=== PATIENT | male | born 1955 | race Caucasian/White ===

== ENCOUNTER 2016-11-19 13:22 | Emergency (ER) | payer BC ==
--- NOTE | 2016-11-19 13:53 | ER Document Report ---
ED Medical Screen (RME) - General Stated Complaint: KNEE PAIN Time seen by provider: 13:49 Mode of Arrival: Wheelchair Information source: Patient Notes: 61-year-old male complaining of bilateral knee pain and right ankle pain for a week or 2. He saw his PCP Dr. King on who if him a Toradol shot, pain medicine and put him out to work until today. He is complaining of right foot swelling. No redness in the joints. He has had bilateral knee arthroscopic surgery years ago for arthritis. He thinks his knees are "wore out ". TRAVEL OUTSIDE OF THE [place] IN LAST 30 DAYS: No - Related Data Allergies/Adverse Reactions: meperidine HCl [From Demerol] Allergy (Verified 12/26/13 13:48) Past Medical History - Past Medical History Cardiac Medical History: Reports: Hx Hypertension Musculoskeltal Medical History: Reports Hx Arthritis Psychiatric Medical History: Denies: Hx Depression Past Surgical History: Reports: Hx Orthopedic Surgery - bilat knee, Hx Vascular Surgery - L inguinal hernia - Immunizations Hx Diphtheria, Pertussis, Tetanus Vaccination: No Physical Exam - Vital signs Vitals: Temp Pulse Resp BP Pulse Ox 97.9 F 86 20 124/57 L 96 11/19/16 13:37 11/19/16 13:37 11/19/16 13:37 11/19/16 13:37 11/19/16 13:37 Course - Vital Signs Vital signs: Temp Pulse Resp BP Pulse Ox 97.9 F 86 20 124/57 L 96 11/19/16 13:37 11/19/16 13:37 11/19/16 13:37 11/19/16 13:37 11/19/16 13:37
--- NOTE | 2016-11-19 14:52 | ER Document Report ---
ED Extremity Problem, Lower - General Mode of Arrival: Wheelchair Information source: Patient TRAVEL OUTSIDE OF THE [place] IN LAST 30 DAYS: No - HPI Patient complains to provider of: Pain, Swelling Location: Ankle - right, Foot - right, Knee - bilateral Occurred: Other - past few weeks Associated symptoms: Other - see above <JENNI FRY - Last Filed: 11/19/16 15:36> <JUDE BOYD - Last Filed: 11/19/16 16:58> - General Chief Complaint: Knee Pain Stated Complaint: KNEE PAIN Notes: 61 year old male with history of chronic bilateral arthritic knee pain presents to the ED complaining of bilateral knee pain, right ankle pain, and right foot/ ankle swelling that has been present for the past few weeks. Patient states that his left foot is usually swollen, and this is the first time his right foot is swollen. Patient denies injuring himself. Patient saw Dr. Duke, his primary care provider, 2 days ago and was given Percocet and a shot of Toradol. Patient's explains that Dr. Duke had referred the patient to an ortho group in [facility] and was given a brace for his knees. On 06/12/2014 patient was in the ED for cellulitis to the left foot, but the patient denies his current symptoms being similar to when he had that cellulitis. Patient is additionally complaining of right calf pain for the past few weeks. Patient states that he has been taking Percocet for the past few months secondary to the pain. Patient is also on Lasix, Lisinopril, and Naproxen. (JENNI FRY) - Related Data Allergies/Adverse Reactions: meperidine HCl [From Demerol] Allergy (Verified 12/26/13 13:48) Past Medical History - General Information source: Patient - Social History Smoking Status: Former Smoker Family History: Reviewed & Not Pertinent - Past Medical History Cardiac Medical History: Reports: Hx Hypertension Renal/ Medical History: Denies: Hx Peritoneal Dialysis Musculoskeltal Medical History: Reports Hx Arthritis Past Surgical History: Reports: Hx Vascular Surgery - L inguinal hernia - Immunizations Hx Diphtheria, Pertussis, Tetanus Vaccination: No <JENNI FRY - Last Filed: 11/19/16 15:36> Review of Systems - Review of Systems Constitutional: No symptoms reported EENT: No symptoms reported Cardiovascular: No symptoms reported Respiratory: No symptoms reported Gastrointestinal: No symptoms reported Genitourinary: No symptoms reported Male Genitourinary: No symptoms reported Musculoskeletal: See HPI, Joint pain - bilateral knees and right ankle, Ankle swelling, Other - right foot swelling and right calf pain Skin: No symptoms reported Hematologic/Lymphatic: No symptoms reported Neurological/Psychological: No symptoms reported -: Yes All other systems reviewed and negative <JENNI FRY - Last Filed: 11/19/16 15:36> Physical Exam - General General appearance: Alert In distress: None - HEENT Head: Normocephalic, Atraumatic Eyes: Normal Extraocular movements intact: Yes Pupils: PERRL - Respiratory Respiratory status: No respiratory distress Breath sounds: Normal - Cardiovascular Rhythm: Regular Heart sounds: Normal auscultation - Abdominal Inspection: Morbidly Obese. No: Normal Distension: No distension Bowel sounds: Normal Tenderness: Nontender - Back Back: Normal - Extremities General upper extremity: Normal inspection, Normal ROM General lower extremity: Edema - right lower extremity pitting edema, tense, indurated, and erythematous, Other - Area from right calf to right foot is warm to touch.. No: Normal inspection - see ankle, calf, and foot exam below Knee: Normal, Nontender. No: Joint effusion Calf: Other - Right calf firm and tender to palpate. No: Normal Ankle: Edema - right ankle is eryhthematous, swollen, and tender to palpate.. No: Normal Foot: Edema - right foot is eryhthematous, swollen, and tender to palpate.. No : Normal - Neurological Neuro grossly intact: Yes - Psychological Associated symptoms: Normal affect, Normal mood - Skin Skin Temperature: Warm Skin Moisture: Dry Skin Color: Normal <JENNI FRY - Last Filed: 11/19/16 15:36> <JUDE BOYD - Last Filed: 11/19/16 16:58> - Vital signs Vitals: Temp Pulse Resp BP Pulse Ox 97.9 F 86 20 124/57 L 96 11/19/16 13:37 11/19/16 13:37 11/19/16 13:37 11/19/16 13:37 11/19/16 13:37 (JENNI FRY) (JUDE BOYD) Course - Laboratory Result Diagrams: 11/19/16 15:22 11/19/16 15:22 <JENNI FRY - Last Filed: 11/19/16 15:36> - Laboratory Result Diagrams: 11/19/16 15:22 11/19/16 15:22 - Diagnostic Test Radiology reviewed: Image reviewed, Reports reviewed - Bilateral knee x-rays show osteoarthritic changes and nothing acute. The right ankle x-ray shows soft tissue swelling with some degenerative changes. <JUDE BOYD - Last Filed: 11/19/16 16:58> - Re-evaluation Re-evalutation: 11/19/16 16:12 The patient's uric acid is 10.3, it is never been checked here before an unknown if it is ever been checked. His BUN is 38, creatinine 1.48, and potassium is 6.0 His last lab work here was during an admission in 2013 when he had renal insufficiency diagnoses acute injury and elevated potassium but not quite this high. At that time his lisinopril was stopped when he was discharged. He is currently taking lisinopril 20 mg twice a day and Naprosyn twice a day along with Lasix. The venous Doppler did not show DVT. On further questioning the patient reports that he eats bananas one to 2 times per week and eats oranges because he has leg cramps. (JUDE BOYD) - Vital Signs Vital signs: Temp Pulse Resp BP Pulse Ox 97.9 F 86 20 124/57 L 96 11/19/16 13:43 11/19/16 13:43 11/19/16 13:43 11/19/16 13:43 11/19/16 13:43 (JENNI FRY) (JUDE BOYD) - Laboratory Laboratory results interpreted by mo: 11/19/16 11/19/16 15:22 15:22 RBC 4.19 L Hgb 12.0 L Hct 36.9 L RDW 15.1 H Band Neutrophils % 1 L Potassium 6.0 H* BUN 38 H Creatinine 1.48 H Est GFR ( Amer) 58 L Est GFR (Non-Af Amer) 48 L Uric Acid 10.3 H Calcium 8.3 L Albumin 3.1 L (JUDE BOYD) Discharge <JENNI FRY - Last Filed: 11/19/16 15:36> <JUDE BOYD - Last Filed: 11/19/16 16:58> - Discharge Clinical Impression: Chronic renal insufficiency, stage III (moderate) Gout Qualifiers: Gout site: ankle Gout etiology: unspecified cause Laterality: right Chronicity : acute Qualified Code(s): M10.9 - Gout, unspecified Condition: Stable Disposition: HOME, SELF-CARE Additional Instructions: Gout: You have been diagnosed as having gout. Gout is a problem caused by an excess of uric acid, a natural chemical found in the body. The cause of this disease is unknown. Gout arthritis occurs when crystals of uric acid form in the joints. The big toe is the most common joint involved, but any joint can become affected. Persons with gout may also form uric acid kidney stones, resulting in flank pain and blood in the urine. Nodules of uric acid may form under the skin. The first step of treatment is to decrease the inflammation in the joint with antiinflammatory medication. Medication to lower the uric acid level in the blood may then be prescribed. This medication should be taken regularly, as any sudden change in dosage may provoke an attack of gout. Some foods, such as red meat, can provoke an attack in some gout sufferers. Call the doctor if new symptoms arise, or if you do not improve. Hyperkalemia: Your potassium level was quite high at 6.0 You were given medication to help reduce the potassium in your blood stream. You should stop eating bananas, oranges, and any other fruits, foods, and liquids that are high in potassium. Dehydration: You have become somewhat dehydrated, probably due to the Lasix you're taking. This has made your kidney function worse and caused her potassium to go quite high. In addition to eliminating potassium in your diet, you should drink plenty of water today. Trying to limit your sodium intake, as that will also lead to swelling of your legs. Peripheral edema: Elevate your feet all the time for the next few days to help reduce the swelling. TAKE THE PREDNISONE PRESCRIBED. START TOMORROW MORNING(Monday). ELEVATE YOUR FEET ALL THE TIME. STOP TAKING NAPROSYN. STOP TAKING LISINOPRIL UNTIL YOU TALK WITH YOUR DOCTOR MONDAY. AVOID POTASSIUM IN YOUR DIET. DRINK PLENTY OF WATER TODAY. FOLLOW UP WITH DR. DUKE ON MONDAY TO REVIEW YOUR LAB WORK AND MEDICATIONS. RETURN TO THE EMERGENCY ROOM IF ANY NEW OR WORSENING SYMPTOMS. Prescriptions: Prednisone [Deltasone 10 mg Tablet] 10 mg PO ASDIR PRN #21 tablet PRN Reason: Forms: Return to Work Referrals: ALFREDITO DUKE MD [Primary Care Provider] - 11/21/16 Scribe Attestation: 11/19/16 16:58 I personally performed the services described in the documentation, reviewed and edited the documentation which was dictated to the scribe in my presence, and it accurately records my words and actions. (JUDE BOYD) Scribe Documentation - Scribe Written by Scribe:: Pawan Valdez, 11/19/2016 1524 acting as scribe for :: Cindy <JENNI FRY - Last Filed: 11/19/16 15:36>
[2016-11-19 15:33] LABS: HEMATOCRIT 36.9 % (37.9-51.0); HGB HCT DIFFERENCE -0.9; MEAN CORPUSCULAR HEMOGLOBIN 28.6 pg (27.0-33.4); MEAN CORPUSCULAR HGB CONC 32.5 g/dL (32.0-36.0); MEAN CORPUSCULAR VOLUME 88 fl (80-97); RED BLOOD COUNT 4.19 10^6/uL (4.35-5.55); RED CELL DISTRIBUTION WIDTH 15.1 % (11.5-14.0); WHITE BLOOD COUNT 6.5 10^3/uL (4.0-10.5)
[2016-11-19 15:49] LABS: BAND NEUTROPHILS % (MANUAL) 1 % (3-5); BASOPHILS % (MANUAL) 0 % (0-2); EOSINOPHILS % (MANUAL) 3 % (0-6); LYMPHOCYTES % (MANUAL) 15 % (13-45); TOTAL CELLS COUNTED 100
[2016-11-19 15:51] LABS: PLATELET CLUMPS PRESENT; RBC MORPHOLOGY COMMENT NORMO-CYTIC/CHROMIC
[2016-11-19 15:53] LABS: ALANINE AMINOTRANSFERASE 25 U/L (21-72); ALBUMIN 3.1 g/dL (3.5-5.0); ALKALINE PHOSPHATASE 65 U/L (38-126); ANION GAP 12 (5-19); ASPARTATE AMINO TRANSFERASE 25 U/L (17-59); BILIRUBIN,TOTAL 0.4 mg/dL (0.2-1.3); BLOOD UREA NITROGEN 38 mg/dL (7-20); CALCIUM 8.3 mg/dL (8.4-10.2); CARBON DIOXIDE 25 mmol/L (22-30); CHLORIDE 107 mmol/L (98-107); CREATININE RESULT 1.48 mg/dL (0.52-1.25); GLUCOSE 93 mg/dL (75-110); SODIUM 144.2 mmol/L (137-145); TOTAL PROTEIN 6.4 g/dL (6.3-8.2); URIC ACID 10.3 mg/dL (3.5-8.5)
[2016-11-19] MEDS ORDERED: PREDNISONE 20 MG TABLET PO ONE (16:24)
[2016-11-19] MEDS ORDERED: SODIUM POLYSTYRENE SULFONATE 15 GM/60 ML PO ONE (16:27)
[2016-11-19 17:19] VITALS: BP 146/71
== END 2016-11-19 17:19 | disposition home or self-care (01) ==
LOC: ER 13:22
DX: N18.3 Chronic kidney disease, stage 3 (moderate) (principal); M10.9 Gout, unspecified; M25.561 Pain in right knee; M25.562 Pain in left knee; M25.571 Pain in right ankle and joints of right foot; M79.89 Other specified soft tissue disorders; Z79.899 Other long term (current) drug therapy; Z87.891 Personal history of nicotine dependence
CPT/HCPCS: 99284; 36415; 84550; 85025; 80053; 93971; 73610; 73560; J7512

== ENCOUNTER 2016-11-26 18:53 | Emergency (ER) | payer BC ==
--- NOTE | 2016-11-26 19:02 | ER Document Report ---
ED Medical Screen (RME) - General Stated Complaint: RIGHT LEG PAIN Mode of Arrival: Wheelchair Information source: Patient Notes: Patient complains of gout flareup affecting his right knee and ankle. Patient reports symptoms for the past 2 weeks. No improvement with allopurinol or oxycodone. No fever. Patient states he was emergency room last week for this complaint. Hx: Hypertension, gout I have greeted and performed a rapid initial assessment of this patient. A comprehensive ED assessment and evaluation of the patient, analysis of test results and completion of the medical decision making process will be conducted by additional ED providers. TRAVEL OUTSIDE OF THE [place] IN LAST 30 DAYS: No - Related Data Allergies/Adverse Reactions: meperidine HCl [From Demerol] Allergy (Verified 12/26/13 13:48) Past Medical History - Past Medical History Cardiac Medical History: Reports: Hx Hypertension Renal/ Medical History: Denies: Hx Peritoneal Dialysis Musculoskeltal Medical History: Reports Hx Arthritis Psychiatric Medical History: Denies: Hx Depression Past Surgical History: Reports: Hx Orthopedic Surgery - bilat knee, Hx Vascular Surgery - L inguinal hernia - Immunizations Hx Diphtheria, Pertussis, Tetanus Vaccination: No Physical Exam - Extremities General lower extremity: Tender - Right knee
[2016-11-26] MEDS ORDERED: PREDNISONE 20 MG TABLET PO ONE (21:20)
[2016-11-26] MEDS ORDERED: OXYCODONE-ACETAMINOPHEN 5-325 MG TABLET PO ONE (21:20)
--- NOTE | 2016-11-26 21:44 | ER Document Report ---
ED General - General Chief Complaint: Leg Pain Stated Complaint: RIGHT LEG PAIN Mode of Arrival: Wheelchair Notes: Patient is a 61-year-old male who presents with ongoing right ankle and knee pain for which he was seen 7 days ago. Patient states that the pain was improved when he was on prednisone but returned after the prednisone wore off. Describes the pain as being primarily located in the right ankle as a severe, constant, dull throbbing pain. It is worsened by walking on it. He has taken Percocet with moderate improvement of the pain. No history of similar symptoms in the past. He has not seen his primary care physician regarding today's concerns. Denies any injury to the area. TRAVEL OUTSIDE OF THE [place] IN LAST 30 DAYS: No - Related Data Allergies/Adverse Reactions: meperidine HCl [From Demerol] Allergy (Verified 11/26/16 19:00) triazolam [From Halcion] Allergy (Verified 11/26/16 19:00) Past Medical History - General Information source: Patient - Social History Smoking Status: Never Smoker Chew tobacco use (# tins/day): No Frequency of alcohol use: None Drug Abuse: None Lives with: Spouse/Significant other Family History: Reviewed & Not Pertinent Patient has suicidal ideation: No Patient has homicidal ideation: No - Past Medical History Cardiac Medical History: Reports: Hx Hypertension Renal/ Medical History: Denies: Hx Peritoneal Dialysis Musculoskeltal Medical History: Reports Hx Arthritis Psychiatric Medical History: Denies: Hx Depression Past Surgical History: Reports: Hx Orthopedic Surgery - bilat knee, Hx Vascular Surgery - L inguinal hernia - Immunizations Hx Diphtheria, Pertussis, Tetanus Vaccination: No Review of Systems - Review of Systems Notes: Constitutional: Negative for fever. HENT: Negative for sore throat. Eyes: Negative for visual changes. Cardiovascular: Negative for chest pain. Respiratory: Negative for shortness of breath. Gastrointestinal: Negative for abdominal pain, vomiting or diarrhea. Genitourinary: Negative for dysuria. Musculoskeletal: Negative for back pain. Positive for right ankle and knee pain Skin: Negative for rash. Neurological: Negative for headaches, weakness or numbness. 10 point ROS negative except as marked above and in HPI. Physical Exam - Vital signs Vitals: Temp Pulse Resp BP Pulse Ox 97.8 F 82 19 139/60 H 97 11/26/16 19:01 11/26/16 19:01 11/26/16 19:01 11/26/16 19:01 11/26/16 19:01 Interpretation: Normal Notes: PHYSICAL EXAMINATION: GENERAL: Well-appearing, well-nourished and in no acute distress. HEAD: Atraumatic, normocephalic. EYES: Pupils equal round and reactive to light, extraocular movements intact, sclera anicteric, conjunctiva are normal. ENT: nares patent, oropharynx clear without exudates. Moist mucous membranes. NECK: Normal range of motion, supple without lymphadenopathy LUNGS: Breath sounds clear to auscultation bilaterally and equal. No wheezes rales or rhonchi. HEART: Regular rate and rhythm without murmurs ABDOMEN: Soft, nontender, normoactive bowel sounds. No guarding, no rebound. No masses appreciated. EXTREMITIES: Mild swelling to the right ankle without deformity. Minimal overlying erythema. Pain on palpation of the ankle joint space NEUROLOGICAL: No focal neurological deficits. Moves all extremities spontaneously and on command. PSYCH: Normal mood, normal affect. SKIN: Warm, Dry, normal turgor, no rashes or lesions noted. Course - Re-evaluation Re-evalutation: 11/27/16 02:53 Presentation is most consistent with an ongoing acute gout flare of the right ankle. Patient had a venous Doppler study performed on this prior presentation which was normal without evidence of DVT or superficial thrombosis. Physical history is not consistent with an acute septic joint as patient has not had any constitutional symptoms has no leukocytosis on laboratories, and states that the symptoms were resolved as long as he was taking steroids. I suspect that his symptoms are primarily due to his chronic kidney disease as a source of his gout flare. I will restart him on steroids at this time and I recommended close outpatient follow-up.At this time will discharge with return precautions and follow-up recommendations. Verbal discharge instructions given a the bedside and opportunity for questions given. Medication warnings reviewed. Patient is in agreement with this plan and has verbalized understanding of return precautions and the need for primary care follow-up in the next 24-72 hours. - Vital Signs Vital signs: Temp Pulse Resp BP Pulse Ox 98.7 F 72 18 147/51 H 97 11/26/16 21:44 11/26/16 21:44 11/26/16 21:44 11/26/16 21:44 11/26/16 21:44 Discharge - Discharge Clinical Impression: Gout of right ankle Qualifiers: Gout etiology: due to renal impairment Chronicity: acute Qualified Code(s): M10.371 - Gout due to renal impairment, right ankle and foot Condition: Good Disposition: HOME, SELF-CARE Additional Instructions: Your symptoms are due to gout. These can take several weeks to resolve. Take the steroids as prescribed and continue to take the pain medication prescribed by your primary care doctor (Percocet) every 4 hours as needed for severe pain. Return for worsening pain, fever, vomiting, body aches, or any other symptoms that are worrisome to you. Prescriptions: Prednisone [Deltasone 20 mg Tablet] 3 tab PO DAILY 5 Days Forms: Return to Work Referrals: ALFREDITO DUKE MD [Primary Care Provider] - Follow up as needed
[2016-11-26 21:45] VITALS: BP 147/51
== END 2016-11-26 22:10 | disposition home or self-care (01) ==
LOC: ER 18:53
DX: M10.371 Gout due to renal impairment, right ankle and foot (principal); M79.604 Pain in right leg; I10 Essential (primary) hypertension
CPT/HCPCS: 99283; J7512

== ENCOUNTER → 2017-02-10 | Outpatient (CLI) | payer BC ==
[2017-02-10 12:44] LABS: HEMATOCRIT 36.9 % (37.9-51.0); HEMOGLOBIN 11.6 g/dL (13.5-17.0); HGB HCT DIFFERENCE -2.1; MEAN CORPUSCULAR HEMOGLOBIN 27.7 pg (27.0-33.4); MEAN CORPUSCULAR HGB CONC 31.4 g/dL (32.0-36.0); MEAN CORPUSCULAR VOLUME 88 fl (80-97); RED BLOOD COUNT 4.19 10^6/uL (4.35-5.55); RED CELL DISTRIBUTION WIDTH 16.8 % (11.5-14.0); WHITE BLOOD COUNT 6.3 10^3/uL (4.0-10.5)
[2017-02-10 13:06] LABS: ALANINE AMINOTRANSFERASE 26 U/L (21-72); ALBUMIN 3.3 g/dL (3.5-5.0); ALKALINE PHOSPHATASE 72 U/L (38-126); ANION GAP 8 (5-19); ASPARTATE AMINO TRANSFERASE 15 U/L (17-59); BLOOD UREA NITROGEN 45 mg/dL (7-20); C-REACTIVE PROTEIN 42.2 mg/L (<10.0); CALCIUM 9.1 mg/dL (8.4-10.2); CARBON DIOXIDE 34 mmol/L (22-30); CHLORIDE 104 mmol/L (98-107); CREATININE RESULT 1.82 mg/dL (0.52-1.25); GLUCOSE 96 mg/dL (75-110); POTASSIUM 5.5 mmol/L (3.6-5.0); SODIUM 145.8 mmol/L (137-145); TOTAL PROTEIN 6.2 g/dL (6.3-8.2)
[2017-02-10 13:17] LABS: BILIRUBIN,TOTAL 0.5 mg/dL (0.2-1.3)
[2017-02-10 13:40] LABS: ERYTHROCYTE SEDIMENTATION RATE 48 mm/hr (0-20)
== END ==
LOC: OD 11:44
PROVIDERS: ATTEND Surgery
DX: L97.212 Non-pressure chronic ulcer of right calf with fat layer exposed (principal)
CPT/HCPCS: 36415; 80053; 83036; 85027; 85652; 86140

== ENCOUNTER → 2017-02-28 | Outpatient (CLI) | payer BC ==
--- NOTE | 2017-03-02 11:09 | XCELERA REPORT ---
[address] [address] Lower Extremity Arterial Evaluation Name: ZEINA KRUGER Age: 61 yrs Gender: Male : 1955 Patient Status: Outpatient Patient Location: Study Date: 02/28/2017 08:02 AM Procedure: A color flow and duplex scan of the lower extremity arteries was performed bilaterally with velocity and waveform anaylsis. Ankle brachial indicies performed. Reason For Study: L97.212/222 Ordering Physician: EVERT KAHN Performed By: Leonardo Sellers Measurements and Calculations Right Left ENVIRONMENTAL INSPECTOR PSV 178.4 188.6 cm/sec Prox SFA PSV 162.4 151.6 cm/sec Dist SFA PSV -191.5 -198.4 cm/sec Dist Pop A PSV 136.2 60.3 cm/sec Dist VIDAL PSV 142.2 148.5 cm/sec Dist SANDING MACHINE OPERATOR PSV 105.9 -117.5 cm/sec Edgar Pedis PSV -107.0 174.6 cm/sec Right Side Arterial Evaluation Normal velocity and triphasic waveforms noted from the Common Femoral artery to the infrageniculate vessels. 0 % stenosis noted. Ankle Brachial index is 1.14. Left Side Arterial Evaluation Normal velocity and triphasic waveforms noted in the Common Femoral artery, then biphasic with little broadening, well preserved velocity to the infrageniculate vessels. 0-19 % stenosis noted. At the Femoral artery. Ankle Brachial index is 1.14. Interpretation Summary No hemodynamically significant lesions in the right lower extremity only, on duplex imaging, at rest. Mild hemodynamically significant lesions in the left lower extremity only, on duplex imaging, at rest. : EVERT KAHN > Evert Kahn
--- NOTE | 2017-03-02 12:09 | XCELERA REPORT ---
[address] [address] Lower Extremity Venous Evaluation Name: ZEINA KRUGER Age: 61 yrs Gender: Male : 1955 Patient Status: Outpatient Patient Location: Study Date: 02/28/2017 08:27 AM Procedure: A bilateral duplex scan of the lower extremity veins was performed. The evaluation included responses to compression and other maneuvers with patient in the supine and standing positions to assess venous insufficiency. Reason For Study: L97.212/222 Ordering Physician: PUJA KAHN Performed By: Leonardo Sellers Right Sided Venous Evaluation Deep venous system evaluatiion shows patent veins with no obstruction or significant reflux identified. Sapheno Femoral junction: no reflux. Femoral vein reflux: no reflux. Greater Saphenous vein, Proximal thigh: reflux: no reflux. Greater Saphenous vein, Distal thigh: reflux: no reflux. Greater Saphenous vein, Proximal below knee: reflux: no reflux. No significant Perforators identified. Left Sided Venous Evaluation Deep venous system evaluatiion shows patent veins with no obstruction or significant reflux identified. Sapheno Femoral junction: no reflux. Femoral vein reflux: no reflux. Greater Saphenous vein, Proximal thigh: reflux: no reflux. Greater Saphenous vein, Distal thigh: reflux: no reflux. Greater Saphenous vein, Proximal below knee: reflux: no reflux. No significant Perforators identified. Interpretation Summary No duplex evidence of DVT or obstruction in the bilateral lower extremities. No significant reflux identified. : PUJA KAHN > Puja Kahn
== END ==
LOC: SP 07:27
PROVIDERS: ATTEND Surgery
DX: L97.212 Non-pressure chronic ulcer of right calf with fat layer exposed (principal); L97.222 Non-pressure chronic ulcer of left calf with fat layer exposed
CPT/HCPCS: 93925; 93970

== ENCOUNTER 2017-03-12 23:08 | Emergency (ER) | payer BC ==
[2017-03-12] MEDS ORDERED: MIDAZOLAM 2 MG/2 ML INJ ONE ×3 (23:36→23:43)
--- NOTE | 2017-03-12 23:37 | ER Document Report ---
ED Respiratory Problem - General Mode of Arrival: Medic Information source: Emergency Med Personnel TRAVEL OUTSIDE OF THE [place] IN LAST 30 DAYS: No - HPI Patient complains to provider of: Other - Respiratory distress Associated symptoms: Other - See above <JOSE R POTTS - Last Filed: 03/13/17 04:10> <TORRIE REDDY - Last Filed: 03/13/17 06:42> - General Chief Complaint: Respiratory Distress Stated Complaint: Respiratory distress Time Seen by Provider: 03/12/17 23:10 Notes: Patient is a 61 year old male, with a past medical history including stage III kidney disease, who presents to the emergency department via EMS for respiratory distress. Per EMS, patient called for dizziness initially and when they arrived he reported that he could only breath if he was sitting forward. EMS recorded patient's O2 saturation at 42% on room air when they arrived. Patient was able to get on the stretcher by himself and was alert at first, en route patient became altered and arrived to facility unconscious. Family report that patient has had cellulitis for the past 2 months and just finished a course of antibiotics. Per family, patient has been less active recently but still works 5 day a week at [employer] Family deny patient mentioning chest pain and fever. Patient is taking Percocet for his cellulitis. PCP: Dr. King Mix Crusher Operator: Dr. Britton (JOSE R POTTS) - Related Data Allergies/Adverse Reactions: meperidine HCl [From Demerol] Allergy (Verified 11/26/16 19:00) triazolam [From Halcion] Allergy (Verified 11/26/16 19:00) Past Medical History - General Information source: Emergency Med Personnel - Social History Smoking Status: Former Smoker - 10 years Chew tobacco use (# tins/day): No Frequency of alcohol use: Occasional Drug Abuse: None Family History: Reviewed & Not Pertinent, DM, Other - Heart attack - Past Medical History Cardiac Medical History: Reports: Hx Hypertension Renal/ Medical History: Reports: Other - Kidney disease Musculoskeltal Medical History: Reports Hx Arthritis Skin Medical History: Reports Hx Cellulitis Past Surgical History: Reports: Hx Orthopedic Surgery - bilat knee, Hx Vascular Surgery - L inguinal hernia - Immunizations Hx Diphtheria, Pertussis, Tetanus Vaccination: No <JOSE R POTTS - Last Filed: 03/13/17 04:10> Review of Systems - Review of Systems -: Yes ROS unobtainable due to patient's medical condition - unconscious <JOSE R POTTS - Last Filed: 03/13/17 04:10> Physical Exam <JOSE R POTTS - Last Filed: 03/13/17 04:10> <TORRIE REDDY - Last Filed: 03/13/17 06:42> - Vital signs Vitals: Resp Pulse Ox 20 100 03/12/17 23:10 03/12/17 23:10 - Notes Notes: GENERAL: Respiratory distress. Morbidly obese. HEAD: Normocephalic, atraumatic. ENT: Oral mucosa moist, tongue midline. NECK: Full range of motion. Supple. Trachea midline. LUNGS: Breath sounds diminished, no wheezes, rales, or rhonchi heard. HEART: Regular rate and rhythm. No murmurs, gallops, or rubs. ABDOMEN: Soft, non-tender. Bowel sounds present in all 4 quadrants. GENITOURINARY: Scrotum and penis grossly edematous, no erythema. EXTREMITIES: Lower extremities with weeping cellulitis and 4+ pitting edema to level of groin bilaterally. Toenails hypertrophic. Radial and dorsalis pedis pulses 2/4 bilaterally. NEUROLOGICAL: Unable to answer questions, responds to painful stimuli. (JOSE R POTTS) Course - Laboratory Result Diagrams: 03/13/17 00:20 03/13/17 02:22 - Consults Dr. Bland Time consulted: 02:50 [place] Time consulted: 03:06 <JOSE R POTTS - Last Filed: 03/13/17 04:10> - Laboratory Result Diagrams: 03/13/17 00:20 03/13/17 02:22 <TORRIE REDDY - Last Filed: 03/13/17 06:42> - Re-evaluation Re-evalutation: 03/13/17 06:38 Patient arrived unresponsive and in severe respiratory distress unable to protect his airway and becoming progressively more hypoxic at high risk for aspiration. Patient was intubated sitting upright after being preoxygenated using high flow oxygen via nasal cannula using initially an attempt with a 4 MAC and then using the glide scope, 8 oh ET tube was passed without difficulty chest x-ray confirmed good position, NG tube was shown to be around the GE junction so was then advanced further. Patient was placed on a Versed drip. And a bolus of etomidate until the Versed kicked in. CBC shows minimal anemia with a hemoglobin 12.0 but no leukocytosis, platelets normal, CMP shows hyperkalemia at 6.9, this was treated with calcium, bicarb, insulin and glucose. It was repeated to confirm that this is not simply hemolysis but the potassium was 6.7 on the repeat so this appears to be true hyperkalemia despite no changes on the EKG. Chemistries also show acute on chronic renal failure with a BUN of 58 and creatinine of 2.66, lactic acid is normal at 1.4, cardiac enzymes initially negative, proBNP elevated at 1800 despite no history of congestive heart failure, Lasix was given to help with both the potassium and the congestive heart failure. Arterial blood gas shows respiratory acidosis with a CO2 of 88.5 and a pH of 7.17. I did discuss this patient with the hospitalist Dr. Bland who refused to accept the admission until I had discussed the patient with nephrology from [facility] to make sure they agreed that he did not need dialysis. After discussing the patient with Dr. Romeo she was at [facility] the construction and maintenance inspector projection engineer she advised that we give [address]. Bland then called and informed me that he no longer had any ICU beds left available at our hospital so the patient would have to be transferred after all. I then called [facility] once again and the patient was accepted by the MICU attending Dr. Conti. No further interventions were requested. We did have difficulty getting a Montoya catheter placed in this patient, nursing was unable to place a Montoya catheter so I did eventually place a 14 Zimbabwean coud catheter and we obtained clear yellow urine. The degree of edema that he had around his penis and scrotum may be contributing to the acute renal failure by causing urinary retention. This has been relieved by the coud catheter. Patient continues to be intubated, oxygenating well as long as he is in the upright position, stable for transport at this time. (TORRIE REDDY) - Vital Signs Vital signs: Temp Pulse Resp BP Pulse Ox 97.8 F 20 130/74 H 99 03/13/17 06:19 03/13/17 03:26 03/13/17 03:26 03/13/17 04:07 - Laboratory Laboratory results interpreted by me: 03/13/17 03/13/17 03/13/17 00:20 00:20 00:20 Hgb 12.1 L MCHC 30.1 L RDW 17.2 H Seg Neutrophils % 83.9 H Lymphocytes % 7.8 L Carbonic Acid ABG pH ABG pCO2 ABG HCO3 ABG Total CO2 ABG O2 Saturation Sodium 146.9 H Potassium 6.9 H* Chloride BUN 58 H Creatinine 2.66 H Est GFR ( Amer) 30 L Est GFR (Non-Af Amer) 25 L Glucose 131 H Direct Bilirubin 0.6 H Creatine Kinase 52 L NT-Pro-B Natriuret Pep 1800 H 03/13/17 03/13/17 01:16 02:22 Hgb MCHC RDW Seg Neutrophils % Lymphocytes % Carbonic Acid 2.66 H ABG pH 7.17 L* ABG pCO2 88.5 H* ABG HCO3 31.6 H ABG Total CO2 34.3 H ABG O2 Saturation 92.6 L Sodium 145.1 H Potassium 6.7 H* Chloride 108 H BUN 61 H Creatinine 2.34 H Est GFR ( Amer) 34 L Est GFR (Non-Af Amer) 28 L Glucose 228 H Direct Bilirubin Creatine Kinase NT-Pro-B Natriuret Pep - EKG Interpretation by Me Additional EKG results interpreted by me: 03/13/17 06:42 EKG shows sinus rhythm at a rate of 68, normal axis, normal intervals, no ST segment elevations or depressions, nonspecific T-wave inversions isolated to lead III per my interpretation. (TORRIE REDDY) - Consults Dr. Bland Reason for consultation: 03/13/[address] Bland requests I call [facility] regarding patient's hyperkalemia before discussing admission of patient. (JOSE R POTTS) [facility] Reason for consultation: 03/13/17 03:06 Discussed patient with [facility] who states they will page the construction and maintenance inspector 03/13/17 03:36 Discussed patient's condition with nephrology, Dr. Agueda Lopez, at [facility] who believe it is appropriate to medically manage patient's hyperkalemia 03/13/17 04:10 Dr. Conti will accept patient transfer to MICU. (JOSE R POTTS) Procedures - Intubation Orotracheal Airway evaluation: Large tongue, Obese Mallampati Classification: Class 3 Medications: Ketamine Intubation method: Orotracheal Blade type: Greg Blade size: 4 Equipment used: Glidescope ETT size: 8.0 ETT secured at: Teeth ETT secured at (cm): 22 Breath Sounds after Intubation: Equal End tidal CO2 confirmed: Yes Ventilator settings: SIMV Tidal volume: 450 FiO2: 30 Respirations: 16 Pressure support: 10 PEEP: 5 Post Intubation Xray: Yes Intubation Complications: No complications - Additional Procedures montoya Catheter Additional Procedures: Other - Montoya catheter <TORRIE REDDY - Last Filed: 03/13/17 06:42> - Additional Procedures montoya Catheter Notes: 03/13/17 06:40 Coud catheter placement by myself, 14 Zimbabwean. There is difficulty in placing a regular catheter due to the degree of edema of the patient's penis and scrotum. Coud was passed without complication and clear yellow urine was obtained. (TORRIE REDDY) Critical Care Note - Critical Care Note Total time excluding time spent on procedures (mins): 90 <TORRIE REDDY - Last Filed: 03/13/17 06:42> Discharge <JOSE R POTTS - Last Filed: 03/13/17 04:10> <TORRIE REDDY - Last Filed: 03/13/17 06:42> - Discharge Clinical Impression: Morbid obesity with BMI of 45.0-49.9, adult, Acute respiratory failure with hypoxia and hypercapnia, Acute kidney injury superimposed on chronic kidney disease, Hyperkalemia, Acute respiratory acidosis, Chronic cellulitis Congestive heart failure Qualifiers: Congestive heart failure type: unspecified congestive heart failure type Congestive heart failure chronicity: acute Qualified Code(s): I50.9 - Heart failure, unspecified Condition: Critical Disposition: [facility] Scribe Attestation: 03/13/17 06:42 I personally performed the services described in the documentation, reviewed and edited the documentation which was dictated to the scribe in my presence, and it accurately records my words and actions. (TORRIE REDDY) Scribe Documentation - Scribe Written by Elye:: houston Jack, 03/13/17, 0027 acting as scribe for :: Miller <JOSE R POTTS - Last Filed: 03/13/17 04:10>
[2017-03-12] MEDS ORDERED: MIDAZOLAM HCL 100 ML IV PRN (23:40)
[2017-03-12] MEDS ORDERED: ETOMIDATE INJ/PF 20 MG/10 ML SDV IV ONE (23:40)
[2017-03-12] MEDS ORDERED: KETAMINE HCL INJ 500 MG/10 ML VIAL IV ONE (23:40)
--- NOTE | 2017-03-12 23:51 | EKG REPORT ---
SEVERITY:- BORDERLINE ECG - SINUS RHYTHM BORDERLINE R WAVE PROGRESSION, ANTERIOR LEADS BORDERLINE T ABNORMALITIES, INFERIOR LEADS : Confirmed by: Rl Franklin 12-Mar-2017 23:51:08
--- NOTE | 2017-03-13 00:08 | RADIOLOGY REPORT (SQ) ---
EXAM DESCRIPTION: CHEST SINGLE VIEW COMPLETED DATE/TIME: 03/12/2017 11:51 pm REASON FOR STUDY: SOB, intubated COMPARISON: None. EXAM PARAMETERS: NUMBER OF VIEWS: One view. TECHNIQUE: Single frontal radiographic view of the chest acquired. RADIATION DOSE: NA LIMITATIONS: None. FINDINGS: LUNGS AND PLEURA: Bibasilar atelectasis-airspace disease -effusions. MEDIASTINUM AND HILAR STRUCTURES: Age-appropriate. HEART AND VASCULAR STRUCTURES: Normal size. BONES: No acute findings. HARDWARE: Endotracheal tube tip overlies the mid trachea approximately 5.5 cm above the level of the loretta. A nasogastric catheter is present with tip overlying the distal esophagus above the GE junct ion and could be advanced approximately 10 cm for more ideal placement. OTHER: No other significant finding. IMPRESSION: Bibasilar atelectasis-airspace disease -effusions. Endotracheal tube tip overlies the mi d trachea approximately 5.5 cm above the level of the loretta. A nasogastric catheter is present with tip overlying the distal esophagus above the GE junction and could be advanced approximately 10 cm f or more ideal placement. TECHNICAL DOCUMENTATION: JOB ID: [id number]
[2017-03-13 00:48] LABS: ABSOLUTE BASOPHILS # (AUTO) 0.1 10^3/uL (0.0-0.2); ABSOLUTE LYMPHOCYTES (AUTO) 0.6 10^3/uL (0.5-4.7); ABSOLUTE MONOCYTES (AUTO) 0.5 10^3/uL (0.1-1.4); ABSOLUTE NEUT (AUTO) 5.9 10^3/uL (1.7-8.2); BASOPHILS % (AUTO) 0.8 % (0-2); EOSINOPHILS % (AUTO) 0.1 % (0-6); HEMATOCRIT 40.2 % (37.9-51.0); HEMOGLOBIN 12.1 g/dL (13.5-17.0); HGB HCT DIFFERENCE -3.9; LYMPHOCYTES % (AUTO) 7.8 % (13-45); MEAN CORPUSCULAR HEMOGLOBIN 27.5 pg (27.0-33.4); MEAN CORPUSCULAR HGB CONC 30.1 g/dL (32.0-36.0); MEAN CORPUSCULAR VOLUME 91 fl (80-97); MONOCYTES % (AUTO) 7.4 % (3-13); RED BLOOD COUNT 4.41 10^6/uL (4.35-5.55); RED CELL DISTRIBUTION WIDTH 17.2 % (11.5-14.0); SEGMENTED NEUTROPHILS % (AUTO) 83.9 % (42-78)
[2017-03-13 00:49] LABS: ALANINE AMINOTRANSFERASE 44 U/L (21-72); ALKALINE PHOSPHATASE 70 U/L (38-126); ANION GAP 11 (5-19); ASPARTATE AMINO TRANSFERASE 27 U/L (17-59); BILIRUBIN,DIRECT 0.6 mg/dL (0.0-0.4); BILIRUBIN,TOTAL 0.6 mg/dL (0.2-1.3); BLOOD UREA NITROGEN 58 mg/dL (7-20); CALCIUM 9.2 mg/dL (8.4-10.2); CARBON DIOXIDE 29 mmol/L (22-30); CHLORIDE 107 mmol/L (98-107); CREATINE KINASE 52 U/L (55-170); CREATININE RESULT 2.66 mg/dL (0.52-1.25); GLUCOSE 131 mg/dL (75-110); SODIUM 146.9 mmol/L (137-145)
[2017-03-13 00:53] LABS: POTASSIUM 6.9 mmol/L (3.6-5.0)
[2017-03-13] MEDS ORDERED: CALCIUM GLUCONATE 1000 MG/10 ML INJ IV ONE (00:56)
[2017-03-13] MEDS ORDERED: SODIUM BICARBONATE 8.4% INJ 50 MEQ/50 ML DISP.SYRIN IV ONE (00:56)
[2017-03-13] MEDS ORDERED: NORMAL SALINE 1000 ML 1,000 ML IV ONE (00:56)
[2017-03-13 01:02] LABS: TROPONIN I 0.025 ng/mL
[2017-03-13 01:04] LABS: CREATINE KINASE MB < 0.22 ng/mL (<4.55)
[2017-03-13 01:30] LABS: ARTERIAL BLOOD BASE EXCESS 0.7 mmol/L; ARTERIAL BLOOD O2 SATURATION 92.6 % (94-98)
[2017-03-13] MEDS ORDERED: FUROSEMIDE INJ/PF 40 MG/4 ML SDV IV ONE (01:45)
[2017-03-13] MEDS ORDERED: INSULIN REG, HUMAN 100 UNIT/ML 3 ML VIAL (PYX) SUBCUT ONE (01:45)
[2017-03-13] MEDS ORDERED: DEXTROSE 50%-WATER 25 GM/50 ML DISP.SYRIN IV ONE (01:45)
[2017-03-13 02:44] LABS: ANION GAP 8 (5-19); BLOOD UREA NITROGEN 61 mg/dL (7-20); CALCIUM 8.5 mg/dL (8.4-10.2); CARBON DIOXIDE 29 mmol/L (22-30); CHLORIDE 108 mmol/L (98-107); CREATININE RESULT 2.34 mg/dL (0.52-1.25); GLUCOSE 228 mg/dL (75-110); SODIUM 145.1 mmol/L (137-145)
[2017-03-13 02:46] LABS: POTASSIUM 6.7 mmol/L (3.6-5.0)
[2017-03-13] MEDS ORDERED: SODIUM POLYSTYRENE SULFONATE 15 GM/60 ML PO ONE (03:39)
[2017-03-13 06:30] LABS: APPEARANCE,URINE CLEAR; BILIRUBIN,URINE NEGATIVE (NEGATIVE); GLUCOSE, URINE 50 mg/dL (NEGATIVE); KETONES,URINE NEGATIVE (NEGATIVE); LEUKOCYTE ESTERASE,URINE NEGATIVE (NEGATIVE); NITRITE,URINE NEGATIVE (NEGATIVE); PROTEIN,URINE 30 mg/dL (NEGATIVE); URINE SPECIFIC GRAVITY 1.021; UROBILINOGEN,URINE NEGATIVE mg/dL (<2.0)
[2017-03-13] MEDS ORDERED: SODIUM POLYSTYRENE SULFONATE 15 GM/60 ML ONE (06:58)
[2017-03-13 10:16] VITALS: BP 114/69
== END 2017-03-13 10:08 | disposition short-term general hospital (02) ==
LOC: ER 23:08
PROC: 0BH17EZ Insertion of Endotracheal Airway into Trachea, Via Natural or Artificial Opening (ICD-10-PCS; principal; 2017-03-12)
DX: J96.02 Acute respiratory failure with hypercapnia (principal); J96.01 Acute respiratory failure with hypoxia; N17.9 Acute kidney failure, unspecified; N18.3 Chronic kidney disease, stage 3 (moderate); E87.5 Hyperkalemia; E87.2 Acidosis; I12.9 Hypertensive chronic kidney disease with stage 1 through stage 4 chronic kidney disease, or unspecified chronic kidney disease; E66.01 Morbid (severe) obesity due to excess calories; Z68.42 Body mass index [BMI] 45.0-49.9, adult; I50.9 Heart failure, unspecified; L03.116 Cellulitis of left lower limb; L03.115 Cellulitis of right lower limb; N50.89 Other specified disorders of the male genital organs; R42 Dizziness and giddiness; Z87.891 Personal history of nicotine dependence
CPT/HCPCS: 31500; 93005; 99291; 99292; 51702; 96375; 96365; 36415; 87040; 87086; 82553; 82803; 82550; 85025; 80048; 80053; 81001; 84484; 83605; 83880; 71010; 93010; J0610; J3490 ×3; J1940; J1815; J2250

== ENCOUNTER 2017-08-08 07:33 | Inpatient (IN) | payer BC ==
[2017-08-08] MEDS ORDERED: ALBUTEROL SULFATE 0.083% NEB 2.5 MG/3 ML AMPUL NEB ONE ×2 (07:47→13:20)
[2017-08-08] MEDS ORDERED: ASPIRIN 81 MG TABLET, CHEWABLE PO ONE (07:47)
[2017-08-08] MEDS ORDERED: FUROSEMIDE INJ/PF 40 MG/4 ML SDV IV ONE (07:47)
[2017-08-08] MEDS ORDERED: METHYLPREDNISOLONE INJ 125 MG/2 ML SDV IV ONE (07:48)
--- NOTE | 2017-08-08 07:48 | ER Document Report ---
ED Respiratory Problem - General Mode of Arrival: Medic Information source: Relative TRAVEL OUTSIDE OF THE [place] IN LAST 30 DAYS: No - HPI Patient complains to provider of: CHF, COPD, Short of breath Onset: This morning Context: Hx CHF, Hx COPD Associated symptoms: Other - see notes above <JENNI FRY - Last Filed: 08/08/17 15:01> <TORRIE REDDY - Last Filed: 08/08/17 15:58> - General Chief Complaint: Shortness Of Breath Stated Complaint: SHORTNESS OF BREATH Time Seen by Provider: 08/08/17 07:33 Notes: 62 year old male with history of intubation secondary to respiratory failure ( March 2017) and a trach (placed April 2017) presents to the ED via EMS in respiratory distress. Patient's family state that the patient was short of breath, so they pulled the trach out as per Dr. Dumont, who placed the original trach. EMS reports that the patient was 54% on room air when they arrived. Patient has been short of breath the last few days and are concerned about fluid accumulation as they have noticed discharge from the trach. Patient was sent to [facility] after being intubated in March 2017. Patient was discharged to [place], [place] for rehabilitation, but the family states that the patient has not been keeping up with the exercises. PCP: Dr. King (JENNI FRY) - Related Data Allergies/Adverse Reactions: meperidine HCl [From Demerol] Allergy (Verified 08/08/17 08:05) triazolam [From Halcion] Allergy (Verified 08/08/17 08:05) Home Medications: Current Home Medications Budesonide [Pulmicort Neb 0.5 mg/2 ml Ampul] 0.5 mg NEB RTQ12 08/08/17 [History] Budesonide/Formoterol Fumarate [Symbicort Hfa 160-4.5 Mcg Inhaler 6 gm] 2 puff IH Q12 08/08/17 [History] Ergocalciferol (Vitamin D2) [Vitamin D2] 50,000 unit PO JOHN@1000 08/08/17 [ History] Furosemide [Lasix 40 mg Tablet] 40 mg PO DAILY 08/08/17 [History] Ipratropium/Albuterol Sulfate [Duoneb 3 ml Ampul] 3 ml NEB RTQ4HP PRN 08/08/17 [ History] Metoclopramide HCl [Reglan 10 mg Tablet] 10 mg PO Q12 08/08/17 [History] Metoprolol Succinate [Toprol Xl 25 mg Tab.sr] 25 mg PO DAILY 08/08/17 [History] Potassium Chloride [Klor-Con M20] 20 meq PO DAILY 08/08/17 [History] Tamsulosin HCl 0.4 mg PO DAILY 08/08/17 [History] Past Medical History - General Information source: Relative, Emergency Med Personnel - Social History Smoking Status: Former Smoker Chew tobacco use (# tins/day): No Frequency of alcohol use: None Drug Abuse: None Family History: Reviewed & Not Pertinent, DM, Other - Heart attack - Past Medical History Cardiac Medical History: Reports: Hx Congestive Heart Failure, Hx Hypertension Denies: Hx Heart Attack Pulmonary Medical History: Reports: Hx COPD, Hx Intubation - March 2017, Hx Respiratory Failure - March 2017 Renal/ Medical History: Denies: Hx Peritoneal Dialysis Musculoskeltal Medical History: Reports Hx Arthritis Skin Medical History: Reports Hx Cellulitis Psychiatric Medical History: Denies: Hx Depression Past Surgical History: Reports: Hx Orthopedic Surgery - bilat knee, Hx Vascular Surgery - L inguinal hernia - Immunizations Hx Diphtheria, Pertussis, Tetanus Vaccination: No <JENNI FRY - Last Filed: 08/08/17 15:01> Review of Systems - Review of Systems Constitutional: No symptoms reported EENT: No symptoms reported Cardiovascular: No symptoms reported Respiratory: See HPI, Short of breath, Other Gastrointestinal: No symptoms reported Genitourinary: No symptoms reported Male Genitourinary: No symptoms reported Musculoskeletal: No symptoms reported Skin: No symptoms reported Hematologic/Lymphatic: No symptoms reported Neurological/Psychological: No symptoms reported -: Yes All other systems reviewed and negative - Removal of trach <JENNI FRY - Last Filed: 08/08/17 15:01> Physical Exam <JENNI FRY - Last Filed: 08/08/17 15:01> <TORRIE REDDY - Last Filed: 08/08/17 15:58> - Vital signs Vitals: Resp BP Pulse Ox 23 H 118/67 89 L 08/08/17 07:43 08/08/17 07:43 08/08/17 07:43 - Notes Notes: GENERAL: Alert. HEAD: Normocephalic, atraumatic. EYES: Pupils equal, round, and reactive to light. Extraocular movements intact. ENT: Oral mucosa moist, tongue midline. NECK: Full range of motion. Supple. Trachea midline. Mucoid discharge from tracheostomy site, but it is patent. LUNGS: Inspiratory rhonchi with diffuse expiratory wheezing. Appears shortness of breath. Tachypnea. HEART: Regular rate and rhythm. No murmurs, gallops, or rubs. ABDOMEN: Soft, non-tender. Non-distended. Bowel sounds present in all 4 quadrants. Morbidly obese. EXTREMITIES: Moves all 4 extremities spontaneously. Radial and dorsalis pedis pulses 2/4 bilaterally. No cyanosis. 2+ pitting edema bilaterally with chronic woody edema. NEUROLOGICAL: Patient is alert, but is unable to answer questions. SKIN: Warm and dry. (JENNI FRY) Course - Laboratory Result Diagrams: 08/08/17 10:50 08/08/17 10:50 - Consults Dr. Weston Time consulted: 13:14 Dr. Massey Time consulted: 13:38 <JENNI FRY - Last Filed: 08/08/17 15:01> - Laboratory Result Diagrams: 08/08/17 10:50 08/08/17 10:50 <TORRIE REDDY - Last Filed: 08/08/17 15:58> - Re-evaluation Re-evalutation: 08/08/17 08:19 Inserted a 4O cuffed Shiley into the tracheostomy site. A small blood clot was obtained, but no further bleeding seen after the clot. (JENNI FRY) 08/08/17 15:56 CBC shows chronic anemia with hemoglobin 11.5, CMP shows acute renal failure with a BUN of 27 and creatinine 1.93, this is slightly improved compared to March , potassium elevated at 5.8 however there are no EKG changes, marked elevation in the AST and ALT but no evidence of obstructive process given the other laboratory studies. Troponin somewhat elevated at 0.21 however given no ischemic changes and no chest pain I suspect this is more related to his hypoxia. ProBNP markedly elevated at 6560 consistent with congestive heart failure, acetaminophen level was checked given the hepatitis and it was undetectable, patient denies using acetaminophen. Initial arterial blood gas showed acute respiratory acidosis with hypoxia, repeat ABG turned out to be venous actually and shows some improvement as the venous pH is 7.18 and the PCO2 is 94.2, this is hypoxic at 32.4 consistent with a venous sample. Chest x- ray shows vascular congestion and possible retrocardiac pneumonia, I doubt pneumonia as he has no fever and no leukocytosis. I did reinsert the patient's tracheostomy, I switched out the metal tracheostomy for a 4 oh cuffed Shiley, patient was then placed on the ventilator and BiPAP mode 12/5, his clinical condition improved, he was given sodium bicarb and calcium for the hyperkalemia, he was given Lasix for the congestive heart failure, breathing treatments and Solu-Medrol for the COPD exacerbation. Patient was discussed with the hospitalist who agreed to accept the patient to her service. (TORRIE REDDY) - Vital Signs Vital signs: Temp Pulse Resp BP Pulse Ox 98.1 F 18 144/81 H 95 08/08/17 11:21 08/08/17 14:21 08/08/17 14:21 08/08/17 14:42 - Laboratory Laboratory results interpreted by me: 08/08/17 08/08/17 08/08/17 07:50 10:50 10:50 RBC 3.91 L Hgb 11.5 L Hct 36.6 L MCHC 31.4 L RDW 16.2 H Seg Neuts % (Manual) 85 H Lymphocytes % (Manual) 3 L Metamyelocytes % 1 H Abs Neuts (Manual) 8.3 H Abs Lymphs (Manual) 0.3 L Carbonic Acid 2.96 H ABG pH 7.15 L* ABG pCO2 98.2 H* ABG pO2 77.3 L ABG HCO3 33.1 H ABG Total CO2 36.1 H ABG O2 Saturation 90.2 L Sodium 147.9 H Potassium 5.8 H Carbon Dioxide 36 H BUN 27 H Creatinine 1.93 H Est GFR ( Amer) 43 L Est GFR (Non-Af Amer) 35 L Glucose 132 H AST 1703 H ALT 1674 H Creatine Kinase 45 L NT-Pro-B Natriuret Pep Acetaminophen 08/08/17 08/08/17 08/08/17 10:50 10:50 13:09 RBC Hgb Hct MCHC RDW Seg Neuts % (Manual) Lymphocytes % (Manual) Metamyelocytes % Abs Neuts (Manual) Abs Lymphs (Manual) Carbonic Acid 2.84 H ABG pH 7.18 L* ABG pCO2 94.2 H* ABG pO2 32.4 L* ABG HCO3 34.1 H ABG Total CO2 36.9 H ABG O2 Saturation 45.4 L Sodium Potassium Carbon Dioxide BUN Creatinine Est GFR ( Amer) Est GFR (Non-Af Amer) Glucose AST ALT Creatine Kinase NT-Pro-B Natriuret Pep 6560 H Acetaminophen < 10 L - EKG Interpretation by Me Additional EKG results interpreted by me: 08/08/17 15:58 EKG shows sinus tachycardia at a rate of 106, normal axis, normal intervals, poor R-wave progression, no ST segment elevations or depressions, there is some nonspecific T-wave flattening per my interpretation. (TORRIE REDDY) - Consults Dr. Weston Reason for consultation: 08/08/17 13:14 Dr. Weston was paged. Received a message stating that the user declined the call. 08/08/17 13:17 Patient was discussed with Dr. Weston and states that Dr. Massey would be better suited to handle the patient. (JENNI FRY) Dr. Massey Reason for consultation: 08/08/17 13:38 Patient was discussed with Dr. Massey and agrees to admit the patient to ICU. (JENNI FRY) Procedures - Additional Procedures IV insertion Time performed: 10:40 Additional Procedures: IV insertion - 20 guage ultrasound guided IV to the left bicep <JENNI FRY - Last Filed: 08/08/17 15:01> Critical Care Note - Critical Care Note Total time excluding time spent on procedures (mins): 35 <TORRIE REDDY - Last Filed: 08/08/17 15:58> Discharge - Discharge Admitting Provider: Hospitalist - Dr. Massey Unit Admitted: ICU <JENNI FRY - Last Filed: 08/08/17 15:01> <TORRIE REDDY - Last Filed: 08/08/17 15:58> - Discharge Clinical Impression: Acute respiratory failure with hypoxia and hypercapnia, Hepatitis, Hyperkalemia , Morbid obesity Acute CHF Qualifiers: Congestive heart failure type: unspecified congestive heart failure type Qualified Code(s): I50.9 - Heart failure, unspecified Condition: Critical Disposition: ADMITTED INPATIENT Scribe Attestation: 08/08/17 15:58 I personally performed the services described in the documentation, reviewed and edited the documentation which was dictated to the scribe in my presence, and it accurately records my words and actions. (TORRIE REDDY) Scribe Documentation - Scribe Written by Scribe:: Pawan Valdez, 08/08/2017 0859 acting as scribe for :: Miller <JENNI FRY - Last Filed: 08/08/17 15:01>
[2017-08-08 08:00] LABS: ARTERIAL BLOOD BASE EXCESS 1.5 mmol/L; ARTERIAL BLOOD O2 SATURATION 90.2 % (94-98)
--- NOTE | 2017-08-08 09:04 | RADIOLOGY REPORT (SQ) ---
EXAM DESCRIPTION: CHEST SINGLE VIEW COMPLETED DATE/TIME: 08/08/2017 8:53 am REASON FOR STUDY: SOB, cough COMPARISON: 03/12/2017. NUMBER OF VIEWS: One view. TECHNIQUE: Single frontal radiographic view of the chest acquired. LIMITATIONS: None. FINDINGS: LUNGS AND PLEURA: Possible vague density in the retrocardiac left lung base, difficult to assess. No large pleural effusion. No pneumothorax. MEDIASTINUM AND HILAR STRUCTURES: No masses. Contour normal. HEART AND VASCULAR STRUCTURES: Heart enlarged without failure. Normal vasculature. BONES: No acute findings. HARDWARE: Tracheostomy tube. OTHER: No other significant finding. IMPRESSION: POSSIBLE ATELECTASIS OR EARLY INFILTRATE IN THE RETROCARDIAC LEFT LOWER LOBE. TECHNICAL DOCUMENTATION: JOB ID: [id number] [email or web address] All Rights Reserved
[2017-08-08 11:06] LABS: HEMATOCRIT 36.6 % (37.9-51.0); HEMOGLOBIN 11.5 g/dL (13.5-17.0); HGB HCT DIFFERENCE -2.1; MEAN CORPUSCULAR HEMOGLOBIN 29.3 pg (27.0-33.4); MEAN CORPUSCULAR HGB CONC 31.4 g/dL (32.0-36.0); MEAN CORPUSCULAR VOLUME 94 fl (80-97); RED BLOOD COUNT 3.91 10^6/uL (4.35-5.55); RED CELL DISTRIBUTION WIDTH 16.2 % (11.5-14.0); WHITE BLOOD COUNT 9.3 10^3/uL (4.0-10.5)
[2017-08-08 11:23] LABS: ALKALINE PHOSPHATASE 79 U/L (38-126); ANION GAP 9 (5-19); BILIRUBIN,DIRECT 0.4 mg/dL (0.0-0.4); BILIRUBIN,TOTAL 0.5 mg/dL (0.2-1.3); BLOOD UREA NITROGEN 27 mg/dL (7-20); CALCIUM 8.6 mg/dL (8.4-10.2); CARBON DIOXIDE 36 mmol/L (22-30); CHLORIDE 103 mmol/L (98-107); CREATINE KINASE 45 U/L (55-170); CREATININE RESULT 1.93 mg/dL (0.52-1.25); GLUCOSE 132 mg/dL (75-110); POTASSIUM 5.8 mmol/L (3.6-5.0); SODIUM 147.9 mmol/L (137-145); TOTAL PROTEIN 6.9 g/dL (6.3-8.2)
[2017-08-08 11:35] LABS: CREATINE KINASE MB 1.84 ng/mL (<4.55)
[2017-08-08 11:37] LABS: TROPONIN I 0.21 ng/mL
[2017-08-08 11:51] LABS: ALANINE AMINOTRANSFERASE 1674 U/L (21-72); ASPARTATE AMINO TRANSFERASE 1703 U/L (17-59)
[2017-08-08 12:01] LABS: BAND NEUTROPHILS % (MANUAL) 3 % (3-5); BASOPHILS % (MANUAL) 0 % (0-2); EOSINOPHILS % (MANUAL) 0 % (0-6); LYMPHOCYTES % (MANUAL) 3 % (13-45); TOTAL CELLS COUNTED 100
[2017-08-08 12:02] LABS: POLYCHROMASIA 2+; TOXIC GRANULATION 1+
[2017-08-08] MEDS ORDERED: CALCIUM GLUCONATE 1000 MG/10 ML INJ IV ONE (12:15)
[2017-08-08] MEDS ORDERED: SODIUM BICARBONATE 8.4% INJ 50 MEQ/50 ML DISP.SYRIN IV ONE (12:15)
[2017-08-08 13:23] LABS: ARTERIAL BLOOD BASE EXCESS 3.1 mmol/L; ARTERIAL BLOOD O2 SATURATION 45.4 % (94-98)
[2017-08-08] MEDS ORDERED: DEXTROSE 40% GEL 15 GM TUBE PO PRN ×4 (14:17→14:31)
[2017-08-08] MEDS ORDERED: DEXTROSE 50%-WATER 25 GM/50 ML DISP.SYRIN IV PRN ×4 (14:17→14:31)
[2017-08-08] MEDS ORDERED: GLUCAGON,HUMAN RECOMB 1 MG INJ SUBCUT PRN (14:17)
[2017-08-08] MEDS ORDERED: GLUCAGON,HUMAN RECOMB 1 MG INJ IM PRN (14:31)
--- NOTE | 2017-08-08 14:59 | PDOC H&P ---
History of Present Illness Admission Date/PCP: 08/08/17 13:58 DEJAH MENENDEZ NP Patient complains of: Brought in today for progressive shortness of breath. History of Present Illness: ZEINA SANTAMARIA is a 62 year old male who has acute on chronic respiratory failure status post tracheostomy. The history is obtained from the patient's . She states that over the last few days she has noted her to be slurring his words. Also, he has developed anasarca. She is also noticed a thick discharge around his tracheostomy tube. He is expectorating some yellow phlegm. The patient has a 4 oh Amol placed. Secondary to dyspnea at home this was removed. The patient came into the emergency department he was encephalopathic and becoming obtunded. His pH was 7.15 and his PCO2 is 98. Therefore, a #4 trach cuff was placed per the emergency department attending. Apparently, the states that the patient's recent history began in November when he developed gout. This then developed cellulitis and the patient had a lower extremity edema. In March the patient came here to this hospital because of "" fluid buildup. I cannot find any documentation that he was hospitalized in March of this year. His wood heel flap rubber is Dr. Olivera in [place]. Eventually, he went to [facility] and underwent tracheostomy placement meant for chronic respiratory failure. He then went to a detention facility and his tracheostomy was downsized substantially. Again, it was recently removed. The patient was actually supposed to have a sleep study to determine if it was safe to remove the tracheostomy in place the patient on CPAP. 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 He will not be keeping these appointments. According to the she feels that her may have been exposed to a viral infection. When the weather turned cold he started to have an increased cough. However, he has not had any recent fevers, chills or sweats. He does have chronic knee pain from degenerative disc disease. He has not had any changes in his medications since March 2017. As far as his knows he has not been exposed to any kind of ill contacts. Past Medical History Cardiac Medical History: Reports: Congestive Heart Failure, Hypertension Denies: Myocardial Infarction Pulmonary Medical History: Reports: Chronic Obstructive Pulmonary Disease (COPD) , Intubation - March 2017, Respiratory Failure - March 2017 Musculoskeltal Medical History: Reports: Arthritis Psychiatric Medical History: Denies: Depression Past Surgical History Past Surgical History: Reports: Herniorrhaphy, Orthopedic Surgery - bilat knee, Vascular Surgery - L inguinal hernia Social History Smoking Status: Former Smoker - The patient did smoke 3-4 packs per day for most of his adult life but quit 14 years ago. Frequency of Alcohol Use: None Hx Recreational Drug Use: No Drugs: None Hx Prescription Drug Abuse: No - Advance Directive Resuscitation Status: Full Code Surrogate healthcare decision maker:: The patient is a full code. His surrogate decision maker is Alka Santamaria, his . She can be reached at area code [phone]. Both the patient's and his daughter realize how gravely ill that he is. At one point the patient was a DNR but the patient recounted his DNR. Family History Family History: Reviewed & Not Pertinent, DM, Other - Heart attack Parental Family History Reviewed: Yes - Father has history of CHF and colon cancer Children Family History Reviewed: NA Sibling(s) Family History Reviewed.: Yes - Brother has a history of colon cancer in sister has a history of leukemia. Medication/Allergy Home Medications: Budesonide [Pulmicort Neb 0.5 mg/2 ml Ampul] 0.5 mg NEB RTQ12 08/08/17 Budesonide/Formoterol Fumarate [Symbicort Hfa 160-4.5 Mcg Inhaler 6 gm] 2 puff IH Q12 08/08/17 Ergocalciferol (Vitamin D2) [Vitamin D2] 50,000 unit PO JOHN@1000 08/08/17 Furosemide [Lasix 40 mg Tablet] 40 mg PO QAM 08/08/17 Ipratropium/Albuterol Sulfate [Duoneb 3 ml Ampul] 3 ml NEB RTQ12 08/08/17 Metoclopramide HCl [Reglan 10 mg Tablet] 10 mg PO Q12 08/08/17 Metoprolol Succinate [Toprol Xl 25 mg Tab.sr] 25 mg PO DAILY 08/08/17 Potassium Chloride [Klor-Con M20] 20 meq PO DAILY 08/08/17 Tamsulosin HCl 0.4 mg PO DAILY 08/08/17 Allergies/Adverse Reactions: meperidine HCl [From Demerol] Allergy (Verified 08/08/17 08:05) triazolam [From Halcion] Allergy (Verified 08/08/17 08:05) Review of Systems ROS unobtainable: Due to endotracheal tube Physical Exam Vital Signs: Temp Pulse Resp BP Pulse Ox 98.1 F 18 144/81 H 92 08/08/17 11:21 08/08/17 14:21 08/08/17 14:21 08/08/17 14:21 Additional comments: The patient is a disheveled piece white male. He appears much older than his stated age. He is awake. However, it is unclear if he has purposefully following commands at this time. He is moving all 4 extremities. He has an extremely obese neck. I have to move away the skin folds to evaluate the tracheostomy site. He has some erythema on the skin but does not have any purulent drainage or discharge. The patient's facial appearance is otherwise normal. Cranial nerves II through XII appear to be intact but again it is not clear if he is purposely following commands. He is noted to have some saliva draining from his mouth but this appears to be clear. His lungs are fairly diminished throughout but he does have end expiratory wheezing noted. Wheezing is most prominent in the anterior lung butt. The cardiac exam is distant but regular. Do not appreciate any murmurs, gallops or rubs. The abdomen is obese but soft. There is no guarding or rebound noted and there are no hernias or masses noted. The lower extremities demonstrate changes consistent with chronic venous stasis. 2+ edema is present. Generalized edema and anasarca is also present. The patient has multiple areas on his skin which appear to be consistent with old excoriations. He does not appear to have any acute skin lesions or rashes at this time. Results Impressions: Chest X-Ray 08/08/17 07:47 IMPRESSION: POSSIBLE ATELECTASIS OR EARLY INFILTRATE IN THE RETROCARDIAC LEFT LOWER LOBE. Assessment & Plan - Diagnosis (1) Acute respiratory failure with hypoxia and hypercapnia Is this a current diagnosis for this admission?: Yes Plan: The patient presents with acute on chronic respiratory failure with components of both hypoxia and hypercapnia. This appears to be secondary to the patient's underlying obesity and COPD. The patient does not appear to be able to sustain himself since his tracheostomy was decannulated. He now has a #[address] Tidal volumes are adequate. We will correct his hypercarbia with assist control ventilation with pressure support. Supplemental oxygen will be provided. The patient will also be started on IV steroids and antibiotics. Dr. Block has been consulted. (2) Acute on chronic renal failure Is this a current diagnosis for this admission?: Yes Plan: The patient has acute on chronic renal failure. In fact, his labs appear to be fairly stable including his potassium. Looking at his old labs again his potassium has chronically run in the fives. At this point in time I do not feel that we need nephrology services as an inpatient. I will give the patient a dose of Kayexalate. He will also get fluids overnight and I will hold his Lasix. (3) Hyperkalemia Is this a current diagnosis for this admission?: Yes (4) Hepatitis Is this a current diagnosis for this admission?: Yes Plan: The patient received calcium gluconate in the emergency department. His EKG does not demonstrate any worrisome findings. I will give the patient Kayexalate. (5) COPD (chronic obstructive pulmonary disease) with chronic bronchitis Is this a current diagnosis for this admission?: Yes Plan: Patient is on systemic corticosteroids. He is receiving bronchodilators. Will also be treated for acute bronchitis. A tracheal aspirate has been obtained. (6) Obstructive sleep apnea Is this a current diagnosis for this admission?: Yes Plan: Patient is trached right now. (7) Morbid obesity Is this a current diagnosis for this admission?: Yes Plan: This complicates his care. (8) Congestive heart failure (CHF) Plan: Do not find an old echocardiogram on this patient. We need to try to track down his old records. I will currently hold his Lasix secondary to his elevated sodium and elevated creatinine. He is going to get some fluids overnight. The anasarca is likely related to the respiratory failure with hypercarbia. (9) Urinary retention Is this a current diagnosis for this admission?: Yes Plan: Maintain Castro catheter. Urinalysis and cx pending. - Time Time Spent: Greater than 70 Minutes - Inpatient Certification Medical Necessity: Significant Comorbidiites Make Outpatient Treatment Too Risky , Need Close Monitoring Due to Risk of Patient Decompensation, Need For IV Fluids, Need For Continuous Telemetry Monitoring, Need for Neurological Checks, Need for IV Antibiotics, Risk of Complication if Not Cared For in Hospital, Risk of Diagnosis Which Will Require Inpatient Eval/Care/Monitoring
--- NOTE | 2017-08-08 15:19 | EKG REPORT ---
SEVERITY:- BORDERLINE ECG - SINUS TACHYCARDIA BORDERLINE R WAVE PROGRESSION, ANTERIOR LEADS BORDERLINE T ABNORMALITIES, DIFFUSE LEADS : Confirmed by: Rl Franklin 08-Aug-2017 15:19:16
[2017-08-08] MEDS ORDERED: SODIUM POLYSTYRENE SULFONATE 15 GM/60 ML PR ONE (16:00)
[2017-08-08] MEDS ORDERED: LEVOFLOXACIN 750 MG/D5W RTU 750 MG/150 ML RTUPB IV SCH (16:00)
[2017-08-08 16:13] LABS: ARTERIAL BLOOD BASE EXCESS 3.3 mmol/L; ARTERIAL BLOOD O2 SATURATION 91.3 % (94-98)
[2017-08-08] MEDS: IPRATROPIUM/ALBUTEROL 0.5-2.5 MG/3 ML AMPUL NEB SCH ×2 (16:39→20:54)
--- NOTE | 2017-08-08 16:55 | Progress Note ---
Provider Note Provider Note: Patient also has evidence of elevated LFTs. This seems to be secondary to ischemic hepatitis. This is suspicious for acute, severe hypoxia. We need to avoid all medications that are metabolized by the liver. LFTs will be followed in the morning.
[2017-08-08] MEDS: LORAZEPAM INJ 2 MG/1 ML VIAL IV PRN ×2 (17:24→21:16)
[2017-08-08] MEDS ORDERED: DOCUSATE SODIUM 100 MG CAPSULE PO SCH (18:00)
[2017-08-08 18:21] LABS: ARTERIAL BLOOD BASE EXCESS 4.4 mmol/L
--- NOTE | 2017-08-08 21:01 | RADIOLOGY REPORT (SQ) ---
EXAM DESCRIPTION: U/S ABDOMEN LIMITED W/O DOP COMPLETED DATE/TIME: 08/08/2017 8:27 pm REASON FOR STUDY: elevated LFTs, ?biliary obstruction COMPARISON: None. TECHNIQUE: Dynamic and static grayscale images acquired of the abdomen and recorded on PACS. Additio nal selected color Doppler and spectral images recorded. LIMITATIONS: Limited by patient body habitus and cooperation issues. FINDINGS: PANCREAS: Normal as assessed. Limited visualization. LIVER: Suboptimally penetrated. Diffuse echogenicity suggests fatty infiltration. LIVER VASCULATURE: Limited visualization. Grossly appropriate portal flow. GALLBLADDER: No stones. Normal wall thickness. No pericholecystic fluid. ULTRASOUND-DETECTED PEREZ'S SIGN: Negative. INTRAHEPATIC DUCTS AND COMMON DUCT: CBD and intrahepatic ducts normal caliber. No filling defects. INFERIOR VENA CAVA: Normal flow. AORTA: No aneurysm. RIGHT KIDNEY: Normal size. Normal echogenicity. No solid or suspicious masses. No hydronephrosis. No calcifications. PERITONEAL AND RIGHT PLEURAL SPACE: No ascites or effusions. OTHER: No other significant findings. IMPRESSION: 1. Limited study. 2. Fatty liver. 3. No overt gallbladder disease or dilated bile duct s suggested. TECHNICAL DOCUMENTATION: JOB ID: [id number] [employer]- All Rights Reserved
[2017-08-08] MEDS: METHYLPREDNISOLONE INJ 125 MG/2 ML SDV IV SCH (21:15)
[2017-08-08] MEDS: FAMOTIDINE INJ/PF 20 MG/2 ML SDV IV SCH (21:15)
[2017-08-08 22:24] LABS: CREATINE KINASE MB 2.09 ng/mL (<4.55); TROPONIN I 0.27 ng/mL
[2017-08-09] MEDS: IPRATROPIUM/ALBUTEROL 0.5-2.5 MG/3 ML AMPUL NEB SCH ×7 (00:25→23:58)
[2017-08-09 04:21] LABS: ABSOLUTE LYMPHOCYTES (AUTO) 0.4 10^3/uL (0.5-4.7); ABSOLUTE MONOCYTES (AUTO) 0.3 10^3/uL (0.1-1.4); ABSOLUTE NEUT (AUTO) 6.2 10^3/uL (1.7-8.2); BASOPHILS % (AUTO) 0.2 % (0-2); HEMATOCRIT 30.1 % (37.9-51.0); HEMOGLOBIN 9.8 g/dL (13.5-17.0); HGB HCT DIFFERENCE -0.7; LYMPHOCYTES % (AUTO) 6.1 % (13-45); MEAN CORPUSCULAR HEMOGLOBIN 30.2 pg (27.0-33.4); MEAN CORPUSCULAR HGB CONC 32.7 g/dL (32.0-36.0); MEAN CORPUSCULAR VOLUME 92 fl (80-97); MONOCYTES % (AUTO) 4.5 % (3-13); RED BLOOD COUNT 3.26 10^6/uL (4.35-5.55); RED CELL DISTRIBUTION WIDTH 16.1 % (11.5-14.0); SEGMENTED NEUTROPHILS % (AUTO) 89.2 % (42-78); WHITE BLOOD COUNT 6.9 10^3/uL (4.0-10.5)
[2017-08-09 04:32] LABS: PROTHROMBIN TIME 16.4 SEC (11.4-15.4)
[2017-08-09 04:33] LABS: PARTIAL THROMBOPLASTIN TIME 37.3 SEC (23.5-35.8)
[2017-08-09 04:36] LABS: ALBUMIN 3.3 g/dL (3.5-5.0); ALKALINE PHOSPHATASE 59 U/L (38-126); ANION GAP 7 (5-19); BILIRUBIN,DIRECT 0.3 mg/dL (0.0-0.4); BILIRUBIN,TOTAL 0.3 mg/dL (0.2-1.3); BLOOD UREA NITROGEN 32 mg/dL (7-20); CALCIUM 8.3 mg/dL (8.4-10.2); CARBON DIOXIDE 35 mmol/L (22-30); CHLORIDE 105 mmol/L (98-107); CREATINE KINASE 43 U/L (55-170); GLUCOSE 127 mg/dL (75-110); MAGNESIUM 2.2 mg/dL (1.6-2.3); POTASSIUM 5.1 mmol/L (3.6-5.0); SODIUM 147.4 mmol/L (137-145); TOTAL PROTEIN 5.7 g/dL (6.3-8.2)
[2017-08-09 04:45] LABS: CREATINE KINASE MB 1.76 ng/mL (<4.55); TROPONIN I 0.175 ng/mL
[2017-08-09 05:16] LABS: ALANINE AMINOTRANSFERASE 1964 U/L (21-72); ASPARTATE AMINO TRANSFERASE 2063 U/L (17-59)
[2017-08-09 05:52] LABS: ARTERIAL BLOOD BASE EXCESS 4.4 mmol/L; ARTERIAL BLOOD O2 SATURATION 93.9 % (94-98)
[2017-08-09] MEDS: METHYLPREDNISOLONE INJ 125 MG/2 ML SDV IV SCH ×3 (06:00→21:01)
--- NOTE | 2017-08-09 06:33 | RADIOLOGY REPORT (SQ) ---
EXAM DESCRIPTION: CHEST SINGLE VIEW COMPLETED DATE/TIME: 08/09/2017 6:19 am REASON FOR STUDY: ETT COMPARISON: 08/08/2017 EXAM PARAMETERS: NUMBER OF VIEWS: One view. TECHNIQUE: Single frontal radiographic view of the chest acquired. RADIATION DOSE: NA LIMITATIONS: None FINDINGS: LUNGS AND PLEURA: There is increased density in the left lung base with loss of definition of the left hemidiaphragm. The appearance would suggest a small left pleural effusion with some ass ociated atelectasis or infiltrate in the left lung base. Remaining lung butt are clear. MEDIASTINUM AND HILAR STRUCTURES: No masses. Contour normal. HEART AND VASCULAR STRUCTURES: The configuration of the heart and mediastinal structures is unchanged . BONES: No acute findings. HARDWARE: Tracheostomy tube is unchanged in position OTHER: No other significant finding. IMPRESSION: Left basilar density as noted above TECHNICAL DOCUMENTATION: JOB ID: [id number]
[2017-08-09] MEDS ORDERED: BISACODYL 5 MG TABEC PO ONE (08:51)
[2017-08-09] MEDS ORDERED: SORBITOL 70% SOLUTION 30 ML UDC PO ONE (09:30)
[2017-08-09] MEDS: LEVOFLOXACIN 750 MG/D5W RTU 750 MG/150 ML RTUPB IV SCH (09:49)
[2017-08-09] MEDS: FAMOTIDINE INJ/PF 20 MG/2 ML SDV IV SCH ×2 (09:51→21:01)
[2017-08-09] MEDS: ENOXAPARIN SODIUM INJ 40 MG/0.4 ML DISP.SYRIN SUBCUT SCH (09:52)
[2017-08-09] MEDS ORDERED: TAMSULOSIN HCL 0.4 MG CAP.SR.24H PO SCH (10:00)
[2017-08-09] MEDS ORDERED: FUROSEMIDE INJ/PF 40 MG/4 ML SDV IV SCH ×2 (10:00)
[2017-08-09] MEDS ORDERED: BISACODYL 10 MG SUPP.RECT PR ONE (10:00)
[2017-08-09] MEDS: DEXTROSE 5%-1/2 NORMAL SALINE 1,000 ML IV PRN (10:11)
--- NOTE | 2017-08-09 10:51 | EKG REPORT ---
SEVERITY:- BORDERLINE ECG - SINUS RHYTHM LOW VOLTAGE IN FRONTAL LEADS BORDERLINE R WAVE PROGRESSION, ANTERIOR LEADS BORDERLINE T ABNORMALITIES, DIFFUSE LEADS : Confirmed by: Rl Franklin 09-Aug-2017 10:51:01
[2017-08-09 10:55] LABS: CREATINE KINASE MB 1.31 ng/mL (<4.55); TROPONIN I 0.117 ng/mL
--- NOTE | 2017-08-09 13:52 | PDOC CONSULTATION ---
Consultation Consult Date: 08/08/17 Attending physician:: MEL DEL ROSARIO Consult reason:: Acute on chronic respiratory failure History of Present Illness Admission Date/PCP: 08/08/17 13:58 DEJAH MENENDEZ NP History of Present Illness: ZEINA KRUGER is a 62 year old male who has acute on chronic respiratory failure status post tracheostomy. Spouse reports increasing purulent sputum over the last several days she states that as he had increasing difficulty breathing she suctioned out of strength and this did not improve his breathing so as per her instructions from the her primary physician she removed the tract and subsequently brought the patient to the emergency room. At the time he presented to emergency room at a [facility] 7.15 and a PCO2 of 98 at this time is #4 trach without a cough was substituted for #4 trach with a cuff and positive pressure ventilation was initiated he had a hip extensive history of respiratory failure as well as cellulitis and is followed by pulmonary Dr. Olivera in Home patient was scheduled for sleep study but has not yet undergone his nocturnal polysomnogram Past Medical History Cardiac Medical History: Reports: Congestive Heart Failure, Hypertension Denies: Myocardial Infarction Pulmonary Medical History: Reports: Chronic Obstructive Pulmonary Disease (COPD) , Intubation - March 2017, Respiratory Failure - March 2017 Musculoskeltal Medical History: Reports: Arthritis Psychiatric Medical History: Denies: Depression Past Surgical History Past Surgical History: Reports: Herniorrhaphy, Orthopedic Surgery - bilat knee, Vascular Surgery - L inguinal hernia Social History Information Source: Relative Lives with: Family Smoking Status: Former Smoker Cigarettes Packs Per Day: 1 Number of Years Smokin Passive smoke exposure as: Both Frequency of Alcohol Use: None Hx Recreational Drug Use: No Drugs: None Hx Prescription Drug Abuse: No Do you have pets?: No Have you had any respiratory illnesses as a child?: No Have you been exposed to any sick contacts recently?: No Have you had any recent respiratory illnesses?: No Have you travelled outside of [place] in the past 12 months?: No - Advance Directive Resuscitation Status: Full Code Family History Family History: CAD, DM, Hypertension, Other - Heart attack Parental Family History Reviewed: Yes Children Family History Reviewed: Yes Sibling(s) Family History Reviewed.: Yes Medication/Allergy Home Medications: Budesonide [Pulmicort Neb 0.5 mg/2 ml Ampul] 0.5 mg NEB RTQ12 08/08/17 Budesonide/Formoterol Fumarate [Symbicort Hfa 160-4.5 Mcg Inhaler 6 gm] 2 puff IH Q12 08/08/17 Ergocalciferol (Vitamin D2) [Vitamin D2] 50,000 unit PO JOHN@1000 08/08/17 Furosemide [Lasix 40 mg Tablet] 40 mg PO DAILY 08/08/17 Ipratropium/Albuterol Sulfate [Duoneb 3 ml Ampul] 3 ml NEB RTQ4HP PRN 08/08/17 Metoclopramide HCl [Reglan 10 mg Tablet] 10 mg PO Q12 08/08/17 Metoprolol Succinate [Toprol Xl 25 mg Tab.sr] 25 mg PO DAILY 08/08/17 Potassium Chloride [Klor-Con M20] 20 meq PO DAILY 08/08/17 Tamsulosin HCl 0.4 mg PO DAILY 08/08/17 Allergies/Adverse Reactions: meperidine HCl [From Demerol] Allergy (Verified 08/08/17 08:05) triazolam [From Halcion] Allergy (Verified 08/08/17 08:05) Review of Systems ROS unobtainable: Due to endotracheal tube Physical Exam Vital Signs: Temp Pulse Resp BP Pulse Ox 98.1 F 18 144/81 H 95 08/08/17 11:21 08/08/17 14:21 08/08/17 14:21 08/08/17 14:42 Intake & Output 08/07/17 08/08/17 08/09/17 06:59 06:59 06:59 Output Total 650 Balance -650 General appearance: PRESENT: disheveled, mild distress, morbidly obese, well- developed Head exam: PRESENT: atraumatic, normocephalic Eye exam: PRESENT: conjunctiva pale, EOMI Mouth exam: PRESENT: dry mucosa, neck supple, tongue midline Neck exam: PRESENT: tracheostomy Respiratory exam: PRESENT: decreased breath sounds, prolonged expiratory phas, rales, rhonchi, symmetrical, unlabored, wheezes. ABSENT: accessory muscle use, chest wall tenderness, clear to auscultation karyna, crackles, retraction, stridor , tachypnea Cardiovascular exam: PRESENT: RRR, +S1, +S2 Pulses: PRESENT: normal radial pulses GI/Abdominal exam: PRESENT: normal bowel sounds, soft. ABSENT: distended, guarding, mass, organolmegaly, rebound, tenderness Rectal exam: PRESENT: deferred Gentrourinary exam: PRESENT: indwelling catheter Extremities exam: PRESENT: +2 edema. ABSENT: calf tenderness, clubbing, joint swelling, pedal edema, tenderness Musculoskeletal exam: ABSENT: deformity, dislocation, tenderness Neurological exam: PRESENT: awake Skin exam: PRESENT: dry, warm Results Laboratory Results: 08/08/17 16:04 Carbonic Acid 2.08 H HCO3/H2CO3 Ratio 15:1 ABG pH 7.28 L ABG pCO2 69.2 H* ABG pO2 70.0 L ABG HCO3 31.6 H ABG O2 Saturation 91.3 L ABG Base Excess 3.3 FiO2 40% 08/08/17 15:56 Troponin I 0.269 Impressions: Chest X-Ray 08/08/17 07:47 IMPRESSION: POSSIBLE ATELECTASIS OR EARLY INFILTRATE IN THE RETROCARDIAC LEFT LOWER LOBE. Assessment & Plan - Diagnosis (1) Acute respiratory failure with hypoxia and hypercapnia Is this a current diagnosis for this admission?: Yes Plan: Patient currently wearing trach demonstrating hypoxemia hypercapnia to mechanical ventilation copious amounts of secretion will cover with empiric antibiotic therapy until specific organism can be identified (2) COPD (chronic obstructive pulmonary disease) with chronic bronchitis Is this a current diagnosis for this admission?: Yes Plan: Generic Name Dose Route Start Last Admin Trade Name Freq PRN Reason Stop Dose Admin Methylprednisolone Sodium Succinate 60 mg 08/08/17 22:00 08/09/17 06:00 Solu-Medrol Inj/Pf 125 Mg/2 Ml Sdv IV 09/07/17 21:59 60 mg Q8 REJI Albuterol/Ipratropium 3 ml 08/08/17 16:00 08/09/17 12:24 Duo-neb 3 Ml Ampul NEB 09/07/17 15:59 3 ml RTQ4 REJI Continue current medical therapy considering the addition of Daliresp if there is no improvement (3) Congestive heart failure (CHF) Qualifiers: Congestive heart failure type: unspecified congestive heart failure type Congestive heart failure chronicity: unspecified congestive heart failure chronicity Qualified Code(s): I50.9 - Heart failure, unspecified Is this a current diagnosis for this admission?: Yes Plan: Gentle diuresis (4) Morbid obesity Is this a current diagnosis for this admission?: Yes Plan: Physical therapy engaged in structured program for weight loss (5) Obstructive sleep apnea Is this a current diagnosis for this admission?: Yes Plan: The above patient has failed BiPAP. This patient would benefit from noninvasive mechanical ventilation via the trilogy AVAPS/AE and faster responding AVAPS rates. The trilogy is able to provide a target tidal volume and also adjusting the EPAP pressures to maintain a patent airway as well as an oral backup rate this machine will help improve PaCO2 levels. The severity of the patient's condition will lead to future hospitalizations and readmissions as well as life-threatening situations without the use of this device trilogy home vent needed for hypercapnic respiratory failure. Family medical or [facility] [place] to follow for trilogy set up. - Time Time Spent with patient: :Critical care time total time 50 min,)
[2017-08-09] MEDS ORDERED: OXYCODONE-ACETAMINOPHEN 5-325 MG TABLET PO PRN (18:27)
[2017-08-09] MEDS: MORPHINE SULFATE 10 MG/ML INJ IV PRN (19:50)
[2017-08-09] MEDS: LORAZEPAM INJ 2 MG/1 ML VIAL IV PRN (20:57)
[2017-08-10 00:16] LABS: AMORPHOUS SEDIMENT,URINE TRACE /HPF; APPEARANCE,URINE CLOUDY; BILIRUBIN,URINE NEGATIVE (NEGATIVE); GLUCOSE, URINE NEGATIVE (NEGATIVE); KETONES,URINE NEGATIVE (NEGATIVE); LEUKOCYTE ESTERASE,URINE MODERATE (NEGATIVE); NITRITE,URINE POSITIVE (NEGATIVE); PROTEIN,URINE NEGATIVE (NEGATIVE); URINE SPECIFIC GRAVITY 1.018; UROBILINOGEN,URINE NEGATIVE mg/dL (<2.0)
[2017-08-10] MEDS: MORPHINE SULFATE 10 MG/ML INJ IV PRN ×4 (02:57→18:08)
[2017-08-10] MEDS: IPRATROPIUM/ALBUTEROL 0.5-2.5 MG/3 ML AMPUL NEB SCH ×5 (03:19→20:47)
[2017-08-10 04:16] LABS: ABSOLUTE LYMPHOCYTES (AUTO) 0.4 10^3/uL (0.5-4.7); ABSOLUTE MONOCYTES (AUTO) 0.3 10^3/uL (0.1-1.4); ABSOLUTE NEUT (AUTO) 5.7 10^3/uL (1.7-8.2); BASOPHILS % (AUTO) 0.1 % (0-2); HEMATOCRIT 32.1 % (37.9-51.0); HEMOGLOBIN 10.6 g/dL (13.5-17.0); HGB HCT DIFFERENCE -0.3; LYMPHOCYTES % (AUTO) 6.7 % (13-45); MEAN CORPUSCULAR HEMOGLOBIN 30.2 pg (27.0-33.4); MEAN CORPUSCULAR HGB CONC 33.1 g/dL (32.0-36.0); MEAN CORPUSCULAR VOLUME 91 fl (80-97); MONOCYTES % (AUTO) 5.1 % (3-13); RED BLOOD COUNT 3.52 10^6/uL (4.35-5.55); RED CELL DISTRIBUTION WIDTH 16.2 % (11.5-14.0); SEGMENTED NEUTROPHILS % (AUTO) 88.1 % (42-78); WHITE BLOOD COUNT 6.5 10^3/uL (4.0-10.5)
[2017-08-10 04:18] LABS: PROTHROMBIN TIME 15.6 SEC (11.4-15.4)
[2017-08-10 04:32] LABS: ALBUMIN 3.4 g/dL (3.5-5.0); ALKALINE PHOSPHATASE 56 U/L (38-126); ANION GAP 9 (5-19); BILIRUBIN,DIRECT 0.5 mg/dL (0.0-0.4); BILIRUBIN,TOTAL 0.5 mg/dL (0.2-1.3); BLOOD UREA NITROGEN 37 mg/dL (7-20); CALCIUM 8.3 mg/dL (8.4-10.2); CARBON DIOXIDE 35 mmol/L (22-30); CHLORIDE 104 mmol/L (98-107); CREATININE RESULT 1.28 mg/dL (0.52-1.25); GLUCOSE 131 mg/dL (75-110); POTASSIUM 5.3 mmol/L (3.6-5.0); SODIUM 148.1 mmol/L (137-145)
[2017-08-10 04:50] LABS: ALANINE AMINOTRANSFERASE 1674 U/L (21-72); ASPARTATE AMINO TRANSFERASE 1064 U/L (17-59)
[2017-08-10] MEDS: METHYLPREDNISOLONE INJ 125 MG/2 ML SDV IV SCH ×3 (05:43→21:02)
[2017-08-10] MEDS: DEXTROSE 5%-1/2 NORMAL SALINE 1,000 ML IV PRN ×2 (05:56→20:58)
[2017-08-10 06:14] LABS: ARTERIAL BLOOD BASE EXCESS 8.1 mmol/L; ARTERIAL BLOOD O2 SATURATION 95.2 % (94-98)
--- NOTE | 2017-08-10 09:01 | PDOC PROGRESS REPORT ---
Subjective Progress Note for:: 08/09/17 Subjective:: Patient is a 62-year-old male with history of respiratory failure status post trach over the last 4 months brought in by his after his trach was removed in acute respiratory failure with hypoxemia and hypercapnia. Patient trach back in place. Patient awake alert interactive. Patient does not appear to be in respiratory distress. Patient complaining of having back and knee pain. Patient is wanting to eat but patient still with trach in place that cannot be capped. Pulmonology is following closely. Physical Exam Vital Signs: Temp Pulse Resp BP Pulse Ox 98.7 F 91 18 127/73 H 95 08/09/17 16:00 08/09/17 12:27 08/09/17 18:00 08/09/17 17:58 08/09/17 18:00 Intake & Output 08/08/17 08/09/17 08/10/17 06:59 06:59 06:59 Intake Total 808 720 Output Total 1430 1575 Balance -622 -855 Weight 175.6 kg General appearance: PRESENT: no acute distress, morbidly obese Head exam: PRESENT: atraumatic, normocephalic Eye exam: PRESENT: EOMI Mouth exam: PRESENT: other - Trach in place. Erythema around the trach site and neck especially on the left side. Neck exam: PRESENT: full ROM Respiratory exam: PRESENT: unlabored, other - Upper airway secretions. ABSENT: wheezes Cardiovascular exam: PRESENT: RRR, +S1, +S2 GI/Abdominal exam: PRESENT: normal bowel sounds, soft Rectal exam: PRESENT: deferred Extremities exam: PRESENT: pedal edema, other - edema of the arm (pitting) Musculoskeletal exam: PRESENT: full ROM Neurological exam: PRESENT: alert, awake, oriented to person, oriented to place , oriented to time, oriented to situation, CN II-XII grossly intact Psychiatric exam: PRESENT: normal mood Skin exam: PRESENT: intact - ecchymosis on the hands and harms, warm Results Laboratory Results: 08/09/17 04:06 08/09/17 04:06 08/09/17 08/09/17 08/09/17 04:06 04:06 05:20 WBC 6.9 RBC 3.26 L Hgb 9.8 L Hct 30.1 L MCV 92 MCH 30.2 MCHC 32.7 RDW 16.1 H Plt Count 202 Seg Neutrophils % 89.2 H Lymphocytes % 6.1 L Monocytes % 4.5 Eosinophils % 0.0 Basophils % 0.2 Absolute Neutrophils 6.2 Absolute Lymphocytes 0.4 L Absolute Monocytes 0.3 Absolute Eosinophils 0.0 Absolute Basophils 0.0 Carbonic Acid 1.78 H HCO3/H2CO3 Ratio 17:1 ABG pH 7.34 L ABG pCO2 59.3 H ABG pO2 74.7 L ABG HCO3 31.3 H ABG O2 Saturation 93.9 L ABG Base Excess 4.4 FiO2 40% Sodium 147.4 H Potassium 5.1 H Chloride 105 Carbon Dioxide 35 H Anion Gap 7 BUN 32 H Creatinine 1.50 H Est GFR ( Amer) 57 L Est GFR (Non-Af Amer) 47 L Glucose 127 H Calcium 8.3 L Magnesium 2.2 Total Bilirubin 0.3 AST 2063 H ALT 1964 H Alkaline Phosphatase 59 Total Protein 5.7 L Albumin 3.3 L 08/08/17 08/08/17 08/08/17 15:56 21:55 21:55 Creatine Kinase 46 L CK-MB (CK-2) 2.09 Troponin I 0.269 0.270 NT-Pro-B Natriuret Pep 08/09/17 08/09/17 08/09/17 04:06 04:06 10:18 Creatine Kinase 43 L CK-MB (CK-2) 1.76 1.31 Troponin I 0.175 0.117 NT-Pro-B Natriuret Pep 2960 H Impressions: Abdomen Ultrasound 08/08/17 12:14 IMPRESSION: 1. Limited study. 2. Fatty liver. 3. No overt gallbladder disease or dilated bile ducts suggested. Chest X-Ray 08/09/17 06:00 IMPRESSION: Left basilar density as noted above Assessment & Plan - Diagnosis (1) Acute respiratory failure with hypoxia and hypercapnia Is this a current diagnosis for this admission?: Yes Plan: Patient presents with acute on chronic respiratory failure with both hypoxemia and hypercapnia. This might be due to obesity hypoventilation syndrome and COPD. As a result patient was trached. At home he was decannulated. He does have a [address] Patient appears to be doing well at this time. Patient is being evaluated by Dr. Block who has adjusted his settings on his BiPAP. Furthermore patient warehouse attendant will be contacted to discuss patient's case. Patient ABG shows improvement in his oxygenation and his CO2 which is now in the 50s versus the 90s. Note patient was not on a vent or on BiPAP or CPAP at home. Patient was not on supplemental oxygen. Patient was supposed to undergo a sleep study to determine if he could be on CPAP at home. (2) Acute on chronic renal failure Is this a current diagnosis for this admission?: Yes Plan: Appears to have a CKD stage III with acute component. Patient renal function appears to be improving with IV hydration. (3) COPD (chronic obstructive pulmonary disease) with chronic bronchitis Is this a current diagnosis for this admission?: Yes Plan: Patient is currently on nebulizers Levaquin and IV steroids. We will continue this treatment currently. Furthermore pulmonology is following. (4) Congestive heart failure (CHF) Qualifiers: Congestive heart failure type: unspecified congestive heart failure type Congestive heart failure chronicity: unspecified congestive heart failure chronicity Qualified Code(s): I50.9 - Heart failure, unspecified Is this a current diagnosis for this admission?: Yes Plan: She may have a history of congestive heart failure based on his medication profile. Patient does not give a history of CHF. Patient does not have a recent cardiac echo on file. Patient heart function may need to be evaluated as he has bilateral pitting edema and edema of his upper extremities or anasarca. This could be a result of his cardiac respiratory status. Although he has acute on chronic renal failure patient renal function is not declined enough to cause this amount of swelling. She on scheduled doses of the legs Lasix. Will decrease patient IV fluids. Monitor patient ins and outs. (5) Hepatitis Is this a current diagnosis for this admission?: Yes Plan: Could be due to congestion, hypotension. Patient LFTs are currently trending down. Will avoid any hepatotoxins. (6) Hyperkalemia Is this a current diagnosis for this admission?: Yes (7) Morbid obesity Is this a current diagnosis for this admission?: Yes Plan: Patient counseled on the necessity of weight loss as this is contributing to his hypoxic hypercapnic respiratory failure. (8) Obstructive sleep apnea Is this a current diagnosis for this admission?: Yes Plan: Patient is currently trached. (9) Urinary retention Is this a current diagnosis for this admission?: Yes Plan: Has a Castro catheter in place will monitor I's and O's. (10) Cellulitis of neck Is this a current diagnosis for this admission?: Yes Plan: He has cellulitis around the trach site. Advised to use half vinegar and half water to apply around the site. - Time Time Spent with patient: 15-24 minutes Anticipated discharge: Home with Homehealth Within: Other - Inpatient Certification Medical Necessity: Significant Comorbidiites Make Outpatient Treatment Too Risky , Need Close Monitoring Due to Risk of Patient Decompensation
[2017-08-10] MEDS: ENOXAPARIN SODIUM INJ 40 MG/0.4 ML DISP.SYRIN SUBCUT SCH (09:49)
[2017-08-10] MEDS: FAMOTIDINE INJ/PF 20 MG/2 ML SDV IV SCH ×2 (09:50→21:02)
[2017-08-10] MEDS: LEVOFLOXACIN 750 MG/D5W RTU 750 MG/150 ML RTUPB IV SCH (09:52)
[2017-08-10] MEDS: FUROSEMIDE INJ/PF 40 MG/4 ML SDV IV SCH ×2 (10:51→21:01)
[2017-08-10 11:40] LABS: COTININE URINE Negative ng/mL (Cutoff=300)
--- NOTE | 2017-08-10 11:44 | Physician Advisory Note ---
Physician Advisor ProgressNote .: Pursuant to the plan for Carmen Torres, I have reviewed the medical record for this patient. Physician Advisor Statement: Nice documentation of ARF/SHAWNA, Ac on chr Resp Failure. Please consider documenting, if you agree: 1. Reason for abx - "possible acute bronchitis"? (since COPD exac.s & chronic bronchitis don't necessarily require abx) 2. Is there an "acute exacerbation of COPD" present? 3. "possible chronic CHF, suspect ___ type" (systolic? diastolic? systolic & diastolic?) - & if ruled out/in 4. r.e. "hepatitis" - please state whether this is acute or chronic, and type ( viral - A/B/C ...? alcoholic? ...) Thanks for your help with optimizing documentation specificity! CKent
[2017-08-11] MEDS: IPRATROPIUM/ALBUTEROL 0.5-2.5 MG/3 ML AMPUL NEB SCH ×6 (00:20→20:00)
[2017-08-11] MEDS: MORPHINE SULFATE 10 MG/ML INJ IV PRN ×3 (01:45→19:32)
[2017-08-11 04:27] LABS: ABSOLUTE LYMPHOCYTES (AUTO) 0.4 10^3/uL (0.5-4.7); ABSOLUTE MONOCYTES (AUTO) 0.3 10^3/uL (0.1-1.4); ABSOLUTE NEUT (AUTO) 5.7 10^3/uL (1.7-8.2); BASOPHILS % (AUTO) 0.3 % (0-2); HEMATOCRIT 33.5 % (37.9-51.0); HGB HCT DIFFERENCE -0.5; LYMPHOCYTES % (AUTO) 6.6 % (13-45); MEAN CORPUSCULAR HEMOGLOBIN 29.7 pg (27.0-33.4); MEAN CORPUSCULAR HGB CONC 32.7 g/dL (32.0-36.0); MEAN CORPUSCULAR VOLUME 91 fl (80-97); MONOCYTES % (AUTO) 5.1 % (3-13); RED BLOOD COUNT 3.69 10^6/uL (4.35-5.55); RED CELL DISTRIBUTION WIDTH 15.8 % (11.5-14.0); WHITE BLOOD COUNT 6.5 10^3/uL (4.0-10.5)
[2017-08-11 04:53] LABS: ANION GAP 7 (5-19); BLOOD UREA NITROGEN 42 mg/dL (7-20); CALCIUM 8.2 mg/dL (8.4-10.2); CARBON DIOXIDE 37 mmol/L (22-30); CHLORIDE 103 mmol/L (98-107); CREATININE RESULT 1.21 mg/dL (0.52-1.25); GLUCOSE 148 mg/dL (75-110); MAGNESIUM 2.4 mg/dL (1.6-2.3); POTASSIUM 4.9 mmol/L (3.6-5.0)
[2017-08-11 05:46] LABS: ARTERIAL BLOOD BASE EXCESS 7.9 mmol/L; ARTERIAL BLOOD O2 SATURATION 94.3 % (94-98)
[2017-08-11] MEDS: METHYLPREDNISOLONE INJ 125 MG/2 ML SDV IV SCH ×3 (06:15→21:45)
--- NOTE | 2017-08-11 06:52 | RADIOLOGY REPORT (SQ) ---
EXAM DESCRIPTION: CHEST SINGLE VIEW COMPLETED DATE/TIME: 08/11/2017 6:36 am REASON FOR STUDY: resp fail COMPARISON: None. EXAM PARAMETERS: NUMBER OF VIEWS: One view. TECHNIQUE: Single frontal radiographic view of the chest acquired. RADIATION DOSE: NA LIMITATIONS: Patient has made a shallow inspiration. FINDINGS: LUNGS AND PLEURA: The previously described left basilar density appears improved. Remaini ng lung butt are clear. MEDIASTINUM AND HILAR STRUCTURES: No masses. Contour normal. HEART AND VASCULAR STRUCTURES: Heart normal in size. Normal vasculature. BONES: No acute findings. HARDWARE: Tracheostomy tube is unchanged in position. OTHER: No other significant finding. IMPRESSION: Minimal interval improvement in the left basilar density. Other findings as noted above . TECHNICAL DOCUMENTATION: JOB ID: [id number] [employer]- All Rights Reserved
[2017-08-11] MEDS: FAMOTIDINE INJ/PF 20 MG/2 ML SDV IV SCH ×2 (09:29→21:45)
[2017-08-11] MEDS: LEVOFLOXACIN 750 MG/D5W RTU 750 MG/150 ML RTUPB IV SCH (09:29)
[2017-08-11] MEDS: FUROSEMIDE INJ/PF 40 MG/4 ML SDV IV SCH ×2 (09:29→21:46)
[2017-08-11] MEDS: ENOXAPARIN SODIUM INJ 40 MG/0.4 ML DISP.SYRIN SUBCUT SCH (09:29)
[2017-08-11 10:19] LABS: ABSOLUTE LYMPHOCYTES (AUTO) 0.4 10^3/uL (0.5-4.7); ABSOLUTE MONOCYTES (AUTO) 0.4 10^3/uL (0.1-1.4); ABSOLUTE NEUT (AUTO) 5.5 10^3/uL (1.7-8.2); BASOPHILS % (AUTO) 0.3 % (0-2); EOSINOPHILS % (AUTO) 0.4 % (0-6); HEMATOCRIT 34.9 % (37.9-51.0); HEMOGLOBIN 11.5 g/dL (13.5-17.0); HGB HCT DIFFERENCE -0.4; LYMPHOCYTES % (AUTO) 5.7 % (13-45); MEAN CORPUSCULAR HEMOGLOBIN 29.7 pg (27.0-33.4); MEAN CORPUSCULAR VOLUME 90 fl (80-97); MONOCYTES % (AUTO) 5.7 % (3-13); RED BLOOD COUNT 3.89 10^6/uL (4.35-5.55); RED CELL DISTRIBUTION WIDTH 15.7 % (11.5-14.0); SEGMENTED NEUTROPHILS % (AUTO) 87.9 % (42-78); WHITE BLOOD COUNT 6.2 10^3/uL (4.0-10.5)
--- NOTE | 2017-08-11 10:53 | PDOC PROGRESS REPORT ---
Subjective Progress Note for:: 08/10/17 - acute/chronic resp failure Subjective:: awake responsive Significantly improved Physical Exam Vital Signs: Temp Pulse Resp BP Pulse Ox 98.4 F 70 18 134/73 H 96 08/10/17 04:00 08/10/17 08:00 08/10/17 06:28 08/10/17 06:28 08/10/17 06:28 Intake & Output 08/09/17 08/10/17 08/11/17 06:59 06:59 06:59 Intake Total 808 1481 Output Total 1430 9405 Balance -622 -854 Weight 175.6 kg 172.4 kg General appearance: PRESENT: cooperative, disheveled, morbidly obese, well- developed Head exam: PRESENT: atraumatic, normocephalic Eye exam: PRESENT: conjunctiva pale, EOMI Mouth exam: PRESENT: dry mucosa, tongue midline Neck exam: PRESENT: tracheostomy, other - erythema aroud trach Respiratory exam: PRESENT: decreased breath sounds, prolonged expiratory phas, rhonchi, symmetrical, unlabored, wheezes. ABSENT: accessory muscle use, chest wall tenderness, crackles, rales, retraction, stridor, tachypnea Cardiovascular exam: PRESENT: RRR, +S1, +S2 Pulses: PRESENT: normal radial pulses GI/Abdominal exam: PRESENT: normal bowel sounds, soft. ABSENT: distended, guarding, mass, organolmegaly, rebound, tenderness Gentrourinary exam: PRESENT: indwelling catheter Extremities exam: PRESENT: +2 edema Neurological exam: PRESENT: alert, awake Psychiatric exam: PRESENT: flat affect Skin exam: PRESENT: dry, warm - \ Results Laboratory Results: 08/10/17 03:55 08/10/17 03:55 08/09/17 08/10/17 08/10/17 23:45 03:55 03:55 WBC 6.5 RBC 3.52 L Hgb 10.6 L Hct 32.1 L MCV 91 MCH 30.2 MCHC 33.1 RDW 16.2 H Plt Count 202 Seg Neutrophils % 88.1 H Lymphocytes % 6.7 L Monocytes % 5.1 Eosinophils % 0.0 Basophils % 0.1 Absolute Neutrophils 5.7 Absolute Lymphocytes 0.4 L Absolute Monocytes 0.3 Absolute Eosinophils 0.0 Absolute Basophils 0.0 Carbonic Acid HCO3/H2CO3 Ratio ABG pH ABG pCO2 ABG pO2 ABG HCO3 ABG O2 Saturation ABG Base Excess FiO2 Sodium Potassium Chloride Carbon Dioxide Anion Gap BUN Creatinine Est GFR ( Amer) Est GFR (Non-Af Amer) Glucose Calcium Magnesium 2.3 Total Bilirubin AST ALT Alkaline Phosphatase Total Protein Albumin Urine Color YELLOW Urine Appearance CLOUDY Urine pH 5.0 Ur Specific [place] 1.018 Urine Protein NEGATIVE Urine Glucose (UA) NEGATIVE Urine Ketones NEGATIVE Urine Blood NEGATIVE Urine Nitrite POSITIVE H Ur Leukocyte Esterase MODERATE H Urine WBC (Auto) 35 Urine RBC (Auto) 2 08/10/17 08/10/17 03:55 05:40 WBC RBC Hgb Hct MCV MCH MCHC RDW Plt Count Seg Neutrophils % Lymphocytes % Monocytes % Eosinophils % Basophils % Absolute Neutrophils Absolute Lymphocytes Absolute Monocytes Absolute Eosinophils Absolute Basophils Carbonic Acid 1.84 H HCO3/H2CO3 Ratio 19:1 ABG pH 7.38 ABG pCO2 61.0 H ABG pO2 79.4 L ABG HCO3 35.0 H ABG O2 Saturation 95.2 ABG Base Excess 8.1 FiO2 40% Sodium 148.1 H Potassium 5.3 H Chloride 104 Carbon Dioxide 35 H Anion Gap 9 BUN 37 H Creatinine 1.28 H Est GFR ( Amer) > 60 Est GFR (Non-Af Amer) 57 L Glucose 131 H Calcium 8.3 L Magnesium Total Bilirubin 0.5 AST 1064 H ALT 1674 H Alkaline Phosphatase 56 Total Protein 6.0 L Albumin 3.4 L Urine Color Urine Appearance Urine pH Ur Specific [place] Urine Protein Urine Glucose (UA) Urine Ketones Urine Blood Urine Nitrite Ur Leukocyte Esterase Urine WBC (Auto) Urine RBC (Auto) 08/08/17 08/08/17 08/08/17 15:56 21:55 21:55 Creatine Kinase 46 L CK-MB (CK-2) 2.09 Troponin I 0.269 0.270 NT-Pro-B Natriuret Pep 08/09/17 08/09/17 08/09/17 04:06 04:06 10:18 Creatine Kinase 43 L CK-MB (CK-2) 1.76 1.31 Troponin I 0.175 0.117 NT-Pro-B Natriuret Pep 2960 H 08/10/17 03:55 Creatine Kinase CK-MB (CK-2) Troponin I NT-Pro-B Natriuret Pep 1100 H Impressions: Abdomen Ultrasound 08/08/17 12:14 IMPRESSION: 1. Limited study. 2. Fatty liver. 3. No overt gallbladder disease or dilated bile ducts suggested. Chest X-Ray 08/09/17 06:00 IMPRESSION: Left basilar density as noted above Assessment & Plan - Diagnosis (1) Acute respiratory failure with hypoxia and hypercapnia Is this a current diagnosis for this admission?: Yes Plan: Arterial blood gases have improved keep on pressure support and CPAP as long as tolerated if tolerated for substantial amount of time will switch over to trach collar (2) COPD (chronic obstructive pulmonary disease) with chronic bronchitis Is this a current diagnosis for this admission?: Yes Plan: Breath sounds improved continue current antibiotic and bronchodilator therapy (3) Congestive heart failure (CHF) Qualifiers: Congestive heart failure type: unspecified congestive heart failure type Congestive heart failure chronicity: unspecified congestive heart failure chronicity Qualified Code(s): I50.9 - Heart failure, unspecified Is this a current diagnosis for this admission?: Yes Plan: Gentle diuresis (4) Morbid obesity Is this a current diagnosis for this admission?: Yes Plan: Physical therapy engaged in structured program for weight loss (5) Obstructive sleep apnea Is this a current diagnosis for this admission?: Yes Plan: The above patient has failed BiPAP. This patient would benefit from noninvasive mechanical ventilation via the trilogy AVAPS/AE and faster responding AVAPS rates. The trilogy is able to provide a target tidal volume and also adjusting the EPAP pressures to maintain a patent airway as well as an oral backup rate this machine will help improve PaCO2 levels. The severity of the patient's condition will lead to future hospitalizations and readmissions as well as life-threatening situations without the use of this device trilogy home vent needed for hypercapnic respiratory failure. Family medical or Med- [place] to follow for trilogy set up. - Time Time Spent with patient: 40 minutes critical care time spent with patient
--- NOTE | 2017-08-11 11:03 | PDOC PROGRESS REPORT ---
Subjective Progress Note for:: 08/11/17 - Acute/chronic respiratory failure Subjective:: Significantly improved Sitting in chair talking to spouse Physical Exam Vital Signs: Temp Pulse Resp BP Pulse Ox 98.4 F 75 18 134/73 H 98 08/10/17 04:00 08/11/17 08:38 08/11/17 08:38 08/11/17 05:30 08/11/17 08:38 Intake & Output 08/10/17 08/11/17 08/12/17 06:59 06:59 06:59 Intake Total 1481 1481 Output Total 2335 4010 100 Balance -854 -2529 -100 Weight 172.4 kg 172.6 kg General appearance: PRESENT: no acute distress, cooperative, disheveled, well- developed Head exam: PRESENT: atraumatic, normocephalic Eye exam: PRESENT: conjunctiva pale, EOMI Mouth exam: PRESENT: dry mucosa, neck supple, tongue midline Neck exam: ABSENT: carotid bruit, JVD, lymphadenopathy, thyromegaly Respiratory exam: PRESENT: decreased breath sounds, prolonged expiratory phas, rhonchi, symmetrical, unlabored, wheezes. ABSENT: accessory muscle use, chest wall tenderness, crackles, rales, retraction, stridor, tachypnea Cardiovascular exam: PRESENT: RRR, +S1, +S2 Pulses: PRESENT: normal radial pulses GI/Abdominal exam: PRESENT: normal bowel sounds, soft. ABSENT: distended, guarding, mass, organolmegaly, rebound, tenderness Gentrourinary exam: PRESENT: indwelling catheter Extremities exam: ABSENT: calf tenderness, clubbing, joint swelling Musculoskeletal exam: ABSENT: ambulatory, deformity, dislocation Neurological exam: PRESENT: awake Psychiatric exam: PRESENT: flat affect Skin exam: PRESENT: dry, jaundice, warm. ABSENT: petechiae, vesicles Results Laboratory Results: 08/11/17 04:04 08/11/17 04:04 08/11/17 08/11/17 08/11/17 04:04 04:04 05:35 WBC 6.5 RBC 3.69 L Hgb 11.0 L Hct 33.5 L MCV 91 MCH 29.7 MCHC 32.7 RDW 15.8 H Plt Count 215 Seg Neutrophils % 88.0 H Lymphocytes % 6.6 L Monocytes % 5.1 Eosinophils % 0.0 Basophils % 0.3 Absolute Neutrophils 5.7 Absolute Lymphocytes 0.4 L Absolute Monocytes 0.3 Absolute Eosinophils 0.0 Absolute Basophils 0.0 Carbonic Acid 1.69 H HCO3/H2CO3 Ratio 20:1 ABG pH 7.40 ABG pCO2 56.2 H ABG pO2 72.5 L ABG HCO3 34.3 H ABG O2 Saturation 94.3 ABG Base Excess 7.9 FiO2 40% Sodium 147.0 H Potassium 4.9 Chloride 103 Carbon Dioxide 37 H Anion Gap 7 BUN 42 H Creatinine 1.21 Est GFR ( Amer) > 60 Est GFR (Non-Af Amer) > 60 Glucose 148 H Calcium 8.2 L Magnesium 2.4 H 08/08/17 08/08/17 08/08/17 15:56 21:55 21:55 Creatine Kinase 46 L CK-MB (CK-2) 2.09 Troponin I 0.269 0.270 NT-Pro-B Natriuret Pep 08/09/17 08/09/17 08/09/17 04:06 04:06 10:18 Creatine Kinase 43 L CK-MB (CK-2) 1.76 1.31 Troponin I 0.175 0.117 NT-Pro-B Natriuret Pep 2960 H 08/10/17 08/11/17 03:55 04:04 Creatine Kinase CK-MB (CK-2) Troponin I NT-Pro-B Natriuret Pep 1100 H 781 Impressions: Abdomen Ultrasound 08/08/17 12:14 IMPRESSION: 1. Limited study. 2. Fatty liver. 3. No overt gallbladder disease or dilated bile ducts suggested. Chest X-Ray 08/11/17 06:00 IMPRESSION: Minimal interval improvement in the left basilar density. Other findings as noted above. Assessment & Plan - Diagnosis (1) Acute respiratory failure with hypoxia and hypercapnia Is this a current diagnosis for this admission?: Yes Plan: Arterial blood gases have improved keep on pressure support and CPAP as long as tolerated if tolerated for substantial amount of time will switch over to trach collar (2) COPD (chronic obstructive pulmonary disease) with chronic bronchitis Is this a current diagnosis for this admission?: Yes Plan: Breath sounds improved continue current antibiotic and bronchodilator therapy (3) Congestive heart failure (CHF) Qualifiers: Congestive heart failure type: unspecified congestive heart failure type Congestive heart failure chronicity: unspecified congestive heart failure chronicity Qualified Code(s): I50.9 - Heart failure, unspecified Is this a current diagnosis for this admission?: Yes Plan: Gentle diuresis (4) Morbid obesity Is this a current diagnosis for this admission?: Yes Plan: Physical therapy engaged in structured program for weight loss (5) Obstructive sleep apnea Is this a current diagnosis for this admission?: Yes Plan: The above patient has failed BiPAP. This patient would benefit from noninvasive mechanical ventilation via the trilogy AVAPS/AE and faster responding AVAPS rates. The trilogy is able to provide a target tidal volume and also adjusting the EPAP pressures to maintain a patent airway as well as an oral backup rate this machine will help improve PaCO2 levels. The severity of the patient's condition will lead to future hospitalizations and readmissions as well as life-threatening situations without the use of this device trilogy home vent needed for hypercapnic respiratory failure. Family medical or Med- [place] to follow for trilogy set up. - Time Time Spent with patient: Critical care time 45 minutes
[2017-08-11 12:42] LABS: ARTERIAL BLOOD BASE EXCESS 8.8 mmol/L; ARTERIAL BLOOD O2 SATURATION 98.4 % (94-98)
[2017-08-11] MEDS: DEXTROSE 5%-1/2 NORMAL SALINE 1,000 ML IV PRN (17:20)
[2017-08-12] MEDS: IPRATROPIUM/ALBUTEROL 0.5-2.5 MG/3 ML AMPUL NEB SCH ×7 (00:18→23:38)
[2017-08-12] MEDS: METHYLPREDNISOLONE INJ 125 MG/2 ML SDV IV SCH ×3 (06:25→21:44)
[2017-08-12 07:18] LABS: ALANINE AMINOTRANSFERASE 859 U/L (21-72); ALBUMIN 3.3 g/dL (3.5-5.0); ALKALINE PHOSPHATASE 46 U/L (38-126); ANION GAP 9 (5-19); ASPARTATE AMINO TRANSFERASE 174 U/L (17-59); BILIRUBIN,DIRECT 0.5 mg/dL (0.0-0.4); BILIRUBIN,TOTAL 0.6 mg/dL (0.2-1.3); BLOOD UREA NITROGEN 48 mg/dL (7-20); CALCIUM 8.1 mg/dL (8.4-10.2); CARBON DIOXIDE 37 mmol/L (22-30); CHLORIDE 101 mmol/L (98-107); CREATININE RESULT 1.09 mg/dL (0.52-1.25); GLUCOSE 117 mg/dL (75-110); POTASSIUM 5.2 mmol/L (3.6-5.0); SODIUM 146.6 mmol/L (137-145); TOTAL PROTEIN 5.8 g/dL (6.3-8.2)
[2017-08-12 07:53] LABS: ARTERIAL BLOOD BASE EXCESS 11.5 mmol/L; ARTERIAL BLOOD O2 SATURATION 94.9 % (94-98)
[2017-08-12] MEDS: LEVOFLOXACIN 750 MG/D5W RTU 750 MG/150 ML RTUPB IV SCH (09:19)
[2017-08-12] MEDS: FUROSEMIDE INJ/PF 40 MG/4 ML SDV IV SCH (09:20)
[2017-08-12] MEDS: ENOXAPARIN SODIUM INJ 40 MG/0.4 ML DISP.SYRIN SUBCUT SCH (09:20)
[2017-08-12] MEDS: FAMOTIDINE INJ/PF 20 MG/2 ML SDV IV SCH ×2 (09:20→21:44)
--- NOTE | 2017-08-12 09:47 | PDOC PROGRESS REPORT ---
Subjective Progress Note for:: 08/12/17 - acute/chronic resp failure Subjective:: i feel better Physical Exam Vital Signs: Temp Pulse Resp BP Pulse Ox 98.4 F 71 20 137/67 H 97 08/10/17 04:00 08/12/17 08:10 08/12/17 08:10 08/12/17 06:41 08/12/17 08:10 Intake & Output 08/11/17 08/12/17 08/13/17 06:59 06:59 05:59 Intake Total 1481 700 Output Total 4010 4250 Balance -2529 -3550 Weight 172.6 kg General appearance: PRESENT: no acute distress, cooperative, disheveled, morbidly obese, well-developed Head exam: PRESENT: atraumatic, normocephalic Eye exam: PRESENT: conjunctiva pale, EOMI Mouth exam: PRESENT: dry mucosa, neck supple, tongue midline Neck exam: PRESENT: tracheostomy - #4 shiley cuffed Respiratory exam: PRESENT: decreased breath sounds, prolonged expiratory phas. ABSENT: accessory muscle use, chest wall tenderness, clear to auscultation karyna, crackles Cardiovascular exam: PRESENT: RRR, +S1, +S2. ABSENT: bradycardia, tachycardia Pulses: PRESENT: normal radial pulses GI/Abdominal exam: PRESENT: diminished bowel sounds, soft Gentrourinary exam: PRESENT: indwelling catheter Extremities exam: ABSENT: calf tenderness, clubbing, joint swelling, tenderness Musculoskeletal exam: ABSENT: deformity, dislocation, tenderness Neurological exam: PRESENT: alert, awake Psychiatric exam: PRESENT: normal mood Skin exam: PRESENT: dry, warm Results Laboratory Results: 08/11/17 10:07 08/12/17 06:37 08/11/17 08/11/17 08/12/17 10:07 12:30 06:37 WBC 6.2 RBC 3.89 L Hgb 11.5 L Hct 34.9 L MCV 90 MCH 29.7 MCHC 33.0 RDW 15.7 H Plt Count 216 Seg Neutrophils % 87.9 H Lymphocytes % 5.7 L Monocytes % 5.7 Eosinophils % 0.4 Basophils % 0.3 Absolute Neutrophils 5.5 Absolute Lymphocytes 0.4 L Absolute Monocytes 0.4 Absolute Eosinophils 0.0 Absolute Basophils 0.0 Carbonic Acid 1.91 H HCO3/H2CO3 Ratio 18:1 ABG pH 7.37 ABG pCO2 63.5 H ABG pO2 127.4 H ABG HCO3 36.1 H ABG O2 Saturation 98.4 H ABG Base Excess 8.8 FiO2 40% Sodium 146.6 H Potassium 5.2 H Chloride 101 Carbon Dioxide 37 H Anion Gap 9 BUN 48 H Creatinine 1.09 Est GFR ( Amer) > 60 Est GFR (Non-Af Amer) > 60 Glucose 117 H Calcium 8.1 L Total Bilirubin 0.6 AST 174 H ALT 859 H Alkaline Phosphatase 46 Total Protein 5.8 L Albumin 3.3 L 08/12/17 07:14 WBC RBC Hgb Hct MCV MCH MCHC RDW Plt Count Seg Neutrophils % Lymphocytes % Monocytes % Eosinophils % Basophils % Absolute Neutrophils Absolute Lymphocytes Absolute Monocytes Absolute Eosinophils Absolute Basophils Carbonic Acid 2.05 H HCO3/H2CO3 Ratio 19:1 ABG pH 7.38 ABG pCO2 68.2 H ABG pO2 78.5 L ABG HCO3 39.2 H ABG O2 Saturation 94.9 ABG Base Excess 11.5 FiO2 35% Sodium Potassium Chloride Carbon Dioxide Anion Gap BUN Creatinine Est GFR ( Amer) Est GFR (Non-Af Amer) Glucose Calcium Total Bilirubin AST ALT Alkaline Phosphatase Total Protein Albumin 08/08/17 08/08/17 08/08/17 15:56 21:55 21:55 Creatine Kinase 46 L CK-MB (CK-2) 2.09 Troponin I 0.269 0.270 NT-Pro-B Natriuret Pep 08/09/17 08/09/17 08/09/17 04:06 04:06 10:18 Creatine Kinase 43 L CK-MB (CK-2) 1.76 1.31 Troponin I 0.175 0.117 NT-Pro-B Natriuret Pep 2960 H 08/10/17 08/11/17 03:55 04:04 Creatine Kinase CK-MB (CK-2) Troponin I NT-Pro-B Natriuret Pep 1100 H 781 Impressions: Abdomen Ultrasound 08/08/17 12:14 IMPRESSION: 1. Limited study. 2. Fatty liver. 3. No overt gallbladder disease or dilated bile ducts suggested. Chest X-Ray 08/11/17 06:00 IMPRESSION: Minimal interval improvement in the left basilar density. Other findings as noted above. Assessment & Plan - Diagnosis (1) Acute respiratory failure with hypoxia and hypercapnia Is this a current diagnosis for this admission?: Yes Plan: change #4 cuffed trach to #6 fenestrated trach (2) COPD (chronic obstructive pulmonary disease) with chronic bronchitis Is this a current diagnosis for this admission?: Yes Plan: Breath sounds improved continue current antibiotic and bronchodilator therapy (3) Congestive heart failure (CHF) Qualifiers: Congestive heart failure type: unspecified congestive heart failure type Congestive heart failure chronicity: unspecified congestive heart failure chronicity Qualified Code(s): I50.9 - Heart failure, unspecified Is this a current diagnosis for this admission?: Yes Plan: Gentle diuresis (4) Morbid obesity Is this a current diagnosis for this admission?: Yes Plan: Physical therapy engaged in structured program for weight loss (5) Obstructive sleep apnea Is this a current diagnosis for this admission?: Yes Plan: The above patient has failed BiPAP. This patient would benefit from noninvasive mechanical ventilation via the trilogy AVAPS/AE and faster responding AVAPS rates. The trilogy is able to provide a target tidal volume and also adjusting the EPAP pressures to maintain a patent airway as well as an oral backup rate this machine will help improve PaCO2 levels. The severity of the patient's condition will lead to future hospitalizations and readmissions as well as life-threatening situations without the use of this device trilogy home vent needed for hypercapnic respiratory failure. Family medical or Med- [place] to follow for trilogy set up. - Time Time Spent with patient: 35 min critical care time
[2017-08-12] MEDS ORDERED: LIDOCAINE 2% JELLY 30 ML TUBE TOP ONE (10:30)
[2017-08-12] MEDS: MORPHINE SULFATE 10 MG/ML INJ IV PRN ×3 (12:05→22:52)
[2017-08-12] MEDS: METOCLOPRAMIDE HCL 10 MG TABLET PO SCH (21:44)
[2017-08-13] MEDS: DEXTROSE 5%-1/2 NORMAL SALINE 1,000 ML IV PRN (01:52)
[2017-08-13] MEDS: MORPHINE SULFATE 10 MG/ML INJ IV PRN (04:06)
[2017-08-13] MEDS: IPRATROPIUM/ALBUTEROL 0.5-2.5 MG/3 ML AMPUL NEB SCH ×5 (04:21→19:33)
[2017-08-13 04:42] LABS: ABSOLUTE LYMPHOCYTES (AUTO) 0.3 10^3/uL (0.5-4.7); ABSOLUTE MONOCYTES (AUTO) 0.2 10^3/uL (0.1-1.4); BASOPHILS % (AUTO) 0.2 % (0-2); EOSINOPHILS % (AUTO) 0.1 % (0-6); HEMATOCRIT 35.2 % (37.9-51.0); HEMOGLOBIN 11.6 g/dL (13.5-17.0); HGB HCT DIFFERENCE -0.4; LYMPHOCYTES % (AUTO) 5.7 % (13-45); MEAN CORPUSCULAR HEMOGLOBIN 29.5 pg (27.0-33.4); MEAN CORPUSCULAR HGB CONC 32.9 g/dL (32.0-36.0); MEAN CORPUSCULAR VOLUME 90 fl (80-97); MONOCYTES % (AUTO) 5.5 % (3-13); RED BLOOD COUNT 3.93 10^6/uL (4.35-5.55); RED CELL DISTRIBUTION WIDTH 15.8 % (11.5-14.0); SEGMENTED NEUTROPHILS % (AUTO) 88.5 % (42-78); WHITE BLOOD COUNT 4.5 10^3/uL (4.0-10.5)
[2017-08-13 05:19] LABS: ARTERIAL BLOOD BASE EXCESS 10.7 mmol/L; ARTERIAL BLOOD O2 SATURATION 96.9 % (94-98)
[2017-08-13 05:34] LABS: ANION GAP 7 (5-19); BLOOD UREA NITROGEN 49 mg/dL (7-20); CALCIUM 7.8 mg/dL (8.4-10.2); CARBON DIOXIDE 37 mmol/L (22-30); CHLORIDE 100 mmol/L (98-107); CREATININE RESULT 1.17 mg/dL (0.52-1.25); GLUCOSE 177 mg/dL (75-110); POTASSIUM 5.1 mmol/L (3.6-5.0); SODIUM 144.1 mmol/L (137-145)
[2017-08-13] MEDS: METHYLPREDNISOLONE INJ 125 MG/2 ML SDV IV SCH (06:09)
--- NOTE | 2017-08-13 06:37 | RADIOLOGY REPORT (SQ) ---
EXAM DESCRIPTION: CHEST SINGLE VIEW COMPLETED DATE/TIME: 08/13/2017 6:27 am REASON FOR STUDY: resp failure COMPARISON: 08/11/2017 EXAM PARAMETERS: NUMBER OF VIEWS: One view. TECHNIQUE: Single frontal radiographic view of the chest acquired. RADIATION DOSE: NA LIMITATIONS: None. FINDINGS: LUNGS AND PLEURA: Stable left lower lobe airspace disease with pleural effusion. Lungs o therwise clear. MEDIASTINUM AND HILAR STRUCTURES: No masses. Contour normal. HEART AND VASCULAR STRUCTURES: Heart stable in size. Normal vasculature. BONES: No acute findings. HARDWARE: Stable position tracheostomy. OTHER: No other significant finding. IMPRESSION: STABLE LEFT LOWER LOBE AIRSPACE DISEASE WITH PLEURAL EFFUSION. TECHNICAL DOCUMENTATION: JOB ID: [id number] [employer]- All Rights Reserved
[2017-08-13] MEDS: METOCLOPRAMIDE HCL 10 MG TABLET PO SCH ×2 (09:36→21:23)
[2017-08-13] MEDS: LEVOFLOXACIN 750 MG/D5W RTU 750 MG/150 ML RTUPB IV SCH (09:36)
[2017-08-13] MEDS: PREDNISONE 20 MG TABLET PO SCH (09:36)
[2017-08-13] MEDS: METOPROLOL SUCCINATE 25 MG TAB.SR.24H PO SCH (09:37)
[2017-08-13] MEDS: FUROSEMIDE 40 MG TABLET PO SCH (09:37)
[2017-08-13] MEDS: FAMOTIDINE INJ/PF 20 MG/2 ML SDV IV SCH ×2 (09:38→21:23)
[2017-08-13] MEDS: ENOXAPARIN SODIUM INJ 40 MG/0.4 ML DISP.SYRIN SUBCUT SCH (09:38)
[2017-08-13] MEDS: TRAMADOL HCL 50 MG TABLET PO PRN ×2 (11:02→20:02)
[2017-08-13] MEDS: INSULIN REG, HUMAN 100 UNIT/ML 3 ML VIAL (PYX) SUBCUT PRN ×2 (12:30→17:48)
[2017-08-13 15:25] LABS: ARTERIAL BLOOD BASE EXCESS 10.4 mmol/L
--- NOTE | 2017-08-13 16:36 | PDOC PROGRESS REPORT ---
Subjective Progress Note for:: 08/13/17 - Acute hypercapnic hypoxic respiratory failure Subjective:: awake,alert Physical Exam Vital Signs: Temp Pulse Resp BP Pulse Ox 98.2 F 71 17 148/80 H 99 08/12/17 16:29 08/13/17 08:24 08/13/17 10:00 08/13/17 07:13 08/13/17 10:00 Intake & Output 08/12/17 08/13/17 08/14/17 07:59 06:59 06:59 Intake Total Output Total Balance Weight General appearance: PRESENT: no acute distress, cooperative, disheveled, morbidly obese Head exam: PRESENT: atraumatic, normocephalic Eye exam: PRESENT: conjunctiva pale, EOMI Mouth exam: PRESENT: dry mucosa, neck supple, tongue midline Neck exam: PRESENT: tracheostomy. ABSENT: carotid bruit, lymphadenopathy, meningismus, tenderness, thyromegaly, tracheal deviation Respiratory exam: PRESENT: decreased breath sounds, prolonged expiratory phas, rhonchi, symmetrical, unlabored. ABSENT: accessory muscle use, chest wall tenderness, clear to auscultation karyna, crackles, rales, retraction, stridor, tachypnea Cardiovascular exam: PRESENT: RRR, +S1, +S2 Pulses: PRESENT: normal radial pulses GI/Abdominal exam: PRESENT: diminished bowel sounds, soft. ABSENT: guarding, tenderness Gentrourinary exam: PRESENT: indwelling catheter Extremities exam: PRESENT: calf tenderness, pedal edema, +1 edema. ABSENT: clubbing, full ROM, joint swelling Musculoskeletal exam: ABSENT: deformity, dislocation, tenderness Neurological exam: PRESENT: alert, awake Psychiatric exam: PRESENT: normal mood Skin exam: PRESENT: dry, warm Results Laboratory Results: 08/13/17 04:14 08/13/17 04:14 08/13/17 08/13/17 08/13/17 04:14 04:14 04:38 WBC 4.5 RBC 3.93 L Hgb 11.6 L Hct 35.2 L MCV 90 MCH 29.5 MCHC 32.9 RDW 15.8 H Plt Count 193 Seg Neutrophils % 88.5 H Lymphocytes % 5.7 L Monocytes % 5.5 Eosinophils % 0.1 Basophils % 0.2 Absolute Neutrophils 4.0 Absolute Lymphocytes 0.3 L Absolute Monocytes 0.2 Absolute Eosinophils 0.0 Absolute Basophils 0.0 Carbonic Acid 2.16 H HCO3/H2CO3 Ratio 18:1 ABG pH 7.35 ABG pCO2 71.9 H* ABG pO2 98.1 ABG HCO3 38.9 H ABG O2 Saturation 96.9 ABG Base Excess 10.7 FiO2 FLOW RATE 2 Sodium 144.1 Potassium 5.1 H Chloride 100 Carbon Dioxide 37 H Anion Gap 7 BUN 49 H Creatinine 1.17 Est GFR ( Amer) > 60 Est GFR (Non-Af Amer) > 60 Glucose 177 H Calcium 7.8 L 08/09/17 23:45 Castro Catheter Urine Culture - Final Escherichia Coli Esbl Enterococcus Faecalis(Group D) 08/09/17 10:10 Trach Site Gram Stain - Final 08/08/17 08/08/17 08/08/17 15:56 21:55 21:55 Creatine Kinase 46 L CK-MB (CK-2) 2.09 Troponin I 0.269 0.270 NT-Pro-B Natriuret Pep 08/09/17 08/09/17 08/09/17 04:06 04:06 10:18 Creatine Kinase 43 L CK-MB (CK-2) 1.76 1.31 Troponin I 0.175 0.117 NT-Pro-B Natriuret Pep 2960 H 08/10/17 08/11/17 03:55 04:04 Creatine Kinase CK-MB (CK-2) Troponin I NT-Pro-B Natriuret Pep 1100 H 781 Impressions: Abdomen Ultrasound 08/08/17 12:14 IMPRESSION: 1. Limited study. 2. Fatty liver. 3. No overt gallbladder disease or dilated bile ducts suggested. Chest X-Ray 08/13/17 06:00 IMPRESSION: STABLE LEFT LOWER LOBE AIRSPACE DISEASE WITH PLEURAL EFFUSION. Assessment & Plan - Diagnosis (1) Acute respiratory failure with hypoxia and hypercapnia Is this a current diagnosis for this admission?: Yes Plan: hypoxia persist stable hypercapnia start AVAPS (2) COPD (chronic obstructive pulmonary disease) with chronic bronchitis Is this a current diagnosis for this admission?: Yes Plan: continue current antibiotic and bronchodilator therapy Generic Name Dose Route Start Last Admin Trade Name Freq PRN Reason Stop Dose Admin Prednisone 40 mg 08/13/17 10:00 08/13/17 09:36 Deltasone 20 Mg Tablet PO 09/12/17 09:59 40 mg DAILY REJI Albuterol/Ipratropium 3 ml 08/08/17 16:00 08/13/17 15:58 Duoneb 3 Ml Ampul NEB 09/07/17 15:59 3 ml RTQ4 REJI (3) Congestive heart failure (CHF) Qualifiers: Congestive heart failure type: unspecified congestive heart failure type Congestive heart failure chronicity: unspecified congestive heart failure chronicity Qualified Code(s): I50.9 - Heart failure, unspecified Is this a current diagnosis for this admission?: Yes Plan: Gentle diuresis (4) Morbid obesity Is this a current diagnosis for this admission?: Yes (5) Obstructive sleep apnea Is this a current diagnosis for this admission?: Yes Plan: avaps - Time Time Spent with patient: 40 min cr care
[2017-08-13] MEDS: TAMSULOSIN HCL 0.4 MG CAP.SR.24H PO SCH (17:09)
--- NOTE | 2017-08-13 18:16 | RADIOLOGY REPORT (SQ) ---
EXAM DESCRIPTION: CTA CHEST COMPLETED DATE/TIME: 08/13/2017 4:45 pm REASON FOR STUDY: R/O PE COMPARISON: None. TECHNIQUE: CT scan of the chest performed using helical scanning technique with dynamic intravenous contrast injection. Images reviewed with lung, soft tissue and bone windows. Reconstructed coronal and sagittal MPR images reviewed. Additional 3 dimensional post-processing performed to develop Maximal Intensity Projection images (MD P). All images stored on PACS. All CT scanners at this facility use dose modulation, iterative reconstruction, and/or weight based d osing when appropriate to reduce radiation dose to as low as reasonably achievable (ALARA). [facility]: Dose Right [facility]: CareDose [facility]: Dose Right [facility]: Teradose 4D [facility]: [place] CONTRAST TYPE AND DOSE: contrast/concentration: Isovue 370.00 mg/ml; Total Contrast Delivered: 86.0 ml; Total Saline Delivered: 110.0 ml Contrast bolus optimized for the pulmonary arteries. Not diagnostic for the aorta. RENAL FUNCTION: BUN 49 creatinine 1.2 RADIATION DOSE: Up-to-date CT equipment and radiation dose reduction techniques were employed. CTDIv ol: 32.8 - 55.0 mGy. DLP: 2039 mGy-cm. . LIMITATIONS: Patient motion in the scanner. FINDINGS: LUNGS AND PLEURA: Bilateral pleural effusions contact fragment height. Volume left estima piter 750 cc. There is segmental collapse of the left lower lobe. Subsegmental airspace disease right lower lobe. AORTA AND GREAT VESSELS: No aneurysm. Contrast bolus not optimized for the aorta. HEART: Cardiomegaly. No pericardial effusion. No significant coronary artery calcifications. PULMONARY ARTERIES: No emboli visualized in the main pulmonary arteries or the segmental branches. HILAR AND MEDIASTINAL STRUCTURES: No identified masses or abnormal nodes. HARDWARE: None in the chest. UPPER ABDOMEN: No significant findings. Limited exam. THYROID AND OTHER SOFT TISSUES: No masses. No adenopathy. BONES: No acute or significant finding. 3D MIPS: Confirm above findings. OTHER: No other significant finding. IMPRESSION: 1. No PE. 2. Cardiomegaly. Pleural effusions. Left lower lobe collapse. COMMENT: Quality ID # [id number]: Final reports with documentation of one or more dose reduction techniques (e.g., Automated exposure control, adjustment of the mA and/or kV according to patient size, use of iterative reconstruction technique) TECHNICAL DOCUMENTATION: JOB ID: [id number] [facility], [place] [facility]- All Rights Reserved
[2017-08-14] MEDS: IPRATROPIUM/ALBUTEROL 0.5-2.5 MG/3 ML AMPUL NEB SCH ×6 (00:04→20:40)
[2017-08-14 04:10] LABS: ABSOLUTE LYMPHOCYTES (AUTO) 0.7 10^3/uL (0.5-4.7); ABSOLUTE MONOCYTES (AUTO) 0.6 10^3/uL (0.1-1.4); BASOPHILS % (AUTO) 0.3 % (0-2); HEMATOCRIT 36.3 % (37.9-51.0); HEMOGLOBIN 11.9 g/dL (13.5-17.0); HGB HCT DIFFERENCE -0.6; LYMPHOCYTES % (AUTO) 12.8 % (13-45); MEAN CORPUSCULAR HEMOGLOBIN 29.1 pg (27.0-33.4); MEAN CORPUSCULAR HGB CONC 32.6 g/dL (32.0-36.0); MEAN CORPUSCULAR VOLUME 89 fl (80-97); MONOCYTES % (AUTO) 11.8 % (3-13); RED BLOOD COUNT 4.08 10^6/uL (4.35-5.55); RED CELL DISTRIBUTION WIDTH 15.6 % (11.5-14.0); SEGMENTED NEUTROPHILS % (AUTO) 75.1 % (42-78); WHITE BLOOD COUNT 5.3 10^3/uL (4.0-10.5)
[2017-08-14 04:18] LABS: ANION GAP 5 (5-19); BLOOD UREA NITROGEN 45 mg/dL (7-20); CALCIUM 7.9 mg/dL (8.4-10.2); CARBON DIOXIDE 39 mmol/L (22-30); CHLORIDE 100 mmol/L (98-107); CREATININE RESULT 1.05 mg/dL (0.52-1.25); GLUCOSE 96 mg/dL (75-110); MAGNESIUM 2.5 mg/dL (1.6-2.3); POTASSIUM 4.4 mmol/L (3.6-5.0); SODIUM 144.3 mmol/L (137-145)
--- NOTE | 2017-08-14 07:30 | RADIOLOGY REPORT (SQ) ---
EXAM DESCRIPTION: CHEST SINGLE VIEW COMPLETED DATE/TIME: 08/14/2017 7:20 am REASON FOR STUDY: resp failure COMPARISON: 08/13/2017 EXAM PARAMETERS: NUMBER OF VIEWS: One view. TECHNIQUE: Single frontal radiographic view of the chest acquired. RADIATION DOSE: NA LIMITATIONS: None. FINDINGS: LUNGS AND PLEURA: Stable small bilateral pleural effusions with associated compressive ate lectasis. MEDIASTINUM AND HILAR STRUCTURES: No masses. Contour normal. HEART AND VASCULAR STRUCTURES: Heart stable in size. Normal vasculature. BONES: No acute findings. HARDWARE: Stable appearance tracheostomy tube. OTHER: No other significant finding. IMPRESSION: STABLE APPEARANCE OF THE CHEST WITH BILATERAL PLEURAL EFFUSIONS AND ASSOCIATED COMPRESSI VE ATELECTASIS. TECHNICAL DOCUMENTATION: JOB ID: [id number] [place]- All Rights Reserved
[2017-08-14 08:49] LABS: ARTERIAL BLOOD BASE EXCESS 10.7 mmol/L; ARTERIAL BLOOD O2 SATURATION 95.2 % (94-98)
--- NOTE | 2017-08-14 09:11 | PDOC PROGRESS REPORT ---
Subjective Progress Note for:: 08/14/17 - Acute respiratory failure with hypercapnia and hypoxia Subjective:: Awake alert responsive Physical Exam Vital Signs: Temp Pulse Resp BP Pulse Ox 96.8 F L 80 14 148/67 H 100 08/14/17 02:00 08/14/17 03:50 08/14/17 03:50 08/14/17 04:02 08/14/17 04:02 Intake & Output 08/13/17 08/14/17 08/15/17 06:59 06:59 06:59 Intake Total 1744 Output Total 2975 Balance -1231 Weight 167.9 kg General appearance: PRESENT: no acute distress, cooperative, disheveled, morbidly obese Head exam: PRESENT: atraumatic, normocephalic Eye exam: PRESENT: conjunctiva pale, EOMI Mouth exam: PRESENT: dry mucosa, neck supple, tongue midline Neck exam: PRESENT: tracheostomy. ABSENT: carotid bruit, JVD, lymphadenopathy, tenderness, thyromegaly, tracheal deviation Respiratory exam: PRESENT: rhonchi, symmetrical, unlabored. ABSENT: accessory muscle use, chest wall tenderness, crackles, decreased breath sounds, prolonged expiratory phas, retraction, stridor, tachypnea, wheezes Cardiovascular exam: PRESENT: RRR, +S1, +S2. ABSENT: bradycardia, tachycardia Pulses: PRESENT: normal radial pulses GI/Abdominal exam: PRESENT: ascites Gentrourinary exam: PRESENT: indwelling catheter Extremities exam: ABSENT: calf tenderness, clubbing, joint swelling, pedal edema , tenderness Musculoskeletal exam: ABSENT: deformity, dislocation, tenderness Neurological exam: PRESENT: alert, awake Psychiatric exam: PRESENT: flat affect Skin exam: PRESENT: dry, warm Results Laboratory Results: 08/14/17 03:54 08/14/17 03:54 08/13/17 08/14/17 08/14/17 15:06 03:54 03:54 WBC 5.3 RBC 4.08 L Hgb 11.9 L Hct 36.3 L MCV 89 MCH 29.1 MCHC 32.6 RDW 15.6 H Plt Count 175 Seg Neutrophils % 75.1 Lymphocytes % 12.8 L Monocytes % 11.8 Eosinophils % 0.0 Basophils % 0.3 Absolute Neutrophils 4.0 Absolute Lymphocytes 0.7 Absolute Monocytes 0.6 Absolute Eosinophils 0.0 Absolute Basophils 0.0 Carbonic Acid 1.95 H HCO3/H2CO3 Ratio 19:1 ABG pH 7.39 ABG pCO2 64.7 H ABG pO2 77.9 L ABG HCO3 37.8 H ABG O2 Saturation 95.0 ABG Base Excess 10.4 FiO2 30% Sodium 144.3 Potassium 4.4 Chloride 100 Carbon Dioxide 39 H Anion Gap 5 BUN 45 H Creatinine 1.05 Est GFR ( Amer) > 60 Est GFR (Non-Af Amer) > 60 Glucose 96 Calcium 7.9 L Magnesium 2.5 H 08/09/17 10:10 Trach Site Gram Stain - Final 08/09/17 23:45 Castro Catheter Urine Culture - Final Escherichia Coli Esbl Enterococcus Faecalis(Group D) 08/08/17 08/08/17 08/08/17 15:56 21:55 21:55 Creatine Kinase 46 L CK-MB (CK-2) 2.09 Troponin I 0.269 0.270 NT-Pro-B Natriuret Pep 08/09/17 08/09/17 08/09/17 04:06 04:06 10:18 Creatine Kinase 43 L CK-MB (CK-2) 1.76 1.31 Troponin I 0.175 0.117 NT-Pro-B Natriuret Pep 2960 H 08/10/17 08/11/17 03:55 04:04 Creatine Kinase CK-MB (CK-2) Troponin I NT-Pro-B Natriuret Pep 1100 H 781 Impressions: Abdomen Ultrasound 08/08/17 12:14 IMPRESSION: 1. Limited study. 2. Fatty liver. 3. No overt gallbladder disease or dilated bile ducts suggested. Chest/Abdomen CTA 08/13/17 00:00 IMPRESSION: 1. No PE. 2. Cardiomegaly. Pleural effusions. Left lower lobe collapse. Chest X-Ray 08/14/17 06:00 IMPRESSION: STABLE APPEARANCE OF THE CHEST WITH BILATERAL PLEURAL EFFUSIONS AND ASSOCIATED COMPRESSIVE ATELECTASIS. Assessment & Plan - Diagnosis (1) Acute respiratory failure with hypoxia and hypercapnia Is this a current diagnosis for this admission?: Yes Plan: Remains hypercapnic and hypoxic suspect he is at or near his baseline Labs- All tests 24 hr 08/13/17 08/14/17 15:06 08:40 ABG pH 7.39 7.36 ABG pCO2 64.7 H 71.6 H* ABG pO2 82.1 ABG O2 Saturation 95.0 95.2 FiO2 30% 1L (2) COPD (chronic obstructive pulmonary disease) with chronic bronchitis Is this a current diagnosis for this admission?: Yes Plan: continue current antibiotic and bronchodilator therapy Generic Name Dose Route Start Last Admin Trade Name Freq PRN Reason Stop Dose Admin Prednisone 40 mg 08/13/17 10:00 08/13/17 09:36 Deltasone 20 Mg Tablet PO 09/12/17 09:59 40 mg DAILY REJI Albuterol/Ipratropium 3 ml 08/08/17 16:00 08/13/17 15:58 Duoneb 3 Ml Ampul NEB 09/07/17 15:59 3 ml RTQ4 REJI (3) Congestive heart failure (CHF) Qualifiers: Congestive heart failure type: unspecified congestive heart failure type Congestive heart failure chronicity: unspecified congestive heart failure chronicity Qualified Code(s): I50.9 - Heart failure, unspecified Is this a current diagnosis for this admission?: Yes (4) Morbid obesity Is this a current diagnosis for this admission?: Yes (5) Obstructive sleep apnea Is this a current diagnosis for this admission?: Yes - Time Time Spent with patient: 40 min cr care time
[2017-08-14] MEDS: FAMOTIDINE INJ/PF 20 MG/2 ML SDV IV SCH ×2 (10:06→21:24)
[2017-08-14] MEDS: METOPROLOL SUCCINATE 25 MG TAB.SR.24H PO SCH (10:06)
[2017-08-14] MEDS: PREDNISONE 20 MG TABLET PO SCH (10:07)
[2017-08-14] MEDS: TRAMADOL HCL 50 MG TABLET PO PRN ×2 (10:07→21:25)
[2017-08-14] MEDS: METOCLOPRAMIDE HCL 10 MG TABLET PO SCH ×2 (10:07→21:25)
[2017-08-14] MEDS: FUROSEMIDE 40 MG TABLET PO SCH (10:08)
[2017-08-14] MEDS: ENOXAPARIN SODIUM INJ 40 MG/0.4 ML DISP.SYRIN SUBCUT SCH (10:08)
[2017-08-14] MEDS: LEVOFLOXACIN 750 MG/D5W RTU 750 MG/150 ML RTUPB IV SCH (10:08)
[2017-08-14] MEDS: TAMSULOSIN HCL 0.4 MG CAP.SR.24H PO SCH (18:07)
--- NOTE | 2017-08-14 18:19 | XCELERA REPORT ---
[address] [address] Transthoracic Echocardiogram Report Name: ZEINA KRUGER Age: 62 yrs Gender: Male : 1955 Patient Status: Inpatient Patient Location: ICU^[id number] Study Date: 08/11/2017 08:16 AM Height: 72 in Weight: 380 lb BSA: 2.8 m2 Procedure: A two-dimensional transthoracic echocardiogram with color flow and Doppler was performed. Study Quality: Technically suboptimal. Poor endo cardial defenition and poor doppler interogation. Reason For Study: CHF History: CHF. Ordering Physician: ELIZABETH CHOUDHURY Performed By: Carolann Linn Interpretation Summary Poor endo cardial defenition and poor doppler interogation. Only interpretable vie is the parasternal long axis.The posterior and anteroseptal bowden contract normally.In this only view there is no LVH , and LVEF is 69%.No other comments can be made. MMode/2D Measurements & Calculations RVDd: 3.0 cm LVIDd: 5.1 cm FS: 38.8 % Ao root diam: 2.5 cm IVSd: 1.1 cm LVIDs: 3.1 cm EDV(Teich): 122.1 ml LVPWd: 1.2 cm ESV(Teich): 38.1 ml Ao root area: 4.8 cm2 EF(Teich): 68.8 % LA dimension: 3.3 cm Doppler Measurements & Calculations MV E max mary: MV P1/2t max mary: Ao V2 max: LV V1 max P.5 cm/sec 118.0 cm/sec 122.6 cm/sec 2.8 mmHg MV A max mary: MV P1/2t: 71.8 msec Ao max PG: LV V1 max: 118.5 cm/sec 6.0 mmHg 83.4 cm/sec MV E/A: 1.0 MVA(P1/2t): 3.1 cm2 MV dec slope: 481.5 cm/sec2 PA V2 max: 86.9 cm/sec PA max P.0 mmHg Left Ventricle Only interpretable vie is the parasternal long axis.The posterior and anteroseptal bowden contract normally.In this only view there is no LVH , and LVEF is 69%.No other comments can be made. : ELIZABETH CHOUDHURY > Noa Moreno
[2017-08-15] MEDS: IPRATROPIUM/ALBUTEROL 0.5-2.5 MG/3 ML AMPUL NEB SCH ×6 (00:06→20:05)
[2017-08-15 04:18] LABS: ABSOLUTE LYMPHOCYTES (AUTO) 0.9 10^3/uL (0.5-4.7); ABSOLUTE MONOCYTES (AUTO) 0.6 10^3/uL (0.1-1.4); ABSOLUTE NEUT (AUTO) 4.1 10^3/uL (1.7-8.2); BASOPHILS % (AUTO) 0.3 % (0-2); EOSINOPHILS % (AUTO) 0.3 % (0-6); HEMATOCRIT 37.7 % (37.9-51.0); HEMOGLOBIN 12.3 g/dL (13.5-17.0); HGB HCT DIFFERENCE -0.8; LYMPHOCYTES % (AUTO) 16.4 % (13-45); MEAN CORPUSCULAR HGB CONC 32.6 g/dL (32.0-36.0); MEAN CORPUSCULAR VOLUME 89 fl (80-97); RED BLOOD COUNT 4.23 10^6/uL (4.35-5.55); RED CELL DISTRIBUTION WIDTH 15.4 % (11.5-14.0); WHITE BLOOD COUNT 5.6 10^3/uL (4.0-10.5)
[2017-08-15 04:33] LABS: BLOOD UREA NITROGEN 41 mg/dL (7-20); CHLORIDE 97 mmol/L (98-107); CREATININE RESULT 1.13 mg/dL (0.52-1.25); GLUCOSE 92 mg/dL (75-110); MAGNESIUM 2.4 mg/dL (1.6-2.3); SODIUM 144.3 mmol/L (137-145)
[2017-08-15 04:44] LABS: ANION GAP 6 (5-19)
[2017-08-15 04:45] LABS: CARBON DIOXIDE 41 mmol/L (22-30)
[2017-08-15 06:10] LABS: ARTERIAL BLOOD BASE EXCESS 12.6 mmol/L; ARTERIAL BLOOD O2 SATURATION 93.8 % (94-98)
--- NOTE | 2017-08-15 07:51 | RADIOLOGY REPORT (SQ) ---
EXAM DESCRIPTION: CHEST SINGLE VIEW COMPLETED DATE/TIME: 08/15/2017 6:04 am REASON FOR STUDY: acute/chronic resp failure COMPARISON: 08/14/2017. EXAM PARAMETERS: NUMBER OF VIEWS: One view. TECHNIQUE: Single frontal radiographic view of the chest acquired. RADIATION DOSE: NA LIMITATIONS: None. FINDINGS: LUNGS AND PLEURA: Moderate left lower lobar opacity -effusion, small-moderate lung volume, mild interstitial markings. MEDIASTINUM AND HILAR STRUCTURES: No masses. Contour normal. HEART AND VASCULAR STRUCTURES: Borderline cardiac silhouette size. BONES: No acute findings. HARDWARE: Tracheostomy. OTHER: No other significant finding. IMPRESSION: No significant interval change. TECHNICAL DOCUMENTATION: JOB ID: [id number] [employer]- All Rights Reserved
[2017-08-15] MEDS: ENOXAPARIN SODIUM INJ 40 MG/0.4 ML DISP.SYRIN SUBCUT SCH (09:02)
[2017-08-15] MEDS: PREDNISONE 20 MG TABLET PO SCH (09:03)
[2017-08-15] MEDS: METOPROLOL SUCCINATE 25 MG TAB.SR.24H PO SCH (09:04)
[2017-08-15] MEDS: METOCLOPRAMIDE HCL 10 MG TABLET PO SCH ×2 (09:04→21:41)
[2017-08-15] MEDS: FUROSEMIDE 40 MG TABLET PO SCH (09:04)
[2017-08-15] MEDS: FAMOTIDINE INJ/PF 20 MG/2 ML SDV IV SCH (09:05)
[2017-08-15] MEDS: LEVOFLOXACIN 750 MG/D5W RTU 750 MG/150 ML RTUPB IV SCH (09:05)
[2017-08-15] MEDS: TRAMADOL HCL 50 MG TABLET PO PRN ×2 (09:22→19:01)
--- NOTE | 2017-08-15 10:07 | PDOC PROGRESS REPORT ---
Subjective Progress Note for:: 08/15/17 Subjective:: Out of bed in chair doing well Physical Exam Vital Signs: Temp Pulse Resp BP Pulse Ox 97.8 F 71 18 128/61 H 99 08/15/17 08:00 08/15/17 08:00 08/15/17 08:00 08/15/17 08:00 08/15/17 08:00 Intake & Output 08/14/17 08/15/17 08/16/17 06:59 06:59 06:59 Intake Total 1744 1005 Output Total 2975 4050 375 Balance -1231 -3045 -375 Weight 167.9 kg 170.4 kg General appearance: PRESENT: no acute distress, cooperative, disheveled, morbidly obese Head exam: PRESENT: atraumatic, normocephalic Eye exam: PRESENT: conjunctiva pale, EOMI Mouth exam: PRESENT: dry mucosa, neck supple, tongue midline Neck exam: PRESENT: tracheostomy Respiratory exam: PRESENT: decreased breath sounds, prolonged expiratory phas, rhonchi, symmetrical, unlabored. ABSENT: accessory muscle use, chest wall tenderness, clear to auscultation karyna, crackles, rales, retraction, stridor, tachypnea Cardiovascular exam: PRESENT: RRR, +S1, +S2. ABSENT: bradycardia, tachycardia Pulses: PRESENT: normal radial pulses GI/Abdominal exam: PRESENT: normal bowel sounds, soft. ABSENT: distended, guarding, mass, organolmegaly, rebound, tenderness Gentrourinary exam: PRESENT: indwelling catheter Extremities exam: PRESENT: +1 edema. ABSENT: calf tenderness, clubbing, joint swelling Musculoskeletal exam: ABSENT: deformity, dislocation, tenderness Neurological exam: PRESENT: alert, awake Psychiatric exam: PRESENT: normal mood Skin exam: PRESENT: dry, warm Results Laboratory Results: 08/15/17 04:03 08/15/17 04:03 08/14/17 08/15/17 08/15/17 08:40 04:03 04:03 WBC 5.6 RBC 4.23 L Hgb 12.3 L Hct 37.7 L MCV 89 MCH 29.0 MCHC 32.6 RDW 15.4 H Plt Count 182 Seg Neutrophils % 73.0 Lymphocytes % 16.4 Monocytes % 10.0 Eosinophils % 0.3 Basophils % 0.3 Absolute Neutrophils 4.1 Absolute Lymphocytes 0.9 Absolute Monocytes 0.6 Absolute Eosinophils 0.0 Absolute Basophils 0.0 Carbonic Acid 2.16 H HCO3/H2CO3 Ratio 18:1 ABG pH 7.36 ABG pCO2 71.6 H* ABG pO2 82.1 ABG HCO3 39.1 H ABG O2 Saturation 95.2 ABG Base Excess 10.7 FiO2 1L Sodium 144.3 Potassium 5.0 Chloride 97 L Carbon Dioxide 41 H* Anion Gap 6 BUN 41 H Creatinine 1.13 Est GFR ( Amer) > 60 Est GFR (Non-Af Amer) > 60 Glucose 92 Calcium 8.0 L Phosphorus 4.0 Magnesium 2.4 H 08/15/17 05:45 WBC RBC Hgb Hct MCV MCH MCHC RDW Plt Count Seg Neutrophils % Lymphocytes % Monocytes % Eosinophils % Basophils % Absolute Neutrophils Absolute Lymphocytes Absolute Monocytes Absolute Eosinophils Absolute Basophils Carbonic Acid 2.09 H HCO3/H2CO3 Ratio 19:1 ABG pH 7.39 ABG pCO2 69.5 H* ABG pO2 72.7 L ABG HCO3 40.7 H ABG O2 Saturation 93.8 L ABG Base Excess 12.6 FiO2 3L Sodium Potassium Chloride Carbon Dioxide Anion Gap BUN Creatinine Est GFR ( Amer) Est GFR (Non-Af Amer) Glucose Calcium Phosphorus Magnesium 08/09/17 10:10 Trach Site Gram Stain - Final 08/08/17 08/08/17 08/08/17 15:56 21:55 21:55 Creatine Kinase 46 L CK-MB (CK-2) 2.09 Troponin I 0.269 0.270 NT-Pro-B Natriuret Pep 08/09/17 08/09/17 08/09/17 04:06 04:06 10:18 Creatine Kinase 43 L CK-MB (CK-2) 1.76 1.31 Troponin I 0.175 0.117 NT-Pro-B Natriuret Pep 2960 H 08/10/17 08/11/17 03:55 04:04 Creatine Kinase CK-MB (CK-2) Troponin I NT-Pro-B Natriuret Pep 1100 H 781 Impressions: Abdomen Ultrasound 08/08/17 12:14 IMPRESSION: 1. Limited study. 2. Fatty liver. 3. No overt gallbladder disease or dilated bile ducts suggested. Chest/Abdomen CTA 08/13/17 00:00 IMPRESSION: 1. No PE. 2. Cardiomegaly. Pleural effusions. Left lower lobe collapse. Chest X-Ray 08/15/17 06:00 IMPRESSION: No significant interval change. Assessment & Plan - Diagnosis (1) Acute respiratory failure with hypoxia and hypercapnia Is this a current diagnosis for this admission?: Yes Plan: Doing quite well on trach collar continue current interventions (2) COPD (chronic obstructive pulmonary disease) with chronic bronchitis Is this a current diagnosis for this admission?: Yes Plan: Breath sounds improved continue current antibiotic and bronchodilator therapy (3) Congestive heart failure (CHF) Qualifiers: Congestive heart failure type: unspecified congestive heart failure type Congestive heart failure chronicity: unspecified congestive heart failure chronicity Qualified Code(s): I50.9 - Heart failure, unspecified Is this a current diagnosis for this admission?: Yes (4) Morbid obesity Is this a current diagnosis for this admission?: Yes (5) Obstructive sleep apnea Is this a current diagnosis for this admission?: Yes - Time Time Spent with patient: 45 minutes ICU time
[2017-08-15] MEDS: TAMSULOSIN HCL 0.4 MG CAP.SR.24H PO SCH (19:00)
[2017-08-15] MEDS ORDERED: SENNOSIDES/DOCUSATE 8.6-50 MG 1 EACH TABLET PO ONE (20:30)
[2017-08-15] MEDS ORDERED: LEVOFLOXACIN 750 MG TABLET PO ONE (21:00)
[2017-08-15] MEDS: FAMOTIDINE 20 MG TABLET PO SCH (21:41)
[2017-08-16] MEDS: IPRATROPIUM/ALBUTEROL 0.5-2.5 MG/3 ML AMPUL NEB SCH ×6 (00:18→20:14)
--- NOTE | 2017-08-16 03:33 | PDOC PROGRESS REPORT ---
Subjective Progress Note for:: 08/10/17 Subjective:: Follow up for patient with chronic respiratory failure now trach dependent. Patient is currently doing well. Patient has no complaints. He is retaining CO2 and vent settings are being adjusted. Physical Exam Vital Signs: Temp Pulse Resp BP Pulse Ox 98.4 F 66 8 L 137/64 H 98 08/10/17 04:00 08/10/17 16:05 08/10/17 18:29 08/10/17 18:29 08/10/17 18:29 Intake & Output 08/09/17 08/10/17 08/11/17 06:59 06:59 06:59 Intake Total 808 1481 756 Output Total 1430 8885 2060 Balance -331 -051 -1301 Weight 175.6 kg 172.4 kg 172.4 kg General appearance: PRESENT: no acute distress, morbidly obese Head exam: PRESENT: normocephalic Eye exam: PRESENT: EOMI. ABSENT: scleral icterus Mouth exam: PRESENT: moist Teeth exam: PRESENT: edentulous Neck exam: PRESENT: tracheostomy. ABSENT: carotid bruit, JVD, lymphadenopathy, thyromegaly Respiratory exam: PRESENT: clear to auscultation karyna. ABSENT: rales, rhonchi, wheezes Cardiovascular exam: PRESENT: RRR. ABSENT: diastolic murmur, rubs, systolic murmur GI/Abdominal exam: PRESENT: normal bowel sounds, soft. ABSENT: distended, guarding, mass, organolmegaly, rebound, tenderness Rectal exam: PRESENT: deferred Extremities exam: PRESENT: full ROM. ABSENT: calf tenderness, clubbing, pedal edema Neurological exam: PRESENT: alert, awake, oriented to person, oriented to place , oriented to time, oriented to situation, CN II-XII grossly intact. ABSENT: motor sensory deficit Psychiatric exam: PRESENT: appropriate affect, normal mood. ABSENT: homicidal ideation, suicidal ideation Skin exam: PRESENT: dry, intact, warm, other - erythema around trach site improving.. ABSENT: cyanosis, rash Results Laboratory Results: 08/10/17 03:55 08/10/17 03:55 08/09/17 08/10/17 08/10/17 23:45 03:55 03:55 WBC 6.5 RBC 3.52 L Hgb 10.6 L Hct 32.1 L MCV 91 MCH 30.2 MCHC 33.1 RDW 16.2 H Plt Count 202 Seg Neutrophils % 88.1 H Lymphocytes % 6.7 L Monocytes % 5.1 Eosinophils % 0.0 Basophils % 0.1 Absolute Neutrophils 5.7 Absolute Lymphocytes 0.4 L Absolute Monocytes 0.3 Absolute Eosinophils 0.0 Absolute Basophils 0.0 Carbonic Acid HCO3/H2CO3 Ratio ABG pH ABG pCO2 ABG pO2 ABG HCO3 ABG O2 Saturation ABG Base Excess FiO2 Sodium Potassium Chloride Carbon Dioxide Anion Gap BUN Creatinine Est GFR ( Amer) Est GFR (Non-Af Amer) Glucose Calcium Magnesium 2.3 Total Bilirubin AST ALT Alkaline Phosphatase Total Protein Albumin Urine Color YELLOW Urine Appearance CLOUDY Urine pH 5.0 Ur Specific [place] 1.018 Urine Protein NEGATIVE Urine Glucose (UA) NEGATIVE Urine Ketones NEGATIVE Urine Blood NEGATIVE Urine Nitrite POSITIVE H Ur Leukocyte Esterase MODERATE H Urine WBC (Auto) 35 Urine RBC (Auto) 2 08/10/17 08/10/17 03:55 05:40 WBC RBC Hgb Hct MCV MCH MCHC RDW Plt Count Seg Neutrophils % Lymphocytes % Monocytes % Eosinophils % Basophils % Absolute Neutrophils Absolute Lymphocytes Absolute Monocytes Absolute Eosinophils Absolute Basophils Carbonic Acid 1.84 H HCO3/H2CO3 Ratio 19:1 ABG pH 7.38 ABG pCO2 61.0 H ABG pO2 79.4 L ABG HCO3 35.0 H ABG O2 Saturation 95.2 ABG Base Excess 8.1 FiO2 40% Sodium 148.1 H Potassium 5.3 H Chloride 104 Carbon Dioxide 35 H Anion Gap 9 BUN 37 H Creatinine 1.28 H Est GFR ( Amer) > 60 Est GFR (Non-Af Amer) 57 L Glucose 131 H Calcium 8.3 L Magnesium Total Bilirubin 0.5 AST 1064 H ALT 1674 H Alkaline Phosphatase 56 Total Protein 6.0 L Albumin 3.4 L Urine Color Urine Appearance Urine pH Ur Specific [place] Urine Protein Urine Glucose (UA) Urine Ketones Urine Blood Urine Nitrite Ur Leukocyte Esterase Urine WBC (Auto) Urine RBC (Auto) Impressions: Abdomen Ultrasound 08/08/17 12:14 IMPRESSION: 1. Limited study. 2. Fatty liver. 3. No overt gallbladder disease or dilated bile ducts suggested. Chest X-Ray 08/09/17 06:00 IMPRESSION: Left basilar density as noted above Assessment & Plan - Diagnosis (1) Acute respiratory failure with hypoxia and hypercapnia Is this a current diagnosis for this admission?: Yes Plan: Patient presents with chronic respiratory failure with both hypoxemia and hypercapnia. This might be due to obesity hypoventilation syndrome and COPD. As a result patient was trached. At home he was decannulated. He does have a [address] Patients vent settings are gradually being adjusted with the hopes of leaving if off of the machine on trach collar to see have the patient does. Patient CO2 has improved. (2) Acute on chronic renal failure Qualifiers: Chronic kidney disease stage: stage 3 (moderate) Is this a current diagnosis for this admission?: Yes Plan: Appears to have a CKD stage III with acute component. Resolving. (3) COPD (chronic obstructive pulmonary disease) with chronic bronchitis Is this a current diagnosis for this admission?: Yes Plan: Patient is currently on nebulizers Levaquin and IV steroids. Continue current management. Patient is gradually improving. (4) Congestive heart failure (CHF) Qualifiers: Congestive heart failure type: diastolic Congestive heart failure chronicity: unspecified congestive heart failure chronicity Qualified Code(s) : I50.30 - Unspecified diastolic (congestive) heart failure Is this a current diagnosis for this admission?: Yes Plan: Cardiac echo ordered. Patient may have both systolic and diastolic heart failure. Will start patient on lasix now that patient's renal function has improved. (5) Hepatitis Is this a current diagnosis for this admission?: Yes Plan: Could be due to congestion, hypotension. Patient LFTs are currently trending down. Will avoid any hepatotoxins. Continue to monitor. (6) Hyperkalemia Is this a current diagnosis for this admission?: Yes (7) Morbid obesity Is this a current diagnosis for this admission?: Yes Plan: Patient counseled on the necessity of weight loss as this is contributing to his hypoxic hypercapnic respiratory failure. (8) Obstructive sleep apnea Is this a current diagnosis for this admission?: Yes Plan: Patient is currently trached. Patient will evently switched to trach collar. Blood gases will be monitored. Adjustment to the machine will be made. Patient did not have CPAP at home nor oxygen. (9) Urinary retention Is this a current diagnosis for this admission?: Yes Plan: Castro is to remain in place. Patient should have follow up with urology on discharge. (10) Cellulitis of neck Is this a current diagnosis for this admission?: Yes Plan: He has cellulitis around the trach site. Advised to use half vinegar and half water to apply around the site. The area seems to be improving. - Time Time Spent with patient: Less than 15 minutes Anticipated discharge: Home with Homehealth - Patient still require further evaluation of his breathing before discharge. Furthermore, patient will need equiptment including cpap/bipap on discharge. Time is need for all these things to be arrange. Attempts are being made to contact patient inspector mechanical.
--- NOTE | 2017-08-16 03:55 | PDOC PROGRESS REPORT ---
Subjective Progress Note for:: 08/11/17 Subjective:: Follow up for patient with chronic respiratory failure now trach dependent. Patient has no complaints. Patient did well with trach collar overnight however he is retaining CO2. Physical Exam Vital Signs: Vitals 97.7 HR 65 BP 140/70 RR13 95% saturation on 40% Fio2 General appearance: PRESENT: no acute distress, morbidly obese Head exam: PRESENT: normocephalic Eye exam: PRESENT: EOMI. ABSENT: scleral icterus Ear exam: PRESENT: normal external ear exam Mouth exam: PRESENT: moist Neck exam: PRESENT: tracheostomy. ABSENT: carotid bruit, JVD, lymphadenopathy, thyromegaly Respiratory exam: PRESENT: clear to auscultation karyna, decreased breath sounds. ABSENT: rales, rhonchi, unlabored, wheezes Cardiovascular exam: PRESENT: RRR. ABSENT: diastolic murmur, rubs, systolic murmur GI/Abdominal exam: PRESENT: diminished bowel sounds, soft. ABSENT: distended, guarding, mass, organolmegaly, rebound, tenderness Rectal exam: PRESENT: deferred Gentrourinary exam: PRESENT: indwelling catheter Extremities exam: PRESENT: full ROM, pedal edema, other - edema of the arms. ABSENT: calf tenderness, clubbing Neurological exam: PRESENT: alert, awake, oriented to person, oriented to place , oriented to time, oriented to situation, CN II-XII grossly intact. ABSENT: motor sensory deficit Psychiatric exam: PRESENT: appropriate affect, normal mood. ABSENT: homicidal ideation, suicidal ideation Skin exam: PRESENT: dry, intact, warm, other - rash around trach site improving.. ABSENT: cyanosis, rash Results Laboratory Results: 08/15/17 04:03 08/15/17 04:03 08/15/17 08/15/17 08/15/17 04:03 04:03 05:45 WBC 5.6 RBC 4.23 L Hgb 12.3 L Hct 37.7 L MCV 89 MCH 29.0 MCHC 32.6 RDW 15.4 H Plt Count 182 Seg Neutrophils % 73.0 Lymphocytes % 16.4 Monocytes % 10.0 Eosinophils % 0.3 Basophils % 0.3 Absolute Neutrophils 4.1 Absolute Lymphocytes 0.9 Absolute Monocytes 0.6 Absolute Eosinophils 0.0 Absolute Basophils 0.0 Carbonic Acid 2.09 H HCO3/H2CO3 Ratio 19:1 ABG pH 7.39 ABG pCO2 69.5 H* ABG pO2 72.7 L ABG HCO3 40.7 H ABG O2 Saturation 93.8 L ABG Base Excess 12.6 FiO2 3L Sodium 144.3 Potassium 5.0 Chloride 97 L Carbon Dioxide 41 H* Anion Gap 6 BUN 41 H Creatinine 1.13 Est GFR ( Amer) > 60 Est GFR (Non-Af Amer) > 60 Glucose 92 Calcium 8.0 L Phosphorus 4.0 Magnesium 2.4 H 08/09/17 10:10 Trach Site Gram Stain - Final 08/09/17 10:10 Trach Site Wound Culture - Final Corynebacterium Striatum Proteus Mirabilis Group B Beta Streptococcus 08/08/17 08/08/17 08/08/17 15:56 21:55 21:55 Creatine Kinase 46 L CK-MB (CK-2) 2.09 Troponin I 0.269 0.270 NT-Pro-B Natriuret Pep 08/09/17 08/09/17 08/09/17 04:06 04:06 10:18 Creatine Kinase 43 L CK-MB (CK-2) 1.76 1.31 Troponin I 0.175 0.117 NT-Pro-B Natriuret Pep 2960 H 08/10/17 08/11/17 03:55 04:04 Creatine Kinase CK-MB (CK-2) Troponin I NT-Pro-B Natriuret Pep 1100 H 781 Impressions: Abdomen Ultrasound 08/08/17 12:14 IMPRESSION: 1. Limited study. 2. Fatty liver. 3. No overt gallbladder disease or dilated bile ducts suggested. Chest/Abdomen CTA 08/13/17 00:00 IMPRESSION: 1. No PE. 2. Cardiomegaly. Pleural effusions. Left lower lobe collapse. Chest X-Ray 08/15/17 06:00 IMPRESSION: No significant interval change. Assessment & Plan - Diagnosis (1) Acute respiratory failure with hypoxia and hypercapnia Is this a current diagnosis for this admission?: Yes Plan: Patient presents with chronic respiratory failure with both hypoxemia and hypercapnia. This might be due to obesity hypoventilation syndrome and COPD. As a result patient was trached. At home he was decannulated. He does have a [address] Patient to be placed on trach collar now and then blood gas repeated. Patient to then be left on trach collar over night with repeat gas in the am. (2) Acute on chronic renal failure Qualifiers: Chronic kidney disease stage: stage 3 (moderate) Is this a current diagnosis for this admission?: Yes Plan: Appears to have a CKD stage III with acute component. Stable. (3) COPD (chronic obstructive pulmonary disease) with chronic bronchitis Is this a current diagnosis for this admission?: Yes (4) Congestive heart failure (CHF) Qualifiers: Congestive heart failure type: diastolic Congestive heart failure chronicity: unspecified congestive heart failure chronicity Qualified Code(s) : I50.30 - Unspecified diastolic (congestive) heart failure Is this a current diagnosis for this admission?: Yes Plan: Cardiac echo shows preserved EF of 65% however not much else could be determined. Quality of test affected by patients size. Patient on beta block and diuretic. Patient not on ACEI due to acute renal failure and chronic hyperkalemia (5) Hepatitis Is this a current diagnosis for this admission?: Yes Plan: Could be due to congestion, hypotension. Patient LFTs are trending down nicely. (6) Hyperkalemia Is this a current diagnosis for this admission?: Yes Plan: Patient on lasix which will bring the potassium down. Attempted to give rectal kayexelate on admission. Patient can have oral kayexelate if still elevated and trach is cuffed. (7) Morbid obesity Is this a current diagnosis for this admission?: Yes Plan: Patient counseled on the necessity of weight loss as this is contributing to his hypoxic hypercapnic respiratory failure. The can also lead to heart failure , CAD, DM and hypertension. It is also contributing to his back pain. (8) Obstructive sleep apnea Is this a current diagnosis for this admission?: Yes Plan: Patient is currently trached. Patient being switched to trach collar. Will sleep on bipap overnight and check ABG in the am. (9) Urinary retention Is this a current diagnosis for this admission?: Yes Plan: Castro is to remain in place. Patient should have follow up with urology on discharge. (10) Cellulitis of neck Is this a current diagnosis for this admission?: Yes Plan: He has cellulitis around the trach site. Advised to use half vinegar and half water to apply around the site. Resolving. - Time Time Spent with patient: Less than 15 minutes Anticipated discharge: Home with Homehealth Within: Other - Patient still requires futher evaluation in regaurds to bipap setting etc. Patient cannot be released home without the appropriate supples.
--- NOTE | 2017-08-16 04:09 | PDOC PROGRESS REPORT ---
Subjective Progress Note for:: 08/12/17 Subjective:: Follow up for patient with chronic respiratory failure now trach dependent. Patient requiring some kind of support overnight as his is retaining CO2. Patient is doing well otherwise. Physical Exam Vital Signs: Temp 97.5 pulse 66 bp 152/77 RR 13 Sat 99 on 35% Fio2. General appearance: PRESENT: no acute distress, morbidly obese Head exam: PRESENT: atraumatic Eye exam: PRESENT: EOMI. ABSENT: scleral icterus Mouth exam: PRESENT: moist, neck supple Teeth exam: PRESENT: edentulous Neck exam: PRESENT: tracheostomy. ABSENT: carotid bruit, JVD, lymphadenopathy, thyromegaly Respiratory exam: PRESENT: clear to auscultation karyna. ABSENT: rales, rhonchi, wheezes Cardiovascular exam: PRESENT: RRR, +S1, +S2. ABSENT: diastolic murmur, rubs, systolic murmur GI/Abdominal exam: PRESENT: diminished bowel sounds, soft. ABSENT: distended, guarding, mass, organolmegaly, rebound, tenderness Rectal exam: PRESENT: deferred Gentrourinary exam: PRESENT: indwelling catheter Extremities exam: PRESENT: other - edema of hands and legs improved.. ABSENT: calf tenderness, clubbing Neurological exam: PRESENT: alert, awake, oriented to person, oriented to place , oriented to time, oriented to situation, CN II-XII grossly intact. ABSENT: motor sensory deficit Psychiatric exam: PRESENT: appropriate affect, normal mood. ABSENT: homicidal ideation, suicidal ideation Skin exam: PRESENT: dry, intact, warm, other - rash around neck essentially gone.. ABSENT: cyanosis, rash Results Laboratory Results: 08/15/17 04:03 08/15/17 04:03 08/15/17 08/15/17 08/15/17 04:03 04:03 05:45 WBC 5.6 RBC 4.23 L Hgb 12.3 L Hct 37.7 L MCV 89 MCH 29.0 MCHC 32.6 RDW 15.4 H Plt Count 182 Seg Neutrophils % 73.0 Lymphocytes % 16.4 Monocytes % 10.0 Eosinophils % 0.3 Basophils % 0.3 Absolute Neutrophils 4.1 Absolute Lymphocytes 0.9 Absolute Monocytes 0.6 Absolute Eosinophils 0.0 Absolute Basophils 0.0 Carbonic Acid 2.09 H HCO3/H2CO3 Ratio 19:1 ABG pH 7.39 ABG pCO2 69.5 H* ABG pO2 72.7 L ABG HCO3 40.7 H ABG O2 Saturation 93.8 L ABG Base Excess 12.6 FiO2 3L Sodium 144.3 Potassium 5.0 Chloride 97 L Carbon Dioxide 41 H* Anion Gap 6 BUN 41 H Creatinine 1.13 Est GFR ( Amer) > 60 Est GFR (Non-Af Amer) > 60 Glucose 92 Calcium 8.0 L Phosphorus 4.0 Magnesium 2.4 H 08/09/17 10:10 Trach Site Gram Stain - Final 08/09/17 10:10 Trach Site Wound Culture - Final Corynebacterium Striatum Proteus Mirabilis Group B Beta Streptococcus 08/08/17 08/08/17 08/08/17 15:56 21:55 21:55 Creatine Kinase 46 L CK-MB (CK-2) 2.09 Troponin I 0.269 0.270 NT-Pro-B Natriuret Pep 08/09/17 08/09/17 08/09/17 04:06 04:06 10:18 Creatine Kinase 43 L CK-MB (CK-2) 1.76 1.31 Troponin I 0.175 0.117 NT-Pro-B Natriuret Pep 2960 H 08/10/17 08/11/17 03:55 04:04 Creatine Kinase CK-MB (CK-2) Troponin I NT-Pro-B Natriuret Pep 1100 H 781 Impressions: Abdomen Ultrasound 08/08/17 12:14 IMPRESSION: 1. Limited study. 2. Fatty liver. 3. No overt gallbladder disease or dilated bile ducts suggested. Chest/Abdomen CTA 08/13/17 00:00 IMPRESSION: 1. No PE. 2. Cardiomegaly. Pleural effusions. Left lower lobe collapse. Chest X-Ray 08/15/17 06:00 IMPRESSION: No significant interval change. Assessment & Plan - Diagnosis (1) Acute respiratory failure with hypoxia and hypercapnia Is this a current diagnosis for this admission?: Yes Plan: Patient presents with chronic respiratory failure with both hypoxemia and hypercapnia. This might be due to obesity hypoventilation syndrome and COPD. As a result patient was trached. At home he was decannulated. He does have a [address] but there are no caps for this. Dr. Block has decided to change the trach to a 6 and cap it so that patient can eat. This will be done today at the beside. Case management will be consulted for trach supplies and any other additional needs. (2) Acute on chronic renal failure Qualifiers: Chronic kidney disease stage: stage 3 (moderate) Is this a current diagnosis for this admission?: Yes Plan: Appears to have a CKD stage III with acute component. Stable. (3) COPD (chronic obstructive pulmonary disease) with chronic bronchitis Is this a current diagnosis for this admission?: Yes (4) Congestive heart failure (CHF) Qualifiers: Congestive heart failure type: diastolic Congestive heart failure chronicity: unspecified congestive heart failure chronicity Qualified Code(s) : I50.30 - Unspecified diastolic (congestive) heart failure Is this a current diagnosis for this admission?: Yes Plan: Cardiac echo shows preserved EF of 65% however not much else could be determined. Quality of test affected by patients size. Patient on beta block and diuretic. Patient not on ACEI due to acute renal failure and chronic hyperkalemia (5) Hepatitis Is this a current diagnosis for this admission?: Yes Plan: Could be due to congestion, hypotension. Resolving. (6) Hyperkalemia Is this a current diagnosis for this admission?: Yes Plan: Stable. (7) Morbid obesity Is this a current diagnosis for this admission?: Yes Plan: Patient counseled on the necessity of weight loss as this is contributing to his hypoxic hypercapnic respiratory failure. The can also lead to heart failure , CAD, DM and hypertension. It is also contributing to his back pain. (8) Obstructive sleep apnea Is this a current diagnosis for this admission?: Yes Plan: Patient will need support at night as he is retaining CO2. Dr. Block has been assisting with this. Recommendations and assistance greatly appreciated. (9) Urinary retention Is this a current diagnosis for this admission?: Yes Plan: Montoya is to remain in place. Patient should have follow up with urology on discharge. Urine culture pending. Patient may be colonized as he has chronic indwelling montoya. (10) Cellulitis of neck Is this a current diagnosis for this admission?: Yes Plan: He has cellulitis around the trach site. Advised to use half vinegar and half water to apply around the site. Resolving. - Time Time Spent with patient: Less than 15 minutes Anticipated discharge: Home with Homehealth - Patient can be transferred to [facility]. Patient still requires monitoring and supplies prior to discharge home.
--- NOTE | 2017-08-16 04:22 | PDOC PROGRESS REPORT ---
Subjective Progress Note for:: 08/13/17 Subjective:: Follow up for patient with chronic respiratory failure now trach dependent. Patient is eating well. Patient sitting up at the side of the bed. Patient has no complaints. Physical Exam Vital Signs: Temp Pulse Resp BP Pulse Ox 98.2 F 68 12 123/64 99 08/12/17 16:29 08/13/17 04:20 08/13/17 06:00 08/13/17 04:39 08/13/17 06:00 Intake & Output 08/12/17 08/13/17 08/14/17 07:59 06:59 06:59 Intake Total Output Total Balance Weight General appearance: PRESENT: no acute distress, morbidly obese Head exam: PRESENT: normocephalic Eye exam: ABSENT: scleral icterus Mouth exam: PRESENT: moist Neck exam: PRESENT: tracheostomy. ABSENT: carotid bruit, JVD, lymphadenopathy, thyromegaly Respiratory exam: PRESENT: clear to auscultation karyna, decreased breath sounds. ABSENT: rales, rhonchi, unlabored, wheezes Cardiovascular exam: PRESENT: RRR. ABSENT: diastolic murmur, rubs, systolic murmur GI/Abdominal exam: PRESENT: diminished bowel sounds, normal bowel sounds, soft. ABSENT: distended, guarding, mass, organolmegaly, rebound, tenderness Rectal exam: PRESENT: deferred Extremities exam: PRESENT: full ROM, other - edema improved. Left arm still swollen but improving.. ABSENT: calf tenderness, clubbing Neurological exam: PRESENT: alert, awake, oriented to person, oriented to place , oriented to time, oriented to situation, CN II-XII grossly intact. ABSENT: motor sensory deficit Psychiatric exam: PRESENT: appropriate affect, normal mood. ABSENT: homicidal ideation, suicidal ideation Skin exam: PRESENT: dry, intact, warm, other - ecchymosis of the arms.. ABSENT : cyanosis, rash Results Laboratory Results: 08/13/17 04:14 08/13/17 04:14 08/13/17 08/13/17 08/13/17 04:14 04:14 04:38 WBC 4.5 RBC 3.93 L Hgb 11.6 L Hct 35.2 L MCV 90 MCH 29.5 MCHC 32.9 RDW 15.8 H Plt Count 193 Seg Neutrophils % 88.5 H Lymphocytes % 5.7 L Monocytes % 5.5 Eosinophils % 0.1 Basophils % 0.2 Absolute Neutrophils 4.0 Absolute Lymphocytes 0.3 L Absolute Monocytes 0.2 Absolute Eosinophils 0.0 Absolute Basophils 0.0 Carbonic Acid 2.16 H HCO3/H2CO3 Ratio 18:1 ABG pH 7.35 ABG pCO2 71.9 H* ABG pO2 98.1 ABG HCO3 38.9 H ABG O2 Saturation 96.9 ABG Base Excess 10.7 FiO2 FLOW RATE 2 Sodium 144.1 Potassium 5.1 H Chloride 100 Carbon Dioxide 37 H Anion Gap 7 BUN 49 H Creatinine 1.17 Est GFR ( Amer) > 60 Est GFR (Non-Af Amer) > 60 Glucose 177 H Calcium 7.8 L 08/09/17 10:10 Trach Site Gram Stain - Final 08/08/17 08/08/17 08/08/17 15:56 21:55 21:55 Creatine Kinase 46 L CK-MB (CK-2) 2.09 Troponin I 0.269 0.270 NT-Pro-B Natriuret Pep 08/09/17 08/09/17 08/09/17 04:06 04:06 10:18 Creatine Kinase 43 L CK-MB (CK-2) 1.76 1.31 Troponin I 0.175 0.117 NT-Pro-B Natriuret Pep 2960 H 08/10/17 08/11/17 03:55 04:04 Creatine Kinase CK-MB (CK-2) Troponin I NT-Pro-B Natriuret Pep 1100 H 781 Impressions: Abdomen Ultrasound 08/08/17 12:14 IMPRESSION: 1. Limited study. 2. Fatty liver. 3. No overt gallbladder disease or dilated bile ducts suggested. Chest X-Ray 08/13/17 06:00 IMPRESSION: STABLE LEFT LOWER LOBE AIRSPACE DISEASE WITH PLEURAL EFFUSION. Assessment & Plan - Diagnosis (1) Acute respiratory failure with hypoxia and hypercapnia Is this a current diagnosis for this admission?: Yes Plan: Patient presents with chronic respiratory failure with both hypoxemia and hypercapnia. This might be due to obesity hypoventilation syndrome and COPD. As a result patient was trached. At home he was decannulated. He does have a [address] but there are no caps for this. Trach changed on 08/12 to 6 and capped. Patient on bipap at night. Curseen following and recommendations appreciated. (2) Acute on chronic renal failure Qualifiers: Chronic kidney disease stage: stage 3 (moderate) Is this a current diagnosis for this admission?: Yes Plan: Appears to have a CKD stage III with acute component. Stable. (3) COPD (chronic obstructive pulmonary disease) with chronic bronchitis Is this a current diagnosis for this admission?: Yes Plan: Patient is currently on nebulizers Levaquin and po steroids. Continue current management. Patient is gradually improving. (4) Congestive heart failure (CHF) Qualifiers: Congestive heart failure type: diastolic Congestive heart failure chronicity: unspecified congestive heart failure chronicity Qualified Code(s) : I50.30 - Unspecified diastolic (congestive) heart failure Is this a current diagnosis for this admission?: Yes Plan: Cardiac echo shows preserved EF of 65% . Quality of test affected by patients size. Patient on beta block and diuretic. Patient not on ACEI due to acute renal failure and chronic hyperkalemia. Patient with negative fluid balance and appears more euvolemic. Will switch to po lasix. (5) Hepatitis Is this a current diagnosis for this admission?: Yes Plan: Could be due to congestion, hypotension. Resolving. (6) Hyperkalemia Is this a current diagnosis for this admission?: Yes Plan: Stable. (7) Morbid obesity Is this a current diagnosis for this admission?: Yes Plan: Patient counseled on the necessity of weight loss as this is contributing to his hypoxic hypercapnic respiratory failure. The can also lead to heart failure , CAD, DM and hypertension. It is also contributing to his back pain. (8) Obstructive sleep apnea Is this a current diagnosis for this admission?: Yes Plan: Patient will need support at night as he is retaining CO2. Dr. Block has been assisting with this. Recommendations and assistance greatly appreciated. (9) Urinary retention Is this a current diagnosis for this admission?: Yes Plan: Montoya is to remain in place. Patient should have follow up with urology on discharge. Urine culture pending. Patient may be colonized as he has chronic indwelling montoya. ESBL growing on culture. Patient is asymptomatic therefore will not treat. He is most likely colonized. (10) Cellulitis of neck Is this a current diagnosis for this admission?: Yes Plan: He has cellulitis around the trach site from moisture. Advised to use half vinegar and half water to apply around the site. Resolved. - Time Time Spent with patient: Less than 15 minutes Anticipated discharge: Home with Homehealth - Patient will require Bipap on discharge. Pulmonary assisting with this. Discharge planning will assist with supplies and other needed supplies.
--- NOTE | 2017-08-16 04:37 | PDOC PROGRESS REPORT ---
Subjective Progress Note for:: 08/14/17 Subjective:: Follow up for patient with chronic respiratory failure now trach dependent. Patient has no complaints at this time. Physical Exam Vital Signs: Temp 97.7 HR 76 BP 139/65 HR 89 RR18 97% General appearance: PRESENT: no acute distress, morbidly obese Head exam: PRESENT: normocephalic Eye exam: ABSENT: scleral icterus Mouth exam: PRESENT: moist Teeth exam: PRESENT: edentulous Neck exam: PRESENT: tracheostomy. ABSENT: carotid bruit, JVD, lymphadenopathy, thyromegaly Respiratory exam: PRESENT: clear to auscultation karyna. ABSENT: rales, rhonchi, unlabored, wheezes Cardiovascular exam: PRESENT: RRR. ABSENT: diastolic murmur, rubs, systolic murmur GI/Abdominal exam: PRESENT: diminished bowel sounds, normal bowel sounds, soft. ABSENT: distended, guarding, mass, organolmegaly, rebound, tenderness Rectal exam: PRESENT: deferred Extremities exam: PRESENT: full ROM. ABSENT: calf tenderness, clubbing, pedal edema Neurological exam: PRESENT: alert, awake, oriented to person, oriented to place , oriented to time, oriented to situation, CN II-XII grossly intact. ABSENT: motor sensory deficit Psychiatric exam: PRESENT: appropriate affect, normal mood. ABSENT: homicidal ideation, suicidal ideation Skin exam: PRESENT: dry, intact, warm, other - ecchymosis on the arms.. ABSENT : cyanosis, rash Results Laboratory Results: 08/15/17 04:03 08/15/17 04:03 08/15/17 08/15/17 04:03 05:45 Carbonic Acid 2.09 H HCO3/H2CO3 Ratio 19:1 ABG pH 7.39 ABG pCO2 69.5 H* ABG pO2 72.7 L ABG HCO3 40.7 H ABG O2 Saturation 93.8 L ABG Base Excess 12.6 FiO2 3L Sodium 144.3 Potassium 5.0 Chloride 97 L Carbon Dioxide 41 H* Anion Gap 6 BUN 41 H Creatinine 1.13 Est GFR ( Amer) > 60 Est GFR (Non-Af Amer) > 60 Glucose 92 Calcium 8.0 L Phosphorus 4.0 Magnesium 2.4 H 08/09/17 10:10 Trach Site Gram Stain - Final 08/09/17 10:10 Trach Site Wound Culture - Final Corynebacterium Striatum Proteus Mirabilis Group B Beta Streptococcus 08/08/17 08/08/17 08/08/17 15:56 21:55 21:55 Creatine Kinase 46 L CK-MB (CK-2) 2.09 Troponin I 0.269 0.270 NT-Pro-B Natriuret Pep 08/09/17 08/09/17 08/09/17 04:06 04:06 10:18 Creatine Kinase 43 L CK-MB (CK-2) 1.76 1.31 Troponin I 0.175 0.117 NT-Pro-B Natriuret Pep 2960 H 08/10/17 08/11/17 03:55 04:04 Creatine Kinase CK-MB (CK-2) Troponin I NT-Pro-B Natriuret Pep 1100 H 781 Impressions: Abdomen Ultrasound 08/08/17 12:14 IMPRESSION: 1. Limited study. 2. Fatty liver. 3. No overt gallbladder disease or dilated bile ducts suggested. Chest/Abdomen CTA 08/13/17 00:00 IMPRESSION: 1. No PE. 2. Cardiomegaly. Pleural effusions. Left lower lobe collapse. Chest X-Ray 08/15/17 06:00 IMPRESSION: No significant interval change. Assessment & Plan - Diagnosis (1) Acute respiratory failure with hypoxia and hypercapnia Is this a current diagnosis for this admission?: Yes Plan: Patient presents with chronic respiratory failure with both hypoxemia and hypercapnia. This might be due to obesity hypoventilation syndrome, LITO and COPD. As a result patient was trached. At home he was decannulated. He does have a [address] but there are no caps for this. Trach changed on 08/12 to 6 and capped. O2 sats are fine however CO2 elevated with metabolic alkalosis. Patient on bipap at night. Curseen following and recommendations appreciated. (2) Acute on chronic renal failure Qualifiers: Chronic kidney disease stage: stage 3 (moderate) Is this a current diagnosis for this admission?: Yes Plan: Appears to have a CKD stage III with acute component. Stable. (3) COPD (chronic obstructive pulmonary disease) with chronic bronchitis Is this a current diagnosis for this admission?: Yes Plan: Patient is currently on nebulizers Levaquin and po steroids. Continue current management. Patient is gradually improving. (4) Congestive heart failure (CHF) Qualifiers: Congestive heart failure type: diastolic Congestive heart failure chronicity: unspecified congestive heart failure chronicity Qualified Code(s) : I50.30 - Unspecified diastolic (congestive) heart failure Is this a current diagnosis for this admission?: Yes Plan: Cardiac echo shows preserved EF of 65% . Quality of test affected by patients size. Patient on beta block and diuretic. Patient not on ACEI due to acute renal failure and chronic hyperkalemia. Patient euvolemic. Continue oral lasix. (5) Hepatitis Is this a current diagnosis for this admission?: Yes Plan: Could be due to congestion, hypotension. Resoled. (6) Hyperkalemia Is this a current diagnosis for this admission?: Yes Plan: Stable. (7) Morbid obesity Is this a current diagnosis for this admission?: Yes Plan: Patient counseled on the necessity of weight loss as this is contributing to his hypoxic hypercapnic respiratory failure. The can also lead to heart failure , CAD, DM and hypertension. It is also contributing to his back pain. (8) Obstructive sleep apnea Is this a current diagnosis for this admission?: Yes Plan: Patient will need support at night as he is retaining CO2. Dr. Block has been assisting with this. Recommendations and assistance greatly appreciated. (9) Urinary retention Is this a current diagnosis for this admission?: Yes Plan: Montoya is to remain in place. Patient should have follow up with urology on discharge. Urine culture pending. Patient may be colonized as he has chronic indwelling montoya. ESBL growing on culture. Patient is asymptomatic therefore will not treat. He is most likely colonized. (10) Cellulitis of neck Is this a current diagnosis for this admission?: Yes Plan: He has cellulitis around the trach site from moisture. Advised to use half vinegar and half water to apply around the site. Resolved. - Time Time Spent with patient: Less than 15 minutes Anticipated discharge: Home with Homehealth Within: Other - Working diligently on discharge. Patient requires centain supplies including bipap or trilogy before discharge home. Patient has demonstrated CO2 retention overnight.
--- NOTE | 2017-08-16 04:46 | PDOC PROGRESS REPORT ---
Subjective Progress Note for:: 08/15/17 Subjective:: Follow up for patient with chronic respiratory failure now trach dependent. Patent wanting something to moves his bowels. Physical Exam Vital Signs: Temp 97.8 RR 18 HR 91 BP 136/74 Sat 93 3L General appearance: PRESENT: no acute distress, morbidly obese Eye exam: PRESENT: EOMI. ABSENT: scleral icterus Mouth exam: PRESENT: moist Teeth exam: PRESENT: edentulous Neck exam: PRESENT: tracheostomy. ABSENT: carotid bruit, JVD, lymphadenopathy, thyromegaly Respiratory exam: PRESENT: clear to auscultation karyna, decreased breath sounds. ABSENT: rales, rhonchi, wheezes Cardiovascular exam: PRESENT: RRR, +S1, +S2. ABSENT: diastolic murmur, rubs, systolic murmur Pulses: PRESENT: normal dorsalis pedis pul Vascular exam: PRESENT: normal capillary refill GI/Abdominal exam: PRESENT: normal bowel sounds, soft. ABSENT: distended, guarding, mass, organolmegaly, rebound, tenderness Rectal exam: PRESENT: deferred Extremities exam: PRESENT: full ROM. ABSENT: calf tenderness, clubbing, pedal edema Neurological exam: PRESENT: alert, awake, oriented to person, oriented to place , oriented to time, oriented to situation, CN II-XII grossly intact. ABSENT: motor sensory deficit Psychiatric exam: PRESENT: appropriate affect, normal mood. ABSENT: homicidal ideation, suicidal ideation Skin exam: PRESENT: dry, intact, warm. ABSENT: cyanosis, rash Results Laboratory Results: 08/15/17 04:03 08/15/17 04:03 08/15/17 08/15/17 04:03 05:45 Carbonic Acid 2.09 H HCO3/H2CO3 Ratio 19:1 ABG pH 7.39 ABG pCO2 69.5 H* ABG pO2 72.7 L ABG HCO3 40.7 H ABG O2 Saturation 93.8 L ABG Base Excess 12.6 FiO2 3L Sodium 144.3 Potassium 5.0 Chloride 97 L Carbon Dioxide 41 H* Anion Gap 6 BUN 41 H Creatinine 1.13 Est GFR ( Amer) > 60 Est GFR (Non-Af Amer) > 60 Glucose 92 Calcium 8.0 L Phosphorus 4.0 Magnesium 2.4 H 08/09/17 10:10 Trach Site Gram Stain - Final 08/09/17 10:10 Trach Site Wound Culture - Final Corynebacterium Striatum Proteus Mirabilis Group B Beta Streptococcus 08/08/17 08/08/17 08/08/17 15:56 21:55 21:55 Creatine Kinase 46 L CK-MB (CK-2) 2.09 Troponin I 0.269 0.270 NT-Pro-B Natriuret Pep 08/09/17 08/09/17 08/09/17 04:06 04:06 10:18 Creatine Kinase 43 L CK-MB (CK-2) 1.76 1.31 Troponin I 0.175 0.117 NT-Pro-B Natriuret Pep 2960 H 08/10/17 08/11/17 03:55 04:04 Creatine Kinase CK-MB (CK-2) Troponin I NT-Pro-B Natriuret Pep 1100 H 781 Impressions: Abdomen Ultrasound 08/08/17 12:14 IMPRESSION: 1. Limited study. 2. Fatty liver. 3. No overt gallbladder disease or dilated bile ducts suggested. Chest/Abdomen CTA 08/13/17 00:00 IMPRESSION: 1. No PE. 2. Cardiomegaly. Pleural effusions. Left lower lobe collapse. Chest X-Ray 08/15/17 06:00 IMPRESSION: No significant interval change. Assessment & Plan - Diagnosis (1) Acute respiratory failure with hypoxia and hypercapnia Is this a current diagnosis for this admission?: Yes Plan: Patient presents with chronic respiratory failure with both hypoxemia and hypercapnia. This might be due to obesity hypoventilation syndrome, LITO and COPD. As a result patient was trached. At home he was decannulated. He does have a [address] but there are no caps for this. Trach changed on 08/12 to 6 and capped. O2 sats are fine however CO2 elevated with metabolic alkalosis. Discussed with Dr. Block who will arrange for trilogy. (2) Acute on chronic renal failure Qualifiers: Chronic kidney disease stage: stage 2 (mild) Is this a current diagnosis for this admission?: Yes Plan: Appears to have a CKD stage II-III with acute component. Stable. (3) COPD (chronic obstructive pulmonary disease) with chronic bronchitis Is this a current diagnosis for this admission?: Yes Plan: Patient is currently on nebulizers Levaquin and po steroids. Today will be last day of antibiotics and steroids. Can continue nebs. (4) Congestive heart failure (CHF) Qualifiers: Congestive heart failure type: diastolic Congestive heart failure chronicity: unspecified congestive heart failure chronicity Qualified Code(s) : I50.30 - Unspecified diastolic (congestive) heart failure Is this a current diagnosis for this admission?: Yes Plan: Cardiac echo shows preserved EF of 65% . Quality of test affected by patients size. Patient on beta block and diuretic. Patient not on ACEI due to acute renal failure and chronic hyperkalemia. Patient euvolemic. Continue oral lasix. (5) Hepatitis Is this a current diagnosis for this admission?: Yes Plan: Could be due to congestion, hypotension. Resolved. (6) Hyperkalemia Is this a current diagnosis for this admission?: Yes Plan: Stable. (7) Morbid obesity Is this a current diagnosis for this admission?: Yes Plan: Patient counseled on the necessity of weight loss as this is contributing to his hypoxic hypercapnic respiratory failure. The can also lead to heart failure , CAD, DM and hypertension. It is also contributing to his back pain. (8) Obstructive sleep apnea Is this a current diagnosis for this admission?: Yes Plan: Patient will need support at night as he is retaining CO2. Dr. Block has been assisting with this. Dr. Block plans of setting patient up with triology. (9) Urinary retention Is this a current diagnosis for this admission?: Yes Plan: Castro is to remain in place as this is a chronic problem. Patient should have follow up with urology on discharge. Patient restarted on flomax ESBL growing on culture. Patient is asymptomatic therefore will not treat. He is most likely colonized. (10) Cellulitis of neck Is this a current diagnosis for this admission?: Yes Plan: He has cellulitis around the trach site from moisture. Advised to use half vinegar and half water to apply around the site. Resolved. - Time Time Spent with patient: Less than 15 minutes Anticipated discharge: Home with Homehealth Within: Other - Once triology and other supplies are obtained.
[2017-08-16] MEDS: ENOXAPARIN SODIUM INJ 40 MG/0.4 ML DISP.SYRIN SUBCUT SCH (09:31)
[2017-08-16] MEDS: TRAMADOL HCL 50 MG TABLET PO PRN ×2 (09:32→17:59)
[2017-08-16] MEDS: FUROSEMIDE 40 MG TABLET PO SCH (09:33)
[2017-08-16] MEDS: METOCLOPRAMIDE HCL 10 MG TABLET PO SCH ×2 (09:33→21:32)
[2017-08-16] MEDS: METOPROLOL SUCCINATE 25 MG TAB.SR.24H PO SCH (09:33)
[2017-08-16] MEDS: FAMOTIDINE 20 MG TABLET PO SCH ×2 (09:33→21:32)
[2017-08-16] MEDS: POLYETHYLENE GLYCOL 3350 POWDER 17 GM/1 PACKET PO SCH (09:34)
--- NOTE | 2017-08-16 10:10 | PDOC PROGRESS REPORT ---
Subjective Progress Note for:: 08/16/17 - acute/chronic resp failure Subjective:: flat affect w/o complaints Physical Exam Vital Signs: Temp Pulse Resp BP Pulse Ox 98.4 F 87 16 132/70 H 96 08/16/17 03:32 08/16/17 08:28 08/16/17 08:28 08/16/17 03:32 08/16/17 08:28 Intake & Output 08/15/17 08/16/17 08/17/17 06:59 06:59 06:59 Intake Total 1005 1080 Output Total 4050 0775 Balance -3045 -209 Weight 170.4 kg 153.6 kg General appearance: PRESENT: no acute distress, cooperative, disheveled, morbidly obese Head exam: PRESENT: atraumatic, normocephalic Eye exam: PRESENT: conjunctiva pale, EOMI Mouth exam: PRESENT: dry mucosa, neck supple, tongue midline Neck exam: PRESENT: tracheostomy. ABSENT: carotid bruit, full ROM Respiratory exam: PRESENT: decreased breath sounds, prolonged expiratory phas, rhonchi, symmetrical, unlabored, wheezes. ABSENT: accessory muscle use, chest wall tenderness, clear to auscultation karyna, crackles, retraction, stridor, tachypnea Cardiovascular exam: PRESENT: RRR, +S1, +S2 Pulses: PRESENT: normal radial pulses GI/Abdominal exam: PRESENT: normal bowel sounds, soft. ABSENT: distended, guarding, mass, organolmegaly, rebound, tenderness Extremities exam: ABSENT: calf tenderness, clubbing, joint swelling, pedal edema Musculoskeletal exam: ABSENT: deformity, dislocation, tenderness Neurological exam: PRESENT: alert, awake Psychiatric exam: PRESENT: flat affect Skin exam: PRESENT: dry, warm Results Laboratory Results: 08/15/17 04:03 08/15/17 04:03 08/09/17 10:10 Trach Site Gram Stain - Final 08/09/17 10:10 Trach Site Wound Culture - Final Corynebacterium Striatum Proteus Mirabilis Group B Beta Streptococcus 08/08/17 08/08/17 08/08/17 15:56 21:55 21:55 Creatine Kinase 46 L CK-MB (CK-2) 2.09 Troponin I 0.269 0.270 NT-Pro-B Natriuret Pep 08/09/17 08/09/17 08/09/17 04:06 04:06 10:18 Creatine Kinase 43 L CK-MB (CK-2) 1.76 1.31 Troponin I 0.175 0.117 NT-Pro-B Natriuret Pep 2960 H 08/10/17 08/11/17 03:55 04:04 Creatine Kinase CK-MB (CK-2) Troponin I NT-Pro-B Natriuret Pep 1100 H 781 Impressions: Abdomen Ultrasound 08/08/17 12:14 IMPRESSION: 1. Limited study. 2. Fatty liver. 3. No overt gallbladder disease or dilated bile ducts suggested. Chest/Abdomen CTA 08/13/17 00:00 IMPRESSION: 1. No PE. 2. Cardiomegaly. Pleural effusions. Left lower lobe collapse. Chest X-Ray 08/15/17 06:00 IMPRESSION: No significant interval change. Assessment & Plan - Diagnosis (1) Acute respiratory failure with hypoxia and hypercapnia Is this a current diagnosis for this admission?: Yes Plan: improved (2) COPD (chronic obstructive pulmonary disease) with chronic bronchitis Is this a current diagnosis for this admission?: Yes Plan: Generic Name Dose Route Start Last Admin Trade Name Freq PRN Reason Stop Dose Admin Methylprednisolone Sodium Succinate 60 mg 08/08/17 22:00 08/09/17 06:00 Solu-Medrol Inj/Pf 125 Mg/2 Ml Sdv IV 09/07/17 21:59 60 mg Q8 REJI Albuterol/Ipratropium 3 ml 08/08/17 16:00 08/09/17 12:24 Duo-neb 3 Ml Ampul NEB 09/07/17 15:59 3 ml RTQ4 REJI Continue current medical therapy considering the addition of Daliresp if there is no improvement (3) Congestive heart failure (CHF) Qualifiers: Congestive heart failure type: diastolic Congestive heart failure chronicity: unspecified congestive heart failure chronicity Qualified Code(s) : I50.30 - Unspecified diastolic (congestive) heart failure Is this a current diagnosis for this admission?: Yes Plan: Gentle diuresis (4) Morbid obesity Is this a current diagnosis for this admission?: Yes Plan: Physical therapy engaged in structured program for weight loss (5) Obstructive sleep apnea Is this a current diagnosis for this admission?: Yes Plan: The above patient has failed BiPAP. This patient would benefit from noninvasive mechanical ventilation via the trilogy AVAPS/AE and faster responding AVAPS rates. The trilogy is able to provide a target tidal volume and also adjusting the EPAP pressures to maintain a patent airway as well as an oral backup rate this machine will help improve PaCO2 levels. The severity of the patient's condition will lead to future hospitalizations and readmissions as well as life-threatening situations without the use of this device trilogy home vent needed for hypercapnic respiratory failure. Family medical or [facility] to follow for trilogy set up.
--- NOTE | 2017-08-16 13:30 | PDOC PROGRESS REPORT ---
Subjective Progress Note for:: 08/16/17 Subjective:: Patient is a 62-year-old man with history of chronic respiratory failure status post tracheostomy presented to the hospital on August 07, 2017 with complaint of worsening shortness of breath and encephalopathy. History given by . He was obtunded on on presentation and ABG with ph 7.15 and PCO2 98. He had evidence of anasarca. Secondary to dyspnea at this home he was decannulated. He was initially admitted to ICU started on IV steroid and antibiotics he was seen by pulmonary. Trach was substituted for #4 trach with a cuff and and positive pressure ventilation was initiated. And examined this morning he was sitting eating breakfast and had no new complaints. Besides chronic knee pain due to DJD. Physical Exam Vital Signs: Temp Pulse Resp BP Pulse Ox 98.2 F 91 18 115/45 L 96 08/16/17 12:21 08/16/17 12:21 08/16/17 12:21 08/16/17 12:21 08/16/17 12:21 Intake & Output 08/15/17 08/16/17 08/17/17 06:59 06:59 06:59 Intake Total 1005 1080 Output Total 4050 3175 Balance -3045 -2095 Weight 170.4 kg 153.6 kg General appearance: PRESENT: no acute distress, morbidly obese, well-developed, well-nourished Head exam: PRESENT: atraumatic, normocephalic Eye exam: PRESENT: conjunctiva pink, EOMI. ABSENT: scleral icterus Mouth exam: PRESENT: moist, tongue midline Throat exam: PRESENT: other - Trach in place and dressing intact Neck exam: ABSENT: carotid bruit, JVD, lymphadenopathy, thyromegaly Respiratory exam: PRESENT: decreased breath sounds, unlabored. ABSENT: rales, rhonchi, wheezes Cardiovascular exam: PRESENT: RRR. ABSENT: diastolic murmur, rubs, systolic murmur Vascular exam: PRESENT: normal capillary refill GI/Abdominal exam: PRESENT: normal bowel sounds, soft. ABSENT: distended, guarding, mass, organolmegaly, rebound, tenderness Rectal exam: PRESENT: deferred Extremities exam: PRESENT: full ROM. ABSENT: calf tenderness, clubbing, pedal edema Neurological exam: PRESENT: alert, awake, oriented to person, oriented to place , oriented to time, oriented to situation. ABSENT: motor sensory deficit Psychiatric exam: PRESENT: appropriate affect, normal mood. ABSENT: homicidal ideation, suicidal ideation Skin exam: PRESENT: dry, intact, warm. ABSENT: cyanosis, rash Results Laboratory Results: 08/15/17 04:03 08/15/17 04:03 08/09/17 10:10 Trach Site Gram Stain - Final 08/09/17 10:10 Trach Site Wound Culture - Final Corynebacterium Striatum Proteus Mirabilis Group B Beta Streptococcus 08/08/17 08/08/17 08/08/17 15:56 21:55 21:55 Creatine Kinase 46 L CK-MB (CK-2) 2.09 Troponin I 0.269 0.270 NT-Pro-B Natriuret Pep 08/09/17 08/09/17 08/09/17 04:06 04:06 10:18 Creatine Kinase 43 L CK-MB (CK-2) 1.76 1.31 Troponin I 0.175 0.117 NT-Pro-B Natriuret Pep 2960 H 08/10/17 08/11/17 03:55 04:04 Creatine Kinase CK-MB (CK-2) Troponin I NT-Pro-B Natriuret Pep 1100 H 781 Impressions: Abdomen Ultrasound 08/08/17 12:14 IMPRESSION: 1. Limited study. 2. Fatty liver. 3. No overt gallbladder disease or dilated bile ducts suggested. Chest/Abdomen CTA 08/13/17 00:00 IMPRESSION: 1. No PE. 2. Cardiomegaly. Pleural effusions. Left lower lobe collapse. Chest X-Ray 08/15/17 06:00 IMPRESSION: No significant interval change. Assessment & Plan - Diagnosis (1) Acute respiratory failure with hypoxia and hypercapnia Is this a current diagnosis for this admission?: Yes Plan: Much improved Uterine chronic and likely in part due to obesity hypoventilation syndrome Has been seen and evaluated by pulmonary Pulmonary he will benefit from noninvasive mechanical ventilation via trilogy (2) COPD (chronic obstructive pulmonary disease) with chronic bronchitis Is this a current diagnosis for this admission?: Yes Plan: Supplemental oxygen and bronchodilator therapy as needed (3) Acute on chronic renal failure Qualifiers: Chronic kidney disease stage: stage 2 (mild) Is this a current diagnosis for this admission?: Yes Plan: Renal function has improved (4) Obstructive sleep apnea Is this a current diagnosis for this admission?: Yes Plan: He is currently trached and continue current therapy (5) Diastolic dysfunction with chronic heart failure Is this a current diagnosis for this admission?: Yes Plan: Continue p.o. Lasix (6) Chronic indwelling Castro catheter Is this a current diagnosis for this admission?: Yes Plan: Continue Castro care (7) Morbid obesity Is this a current diagnosis for this admission?: Yes Plan: Would benefit from weight loss Caloric controlled diet (8) DVT prophylaxis Is this a current diagnosis for this admission?: Yes Plan: On Lovenox
[2017-08-16] MEDS: TAMSULOSIN HCL 0.4 MG CAP.SR.24H PO SCH (17:59)
[2017-08-16] MEDS ORDERED: SENNOSIDES/DOCUSATE 8.6-50 MG 1 EACH TABLET PO SCH (22:00)
[2017-08-17] MEDS: IPRATROPIUM/ALBUTEROL 0.5-2.5 MG/3 ML AMPUL NEB SCH ×5 (00:03→16:13)
[2017-08-17] MEDS: TRAMADOL HCL 50 MG TABLET PO PRN (01:40)
[2017-08-17] MEDS ORDERED: OXYCODONE-ACETAMINOPHEN 5-325 MG TABLET PO ONE ×3 (09:45→17:00)
[2017-08-17] MEDS: FAMOTIDINE 20 MG TABLET PO SCH (10:28)
[2017-08-17] MEDS: METOCLOPRAMIDE HCL 10 MG TABLET PO SCH (10:28)
[2017-08-17] MEDS: METOPROLOL SUCCINATE 25 MG TAB.SR.24H PO SCH (10:29)
[2017-08-17] MEDS: POLYETHYLENE GLYCOL 3350 POWDER 17 GM/1 PACKET PO SCH (10:29)
[2017-08-17] MEDS: FUROSEMIDE 40 MG TABLET PO SCH (10:29)
[2017-08-17] MEDS: ENOXAPARIN SODIUM INJ 40 MG/0.4 ML DISP.SYRIN SUBCUT SCH (10:31)
--- NOTE | 2017-08-17 12:43 | PDOC PROGRESS REPORT ---
Subjective Progress Note for:: 08/17/17 - acute/chronic resp failure Subjective:: Hoping to go home soon Physical Exam Vital Signs: Temp Pulse Resp BP Pulse Ox 98.8 F 88 18 127/63 H 95 08/17/17 07:17 08/17/17 12:28 08/17/17 12:28 08/17/17 07:17 08/17/17 12:28 Intake & Output 08/16/17 08/17/17 08/18/17 06:59 06:59 06:59 Intake Total 1080 2700 Output Total 3175 4050 Balance -2095 -1350 Weight 153.6 kg 153.9 kg General appearance: PRESENT: cooperative, disheveled, morbidly obese, well- developed Head exam: PRESENT: atraumatic, normocephalic Eye exam: PRESENT: conjunctiva pale, EOMI Mouth exam: PRESENT: dry mucosa, neck supple, tongue midline Neck exam: PRESENT: tracheostomy. ABSENT: carotid bruit, full ROM, JVD, lymphadenopathy, meningismus, thyromegaly, tracheal deviation Respiratory exam: PRESENT: decreased breath sounds, prolonged expiratory phas, rhonchi, symmetrical, unlabored, wheezes. ABSENT: accessory muscle use, chest wall tenderness, clear to auscultation karyna, crackles, retraction, stridor, tachypnea Cardiovascular exam: PRESENT: RRR, +S1, +S2. ABSENT: irregular rhythm Pulses: PRESENT: normal radial pulses GI/Abdominal exam: PRESENT: normal bowel sounds, soft. ABSENT: distended, guarding, mass, organolmegaly, rebound, tenderness Extremities exam: PRESENT: pedal edema. ABSENT: calf tenderness, clubbing, joint swelling, tenderness Musculoskeletal exam: PRESENT: tenderness - Complains of pain and tenderness left wrist and hand PCP aware about prescribed pain therapy. ABSENT: deformity , dislocation Neurological exam: PRESENT: alert, awake Psychiatric exam: PRESENT: flat affect Skin exam: PRESENT: dry, warm Results Laboratory Results: 08/15/17 04:03 08/15/17 04:03 08/08/17 08/08/17 08/08/17 15:56 21:55 21:55 Creatine Kinase 46 L CK-MB (CK-2) 2.09 Troponin I 0.269 0.270 NT-Pro-B Natriuret Pep 08/09/17 08/09/17 08/09/17 04:06 04:06 10:18 Creatine Kinase 43 L CK-MB (CK-2) 1.76 1.31 Troponin I 0.175 0.117 NT-Pro-B Natriuret Pep 2960 H 08/10/17 08/11/17 03:55 04:04 Creatine Kinase CK-MB (CK-2) Troponin I NT-Pro-B Natriuret Pep 1100 H 781 Impressions: Abdomen Ultrasound 08/08/17 12:14 IMPRESSION: 1. Limited study. 2. Fatty liver. 3. No overt gallbladder disease or dilated bile ducts suggested. Chest/Abdomen CTA 08/13/17 00:00 IMPRESSION: 1. No PE. 2. Cardiomegaly. Pleural effusions. Left lower lobe collapse. Chest X-Ray 08/15/17 06:00 IMPRESSION: No significant interval change. Assessment & Plan - Diagnosis (1) Acute respiratory failure with hypoxia and hypercapnia Is this a current diagnosis for this admission?: No (2) COPD (chronic obstructive pulmonary disease) with chronic bronchitis Is this a current diagnosis for this admission?: Yes Plan: Patient excellent candidate for trilogy ventilator Labs- All tests 24 hr 08/08/17 08/08/17 08/08/17 07:50 16:04 18:00 ABG pCO2 98.2 H* 69.2 H* 77.0 H* 08/09/17 08/10/17 08/11/17 05:20 05:40 05:35 ABG pCO2 59.3 H 61.0 H 56.2 H 08/11/17 08/12/17 08/13/17 12:30 07:14 04:38 ABG pCO2 63.5 H 68.2 H 71.9 H* 08/13/17 08/14/17 08/15/17 15:06 08:40 05:45 ABG pCO2 64.7 H 71.6 H* 69.5 H* Generic Name Dose Route Start Last Admin Trade Name Freq PRN Reason Stop Dose Admin Methylprednisolone Sodium Succinate 60 mg 08/08/17 22:00 08/09/17 06:00 Solu-Medrol Inj/Pf 125 Mg/2 Ml Sdv IV 09/07/17 21:59 60 mg Q8 REJI Albuterol/Ipratropium 3 ml 08/08/17 16:00 08/09/17 12:24 Duo-neb 3 Ml Ampul NEB 09/07/17 15:59 3 ml RTQ4 REJI Continue current medical therapy considering the addition of Daliresp if there is no improvement (3) Congestive heart failure (CHF) Qualifiers: Congestive heart failure type: diastolic Congestive heart failure chronicity: unspecified congestive heart failure chronicity Qualified Code(s) : I50.30 - Unspecified diastolic (congestive) heart failure Is this a current diagnosis for this admission?: Yes (4) Morbid obesity Is this a current diagnosis for this admission?: Yes (5) Obstructive sleep apnea Is this a current diagnosis for this admission?: Yes Plan: Please schedule for nocturnal polysomnogram at the time of discharge
[2017-08-17 17:08] VITALS: BP 124/47
[2017-08-17] MEDS: TAMSULOSIN HCL 0.4 MG CAP.SR.24H PO SCH (17:26)
--- NOTE | 2017-08-17 17:58 | PDOC DISCHARGE SUMMARY ---
General - Admit/Disc Date/PCP Admission Date/Primary Care Provider: 08/08/17 14:17 DEJAH MENENDEZ NP Discharge Date: 08/17/17 - Discharge Diagnosis (1) Acute respiratory failure with hypoxia and hypercapnia Is this a current diagnosis for this admission?: No (2) COPD (chronic obstructive pulmonary disease) with chronic bronchitis Is this a current diagnosis for this admission?: Yes (3) Acute on chronic renal failure Is this a current diagnosis for this admission?: Yes (4) Obstructive sleep apnea Is this a current diagnosis for this admission?: Yes (5) Diastolic dysfunction with chronic heart failure Is this a current diagnosis for this admission?: Yes (6) Chronic indwelling Castro catheter Is this a current diagnosis for this admission?: Yes (7) Morbid obesity Is this a current diagnosis for this admission?: Yes (8) DVT prophylaxis Is this a current diagnosis for this admission?: Yes - Additional Information Resuscitation Status: Full Code Discharge Diet: Cardiac Discharge Activity: Activity As Tolerated Home Medications: Budesonide [Pulmicort Neb 0.5 mg/2 ml Ampul] 0.5 mg NEB RTQ12 08/08/17 Budesonide/Formoterol Fumarate [Symbicort HFA 160-4.5 mcg Inhaler 6 gm] 2 puff IH Q12 08/08/17 Ergocalciferol (Vitamin D2) [Vitamin D2] 50,000 unit PO JOHN@1000 08/08/17 Furosemide [Lasix 40 mg Tablet] 40 mg PO DAILY 08/08/17 Ipratropium/Albuterol Sulfate [Duoneb 3 ml Ampul] 3 ml NEB RTQ4HP PRN 08/08/17 Metoclopramide HCl [Reglan 10 mg Tablet] 10 mg PO Q12 08/08/17 Metoprolol Succinate [Toprol Xl 25 mg Tab.sr] 25 mg PO DAILY 08/08/17 Potassium Chloride [Klor-Con M20] 20 meq PO DAILY 08/08/17 Tamsulosin HCl 0.4 mg PO DAILY 08/08/17 Tramadol HCl [Ultram 50 mg Tablet] 50 mg PO Q8HP PRN #18 tablet 08/17/17 History of Present Illness History of Present Illness: ZEINA KRUGER is a 62 year old male Hospital Course Hospital Course: Patient is a 62-year-old man with history of chronic respiratory failure status post tracheostomy presented to the hospital on August 07, 2017 with complaint of worsening shortness of breath and thick discharge around the trach. The patient came into the emergency department and he was encephalopathic and becoming obtunded. His pH was 7.15 and his PCO2 is 98. The patient had a 4 Amol placed per report and records review. Secondary to dyspnea at home this was removed. Therefore, a #4 trach cuff was placed per the emergency department attending. His campground caretaker is Dr. Olivera in [place]. He underwent tracheostomy placement meant for chronic respiratory failure. He then went to a snf facility and his tracheostomy was downsized substantially. The patient was actually supposed to have a sleep study to determine if it was safe to remove the tracheostomy in place the patient on CPAP. Also, the patient has a chronic indwelling Castro catheter and follows with urologist. There was no reports of any recent fevers, chills or sweats. He does have chronic knee pain from degenerative disc disease. He has not had any changes in his medications since March 2017. He was initially admitted to ICU started on IV steroid and antibiotics he was seen by pulmonary. Trach was substituted for #4 trach with a cuff and and positive pressure ventilation was initiated. He has improved significantly and pulmonaary has arranged for him to have trilogy at home. Home care being arranged as well. I have spoken to his primary campground caretaker in [place]. Dr. Esquivel and a copy of the discharge summary to be sent to him. He is to follow up with PCP and pulmonology. Ultram Rx given on discharge. < 20 dispensed Physical Exam Vital Signs: Temp Pulse Resp BP Pulse Ox 98.8 F 88 18 127/63 H 95 08/17/17 07:17 08/17/17 12:28 08/17/17 12:28 08/17/17 07:17 08/17/17 12:28 Intake & Output 08/16/17 08/17/17 08/18/17 06:59 06:59 06:59 Intake Total 1080 2700 1200 Output Total 3175 4050 1500 Balance -7169 -0415 -904 Weight 153.6 kg 153.9 kg General appearance: PRESENT: no acute distress, morbidly obese, well-developed Head exam: PRESENT: atraumatic, normocephalic Eye exam: PRESENT: conjunctiva pink, EOMI. ABSENT: scleral icterus Ear exam: PRESENT: normal external ear exam Mouth exam: PRESENT: moist, tongue midline Neck exam: PRESENT: tracheostomy Respiratory exam: PRESENT: clear to auscultation karyna. ABSENT: rales, rhonchi, wheezes Cardiovascular exam: PRESENT: RRR. ABSENT: diastolic murmur, rubs, systolic murmur Vascular exam: PRESENT: normal capillary refill GI/Abdominal exam: PRESENT: normal bowel sounds, soft. ABSENT: distended, guarding, mass, organolmegaly, rebound, tenderness Rectal exam: PRESENT: deferred Extremities exam: PRESENT: full ROM. ABSENT: calf tenderness, clubbing, pedal edema Neurological exam: PRESENT: alert, awake, oriented to person, oriented to place , oriented to time, oriented to situation. ABSENT: motor sensory deficit Psychiatric exam: PRESENT: appropriate affect, normal mood. ABSENT: homicidal ideation, suicidal ideation Skin exam: PRESENT: dry, warm. ABSENT: cyanosis, rash Results Laboratory Results: 08/15/17 04:03 08/15/17 04:03 08/08/17 08/08/17 08/08/17 15:56 21:55 21:55 Creatine Kinase 46 L CK-MB (CK-2) 2.09 Troponin I 0.269 0.270 NT-Pro-B Natriuret Pep 08/09/17 08/09/17 08/09/17 04:06 04:06 10:18 Creatine Kinase 43 L CK-MB (CK-2) 1.76 1.31 Troponin I 0.175 0.117 NT-Pro-B Natriuret Pep 2960 H 08/10/17 08/11/17 03:55 04:04 Creatine Kinase CK-MB (CK-2) Troponin I NT-Pro-B Natriuret Pep 1100 H 781 Impressions: Abdomen Ultrasound 08/08/17 12:14 IMPRESSION: 1. Limited study. 2. Fatty liver. 3. No overt gallbladder disease or dilated bile ducts suggested. Chest/Abdomen CTA 08/13/17 00:00 IMPRESSION: 1. No PE. 2. Cardiomegaly. Pleural effusions. Left lower lobe collapse. Chest X-Ray 08/15/17 06:00 IMPRESSION: No significant interval change. Plan Time Spent: Greater than 30 Minutes
== END 2017-08-17 17:57 | disposition home health service (06) | DRG 208 ==
LOC: ER 07:33 → UNDOADMIN 13:58 → EH 13:58 → ICU 15:30 → 3S 08-15 16:36
PROVIDERS: ADMIT Family Medicine; ATTEND Family Medicine
PROC: 5A1945Z Respiratory Ventilation, 24-96 Consecutive Hours (ICD-10-PCS; principal; 2017-08-08)
PROC: 3E0F73Z Introduction of Anti-inflammatory into Respiratory Tract, Via Natural or Artificial Opening (ICD-10-PCS; 2017-08-08)
DX: J96.21 Acute and chronic respiratory failure with hypoxia (principal); N17.9 Acute kidney failure, unspecified; I50.32 Chronic diastolic (congestive) heart failure; Z68.42 Body mass index [BMI] 45.0-49.9, adult; I13.0 Hypertensive heart and chronic kidney disease with heart failure and stage 1 through stage 4 chronic kidney disease, or unspecified chronic kidney disease; L03.221 Cellulitis of neck; J96.22 Acute and chronic respiratory failure with hypercapnia; J44.9 Chronic obstructive pulmonary disease, unspecified; G47.33 Obstructive sleep apnea (adult) (pediatric); E66.01 Morbid (severe) obesity due to excess calories; M19.90 Unspecified osteoarthritis, unspecified site; R47.81 Slurred speech; M10.9 Gout, unspecified; N18.3 Chronic kidney disease, stage 3 (moderate); E87.5 Hyperkalemia; K75.9 Inflammatory liver disease, unspecified; B96.20 Unspecified Escherichia coli [E. coli] as the cause of diseases classified elsewhere; B95.2 Enterococcus as the cause of diseases classified elsewhere; R33.9 Retention of urine, unspecified; B95.1 Streptococcus, group B, as the cause of diseases classified elsewhere; B96.4 Proteus (mirabilis) (morganii) as the cause of diseases classified elsewhere; M17.10 Unilateral primary osteoarthritis, unspecified knee; Z87.891 Personal history of nicotine dependence; Z88.8 Allergy status to other drugs, medicaments and biological substances; Z88.6 Allergy status to analgesic agent; Z82.49 Family history of ischemic heart disease and other diseases of the circulatory system; Z83.3 Family history of diabetes mellitus; Z80.0 Family history of malignant neoplasm of digestive organs; Z80.6 Family history of leukemia
CPT/HCPCS: 36415; 36600; 71010; 71275; 76705; 80048; 80053; 80307; 81001; 82550; 82553; 82803; 82962; 83735; 83880; 84100; 84484; 85025; 85610; 85730; 87040; 87070; 87077; 87086; 87088; 87186; 87205; 93005; 93010; 93306; 94002; 94003; 94640; 94660; 94667; 94668; 99291; J0610; J1650; J1815; J1940; J1956; J2060; J2270; J2930; J3490; J7512; J7620; S0028

== ENCOUNTER 2017-12-09 16:07 | Emergency (ER) | payer BC ==
--- NOTE | 2017-12-09 16:43 | ER Document Report ---
ED Medical Screen (RME) - General Chief Complaint: Shortness Of Breath Stated Complaint: SHORTNESS OF BREATH Time Seen by Provider: 12/09/17 16:39 Notes: Patient here because he is short of breath for the past 5 or 6 days and went to a local urgent care where they checked his oxygen and said that it was 90% at rest and advised him to come here for evaluation and care. He has a history of COPD and wears a CPAP device and 3 L of oxygen at night while he is sleeping at night. Has not had much of a cough, just short of breath. He recently started doxazosin about 1 week ago, just prior to the patient starting to develop shortness of breath. Patient began having his breathing difficulties last summer. He is a former cigarette smoker, although he stopped about 15 years ago. TRAVEL OUTSIDE OF THE [place] IN LAST 30 DAYS: No - Related Data Allergies/Adverse Reactions: meperidine HCl [From Demerol] Allergy (Verified 08/08/17 08:05) triazolam [From Halcion] Allergy (Verified 08/08/17 08:05) Past Medical History - Past Medical History Cardiac Medical History: Reports: Hx Congestive Heart Failure, Hx Hypertension Denies: Hx Heart Attack Pulmonary Medical History: Reports: Hx COPD, Hx Intubation - March 2017, Hx Respiratory Failure - March 2017 Renal/ Medical History: Denies: Hx Peritoneal Dialysis Musculoskeltal Medical History: Reports Hx Arthritis Skin Medical History: Reports Hx Cellulitis Psychiatric Medical History: Denies: Hx Depression Past Surgical History: Reports: Hx Herniorrhaphy, Hx Orthopedic Surgery - bilat knee, Hx Vascular Surgery - L inguinal hernia - Immunizations Hx Diphtheria, Pertussis, Tetanus Vaccination: No History of Influenza Vaccine for 07/2017 - 12/2017 Season: Refused Physical Exam - Vital signs Vitals: Temp Pulse Resp BP Pulse Ox 98.8 F 86 20 171/49 H 97 12/09/17 16:19 12/09/17 16:19 12/09/17 16:19 12/09/17 16:19 12/09/17 16:19 Course - Vital Signs Vital signs: Temp Pulse Resp BP Pulse Ox 98.8 F 86 20 171/49 H 97 12/09/17 16:19 12/09/17 16:19 12/09/17 16:19 12/09/17 16:19 12/09/17 16:19
[2017-12-09 17:14] LABS: ABSOLUTE EOSINOPHILS # (AUTO) 0.5 10^3/uL (0.0-0.6); ABSOLUTE LYMPHOCYTES (AUTO) 0.9 10^3/uL (0.5-4.7); ABSOLUTE MONOCYTES (AUTO) 0.5 10^3/uL (0.1-1.4); ABSOLUTE NEUT (AUTO) 4.6 10^3/uL (1.7-8.2); BASOPHILS % (AUTO) 0.7 % (0-2); EOSINOPHILS % (AUTO) 7.2 % (0-6); HEMATOCRIT 33.5 % (37.9-51.0); HEMOGLOBIN 10.8 g/dL (13.5-17.0); LYMPHOCYTES % (AUTO) 14.3 % (13-45); MEAN CORPUSCULAR HGB CONC 32.1 g/dL (32.0-36.0); MEAN CORPUSCULAR VOLUME 84 fl (80-97); MONOCYTES % (AUTO) 7.3 % (3-13); PLATELET COUNT 220 10^3/uL (150-450); RED BLOOD COUNT 3.99 10^6/uL (4.35-5.55); RED CELL DISTRIBUTION WIDTH 17.6 % (11.5-14.0); SEGMENTED NEUTROPHILS % (AUTO) 70.5 % (42-78); TOTAL CELLS COUNTED % (AUTO) 100 %; WHITE BLOOD COUNT 6.5 10^3/uL (4.0-10.5)
[2017-12-09 17:20] LABS: VENOUS BLOOD BASE EXCESS 1.6 mmol/L; VENOUS BLOOD HCO3 29.3 mmol/L (20-32); VENOUS BLOOD PH 7.3 (7.30-7.42)
[2017-12-09 17:32] LABS: ALANINE AMINOTRANSFERASE 35 U/L (21-72); ALBUMIN 3.4 g/dL (3.5-5.0); ALKALINE PHOSPHATASE 58 U/L (38-126); ANION GAP 5 (5-19); ASPARTATE AMINO TRANSFERASE 19 U/L (17-59); BILIRUBIN,DIRECT 0.4 mg/dL (0.0-0.4); BILIRUBIN,TOTAL 0.4 mg/dL (0.2-1.3); BLOOD UREA NITROGEN 23 mg/dL (7-20); CALCIUM 9.3 mg/dL (8.4-10.2); CARBON DIOXIDE 29 mmol/L (22-30); CHLORIDE 109 mmol/L (98-107); GLUCOSE 83 mg/dL (75-110); POTASSIUM 4.9 mmol/L (3.6-5.0); SODIUM 143.1 mmol/L (137-145); TOTAL PROTEIN 6.3 g/dL (6.3-8.2)
--- NOTE | 2017-12-09 17:34 | ER Document Report ---
ED General - General Chief Complaint: Shortness Of Breath Stated Complaint: SHORTNESS OF BREATH Time Seen by Provider: 12/09/17 16:39 Mode of Arrival: Ambulatory Information source: Patient TRAVEL OUTSIDE OF THE [place] IN LAST 30 DAYS: No - HPI Patient complains to provider of: sob Onset: Last week Onset/Duration: Gradual Quality of pain: No pain Associated symptoms: None Exacerbated by: Movement Relieved by: Denies Similar symptoms previously: Yes Recently seen / treated by doctor: Yes - sent from - Related Data Allergies/Adverse Reactions: meperidine [From Demerol] Allergy (Verified 12/09/17 16:43) meperidine HCl [From Demerol] Allergy (Verified 08/08/17 08:05) triazolam [From Halcion] Allergy (Verified 08/08/17 08:05) Past Medical History - General Information source: Patient, Relative - Social History Smoking Status: Former Smoker Frequency of alcohol use: None Drug Abuse: None Lives with: Family Family History: CAD, DM, Hypertension, Other - Heart attack Patient has suicidal ideation: No Patient has homicidal ideation: No - Past Medical History Cardiac Medical History: Reports: Hx Congestive Heart Failure, Hx Hypertension Denies: Hx Heart Attack Pulmonary Medical History: Reports: Hx COPD, Hx Intubation - March 2017, Hx Respiratory Failure - March 2017 EENT Medical History: Reports: None Neurological Medical History: Reports: None Endocrine Medical History: Reports: None Renal/ Medical History: Denies: Hx Peritoneal Dialysis Malignancy Medical History: Reports None Musculoskeltal Medical History: Reports Hx Arthritis Skin Medical History: Reports Hx Cellulitis Psychiatric Medical History: Denies: Hx Depression Past Surgical History: Reports: Hx Herniorrhaphy, Hx Oral Surgery, Hx Orthopedic Surgery - bilat knee, Hx Vascular Surgery - L inguinal hernia - Immunizations Hx Diphtheria, Pertussis, Tetanus Vaccination: No Review of Systems - Review of Systems Constitutional: No symptoms reported EENT: No symptoms reported Cardiovascular: No symptoms reported Respiratory: See HPI. denies: Hurts to breathe Genitourinary: No symptoms reported Male Genitourinary: No symptoms reported Musculoskeletal: No symptoms reported Skin: No symptoms reported Hematologic/Lymphatic: No symptoms reported Neurological/Psychological: No symptoms reported Physical Exam - Vital signs Vitals: Temp Pulse Resp BP Pulse Ox 98.8 F 86 20 171/49 H 97 12/09/17 16:19 12/09/17 16:19 12/09/17 16:19 12/09/17 16:19 12/09/17 16:19 - Notes Notes: PHYSICAL EXAMINATION: GENERAL: Well-appearing, well-nourished and in no acute distress. Physical exam is markedly limited due to patient's body habitus. HEAD: Atraumatic, normocephalic. EYES: Pupils equal round and reactive to light, extraocular movements intact, sclera anicteric, conjunctiva are normal. ENT: Nares patent, oropharynx clear without exudates. Moist mucous membranes. NECK: Normal range of motion, supple without lymphadenopathy LUNGS: Breath sounds clear to auscultation bilaterally and equal. Mild wheezes. No rales or rhonchi. HEART: Regular rate and rhythm ABDOMEN: MOrbidly obese. Soft, nontender, nondistended abdomen. No guarding, no rebound. No masses appreciated. Musculoskeletal: Normal range of motion, +1 pitting edema b/l LE No cyanosis. NEUROLOGICAL: Cranial nerves grossly intact. Normal speech, normal gait. Normal sensory, motor exams PSYCH: Normal mood, normal affect. SKIN: Warm, Dry, normal turgor, no rashes or lesions noted. Course - Re-evaluation Re-evalutation: 12/09/17 19:20 I did go back in the room and spoke to the patient and his . I would all over all lab results as well as the chest x-ray and EKG findings. Patient was 100% on 2 L with no respiratory distress. He only wears oxygen at home with CPAP so I did remove the oxygen.Nurses informed that we are repeating the troponin. Family is also informed and agreeable to the plan as well as the patient. The did ask me to do a blood gas on the patient to check his [id number] she thinks it may be "creeping up". Patient has an appointment December 13 to have an echo done. 12/09/17 21:22 Labs- All tests 24 hr 12/09/17 12/09/17 12/09/17 17:00 17:00 17:00 WBC 6.5 RBC 3.99 L Hgb 10.8 L Hct 33.5 L MCV 84 MCH 27.0 MCHC 32.1 RDW 17.6 H Plt Count 220 Seg Neutrophils % 70.5 Lymphocytes % 14.3 Monocytes % 7.3 Eosinophils % 7.2 H Basophils % 0.7 Absolute Neutrophils 4.6 Absolute Lymphocytes 0.9 Absolute Monocytes 0.5 Absolute Eosinophils 0.5 Absolute Basophils 0.0 Carbonic Acid HCO3/H2CO3 Ratio ABG pH ABG pCO2 ABG pO2 ABG HCO3 ABG Total CO2 ABG O2 Saturation ABG Base Excess VBG pH VBG pCO2 VBG HCO3 VBG Base Excess FiO2 Sodium 143.1 Potassium 4.9 Chloride 109 H Carbon Dioxide 29 Anion Gap 5 BUN 23 H Creatinine 1.20 Est GFR ( Amer) > 60 Est GFR (Non-Af Amer) > 60 Glucose 83 Calcium 9.3 Total Bilirubin 0.4 Direct Bilirubin 0.4 Neonat Total Bilirubin Not Reportable Neonat Direct Bilirubin Not Reportable Neonat Indirect Bili Not Reportable AST 19 ALT 35 Alkaline Phosphatase 58 CK-MB (CK-2) 1.33 Troponin I < 0.012 NT-Pro-B Natriuret Pep Total Protein 6.3 Albumin 3.4 L 12/09/17 12/09/17 12/09/17 17:00 17:00 19:35 WBC RBC Hgb Hct MCV MCH MCHC RDW Plt Count Seg Neutrophils % Lymphocytes % Monocytes % Eosinophils % Basophils % Absolute Neutrophils Absolute Lymphocytes Absolute Monocytes Absolute Eosinophils Absolute Basophils Carbonic Acid HCO3/H2CO3 Ratio ABG pH ABG pCO2 ABG pO2 ABG HCO3 ABG Total CO2 ABG O2 Saturation ABG Base Excess VBG pH 7.30 VBG pCO2 61.0 VBG HCO3 29.3 VBG Base Excess 1.6 FiO2 Sodium Potassium Chloride Carbon Dioxide Anion Gap BUN Creatinine Est GFR ( Amer) Est GFR (Non-Af Amer) Glucose Calcium Total Bilirubin Direct Bilirubin Neonat Total Bilirubin Neonat Direct Bilirubin Neonat Indirect Bili AST ALT Alkaline Phosphatase CK-MB (CK-2) Troponin I < 0.012 NT-Pro-B Natriuret Pep 176 Total Protein Albumin 12/09/17 19:46 WBC RBC Hgb Hct MCV MCH MCHC RDW Plt Count Seg Neutrophils % Lymphocytes % Monocytes % Eosinophils % Basophils % Absolute Neutrophils Absolute Lymphocytes Absolute Monocytes Absolute Eosinophils Absolute Basophils Carbonic Acid 1.41 H HCO3/H2CO3 Ratio 19:1 ABG pH 7.38 ABG pCO2 46.8 H ABG pO2 60.3 L ABG HCO3 27.0 H ABG Total CO2 28.4 H ABG O2 Saturation 90.5 L ABG Base Excess 1.4 VBG pH VBG pCO2 VBG HCO3 VBG Base Excess FiO2 ROOM AIR Sodium Potassium Chloride Carbon Dioxide Anion Gap BUN Creatinine Est GFR ( Amer) Est GFR (Non-Af Amer) Glucose Calcium Total Bilirubin Direct Bilirubin Neonat Total Bilirubin Neonat Direct Bilirubin Neonat Indirect Bili AST ALT Alkaline Phosphatase CK-MB (CK-2) Troponin I NT-Pro-B Natriuret Pep Total Protein Albumin Chest X-Ray 12/09/17 16:39 IMPRESSION: Stable cardiomegaly. No evidence of an acute cardiopulmonary process 12/09/17 21:24 Patient is sitting up on the side of the bed his pulse ox is 95%. He states he feels fine and is ready to go home. - Vital Signs Vital signs: Temp Pulse Resp BP Pulse Ox 98.8 F 86 18 130/63 H 94 12/09/17 16:19 12/09/17 16:19 12/09/17 21:01 12/09/17 21:01 12/09/17 21:01 - Laboratory Result Diagrams: 12/09/17 17:00 12/09/17 17:00 Laboratory results interpreted by me: 12/09/17 12/09/17 12/09/17 17:00 17:00 19:46 RBC 3.99 L Hgb 10.8 L Hct 33.5 L RDW 17.6 H Eosinophils % 7.2 H Carbonic Acid 1.41 H ABG pCO2 46.8 H ABG pO2 60.3 L ABG HCO3 27.0 H ABG Total CO2 28.4 H ABG O2 Saturation 90.5 L Chloride 109 H BUN 23 H Albumin 3.4 L - Diagnostic Test Radiology reviewed: Image reviewed, Reports reviewed - EKG Interpretation by Me EKG shows normal: Sinus rhythm - 88 bpm When compared to previous EKG there are: No significant change Discharge - Discharge Clinical Impression: Morbid obesity, Obstructive sleep apnea, Anemia, COPD (chronic obstructive pulmonary disease) Condition: Stable Disposition: HOME, SELF-CARE Instructions: Chronic Obstructive Lung Disease ([facility]) Additional Instructions: Follow up with your physician tomorrow for further care or return to the ED IMMEDIATELY if symptoms worsen or new concerns occur. If you cannot afford to follow up with your primary care physician a list of low cost clinics have been provided at the end of your discharge papers as well. Referrals: YAMILEX MERINO MD [Primary Care Provider] - Follow up tomorrow (Call office Monday am for follow up)
--- NOTE | 2017-12-09 17:37 | RADIOLOGY REPORT (SQ) ---
EXAM DESCRIPTION: CHEST PA/LAT COMPLETED DATE/TIME: 12/09/2017 5:24 pm REASON FOR STUDY: Shortness of breath COMPARISON: 08/15/2017 EXAM PARAMETERS: NUMBER OF VIEWS: two views TECHNIQUE: Digital Frontal and Lateral radiographic views of the chest acquired. RADIATION DOSE: NA LIMITATIONS: none FINDINGS: LUNGS AND PLEURA: No opacities, masses or pneumothorax. No pleural effusion. MEDIASTINUM AND HILAR STRUCTURES: No masses or contour abnormalities. HEART AND VASCULAR STRUCTURES: Stable cardiomegaly. No evidence of failure BONES: No acute findings. HARDWARE: None in the chest. OTHER: No other significant finding. IMPRESSION: Stable cardiomegaly. No evidence of an acute cardiopulmonary process TECHNICAL DOCUMENTATION: JOB ID: [id number] [employer]- All Rights Reserved Reading location - IP/workstation name: [email or web address]
[2017-12-09 17:48] LABS: CREATINE KINASE MB 1.33 ng/mL (<4.55)
[2017-12-09 17:50] LABS: TROPONIN I < 0.012 ng/mL
--- NOTE | 2017-12-09 17:59 | EKG REPORT ---
SEVERITY:- BORDERLINE ECG - SINUS RHYTHM BORDERLINE R WAVE PROGRESSION, ANTERIOR LEADS : Confirmed by: Clint Ramirez MD 09-Dec-2017 17:58:51
[2017-12-09] MEDS ORDERED: IPRATROPIUM/ALBUTEROL 0.5-2.5 MG/3 ML AMPUL NEB ONE (18:48)
[2017-12-09] MEDS ORDERED: METHYLPREDNISOLONE INJ 125 MG/2 ML SDV IV ONE (18:48)
[2017-12-09 19:59] LABS: ARTERIAL BLOOD BASE EXCESS 1.4 mmol/L; ARTERIAL BLOOD H2CO3 1.41 mmol/L (1.05-1.35); ARTERIAL BLOOD O2 SATURATION 90.5 % (94-98); ARTERIAL BLOOD PCO2 46.8 mmHg (35-45); ARTERIAL BLOOD PH 7.38 (7.35-7.45); ARTERIAL BLOOD PO2 60.3 mmHg (80-100); ARTERIAL BLOOD TOTAL CO2 28.4 mmol/L (23-27)
[2017-12-09 20:01] LABS: ARTERIAL BLOOD FIO2 ROOM AIR
[2017-12-09 21:29] VITALS: BP 130/63
== END 2017-12-09 21:45 | disposition home or self-care (01) ==
LOC: ER 16:07
DX: J44.9 Chronic obstructive pulmonary disease, unspecified (principal); G47.33 Obstructive sleep apnea (adult) (pediatric); I10 Essential (primary) hypertension; D64.9 Anemia, unspecified; I51.7 Cardiomegaly; E66.01 Morbid (severe) obesity due to excess calories; Z68.43 Body mass index [BMI] 50.0-59.9, adult; Z88.5 Allergy status to narcotic agent; Z88.8 Allergy status to other drugs, medicaments and biological substances; Z87.891 Personal history of nicotine dependence
CPT/HCPCS: 93005; 94640; 99285; 96374; 36415; 82553; 82803 ×2; 85025; 80053; 84484; 83880; 71046; 93010; J2930; J7620

== ENCOUNTER 2018-04-19 17:05 | Emergency (ER) | payer BC, MEDICAID ==
--- NOTE | 2018-04-19 18:15 | ER Document Report ---
ED Medical Screen (RME) - General Chief Complaint: Fall Stated Complaint: RIGHT SIDE PAIN Time Seen by Provider: 04/19/18 18:07 Mode of Arrival: Wheelchair Information source: Patient Notes: Patient presents complaining of a fall this afternoon whenever his knee gave out due to severe arthritis. Patient complains of right hip and knee pain. Patient incidentally has a red area to the medial aspect of his left thigh. Patient does report a history of cellulitis in the past. Patient denies any recent bed rest immobilization of clots in the legs. hx: COPD, CKD, hepatitis, CHF I have greeted and performed a rapid initial assessment of this patient. A comprehensive ED assessment and evaluation of the patient, analysis of test results and completion of the medical decision making process will be conducted by additional ED providers. TRAVEL OUTSIDE OF THE [place] IN LAST 30 DAYS: No - Related Data Allergies/Adverse Reactions: meperidine [From Demerol] Allergy (Verified 04/19/18 17:07) meperidine HCl [From Demerol] Allergy (Verified 04/19/18 17:07) triazolam [From Halcion] Allergy (Verified 04/19/18 17:07) Past Medical History - Past Medical History Cardiac Medical History: Reports: Hx Congestive Heart Failure, Hx Hypertension Denies: Hx Heart Attack Pulmonary Medical History: Reports: Hx COPD, Hx Intubation - March 2017, Hx Respiratory Failure - March 2017 Renal/ Medical History: Denies: Hx Peritoneal Dialysis Musculoskeltal Medical History: Reports Hx Arthritis Skin Medical History: Reports Hx Cellulitis Psychiatric Medical History: Denies: Hx Depression Past Surgical History: Reports: Hx Herniorrhaphy, Hx Oral Surgery, Hx Orthopedic Surgery - bilat knee, Hx Vascular Surgery - L inguinal hernia - Immunizations Hx Diphtheria, Pertussis, Tetanus Vaccination: No History of Influenza Vaccine for 07/2017 - 12/2017 Season: Refused Physical Exam - Vital signs Vitals: Temp Pulse Resp BP Pulse Ox 98.1 F 91 20 124/53 L 95 04/19/18 17:12 04/19/18 17:12 04/19/18 17:12 04/19/18 17:12 04/19/18 17:12 - Extremities General lower extremity: Tender - Right knee, right hip, Other - Erythema and thickened skin to medial aspect of left thigh worrisome for cellulitis Course - Vital Signs Vital signs: Temp Pulse Resp BP Pulse Ox 98.1 F 91 20 124/53 L 95 04/19/18 17:12 04/19/18 17:12 04/19/18 17:12 04/19/18 17:12 04/19/18 17:12 Doctor's Discharge - Discharge Referrals: YAMILEX MERINO MD [Primary Care Provider] - Follow up as needed
--- NOTE | 2018-04-19 18:38 | ER Document Report ---
ED Fall - General Chief Complaint: Fall Stated Complaint: RIGHT SIDE PAIN Time Seen by Provider: 04/19/18 18:07 Mode of Arrival: Wheelchair Information source: Patient Notes: 63-year-old male presents to ED for complaint of falling this afternoon when his leg gave out on him due to his arthritis. He states that he has pain in his right knee and hip. He also has a red area to the medial aspect of his right thigh. He does not know the cause of this red area. He states he has not been immobile he is does walk around. He does have a history of COPD chronic kidney disease hepatitis and CHF TRAVEL OUTSIDE OF THE [place] IN LAST 30 DAYS: No - HPI Occurred: This afternoon Where: Home, Indoors Context: Tripped - When his knee gave out Associated symptoms: None Location of injury/pain: Hip, Knee Quality of pain: Sharp, Throbbing, Other - There are some scabbed areas to the lower left leg and red inflammation and cellulitis to the left thigh. Patient states this is been there multiple times in the past and has always received antibiotics and it is cleared up. Severity: Moderate Pain Level: 4 - Related data Allergies/Adverse Reactions: meperidine [From Demerol] Allergy (Verified 04/19/18 17:07) meperidine HCl [From Demerol] Allergy (Verified 04/19/18 17:07) triazolam [From Halcion] Allergy (Verified 04/19/18 17:07) Past Medical History - General Information source: Patient - Social History Smoking Status: Never Smoker Cigarette use (# per day): No Chew tobacco use (# tins/day): No Smoking Education Provided: No Frequency of alcohol use: None Drug Abuse: None Lives with: Family Family History: CAD, DM, Hypertension, Other - Heart attack Patient has suicidal ideation: No Patient has homicidal ideation: No - Past Medical History Cardiac Medical History: Reports: Hx Congestive Heart Failure, Hx Hypertension Denies: Hx Heart Attack Pulmonary Medical History: Reports: Hx COPD, Hx Intubation - March 2017, Hx Respiratory Failure - March 2017 EENT Medical History: Reports: None Neurological Medical History: Reports: None Endocrine Medical History: Reports: None Renal/ Medical History: Reports: None Malignancy Medical History: Reports None GI Medical History: Reports: None Musculoskeletal Medical History: Reports Hx Arthritis Skin Medical History: Reports Hx Cellulitis Psychiatric Medical History: Reports: None Traumatic Medical History: Reports: None Infectious Medical History: Reports: None Past Surgical History: Reports: Hx Herniorrhaphy, Hx Oral Surgery, Hx Orthopedic Surgery - bilat knee, Hx Vascular Surgery - L inguinal hernia - Immunizations Hx Diphtheria, Pertussis, Tetanus Vaccination: No Review of Systems - Review of Systems Constitutional: No symptoms reported EENT: No symptoms reported Cardiovascular: No symptoms reported Respiratory: No symptoms reported Gastrointestinal: No symptoms reported Genitourinary: No symptoms reported Male Genitourinary: No symptoms reported Musculoskeletal: No symptoms reported Skin: No symptoms reported Hematologic/Lymphatic: No symptoms reported Neurological/Psychological: No symptoms reported -: Yes All other systems reviewed and negative Physical Exam - Vital signs Vitals: Temp Pulse Resp BP Pulse Ox 98.1 F 91 20 124/53 L 95 04/19/18 17:12 04/19/18 17:12 04/19/18 17:12 04/19/18 17:12 04/19/18 17:12 Interpretation: Normal - General General appearance: Appears well, Alert - HEENT Head: Normocephalic, Atraumatic Eyes: Normal Pupils: PERRL - Respiratory Respiratory status: No respiratory distress Chest status: Nontender Breath sounds: Normal Chest palpation: Normal - Cardiovascular Rhythm: Regular Heart sounds: Normal auscultation Murmur: No - Abdominal Inspection: Normal Distension: No distension Bowel sounds: Normal Tenderness: Nontender Organomegaly: No organomegaly - Back Back: Normal, Nontender - Extremities General upper extremity: Normal inspection, Nontender, Normal color, Normal ROM , Normal temperature General lower extremity: No: Mechelle's sign Thigh: Tender - Red and inflamed Knee: Tender, Pain with ROM, Patellar tendon intact, Tender joint line. No: Abrasion, Deformity, Dislocation, Drawer's test instability, Instability, Joint effusion, Laceration, Laxity with valgus stress, Laxity with varus stress, Popliteal fossa tender, Unable to bear weight Calf: Tender, Other - Multiple small scabbed sores to the left calf. No: Abrasion, Deformity, Ecchymosis, Instability, Laceration, Unable to bear weight Ankle: Normal, Nontender - Neurological Neuro grossly intact: Yes Cognition: Normal Orientation: AAOx4 [place] Coma Scale Eye Opening: Spontaneous Wes Coma Scale Verbal: Oriented Wes Coma Scale Motor: Obeys Commands Wes Coma Scale Total: 15 Speech: Normal Motor strength normal: LUE, RUE, LLE, RLE Sensory: Normal - Psychological Associated symptoms: Normal affect, Normal mood - Skin Skin Temperature: Warm Skin Moisture: Dry Skin Color: Normal Course - Re-evaluation Re-evalutation: 04/19/18 19:41 Patient treated with clindamycin in the emergency room as well as Bactroban and discharged home with prescription for clindamycin and instructions to follow-up with his primary doctor tomorrow to schedule a follow-up appointment. - Vital Signs Vital signs: Temp Pulse Resp BP Pulse Ox 98.2 F 89 18 128/54 H 95 04/19/18 20:58 04/19/18 20:58 04/19/18 20:58 04/19/18 20:58 04/19/18 20:58 - Laboratory Result Diagrams: 04/19/18 19:20 04/19/18 19:20 Laboratory results interpreted by me: 04/19/18 04/19/18 19:20 19:20 Hgb 12.5 L Hct 37.5 L RDW 16.5 H Lymphocytes % 11.5 L Eosinophils % 7.3 H Absolute Eosinophils 0.7 H Potassium 5.1 H Carbon Dioxide 33 H BUN 33 H Creatinine 1.80 H Est GFR ( Amer) 46 L Est GFR (Non-Af Amer) 38 L Discharge - Discharge Clinical Impression: Right hip pain Fall Qualifiers: Encounter type: initial encounter Qualified Code(s): W19.XXXA - Unspecified fall, initial encounter Right knee pain Qualifiers: Chronicity: acute Qualified Code(s): M25.561 - Pain in right knee Condition: Stable Disposition: HOME, SELF-CARE Additional Instructions: CONTUSION: Your injury has resulted in a contusion -- a crushing of the deep tissues. No injury to important structures was detected during the physician's exam. Contusions vary in the amount of pain they cause, and in the length of time required for healing. Typically, the area will become bruised, and will remain painful to touch for two or three weeks. However, most patients are back to working and playing within a few days. After the initial period of rest and cold-packs, your symptoms (together with the doctor's recommendations) will determine how rapidly you can get back to full activity. Usually this means "do what feels okay, but don't do things that hurt." If re-examination was recommended, it's important to follow up as instructed. Call the doctor or return any time if pain increases, if swelling becomes severe, if you develop numbness or weakness in an injured extremity, or if any other alarming symptoms occur. CELLULITIS: You have an infection of your skin and underlying soft tissues called cellulitis. This is due to bacteria, which can enter through any break in the skin, or even through an irritated hair follicle. Untreated, cellulitis will usually worsen. Antibiotics are required. Usually, warm packs or warm soaks, and elevation of the infected area are recommended. You should start getting better within 24 to 36 hours. Most infections respond quickly to the right medication. Follow-up care is important, however, to check for abscess (boil) formation, unsuspected foreign body, or resistant infection. If you develop fever, chills, or if the area of infection is becoming rapidly more swollen or painful, call the doctor at once. CLINDAMYCIN: You have been given a prescription for the antibiotic clindamycin. It is often prescribed for infections in the mouth, such as dental infections or abscesses, and for skin infections due to MRSA. It's important that you take all the medication, unless instructed otherwise by your physician. Failure to complete the entire course can result in relapse of your condition. Common side effects of antibiotics include nausea, intestinal cramping, or diarrhea. Women may develop vaginal yeast infections, and babies can get yeast (thrush) in the mouth following the use of antibiotics. Contact your physician if you develop significant side effects from this medication. Allergy to this antibiotic can result in hives, wheezing, faintness, or itching. If symptoms of allergy occur, stop the medication and call the doctor. Bactroban Ointment Bactroban is very effective against the germs that cause infection within the skin. It's useful for impetigo and other superficial infections. Deeper infections require antibiotics by mouth or by shot. Apply the medicine three times a day for one week, or longer if your doctor has advised it. Stop the medicine and call your doctor if you develop large blisters, severe itching, increasing pain, swelling, fever, or spreading redness. USE OF TYLENOL (ACETAMINOPHEN): Acetaminophen may be taken for pain relief or fever control. It's much safer than aspirin, offering a wider range of "safe" dosages. It is safe during . Some brand names are Tylenol, Panadol, Datril, Anacin 3, Tempra, and Liquiprin. Acetaminophen can be repeated every four hours. The following are maximum recommended dosages: WEIGHT Dose Drops Elixir Chewable( 80mg) (LBS.) drprs=droppers tsp=teaspoon 6 40 mg 0.4 ml (1/2) 6-11 80 mg 0.8 ml (full) tsp 1 tab 12-16 120 mg 1 1/2 drprs 3/4 tsp 1 1/2 tabs 17-23 160 mg 2 drprs 1 tsp 2 tabs 24-30 240 mg 3 drprs 1 1/2 tsp 3 tabs 30-35 320 mg 2 tsp 4 tabs 36-41 360 mg 2 1/4 tsp 4 1/2 tabs 42-47 400 mg 2 1/2 tsp 5 tabs 48-53 480 mg 3 tsp 6 tabs 54-59 520 mg 3 1/4 tsp 6 1/2 tabs 60-64 560 mg 3 1/2 tsp 7 tabs 65-70 600 mg 3 3/4 tsp 7 1/2 tabs 71-76 640 mg 4 tsp 8 tabs 77-82 720 mg 4 1/2 tsp 9 tabs 83-88 800 mg 5 tsp 10 tabs >89 pounds or adults 650 mg to 900 mg Acetaminophen can be repeated every four hours. Maximum dose not to exceed 4000 mg a day. These maximum recommended dosages are slightly higher than the dosages written on the product container, but these dosages are very safe and below the toxic dosage for acetaminophen. ICE PACKS: Apply ice packs frequently against the painful area. Many different schedules are recommended, such as "20 minutes on, 20 minutes off" or "one hour ice, two hours rest." If you need to work, you may need to go longer between ice treatments. You should plan to have the area ice packed AT LEAST one fourth of the time. The ice should be applied over the wrap, tape, or splint, or over a layer of cloth -- not directly against the skin. Some ice bags have a built-in cloth and can be put directly on the skin. WARM PACKS: After approximately two days, apply gentle heat (such as a heating pad or hot water bottle) for about 20 to 30 minutes about every two hours -- at least four times daily. Warmth and elevation will help you make a more rapid recovery , and will ease the pain considerably. Do not use HOT heat, and never apply heat for longer than 30 minutes. The continuous heat can invisibly damage skin and muscles -- even when no burn is seen on the surface. Damaged muscles can make you MORE sore. Oral Narcotic Medication You have been given a [employer] dispense pack for pain control. This medication is a narcotic. It's best taken with food, as nausea can result if taken on an empty stomach. Don't operate machinery or drive within six hours of taking this medication. Do not combine this medicine with alcohol, or with any medication which can cause sedation (such as cold tablets or sleeping pills) unless you get permission from the physician. Narcotics tend to cause constipation. If possible, drink plenty of fluids and eat a diet high in fiber and fruits. FOLLOW-UP CARE: If you have been referred to a physician for follow-up care, call the physician s office for an appointment as you were instructed or within the next two days. If you experience worsening or a significant change in your symptoms, notify the physician immediately or return to the Emergency Department at any time for re-evaluation. Prescriptions: Clindamycin HCl 300 mg PO Q6HP PRN #28 capsule PRN Reason: Referrals: YAMILEX MERINO MD [Primary Care Provider] - Follow up as needed BETH WALTERS PA-C [COMMUNITY BASED STAFF] - Follow up tomorrow
--- NOTE | 2018-04-19 18:55 | RADIOLOGY REPORT (SQ) ---
EXAM DESCRIPTION: HIP RIGHT AP/LATERAL COMPLETED DATE/TIME: 04/19/2018 6:46 pm REASON FOR STUDY: fall COMPARISON: None. NUMBER OF VIEWS: Two views. TECHNIQUE: AP pelvis and additional frog-leg view of the right hip. LIMITATIONS: None. FINDINGS: MINERALIZATION: Normal. RIGHT HIP: No fracture or dislocation. No worrisome bone lesions. LEFT HIP: No fracture or dislocation. No worrisome bone lesions. PUBIS AND ISCHIUM: No fracture. PELVIS: No fracture. SACRUM: No fracture or dislocation. No worrisome bone lesions. LOWER LUMBAR SPINE: Lower lumbar degenerative disc disease. SOFT TISSUES: No findings. OTHER: No other significant finding. IMPRESSION: Normal right hip. Lumbar degenerative disc disease. TECHNICAL DOCUMENTATION: JOB ID: [id number] [employer]- All Rights Reserved Reading location - IP/workstation name: [email or web address]
--- NOTE | 2018-04-19 18:56 | RADIOLOGY REPORT (SQ) ---
EXAM DESCRIPTION: KNEE RIGHT 4 VIEWS COMPLETED DATE/TIME: 04/19/2018 6:46 pm REASON FOR STUDY: fall COMPARISON: None. NUMBER OF VIEWS: Four views. TECHNIQUE: AP, lateral, and both oblique radiographic images acquired of the right knee. LIMITATIONS: None. FINDINGS: MINERALIZATION: Normal. BONES: No acute fracture or dislocation. No worrisome bone lesions. JOINT: Mild medial joint space narrowing. Small posterior patellar spurs. No significant joint effu anderson. SOFT TISSUES: No soft tissue swelling. No radio-opaque foreign body. OTHER: No other significant finding. IMPRESSION: Mild degenerative joint changes. No acute abnormality. TECHNICAL DOCUMENTATION: JOB ID: [id number] [employer]- All Rights Reserved Reading location - IP/workstation name: [email or web address]
[2018-04-19] MEDS ORDERED: MUPIROCIN 2% OINTMENT 22 GM TP ONE (19:36)
[2018-04-19] MEDS ORDERED: CLINDAMYCIN HCL 150 MG CAPSULE PO ONE (19:36)
[2018-04-19 19:44] LABS: ABSOLUTE EOSINOPHILS # (AUTO) 0.7 10^3/uL (0.0-0.6); ABSOLUTE MONOCYTES (AUTO) 0.7 10^3/uL (0.1-1.4); ABSOLUTE NEUT (AUTO) 6.6 10^3/uL (1.7-8.2); BASOPHILS % (AUTO) 0.4 % (0-2); EOSINOPHILS % (AUTO) 7.3 % (0-6); HEMATOCRIT 37.5 % (37.9-51.0); HEMOGLOBIN 12.5 g/dL (13.5-17.0); LYMPHOCYTES % (AUTO) 11.5 % (13-45); MEAN CORPUSCULAR HEMOGLOBIN 28.2 pg (27.0-33.4); MEAN CORPUSCULAR HGB CONC 33.2 g/dL (32.0-36.0); MEAN CORPUSCULAR VOLUME 85 fl (80-97); PLATELET COUNT 214 10^3/uL (150-450); RED BLOOD COUNT 4.42 10^6/uL (4.35-5.55); RED CELL DISTRIBUTION WIDTH 16.5 % (11.5-14.0); SEGMENTED NEUTROPHILS % (AUTO) 72.8 % (42-78); TOTAL CELLS COUNTED % (AUTO) 100 %; WHITE BLOOD COUNT 9.1 10^3/uL (4.0-10.5)
[2018-04-19 20:04] LABS: ALANINE AMINOTRANSFERASE 22 U/L (21-72); ALBUMIN 3.7 g/dL (3.5-5.0); ALKALINE PHOSPHATASE 66 U/L (38-126); ANION GAP 10 (5-19); ASPARTATE AMINO TRANSFERASE 19 U/L (17-59); BILIRUBIN,DIRECT 0.4 mg/dL (0.0-0.4); BILIRUBIN,TOTAL 0.6 mg/dL (0.2-1.3); BLOOD UREA NITROGEN 33 mg/dL (7-20); CARBON DIOXIDE 33 mmol/L (22-30); CHLORIDE 101 mmol/L (98-107); GLUCOSE 92 mg/dL (75-110); POTASSIUM 5.1 mmol/L (3.6-5.0); SODIUM 144.3 mmol/L (137-145); TOTAL PROTEIN 6.8 g/dL (6.3-8.2)
[2018-04-19] MEDS ORDERED: HYDROCODONE/ACETAMINOPHEN 5-325 MG (6 TAB/ER DISP) PO PRN (20:27)
[2018-04-19 20:59] VITALS: BP 128/54
== END 2018-04-19 20:57 | disposition home or self-care (01) ==
LOC: ER 17:05
DX: M25.551 Pain in right hip (principal); L03.116 Cellulitis of left lower limb; M19.90 Unspecified osteoarthritis, unspecified site; N18.9 Chronic kidney disease, unspecified; I11.0 Hypertensive heart disease with heart failure; I50.9 Heart failure, unspecified; J44.9 Chronic obstructive pulmonary disease, unspecified; M25.561 Pain in right knee; W19.XXXA Unspecified fall, initial encounter; Z82.49 Family history of ischemic heart disease and other diseases of the circulatory system; Z88.8 Allergy status to other drugs, medicaments and biological substances
CPT/HCPCS: 99284; 36415; 85025; 80053; 73502; 73564; J3490 ×2

== ENCOUNTER 2019-09-12 17:22 | Inpatient (IN) | payer MEDICARE, MEDICAID ==
[2019-09-12] MEDS ORDERED: IPRATROPIUM/ALBUTEROL 0.5-2.5 MG/3 ML AMPUL NEB ONE (18:39)
--- NOTE | 2019-09-12 18:39 | ER Document Report ---
ED Medical Screen (RME) - General Chief Complaint: Foot Pain Stated Complaint: LEFT FOOT PAIN, LEFT WRIST PAIN Time Seen by Provider: 09/12/19 18:28 Primary Care Provider: YAMILEX MERINO MD [Primary Care Provider] - Follow up as needed Notes: Patient is a 64-year-old male who presents to the emergency department with a chief complaint of shortness of breath and left leg pain that started 4 days ago. Patient ended up falling that day and was seen by EMS, but did not come in into the emergency department. Patient has a history of CHF, COPD, cardiac arrest, and multiple other medical problems. Exam: 4+ pitting edema noted to left lower extremity and left upper extremity. I have greeted and performed a rapid initial assessment of this patient. A comprehensive ED assessment and evaluation of the patient, analysis of test results and completion of medical decision making process will be conducted by an additional ED providers. TRAVEL OUTSIDE OF THE [place] IN LAST 30 DAYS: No - Related Data Allergies/Adverse Reactions: meperidine [From Demerol] Allergy (Verified 09/12/19 18:24) meperidine HCl [From Demerol] Allergy (Verified 09/12/19 18:24) triazolam [From Halcion] Allergy (Verified 09/12/19 18:24) Past Medical History - Social History Chew tobacco use (# tins/day): No Frequency of alcohol use: None Drug Abuse: None - Past Medical History Cardiac Medical History: Reports: Hx Congestive Heart Failure, Hx Hypertension Denies: Hx Heart Attack Pulmonary Medical History: Reports: Hx COPD, Hx Intubation - March 2017, Hx Respiratory Failure - March 2017 Renal/ Medical History: Denies: Hx Peritoneal Dialysis Musculoskeltal Medical History: Reports Hx Arthritis Skin Medical History: Reports Hx Cellulitis Psychiatric Medical History: Denies: Hx Depression Past Surgical History: Reports: Hx Herniorrhaphy, Hx Oral Surgery, Hx Orthopedic Surgery - bilat knee, Hx Vascular Surgery - L inguinal hernia - Immunizations Hx Diphtheria, Pertussis, Tetanus Vaccination: No Physical Exam - Vital signs Vitals: Temp Pulse Resp BP Pulse Ox 99.7 F 115 H 28 H 154/71 H 96 09/12/19 17:30 09/12/19 17:30 09/12/19 17:30 09/12/19 17:30 09/12/19 17:30 Course - Vital Signs Vital signs: Temp Pulse Resp BP Pulse Ox 99.7 F 115 H 28 H 154/71 H 96 09/12/19 18:24 09/12/19 18:24 09/12/19 18:24 09/12/19 18:24 09/12/19 18:24 Doctor's Discharge - Discharge Referrals: YAMILEX MERINO MD [Primary Care Provider] - Follow up as needed
--- NOTE | 2019-09-12 19:40 | RADIOLOGY REPORT (SQ) ---
EXAM DESCRIPTION: FOOT LEFT COMPLETE COMPLETED DATE/TIME: 09/12/2019 7:23 pm REASON FOR STUDY: left leg pain COMPARISON: None. NUMBER OF VIEWS: Three views. TECHNIQUE: AP, lateral and oblique radiographic images acquired of the left foot. LIMITATIONS: None. FINDINGS: MINERALIZATION: Normal. BONES: No acute fracture dislocation. Has there been prior amputation of the distal phalanx of the 2 nd digit? If not lytic changes are present this could represent osteomyelitis. JOINTS: No effusions. SOFT TISSUES: Diffuse soft tissue swelling. OTHER: Calcaneal spurs IMPRESSION: Soft tissue swelling. Questionable lytic changes involving the distal phalanx of the 2n d digit. This could be related to prior surgery. Clinical correlation is needed. TECHNICAL DOCUMENTATION: JOB ID: [id number] [employer]- All Rights Reserved Reading location - IP/workstation name: [email or web address]
--- NOTE | 2019-09-12 19:40 | RADIOLOGY REPORT (SQ) ---
EXAM DESCRIPTION: CHEST SINGLE VIEW COMPLETED DATE/TIME: 09/12/2019 7:23 pm REASON FOR STUDY: shortness of breath COMPARISON: 12/09/2017 EXAM PARAMETERS: NUMBER OF VIEWS: One view. TECHNIQUE: Single frontal radiographic view of the chest acquired. RADIATION DOSE: NA LIMITATIONS: None. FINDINGS: LUNGS AND PLEURA: No opacities, masses or pneumothorax. No pleural effusion. MEDIASTINUM AND HILAR STRUCTURES: No masses. Contour normal. HEART AND VASCULAR STRUCTURES: Heart normal in size. Normal vasculature. BONES: No acute findings. HARDWARE: None in the chest. OTHER: No other significant finding. IMPRESSION: NO ACUTE RADIOGRAPHIC FINDING IN THE CHEST. TECHNICAL DOCUMENTATION: JOB ID: [id number] [employer]- All Rights Reserved Reading location - IP/workstation name: [email or web address]
--- NOTE | 2019-09-12 19:40 | RADIOLOGY REPORT (SQ) ---
EXAM DESCRIPTION: FEMUR LEFT COMPLETED DATE/TIME: 09/12/2019 7:23 pm REASON FOR STUDY: left leg pain; fall COMPARISON: None. NUMBER OF VIEWS: Two views. TECHNIQUE: Two radiographic images acquired of the left femur to include hip and knee in at least on e projection. LIMITATIONS: None. FINDINGS: MINERALIZATION: Normal. BONES: No acute fracture. No worrisome bone lesions. SOFT TISSUES: Diffuse soft tissue edema. OTHER: No other significant finding. IMPRESSION: Soft tissue edema. No underlying fracture or foreign body. TECHNICAL DOCUMENTATION: JOB ID: [id number] [employer]- All Rights Reserved Reading location - IP/workstation name: [email or web address]
--- NOTE | 2019-09-12 19:41 | RADIOLOGY REPORT (SQ) ---
EXAM DESCRIPTION: TIBIA FIBULA LEFT COMPLETED DATE/TIME: 09/12/2019 7:23 pm REASON FOR STUDY: left leg pain COMPARISON: None. NUMBER OF VIEWS: Two views. TECHNIQUE: Two radiographic images acquired of the left tibia and fibula to include the knee and ank le in at least one projection. LIMITATIONS: None. FINDINGS: MINERALIZATION: Normal. BONES: No acute fracture or dislocation. No worrisome bone lesions. SOFT TISSUES: Diffuse soft tissue edema. OTHER: No other significant finding. IMPRESSION: Soft tissue edema. No underlying fracture. No foreign body. TECHNICAL DOCUMENTATION: JOB ID: [id number] [employer]- All Rights Reserved Reading location - IP/workstation name: [email or web address]
--- NOTE | 2019-09-12 19:41 | RADIOLOGY REPORT (SQ) ---
EXAM DESCRIPTION: HIP LEFT AP/LATERAL COMPLETED DATE/TIME: 09/12/2019 7:23 pm REASON FOR STUDY: left leg pain COMPARISON: None. NUMBER OF VIEWS: Two views. TECHNIQUE: AP pelvis and additional frog-leg view of the left hip. LIMITATIONS: None. FINDINGS: MINERALIZATION: Normal. LEFT HIP: No fracture or dislocation. No worrisome bone lesions. RIGHT HIP: No fracture or dislocation. No worrisome bone lesions. PUBIS AND ISCHIUM: No fracture. PELVIS: No fracture. SACRUM: No fracture or dislocation. No worrisome bone lesions. LOWER LUMBAR SPINE: Lower lumbar degenerative disc disease and spondylosis. SOFT TISSUES: No findings. OTHER: No other significant finding. IMPRESSION: Lower lumbar degenerative changes. Normal left hip. TECHNICAL DOCUMENTATION: JOB ID: [id number]- All Rights Reserved Reading location - IP/workstation name: [email or web address]
[2019-09-12] MEDS ORDERED: FUROSEMIDE INJ/PF 20 MG/2 ML SDV IV ONE (19:56)
[2019-09-12] MEDS ORDERED: CEFTRIAXONE 1 GM/D5W RTU 1 GM/50 ML RTUPB IV ONE (19:56)
--- NOTE | 2019-09-12 20:08 | ER Document Report ---
ED Respiratory Problem - General Chief Complaint: Breathing Difficulty Stated Complaint: LEFT FOOT PAIN, LEFT WRIST PAIN Time Seen by Provider: 09/12/19 18:28 Information source: Patient, Relative Notes: Mr. Santamaria is a 64 yo m w/ PMH OPD, CHF on nocturnal BiPAP, chronic bilateral lower extremity edema, hypertension, diabetes, CAD, BPH sending to the ED for shortness of breath. states that the patient has known CHF and is on 640 mg once daily. His legs intermittently will swell but usually it is bilateral a nd symmetric. Over the past 3 to 5 days, his left lower extremity has become increasingly more swollen causing him to have difficulty ambulating. They are unsure when the erythema/warmth began. Today they noted that there was some leakage of clear fluid from the left lower extremity. The also noted that the left arm was more swollen. This is atypical for his arm to be involved. She states that he is compliant with his nocturnal BiPAP however he does seem to fall asleep frequently throughout the day and is usually forgetful in terms of applying the BiPAP in the daytime. He denies any fevers or chills, chest pain, abdominal pain, vomiting or diarrhea. However he does endorse significant shortness of breath with tachypnea. Significant dyspnea with minimal exertion. Patient endorses worsening shortness of breath when lying flat. When they were attempting to get out of the car, the patient fell backward and struck his left posterior arm on part of the car sustaining a small wound. Patient also suffers from chronic yeast infection in the groin region and applies nystatin powder with some to minimal relief. TRAVEL OUTSIDE OF THE [place] IN LAST 30 DAYS: No - Related Data Allergies/Adverse Reactions: meperidine [From Demerol] Allergy (Verified 09/12/19 18:24) meperidine HCl [From Demerol] Allergy (Verified 09/12/19 18:24) triazolam [From Halcion] Allergy (Verified 09/12/19 18:24) Past Medical History - General Information source: Patient, Relative - Social History Smoking Status: Former Smoker Chew tobacco use (# tins/day): No Frequency of alcohol use: None Drug Abuse: None Family History: CAD, COPD, DM, Hypertension, Other - Heart attack Patient has suicidal ideation: No Patient has homicidal ideation: No - Past Medical History Cardiac Medical History: Reports: Hx Congestive Heart Failure, Hx Hypertension Denies: Hx Heart Attack Pulmonary Medical History: Reports: Hx COPD, Hx Intubation - March 2017, Hx Respiratory Failure - March 2017 Renal/ Medical History: Denies: Hx Peritoneal Dialysis Musculoskeletal Medical History: Reports Hx Arthritis Skin Medical History: Reports Hx Cellulitis Psychiatric Medical History: Denies: Hx Depression Past Surgical History: Reports: Hx Herniorrhaphy, Hx Oral Surgery, Hx Orthopedic Surgery - bilat knee, Hx Vascular Surgery - L inguinal hernia - Immunizations Hx Diphtheria, Pertussis, Tetanus Vaccination: No Review of Systems - Review of Systems Constitutional: See HPI EENT: No symptoms reported Cardiovascular: See HPI Respiratory: See HPI Gastrointestinal: No symptoms reported Genitourinary: No symptoms reported Male Genitourinary: No symptoms reported Musculoskeletal: No symptoms reported Skin: See HPI Hematologic/Lymphatic: No symptoms reported Neurological/Psychological: No symptoms reported Physical Exam - Vital signs Vitals: Temp Pulse Resp BP Pulse Ox 99.7 F 115 H 28 H 154/71 H 96 09/12/19 17:30 09/12/19 17:30 09/12/19 17:30 09/12/19 17:30 09/12/19 17:30 Interpretation: Hypertensive, Tachycardic, Tachypneic - General General appearance: Alert, Other - Chronically ill. Morbidly obese. In distress: Moderate - HEENT Head: Normocephalic, Atraumatic Eyes: Normal Pupils: PERRL - Respiratory Respiratory status: Respiratory distress - Moderate respiratory distress., Labored, Tachypnea Chest status: Nontender Breath sounds: Decreased air movement, Rales - Bibasilar Rales worse on the left. Expiratory wheeze. Chest palpation: Normal - Cardiovascular Rhythm: Tachycardia Heart sounds: Normal auscultation Murmur: No - Abdominal Inspection: Normal Distension: No distension Bowel sounds: Normal Tenderness: Nontender Organomegaly: No organomegaly - Back Back: Normal, Nontender - Extremities General upper extremity: Normal inspection, Nontender, Normal color, Normal ROM, Normal temperature General lower extremity: Normal inspection, Nontender, Normal color, Normal ROM, Normal temperature, Normal weight bearing. No: Mechelle's sign - Neurological Neuro grossly intact: Yes Cognition: Normal Orientation: AAOx4 [place] Coma Scale Eye Opening: Spontaneous [place] Coma Scale Verbal: Oriented [place] Coma Scale Motor: Obeys Commands [place] Coma Scale Total: 15 Speech: Normal Motor strength normal: LUE, RUE, LLE, RLE Sensory: Normal - Psychological Associated symptoms: Normal affect, Normal mood - Skin Skin Temperature: Hot Skin Moisture: Dry Skin Color: Erythema, Other - Significant erythema and excoriation to pannus and pelvis. Location of irregularity: Other - Superficial skin tear to left posterior arm Irregularity with: Swelling - Left lower extremity is significantly swelling with 3+ pitting edema all the way up to the thigh. The left lower portion of the leg is erythematous with a 3 to 4 cm medial ankle bolus with clear drainage. Course - Re-evaluation Re-evalutation: Patient is ill-appearing but nontoxic. Initial vitals notable for tachypnea, tachycardia and elevated blood pressure. Patient has significantly swollen left lower extremity as well as left upper extremity. Differential diagnoses include CHF exacerbation, DVT, electrolyte abnormality, dehydration, COPD exacerbation, cellulitis Upon my evaluation, the patient was noted to be quite tachypneic and actively u ndergoing Doppler ultrasounds of lower extremities. Informal read by submarine cable equipment technician is that the ultrasound is negative for DVT however given extensive amount of swelling in the left lower extremity, imaging of the vasculature was limited. Patient also has lower extremity erythema and warmth which he is unclear how long it has been ongoing for. 2 sets of blood cultures were obtained. No significant lactic acidosis however the patient does have a significant leukocytosis with a left shift as well as elevation in the absolute neutrophil count. Multiple electrolyte abnormalities including worsening creatinine today of 2. Possible cardiorenal syndrome. Left upper extremity is negative for DVT. An echo was also ordered. Patient is likely third spacing and therefore hypoperfusing his kidneys. Patient ordered for ceftriaxone for cellulitis coverage of the left lower extremity. Patient was also ordered for Lasix 40 mg IV push for volume overload. Patient placed on BiPAP as he does suffer from CHF at baseline and does use nocturnal BiPAP. Given his increased work of breathing and tachypnea, will likely improve. No obvious signs of wheezing appreciated on clinical examination however the patient was ordered for DuoNeb by nursing staff which she was administered prior to administration of BiPAP. - Vital Signs Vital signs: Temp Pulse Resp BP Pulse Ox 98.4 F 115 H 20 132/63 H 97 09/13/19 00:26 09/12/19 18:24 09/13/19 00:43 09/12/19 23:01 09/13/19 00:54 - Laboratory Result Diagrams: 09/12/19 20:02 09/12/19 20:02 Laboratory results interpreted by me: 09/12/19 09/12/19 09/12/19 20:02 20:02 20:02 WBC 19.5 H RBC 3.99 L Hgb 10.9 L Hct 34.2 L MCHC 31.7 L RDW 16.8 H Seg Neuts % (Manual) 92 H Lymphocytes % (Manual) 1 L Abs Neuts (Manual) 18.5 H Abs Lymphs (Manual) 0.2 L PT 15.8 H ABG pO2 ABG HCO3 ABG Total CO2 ABG O2 Saturation BUN 37 H Creatinine 2.00 H Est GFR ( Amer) 41 L Est GFR (MDRD) Non-Af 34 L Hemoglobin A1c % NT-Pro-B Natriuret Pep Albumin 3.2 L Prealbumin 09/12/19 09/12/19 09/12/19 20:02 20:02 20:02 WBC RBC Hgb Hct MCHC RDW Seg Neuts % (Manual) Lymphocytes % (Manual) Abs Neuts (Manual) Abs Lymphs (Manual) PT ABG pO2 ABG HCO3 ABG Total CO2 ABG O2 Saturation BUN Creatinine Est GFR ( Amer) Est GFR (MDRD) Non-Af Hemoglobin A1c % 6.2 H NT-Pro-B Natriuret Pep 269 H Albumin Prealbumin 6.4 L 09/12/19 21:52 WBC RBC Hgb Hct MCHC RDW Seg Neuts % (Manual) Lymphocytes % (Manual) Abs Neuts (Manual) Abs Lymphs (Manual) PT ABG pO2 136.6 H ABG HCO3 26.1 H ABG Total CO2 27.4 H ABG O2 Saturation 98.7 H BUN Creatinine Est GFR ( Amer) Est GFR (MDRD) Non-Af Hemoglobin A1c % NT-Pro-B Natriuret Pep Albumin Prealbumin - EKG Interpretation by Me EKG shows normal: Sinus rhythm, [place], Intervals, QRS Complexes, ST-T Waves Rate: Tachycardia Rhythm: NSR Critical Care Note - Critical Care Note Total time excluding time spent on procedures (mins): 35 - Multiple reevaluation, need for BiPAP, concern for infectious process, Cardiologic origin , volume overload, possible DVT Discharge - Discharge Clinical Impression: Respiratory distress, Skin tear, Morbid obesity, Yeast dermatitis Cellulitis Qualifiers: Site of cellulitis: extremity Site of cellulitis of extremity: lower extremity Laterality: left Qualified Code(s): L03.116 - Cellulitis of left lower limb Leukocytosis Qualifiers: Leukocytosis type: unspecified Qualified Code(s): D72.829 - Elevated white blood cell count, unspecified Fall Qualifiers: Encounter type: initial encounter Qualified Code(s): W19.XXXA - Unspecified fall, initial encounter Condition: Fair Disposition: ADMITTED INPATIENT Admitting Provider: Tobi (Hospitalist) Unit Admitted: Telemetry
[2019-09-12 20:31] LABS: HEMATOCRIT 34.2 % (37.9-51.0); HEMOGLOBIN 10.9 g/dL (13.5-17.0); MEAN CORPUSCULAR HEMOGLOBIN 27.2 pg (27.0-33.4); MEAN CORPUSCULAR HGB CONC 31.7 g/dL (32.0-36.0); MEAN CORPUSCULAR VOLUME 86 fl (80-97); PLATELET COUNT 355 10^3/uL (150-450); RED BLOOD COUNT 3.99 10^6/uL (4.35-5.55); RED CELL DISTRIBUTION WIDTH 16.8 % (11.5-14.0); WHITE BLOOD COUNT 19.5 10^3/uL (4.0-10.5)
[2019-09-12 20:35] LABS: INTERNATIONAL RATION (INR) 1.26; PROTHROMBIN TIME 15.8 SEC (11.4-15.4)
[2019-09-12 20:48] LABS: ALBUMIN 3.2 g/dL (3.5-5.0); ALKALINE PHOSPHATASE 115 U/L (38-126); ANION GAP 11 (5-19); ASPARTATE AMINO TRANSFERASE 50 U/L (17-59); BILIRUBIN,DIRECT 0.3 mg/dL (0.0-0.4); BILIRUBIN,TOTAL 0.6 mg/dL (0.2-1.3); BLOOD UREA NITROGEN 37 mg/dL (7-20); CALCIUM 8.8 mg/dL (8.4-10.2); CARBON DIOXIDE 27 mmol/L (22-30); CHLORIDE 102 mmol/L (98-107); CREATINE KINASE 114 U/L (55-170); GLUCOSE 84 mg/dL (75-110); POTASSIUM 4.9 mmol/L (3.6-5.0); TOTAL PROTEIN 6.6 g/dL (6.3-8.2)
[2019-09-12 20:51] LABS: ABSOLUTE LYMPHOCYTES# (MANUAL) 0.2 10^3/uL (0.5-4.7); ABSOLUTE MONOCYTES # (MANUAL) 0.8 10^3/uL (0.1-1.4); ANISOCYTOSIS 1+; BAND NEUTROPHILS % (MANUAL) 3 % (3-5); BASOPHILS % (MANUAL) 0 % (0-2); EOSINOPHILS % (MANUAL) 0 % (0-6); LYMPHOCYTES % (MANUAL) 1 % (13-45); MONOCYTES % (MANUAL) 4 % (3-13); PLATELET COMMENT ADEQUATE; SEGMENTED NEUTROPHILS % (MAN) 92 % (42-78); TOTAL CELLS COUNTED 100
[2019-09-12 20:59] LABS: CREATINE KINASE MB 1.44 ng/mL (<4.55); TROPONIN I 0.022 ng/mL
[2019-09-12] MEDS: NYSTATIN TOPICAL POWDER 15 GM TP SCH (21:12)
[2019-09-12] MEDS ORDERED: IPRATROPIUM/ALBUTEROL 0.5-2.5 MG/3 ML AMPUL NEB PRN (22:08)
[2019-09-12] MEDS ORDERED: GLUCAGON,HUMAN RECOMB 1 MG INJ IM PRN (22:08)
[2019-09-12] MEDS ORDERED: DEXTROSE 50%-WATER 25 GM/50 ML DISP.SYRIN IV PRN ×2 (22:08)
[2019-09-12] MEDS ORDERED: MAGNESIUM HYDROXIDE SUSP 30 ML UDCUP PO PRN (22:08)
[2019-09-12] MEDS ORDERED: DEXTROSE 40% GEL 15 GM TUBE PO PRN ×2 (22:08)
[2019-09-12] MEDS ORDERED: MAG HYDROX/AL HYDROX/SIMETH SUSP 30 ML UDCUP PO PRN (22:08)
--- NOTE | 2019-09-12 22:15 | RADIOLOGY REPORT (SQ) ---
EXAM DESCRIPTION: US EXTREMITY VEINS UNILATERAL COMPLETED DATE/TME: 09/12/2019 18:36 CLINICAL HISTORY: 64 years, Male, LLE swelling COMPARISON: Left upper extremity duplex venous ultrasonography HISTORY: Left arm swelling, rule out DVT. Technique: Duplex venous ultrasonography including color and spectral flow Doppler imaging was performed in left upper extremity, focusing on the deep venous system. FINDINGS: There is no evidence of thrombosis in the left subclavian, axillary, brachial, radial, ulnar, cephalic and basilic veins. The veins are compressible and demonstrate normal response to augmentation. IMPRESSION: No evidence of DVT in left upper extremity.
[2019-09-12] MEDS ORDERED: FLUCONAZOLE 100 MG TABLET PO ONE (22:30)
[2019-09-12 23:01] LABS: ARTERIAL BLOOD FIO2 ROOM AIR; ARTERIAL BLOOD H2CO3 1.32 mmol/L (1.05-1.35); ARTERIAL BLOOD HCO3 26.1 mmol/L (20-24); ARTERIAL BLOOD O2 SATURATION 98.7 % (94-98); ARTERIAL BLOOD PCO2 43.7 mmHg (35-45); ARTERIAL BLOOD PH 7.39 (7.35-7.45); ARTERIAL BLOOD PO2 136.6 mmHg (80-100); ARTERIAL BLOOD TOTAL CO2 27.4 mmol/L (23-27)
[2019-09-12 23:19] LABS: URINE AMPHETAMINES SCREEN NEGATIVE; URINE BARBITURATES SCREEN NEGATIVE; URINE BENZODIAZEPINES SCREEN NEGATIVE; URINE COCAINE SCREEN NEGATIVE; URINE MARIJUANA (THC) SCREEN NEGATIVE; URINE METHADONE SCREEN NEGATIVE; URINE PHENCYCLIDINE SCREEN NEGATIVE
[2019-09-13] MEDS: IPRATROPIUM/ALBUTEROL 0.5-2.5 MG/3 ML AMPUL NEB SCH ×3 (00:30→15:57)
[2019-09-13] MEDS: ACETAMINOPHEN 325 MG TABLET PO PRN ×4 (02:10→23:40)
[2019-09-13] MEDS: HEPARIN SOD (PORCINE) 5,000 UNIT/ML 1 ML VIAL SUBCUT SCH ×3 (05:17→21:19)
[2019-09-13 05:39] LABS: HEMATOCRIT 31.2 % (37.9-51.0); HEMOGLOBIN 10.1 g/dL (13.5-17.0); MEAN CORPUSCULAR HEMOGLOBIN 27.4 pg (27.0-33.4); MEAN CORPUSCULAR HGB CONC 32.4 g/dL (32.0-36.0); MEAN CORPUSCULAR VOLUME 85 fl (80-97); PLATELET COUNT 301 10^3/uL (150-450); RED BLOOD COUNT 3.69 10^6/uL (4.35-5.55); WHITE BLOOD COUNT 15.8 10^3/uL (4.0-10.5)
[2019-09-13 05:55] LABS: ANION GAP 9 (5-19); BLOOD UREA NITROGEN 42 mg/dL (7-20); CALCIUM 8.3 mg/dL (8.4-10.2); CARBON DIOXIDE 28 mmol/L (22-30); CHLORIDE 104 mmol/L (98-107); GLUCOSE 107 mg/dL (75-110); POTASSIUM 4.5 mmol/L (3.6-5.0)
--- NOTE | 2019-09-13 06:02 | PDOC H&P ---
History of Present Illness Admission Date/PCP: 09/12/19 22:18 YAMILEX MERINO MD Patient complains of: Left-sided swelling History of Present Illness: ZEINA KRUGER is a 64 year old male with a past medical history of morbid obesity, COPD, obstructive sleep apnea, diabetes and chronic kidney disease. He presents with 1 week of exceptional swelling to the left side, erythema and pain to his left leg and increased shortness of breath from baseline. In the emergency room he is found to have leukocytosis, acute on chronic renal failure, anasarca and left leg venous stasis with cellulitis. He denies trauma, chest pain, cough, nausea or vomiting. He denies recent change in medication regiment. He admits to sleeping with his left side dependent and noncompliance with BiPAP. He is unaware of a history of diabetes. Past Medical History Cardiac Medical History: Reports: Congestive Heart Failure, Hypertension Denies: Myocardial Infarction Pulmonary Medical History: Reports: Chronic Obstructive Pulmonary Disease (COPD), Intubation - March 2017, Respiratory Failure - March 2017 Musculoskeltal Medical History: Reports: Arthritis Psychiatric Medical History: Denies: Depression Past Surgical History Past Surgical History: Reports: Herniorrhaphy, Orthopedic Surgery - bilat knee, Vascular Surgery - L inguinal hernia Social History Information Source: Patient, [facility] Records Lives with: Spouse/Significant other Smoking Status: Former Smoker Electronic Cigarette use?: No Last Time Smoked: 30 years ago Frequency of Alcohol Use: None Hx Recreational Drug Use: No Drugs: None Hx Prescription Drug Abuse: No - Advance Directive Resuscitation Status: Full Code Family History Family History: CAD, COPD, DM, Hypertension, Other - Heart attack Parental Family History Reviewed: Yes Children Family History Reviewed: Yes Sibling(s) Family History Reviewed.: Yes Medication/Allergy Home Medications: Budesonide [Pulmicort Neb 0.5 mg/2 ml Ampul] 0.5 mg NEB RTQ12 08/08/17 Budesonide/Formoterol Fumarate [Symbicort HFA 160-4.5 mcg Inhaler 6 gm] 2 puff IH Q12 08/08/17 Ergocalciferol (Vitamin D2) [Vitamin D2] 50,000 unit PO JOHN@1000 08/08/17 Furosemide [Lasix 40 mg Tablet] 40 mg PO DAILY 08/08/17 Ipratropium/Albuterol Sulfate [Duoneb 3 ml Ampul] 3 ml NEB RTQ4HP PRN 08/08/17 Metoclopramide HCl [Reglan 10 mg Tablet] 10 mg PO Q12 08/08/17 Metoprolol Succinate [Toprol Xl 25 mg Tab.sr] 25 mg PO DAILY 08/08/17 Potassium Chloride [Klor-Con M20] 20 meq PO DAILY 08/08/17 Tamsulosin HCl 0.4 mg PO DAILY 08/08/17 Tramadol HCl [Ultram 50 mg Tablet] 50 mg PO Q8HP PRN #18 tablet 08/17/17 Clindamycin HCl 300 mg PO Q6HP PRN #28 capsule 04/19/18 Allergies/Adverse Reactions: meperidine [From Demerol] Allergy (Verified 09/12/19 18:24) meperidine HCl [From Demerol] Allergy (Verified 09/12/19 18:24) triazolam [From Halcion] Allergy (Verified 09/12/19 18:24) Review of Systems Constitutional: PRESENT: as per HPI, fatigue, weakness, weight gain. ABSENT: chills, fever(s), headache(s), weight loss Eyes: ABSENT: visual disturbances Ears: ABSENT: hearing changes Cardiovascular: ABSENT: chest pain, dyspnea on exertion, edema, orthropnea, palpitations Respiratory: PRESENT: as per HPI, dyspnea. ABSENT: cough, hemoptysis, sputum Gastrointestinal: ABSENT: abdominal pain, constipation, diarrhea, hematemesis, hematochezia, nausea, vomiting Genitourinary: ABSENT: dysuria, hematuria Musculoskeletal: PRESENT: muscle weakness. ABSENT: joint swelling Integumentary: ABSENT: rash, wounds Neurological: ABSENT: abnormal gait, abnormal speech, confusion, dizziness, foc al weakness, syncope Psychiatric: ABSENT: anxiety, depression, homidical ideation, suicidal ideation Endocrine: ABSENT: cold intolerance, heat intolerance, polydipsia, polyuria Hematologic/Lymphatic: ABSENT: easy bleeding, easy bruising Physical Exam Vital Signs: Temp Pulse Resp BP Pulse Ox 98.6 F 112 H 21 H 125/48 L 92 09/13/19 01:35 09/13/19 01:35 09/13/19 04:22 09/13/19 01:35 09/13/19 01:35 Intake & Output 12/04/19 12/05/19 12/06/19 11:59 11:59 11:59 Intake Total 795 Output Total 855 Balance -60 Weight 166.8 kg General appearance: PRESENT: cooperative, disheveled, morbidly obese, severe distress, well-developed, well-nourished Head exam: PRESENT: atraumatic, normocephalic Eye exam: PRESENT: conjunctiva pink, EOMI, PERRLA. ABSENT: scleral icterus Ear exam: PRESENT: normal external ear exam Mouth exam: PRESENT: dry mucosa, tongue midline Neck exam: ABSENT: carotid bruit, JVD, lymphadenopathy, thyromegaly Respiratory exam: PRESENT: clear to auscultation karyna, crackles, prolonged expiratory phas, tachypnea. ABSENT: rales, rhonchi, wheezes Cardiovascular exam: PRESENT: RRR. ABSENT: diastolic murmur, rubs, systolic murmur Pulses: PRESENT: normal dorsalis pedis pul Vascular exam: PRESENT: normal capillary refill, other - Peripheral vascular disease with severe chronic changes of venous stasis GI/Abdominal exam: PRESENT: normal bowel sounds, soft. ABSENT: distended, guarding, mass, organolmegaly, rebound, tenderness Rectal exam: PRESENT: deferred Extremities exam: PRESENT: full ROM, joint swelling, pedal edema, tenderness, +2 edema Musculoskeletal exam: PRESENT: full ROM, tenderness Neurological exam: PRESENT: alert, awake, oriented to person, oriented to place, oriented to time, oriented to situation, CN II-XII grossly intact. ABSENT: motor sensory deficit Psychiatric exam: PRESENT: appropriate affect, normal mood. ABSENT: homicidal ideation, suicidal ideation Skin exam: PRESENT: abrasion, erythema, other - Widespread pannus erythema with caseous exudate. ABSENT: petechiae, urticaria, vesicles Results Laboratory Results: 09/12/19 09/12/19 09/12/19 20:02 20:02 20:02 WBC 19.5 H RBC 3.99 L Hgb 10.9 L Hct 34.2 L MCV 86 MCH 27.2 MCHC 31.7 L RDW 16.8 H Plt Count 355 Seg Neutrophils % Not Reportable Carbonic Acid HCO3/H2CO3 Ratio ABG pH ABG pCO2 ABG pO2 ABG HCO3 ABG O2 Saturation ABG Base Excess FiO2 Sodium 139.9 Potassium 4.9 Chloride 102 Carbon Dioxide 27 Anion Gap 11 BUN 37 H Creatinine 2.00 H Est GFR ( Amer) 41 L Glucose 84 Calcium 8.8 Total Bilirubin 0.6 AST 50 Alkaline Phosphatase 115 Total Protein 6.6 Albumin 3.2 L Prealbumin 6.4 L TSH 09/12/19 09/12/19 09/12/19 20:02 20:28 21:52 WBC RBC Hgb Hct MCV MCH MCHC RDW Plt Count Seg Neutrophils % Carbonic Acid Cancelled 1.32 HCO3/H2CO3 Ratio Cancelled 19:1 ABG pH Cancelled 7.39 ABG pCO2 Cancelled 43.7 ABG pO2 Cancelled 136.6 H ABG HCO3 Cancelled 26.1 H ABG O2 Saturation Cancelled 98.7 H ABG Base Excess Cancelled 1.0 FiO2 Cancelled ROOM AIR Sodium Potassium Chloride Carbon Dioxide Anion Gap BUN Creatinine Est GFR ( Amer) Glucose Calcium Total Bilirubin AST Alkaline Phosphatase Total Protein Albumin Prealbumin TSH 0.71 09/12/19 09/12/19 09/12/19 20:02 20:02 23:00 Creatine Kinase 114 CK-MB (CK-2) 1.44 Troponin I 0.022 0.016 NT-Pro-B Natriuret Pep 269 H Impressions: Chest X-Ray 09/12/19 18:35 IMPRESSION: NO ACUTE RADIOGRAPHIC FINDING IN THE CHEST. Venous Doppler Study 09/12/19 18:36 IMPRESSION: No evidence of DVT in left upper extremity. Femur X-Ray 09/12/19 18:37 IMPRESSION: Soft tissue edema. No underlying fracture or foreign body. Foot X-Ray 09/12/19 18:37 IMPRESSION: Soft tissue swelling. Questionable lytic changes involving the distal phalanx of the 2nd digit. This could be related to prior surgery. Clinical correlation is needed. Hip X-Ray 09/12/19 18:37 IMPRESSION: Lower lumbar degenerative changes. Normal left hip. Tibia/Fibula X-Ray 09/12/19 18:37 IMPRESSION: Soft tissue edema. No underlying fracture. No foreign body. Assessment and Plan - Diagnosis (1) Cellulitis Qualifiers: Site of cellulitis: extremity Site of cellulitis of extremity: lower extremity Laterality: left Qualified Code(s): L03.116 - Cellulitis of left lower limb Is this a current diagnosis for this admission?: Yes Plan: Left leg cellulitis complicated by severe venous stasis, Will obtain blood and wound culture repeat CBC, continue empiric antibiotic coverage for community- acquired MRSA with double coverage and symptomatic management. Consider surgical consultation if not significantly improved with follow-up evaluation. (2) Pulmonary hypertension Is this a current diagnosis for this admission?: Yes Plan: Suggested by rica, follow-up echo cardiogram. Optimize volume, continue BiPAP while asleep. (3) Anasarca Is this a current diagnosis for this admission?: Yes Plan: Multifactorial secondary to pulmonary hypertension and malnutrition. Follow-up 2D echo and prealbumin. (4) Malnutrition Is this a current diagnosis for this admission?: Yes Plan: Beneprotein with meals, consider dietitian consult (5) Renal failure Is this a current diagnosis for this admission?: Yes Plan: Secondary to anasarca, pulmonary hypertension and malnutrition with intravascular depletion. Avoid nephrotoxic meds and doses, continue BiPAP, follow-up chemistry. (6) Morbid obesity Is this a current diagnosis for this admission?: Yes Plan: Morbid obesity will evaluate for metabolic cause with evaluation of thyroid function and dietitian consultation (7) Yeast dermatitis Is this a current diagnosis for this admission?: Yes Plan: Diflucan ordered. - Time Time Spent with patient: 25-34 minutes - Inpatient Certification Medical Necessity: Need Close Monitoring Due to Risk of Patient Decompensation
[2019-09-13 06:12] LABS: ABSOLUTE LYMPHOCYTES# (MANUAL) 1.4 10^3/uL (0.5-4.7); ABSOLUTE MONOCYTES # (MANUAL) 0.3 10^3/uL (0.1-1.4); BAND NEUTROPHILS % (MANUAL) 1 % (3-5); BASOPHILS % (MANUAL) 0 % (0-2); EOSINOPHILS % (MANUAL) 0 % (0-6); LYMPHOCYTES % (MANUAL) 9 % (13-45); MONOCYTES % (MANUAL) 2 % (3-13); SEGMENTED NEUTROPHILS % (MAN) 88 % (42-78); TOTAL CELLS COUNTED 100
[2019-09-13 06:13] LABS: ANISOCYTOSIS 1+; PLATELET COMMENT ADEQUATE
[2019-09-13 06:15] LABS: TEAR DROP CELLS SLIGHT
[2019-09-13 06:52] LABS: APPEARANCE,URINE CLEAR; BILIRUBIN,URINE NEGATIVE (NEGATIVE); COLOR,URINE YELLOW; GLUCOSE, URINE NEGATIVE (NEGATIVE); KETONES,URINE NEGATIVE (NEGATIVE); LEUKOCYTE ESTERASE,URINE NEGATIVE (NEGATIVE); NITRITE,URINE NEGATIVE (NEGATIVE); PROTEIN,URINE 30 mg/dL (NEGATIVE); URINE SPECIFIC GRAVITY 1.015; UROBILINOGEN,URINE NEGATIVE mg/dL (<2.0)
[2019-09-13] MEDS: INSULIN LISPRO 100 UNIT/ML 3 ML VIAL SUBCUT SCH ×3 (07:41→16:43)
[2019-09-13] MEDS: NYSTATIN TOPICAL POWDER 15 GM TP SCH ×2 (10:07→17:05)
[2019-09-13] MEDS: DOCUSATE SODIUM 100 MG CAPSULE PO SCH ×2 (10:07→17:05)
--- NOTE | 2019-09-13 13:07 | EKG REPORT ---
SEVERITY:- BORDERLINE ECG - SINUS TACHYCARDIA BORDERLINE T WAVE ABNORMALITIES : Confirmed by: Noa Moreno MD 13-Sep-2019 13:06:56
[2019-09-13] MEDS: CEFTRIAXONE 1 GM/D5W RTU 1 GM/50 ML RTUPB IV SCH (17:04)
[2019-09-13] MEDS ORDERED: NORMAL SALINE 1000 ML 1,000 ML IV PRN (19:40)
--- NOTE | 2019-09-13 19:42 | PDOC PROGRESS REPORT ---
Subjective Progress Note for:: 09/13/19 Subjective:: ZEINA KRUGER is a 64 year old male with a past medical history of morbid obesity, COPD, obstructive sleep apnea, diabetes and chronic kidney disease who was admitted for left upper extremity and lower extremity cellulitis, peripheral vascular disease, and morbid obesity with anasarca and hypoalbuminemia. The patient was seen on morning rounds with his present. He was found resting in bed comfortably on supplemental oxygen via nasal cannula. He is not home O2 dependent. He does utilize BiPAP nightly. He is followed by bottle was[facility] at [facility]. He reports significant improvement in the erythema and edema to his left extremities. The patient primary concern today is his consistent carb diet. He denies fever, chills, chest pain, palpitations, dyspnea, cough, abdominal pain, nausea vomiting diarrhea. He does endorse orthopnea that is relieved by BiPAP use. He has no other questions or concerns at this time. No concerns per nursing. Reason For Visit: UTI ARF CELLULITIS, MORBID OBESITY LITO Physical Exam Vital Signs: Temp Pulse Resp BP Pulse Ox 99.1 F 97 20 100/76 100 09/13/19 16:09 09/13/19 16:09 09/13/19 16:09 09/13/19 16:09 09/13/19 16:09 Intake & Output 09/12/19 09/13/19 09/14/19 06:59 06:59 06:59 Intake Total 795 1226 Output Total 855 700 Balance -60 526 Weight 166.8 kg General appearance: PRESENT: no acute distress, cooperative, disheveled, mor bidly obese, well-developed Head exam: PRESENT: atraumatic, normocephalic Eye exam: PRESENT: conjunctiva pink, EOMI, PERRLA. ABSENT: scleral icterus Ear exam: PRESENT: normal external ear exam Mouth exam: PRESENT: moist, tongue midline Respiratory exam: PRESENT: clear to auscultation karyna, decreased breath sounds - Bibasilar, symmetrical, unlabored. ABSENT: rales, rhonchi, wheezes Cardiovascular exam: PRESENT: RRR, +S1, +S2. ABSENT: diastolic murmur, rubs, systolic murmur Vascular exam: PRESENT: normal capillary refill GI/Abdominal exam: PRESENT: normal bowel sounds, soft, other - Rotund; exam limited secondary to body habitus. ABSENT: distended, guarding, mass, organolmegaly, rebound, tenderness Rectal exam: PRESENT: deferred Extremities exam: PRESENT: full ROM, +2 edema - +2 Pitting edema to the left lower extremity, trace pitting edema to the RLE. ABSENT: calf tenderness, clubbing, pedal edema Musculoskeletal exam: PRESENT: ambulatory Neurological exam: PRESENT: alert, awake, oriented to person, oriented to place, oriented to time, oriented to situation, CN II-XII grossly intact. ABSENT: motor sensory deficit Psychiatric exam: PRESENT: appropriate affect, normal mood. ABSENT: homicidal ideation, suicidal ideation Skin exam: PRESENT: dry, erythema - Circumferential erythema to the left lower extremity from the knee extending distally. Erythema and edema to the left upper extremity has resolved., warm. ABSENT: cyanosis, rash Results Laboratory Results: 09/13/19 05:01 09/13/19 05:01 09/12/19 09/12/19 09/12/19 20:02 20:02 20:02 WBC 19.5 H RBC 3.99 L Hgb 10.9 L Hct 34.2 L MCV 86 MCH 27.2 MCHC 31.7 L RDW 16.8 H Plt Count 355 Seg Neutrophils % Not Reportable Carbonic Acid HCO3/H2CO3 Ratio ABG pH ABG pCO2 ABG pO2 ABG HCO3 ABG O2 Saturation ABG Base Excess FiO2 Sodium 139.9 Potassium 4.9 Chloride 102 Carbon Dioxide 27 Anion Gap 11 BUN 37 H Creatinine 2.00 H Est GFR ( Amer) 41 L Glucose 84 Calcium 8.8 Total Bilirubin 0.6 AST 50 Alkaline Phosphatase 115 Total Protein 6.6 Albumin 3.2 L Prealbumin 6.4 L Prostate Specific Ag TSH Urine Color Urine Appearance Urine pH Ur Specific [place] Urine Protein Urine Glucose (UA) Urine Ketones Urine Blood Urine Nitrite Ur Leukocyte Esterase Urine WBC (Auto) Urine RBC (Auto) 09/12/19 09/12/19 09/12/19 20:02 20:28 21:52 WBC RBC Hgb Hct MCV MCH MCHC RDW Plt Count Seg Neutrophils % Carbonic Acid Cancelled 1.32 HCO3/H2CO3 Ratio Cancelled 19:1 ABG pH Cancelled 7.39 ABG pCO2 Cancelled 43.7 ABG pO2 Cancelled 136.6 H ABG HCO3 Cancelled 26.1 H ABG O2 Saturation Cancelled 98.7 H ABG Base Excess Cancelled 1.0 FiO2 Cancelled ROOM AIR Sodium Potassium Chloride Carbon Dioxide Anion Gap BUN Creatinine Est GFR ( Amer) Glucose Calcium Total Bilirubin AST Alkaline Phosphatase Total Protein Albumin Prealbumin Prostate Specific Ag TSH 0.71 Urine Color Urine Appearance Urine pH Ur Specific [place] Urine Protein Urine Glucose (UA) Urine Ketones Urine Blood Urine Nitrite Ur Leukocyte Esterase Urine WBC (Auto) Urine RBC (Auto) 09/13/19 09/13/19 09/13/19 05:01 05:01 05:01 WBC 15.8 H RBC 3.69 L Hgb 10.1 L Hct 31.2 L MCV 85 MCH 27.4 MCHC 32.4 RDW 17.0 H Plt Count 301 Seg Neutrophils % Not Reportable Carbonic Acid HCO3/H2CO3 Ratio ABG pH ABG pCO2 ABG pO2 ABG HCO3 ABG O2 Saturation ABG Base Excess FiO2 Sodium 140.7 Potassium 4.5 Chloride 104 Carbon Dioxide 28 Anion Gap 9 BUN 42 H Creatinine 1.87 H Est GFR ( Amer) 44 L Glucose 107 Calcium 8.3 L Total Bilirubin AST Alkaline Phosphatase Total Protein Albumin Prealbumin Prostate Specific Ag 0.810 TSH Urine Color Urine Appearance Urine pH Ur Specific [place] Urine Protein Urine Glucose (UA) Urine Ketones Urine Blood Urine Nitrite Ur Leukocyte Esterase Urine WBC (Auto) Urine RBC (Auto) 09/13/19 06:35 WBC RBC Hgb Hct MCV MCH MCHC RDW Plt Count Seg Neutrophils % Carbonic Acid HCO3/H2CO3 Ratio ABG pH ABG pCO2 ABG pO2 ABG HCO3 ABG O2 Saturation ABG Base Excess FiO2 Sodium Potassium Chloride Carbon Dioxide Anion Gap BUN Creatinine Est GFR ( Amer) Glucose Calcium Total Bilirubin AST Alkaline Phosphatase Total Protein Albumin Prealbumin Prostate Specific Ag TSH Urine Color YELLOW Urine Appearance CLEAR Urine pH 5.0 Ur Specific [place] 1.015 Urine Protein 30 H Urine Glucose (UA) NEGATIVE Urine Ketones NEGATIVE Urine Blood MODERATE H Urine Nitrite NEGATIVE Ur Leukocyte Esterase NEGATIVE Urine WBC (Auto) 2 Urine RBC (Auto) 24 09/12/19 20:02 Blood Blood Culture (PCR) - Final Streptococcus Species 09/12/19 09/12/19 09/12/19 20:02 20:02 23:00 Creatine Kinase 114 CK-MB (CK-2) 1.44 Troponin I 0.022 0.016 NT-Pro-B Natriuret Pep 269 H 09/13/19 09/13/19 05:01 11:37 Creatine Kinase CK-MB (CK-2) Troponin I 0.017 < 0.012 NT-Pro-B Natriuret Pep Impressions: Chest X-Ray 09/12/19 18:35 IMPRESSION: NO ACUTE RADIOGRAPHIC FINDING IN THE CHEST. Venous Doppler Study 09/12/19 18:36 IMPRESSION: No evidence of DVT in left upper extremity. Femur X-Ray 09/12/19 18:37 IMPRESSION: Soft tissue edema. No underlying fracture or foreign body. Foot X-Ray 09/12/19 18:37 IMPRESSION: Soft tissue swelling. Questionable lytic changes involving the distal phalanx of the 2nd digit. This could be related to prior surgery. Cl inical correlation is needed. Hip X-Ray 09/12/19 18:37 IMPRESSION: Lower lumbar degenerative changes. Normal left hip. Tibia/Fibula X-Ray 09/12/19 18:37 IMPRESSION: Soft tissue edema. No underlying fracture. No foreign body. Assessment and Plan - Diagnosis (1) Cellulitis Qualifiers: Site of cellulitis: extremity Site of cellulitis of extremity: lower extremity Laterality: left Qualified Code(s): L03.116 - Cellulitis of left lower limb Is this a current diagnosis for this admission?: Yes Plan: Left leg cellulitis complicated by severe venous stasis Blood cultures growing Streptococcus species in 1 blood culture set. Continue IV ceftriaxone. Continue p.o. fluconazole. Keep extremity elevated. Consider surgical evaluation if does not improve secondary to open wound to the medial aspect of the foot. (2) Anasarca Is this a current diagnosis for this admission?: Yes Plan: Multifactorial secondary to pulmonary hypertension, CHF, and malnutrition. Prealbumin of 6.4. Echocardiogram pending. Registered dietitian consulted. (3) Morbid obesity Is this a current diagnosis for this admission?: Yes Plan: TSH is normal. A1c 6.2%. Dietary discretion and lifestyle modification are encouraged. Registered dietitian is consulted. (4) Renal failure Is this a current diagnosis for this admission?: Yes Plan: Secondary to anasarca, pulmonary hypertension and malnutrition with intravascular depletion. IV albumin today. Gentle IV fluids. Avoid nephrotoxic meds and doses continue BiPAP follow-up chemistry. (5) Yeast dermatitis Is this a current diagnosis for this admission?: Yes Plan: Diflucan nightly x 3 (6) COPD (chronic obstructive pulmonary disease) with chronic bronchitis Is this a current diagnosis for this admission?: Yes Plan: Supplemental oxygen and BiPAP as needed maintain saturations greater than 89%. Scheduled as needed nebulizer treatments. (7) Congestive heart failure (CHF) Qualifiers: Qualified Code(s): I50.30 - Unspecified diastolic (congestive) heart failure Is this a current diagnosis for this admission?: Yes Plan: I resumed the patient's home dose metoprolol. Cardiac diet. Daily weights. Currently on gentle IV fluids; monitor closely for fluid volume overload. Echocardiogram pending. - Time Time Spent with patient: 25-34 minutes Medications reviewed and adjusted accordingly: Yes Anticipated discharge: Home with Homehealth Within: within 72 hours
[2019-09-13] MEDS: ALBUMIN HUMAN 12.5 GM/50 ML RTUINJ IV SCH ×4 (20:39→23:48)
[2019-09-13] MEDS: FLUCONAZOLE 100 MG TABLET PO SCH (21:18)
[2019-09-13] MEDS: METOPROLOL TARTRATE 25 MG TABLET PO SCH (21:19)
[2019-09-14] MEDS: IPRATROPIUM/ALBUTEROL 0.5-2.5 MG/3 ML AMPUL NEB SCH ×4 (00:14→23:52)
[2019-09-14] MEDS: ALBUMIN HUMAN 12.5 GM/50 ML RTUINJ IV SCH (00:50)
[2019-09-14] MEDS ORDERED: ALBUMIN HUMAN 12.5 GM/50 ML RTUINJ IV ONE (00:55)
[2019-09-14] MEDS: HEPARIN SOD (PORCINE) 5,000 UNIT/ML 1 ML VIAL SUBCUT SCH ×3 (05:25→22:00)
[2019-09-14] MEDS: ACETAMINOPHEN 325 MG TABLET PO PRN ×3 (05:25→18:35)
[2019-09-14 06:33] LABS: HEMATOCRIT 31.6 % (37.9-51.0); HEMOGLOBIN 10.1 g/dL (13.5-17.0); MEAN CORPUSCULAR HEMOGLOBIN 27.1 pg (27.0-33.4); MEAN CORPUSCULAR HGB CONC 31.8 g/dL (32.0-36.0); MEAN CORPUSCULAR VOLUME 85 fl (80-97); PLATELET COUNT 352 10^3/uL (150-450); RED BLOOD COUNT 3.71 10^6/uL (4.35-5.55); RED CELL DISTRIBUTION WIDTH 16.9 % (11.5-14.0); WHITE BLOOD COUNT 13.4 10^3/uL (4.0-10.5)
[2019-09-14 06:55] LABS: ALBUMIN 3.4 g/dL (3.5-5.0); ALKALINE PHOSPHATASE 99 U/L (38-126); ANION GAP 10 (5-19); ASPARTATE AMINO TRANSFERASE 56 U/L (17-59); BILIRUBIN,DIRECT 0.3 mg/dL (0.0-0.4); BILIRUBIN,TOTAL 0.5 mg/dL (0.2-1.3); BLOOD UREA NITROGEN 43 mg/dL (7-20); CALCIUM 8.6 mg/dL (8.4-10.2); CARBON DIOXIDE 29 mmol/L (22-30); CHLORIDE 103 mmol/L (98-107); GLUCOSE 89 mg/dL (75-110); POTASSIUM 4.5 mmol/L (3.6-5.0)
[2019-09-14] MEDS: INSULIN LISPRO 100 UNIT/ML 3 ML VIAL SUBCUT SCH ×3 (07:28→18:23)
[2019-09-14] MEDS: METOPROLOL TARTRATE 25 MG TABLET PO SCH ×2 (10:52→22:00)
[2019-09-14] MEDS: FINASTERIDE 5 MG TABLET PO SCH (10:52)
[2019-09-14] MEDS: DOCUSATE SODIUM 100 MG CAPSULE PO SCH ×2 (10:54→18:32)
[2019-09-14] MEDS: TAMSULOSIN HCL 0.4 MG CAP.SR.24H PO SCH (10:54)
[2019-09-14] MEDS: NYSTATIN TOPICAL POWDER 15 GM TP SCH ×2 (10:55→18:33)
[2019-09-14] MEDS: HYDROXYCHLOROQUINE SULFATE 200 MG TABLET PO SCH ×2 (10:55→18:33)
[2019-09-14] MEDS: DULOXETINE HCL 20 MG CAPSULE.DR PO SCH (10:55)
[2019-09-14] MEDS ORDERED: BISACODYL 10 MG SUPP.RECT PR PRN (15:37)
[2019-09-14] MEDS ORDERED: MAGNESIUM HYDROXIDE SUSP 30 ML UDCUP PO PRN (15:39)
[2019-09-14] MEDS ORDERED: NORMAL SALINE 1000 ML 1,000 ML IV PRN (15:39)
--- NOTE | 2019-09-14 16:15 | PDOC PROGRESS REPORT ---
Subjective Progress Note for:: 09/14/19 Subjective:: ZEINA KRUGER is a 64 year old male with a past medical history of morbid obesity, COPD, obstructive sleep apnea, diabetes and chronic kidney disease who was admitted for left upper extremity and lower extremity cellulitis, peripheral vascular disease, and morbid obesity with anasarca and hypoalbuminemia. The patient was seen on afternoon rounds with his present. He was found resting in bed, comfortably lying supine, on supplemental oxygen via nasal derrick margret. He is not home O2 dependent. He does utilize BiPAP nightly. He reports significant improvement in the erythema and edema to his left upper extremity; nearly resolved. He reports improvement to his left lower extremity. He denies fever, chills, chest pain, palpitations, dyspnea, cough, abdominal pain, nausea vomiting diarrhea. He has no other questions or concerns at this time. No concerns per nursing. Reason For Visit: UTI ARF CELLULITIS, MORBID OBESITY LITO Physical Exam Vital Signs: Temp Pulse Resp BP Pulse Ox 97.4 F 87 16 121/47 L 98 09/14/19 12:00 09/14/19 14:00 09/14/19 12:00 09/14/19 12:00 09/14/19 12:00 Intake & Output 09/13/19 09/14/19 09/15/19 06:59 06:59 06:59 Intake Total 795 2186 476 Output Total 855 1300 225 Balance -60 886 251 Weight 166.8 kg 167.2 kg General appearance: PRESENT: no acute distress, disheveled, morbidly obese, well-developed, well-nourished Head exam: PRESENT: atraumatic, normocephalic Eye exam: PRESENT: conjunctiva pink, EOMI, PERRLA. ABSENT: scleral icterus Mouth exam: PRESENT: moist, tongue midline Teeth exam: PRESENT: poor dentation Respiratory exam: PRESENT: clear to auscultation karyna, decreased breath sounds - Throughout; secondary to body habitus, positioning, and poor inspiratory effort, symmetrical, unlabored, other - Supplemental oxygen by nasal cannula. ABSENT: rales, rhonchi, wheezes Cardiovascular exam: PRESENT: RRR, +S1, +S2. ABSENT: diastolic murmur, rubs, systolic murmur Vascular exam: PRESENT: normal capillary refill GI/Abdominal exam: PRESENT: normal bowel sounds, soft, other - Rotund. ABSENT: distended, guarding, mass, organolmegaly, rebound, tenderness Rectal exam: PRESENT: deferred Extremities exam: PRESENT: full ROM. ABSENT: calf tenderness, clubbing, pedal edema Neurological exam: PRESENT: alert, awake, oriented to person, oriented to place, oriented to time, oriented to situation, CN II-XII grossly intact. ABSENT: motor sensory deficit Psychiatric exam: PRESENT: appropriate affect, normal mood. ABSENT: homicidal ideation, suicidal ideation Skin exam: PRESENT: dry, warm, other - Erythema and warmth to the patient's posterior left upper extremity. Worsening cellulitis to the left lower extremity with increased circumferential erythema and edema from the knee distally. Large blister to the plantar aspect of the patient's foot. Serous weeping from posterior calf.. ABSENT: cyanosis, rash Results Laboratory Results: 09/14/19 05:41 09/14/19 05:41 09/14/19 09/14/19 05:41 05:41 WBC 13.4 H RBC 3.71 L Hgb 10.1 L Hct 31.6 L MCV 85 MCH 27.1 MCHC 31.8 L RDW 16.9 H Plt Count 352 Sodium 141.7 Potassium 4.5 Chloride 103 Carbon Dioxide 29 Anion Gap 10 BUN 43 H Creatinine 1.60 H Est GFR ( Amer) 53 L Glucose 89 Calcium 8.6 Total Bilirubin 0.5 AST 56 Alkaline Phosphatase 99 Total Protein 7.0 Albumin 3.4 L 09/12/19 20:02 Blood Blood Culture (PCR) - Final Streptococcus Species 09/12/19 09/12/19 09/12/19 20:02 20:02 23:00 Creatine Kinase 114 CK-MB (CK-2) 1.44 Troponin I 0.022 0.016 NT-Pro-B Natriuret Pep 269 H 09/13/19 09/13/19 05:01 11:37 Creatine Kinase CK-MB (CK-2) Troponin I 0.017 < 0.012 NT-Pro-B Natriuret Pep Impressions: Chest X-Ray 09/12/19 18:35 IMPRESSION: NO ACUTE RADIOGRAPHIC FINDING IN THE CHEST. Venous Doppler Study 09/12/19 18:36 IMPRESSION: No evidence of DVT in left upper extremity. Femur X-Ray 09/12/19 18:37 IMPRESSION: Soft tissue edema. No underlying fracture or foreign body. Foot X-Ray 09/12/19 18:37 IMPRESSION: Soft tissue swelling. Questionable lytic changes involving the distal phalanx of the 2nd digit. This could be related to prior surgery. Clinical correlation is needed. Hip X-Ray 09/12/19 18:37 IMPRESSION: Lower lumbar degenerative changes. Normal left hip. Tibia/Fibula X-Ray 09/12/19 18:37 IMPRESSION: Soft tissue edema. No underlying fracture. No foreign body. Assessment and Plan - Diagnosis (1) Cellulitis Qualifiers: Site of cellulitis: extremity Site of cellulitis of extremity: lower e xtremity Laterality: left Qualified Code(s): L03.116 - Cellulitis of left lower limb Is this a current diagnosis for this admission?: Yes Plan: Left leg cellulitis complicated by severe venous stasis Afebrile, leukocytosis is improved, however, has worsened clinical appearance today. Blood cultures growing group B strep and gram-negative rods in 1 culture set. Repeat blood cultures in a.m. Continue IV ceftriaxone. Continue p.o. fluconazole. Keep extremity elevated. Will and Armani wrap. Consider surgical evaluation if does not improve secondary to open wound to the medial aspect of the foot. (2) Anasarca Is this a current diagnosis for this admission?: Yes Plan: Multifactorial secondary to pulmonary hypertension, CHF, and malnutrition. Prealbumin of 6.4. Echocardiogram pending. Registered dietitian consulted. (3) Morbid obesity Is this a current diagnosis for this admission?: Yes Plan: TSH is normal. A1c 6.2%. Dietary discretion and lifestyle modification are encouraged. Registered dietitian is consulted. (4) Renal failure Is this a current diagnosis for this admission?: Yes Plan: Improved. Secondary to anasarca, pulmonary hypertension and malnutrition with intrav ascular depletion. IV albumin x4 yesterday. Gentle IV fluids. Avoid nephrotoxic meds and doses continue BiPAP follow-up chemistry. (5) Yeast dermatitis Is this a current diagnosis for this admission?: Yes Plan: Diflucan nightly x 3 (6) COPD (chronic obstructive pulmonary disease) with chronic bronchitis Is this a current diagnosis for this admission?: Yes Plan: Supplemental oxygen and BiPAP as needed maintain saturations greater than 89%. Scheduled as needed nebulizer treatments. (7) Congestive heart failure (CHF) Qualifiers: Qualified Code(s): I50.30 - Unspecified diastolic (congestive) heart failure Is this a current diagnosis for this admission?: Yes Plan: I resumed the patient's home dose metoprolol. Cardiac diet. Daily weights. Currently on gentle IV fluids; monitor closely for fluid volume overload. Echocardiogram pending. - Time Time Spent with patient: 25-34 minutes Medications reviewed and adjusted accordingly: Yes Anticipated discharge: Home with Homehealth
[2019-09-14] MEDS: MINERAL OIL/PETROLATUM,WHITE CREAM 114 GM TP SCH ×2 (18:32→22:00)
[2019-09-14] MEDS: CEFTRIAXONE 1 GM/D5W RTU 1 GM/50 ML RTUPB IV SCH (18:33)
[2019-09-14] MEDS: FLUCONAZOLE 100 MG TABLET PO SCH (22:00)
[2019-09-15] MEDS: ACETAMINOPHEN 325 MG TABLET PO PRN ×3 (04:10→21:05)
[2019-09-15 06:09] LABS: HEMATOCRIT 31.1 % (37.9-51.0); HEMOGLOBIN 10.1 g/dL (13.5-17.0); MEAN CORPUSCULAR HEMOGLOBIN 27.7 pg (27.0-33.4); MEAN CORPUSCULAR HGB CONC 32.4 g/dL (32.0-36.0); MEAN CORPUSCULAR VOLUME 86 fl (80-97); PLATELET COUNT 378 10^3/uL (150-450); RED BLOOD COUNT 3.64 10^6/uL (4.35-5.55); RED CELL DISTRIBUTION WIDTH 16.4 % (11.5-14.0); WHITE BLOOD COUNT 10.6 10^3/uL (4.0-10.5)
[2019-09-15 06:32] LABS: ANION GAP 7 (5-19); BLOOD UREA NITROGEN 32 mg/dL (7-20); CALCIUM 8.6 mg/dL (8.4-10.2); CARBON DIOXIDE 30 mmol/L (22-30); CHLORIDE 104 mmol/L (98-107); GLUCOSE 113 mg/dL (75-110); POTASSIUM 4.6 mmol/L (3.6-5.0)
[2019-09-15] MEDS: HEPARIN SOD (PORCINE) 5,000 UNIT/ML 1 ML VIAL SUBCUT SCH ×3 (07:00→21:05)
[2019-09-15] MEDS: INSULIN LISPRO 100 UNIT/ML 3 ML VIAL SUBCUT SCH ×3 (07:07→18:52)
[2019-09-15] MEDS: IPRATROPIUM/ALBUTEROL 0.5-2.5 MG/3 ML AMPUL NEB SCH ×3 (08:22→23:52)
[2019-09-15] MEDS: METOPROLOL TARTRATE 25 MG TABLET PO SCH ×2 (11:09→21:04)
[2019-09-15] MEDS: DOCUSATE SODIUM 100 MG CAPSULE PO SCH ×2 (11:12→18:51)
[2019-09-15] MEDS: TAMSULOSIN HCL 0.4 MG CAP.SR.24H PO SCH ×2 (11:12→18:53)
[2019-09-15] MEDS: DULOXETINE HCL 20 MG CAPSULE.DR PO SCH (11:15)
[2019-09-15] MEDS: HYDROXYCHLOROQUINE SULFATE 200 MG TABLET PO SCH ×2 (11:16→18:55)
[2019-09-15] MEDS: FINASTERIDE 5 MG TABLET PO SCH (11:17)
[2019-09-15] MEDS: MINERAL OIL/PETROLATUM,WHITE CREAM 114 GM TP SCH ×4 (11:18→21:05)
[2019-09-15] MEDS: NYSTATIN TOPICAL POWDER 15 GM TP SCH ×2 (11:18→18:52)
--- NOTE | 2019-09-15 16:46 | PDOC PROGRESS REPORT ---
Subjective Progress Note for:: 09/15/19 Subjective:: ZEINA KRUGER is a 64 year old male with a past medical history of morbid obesity, COPD, obstructive sleep apnea, diabetes and chronic kidney disease who was admitted for left upper extremity and lower extremity cellulitis, peripheral vascular disease, and morbid obesity with anasarca and hypoalbuminemia. The patient was seen on afternoon rounds. He was found resting in bed, comfortably lying supine, on BiPAP. He is not home O2 dependent. He does utilize BiPAP nightly. He states he just put BiPAP on to take a nap; was off most of the morning. He reports significant improvement in the erythema and edema to his left upper extremity; nearly resolved. He reports improvement to his left lower extremity. He has no new concerns. He denies fever, chills, chest pain, palpitations, dyspnea, cough, abdominal pain, nausea vomiting diarrhea. He has no other questions or concerns at this time. No concerns per nursing. Reason For Visit: UTI ARF CELLULITIS, MORBID OBESITY LITO Physical Exam Vital Signs: Temp Pulse Resp BP Pulse Ox 98.5 F 88 18 125/65 90 L 09/15/19 08:05 09/15/19 16:09 09/15/19 16:09 09/15/19 08:05 09/15/19 16:09 Intake & Output 09/14/19 09/15/19 09/16/19 06:59 06:59 06:59 Intake Total 2186 526 240 Output Total 1300 1525 625 Balance 886 -999 -385 Weight 167.2 kg 167.3 kg General appearance: PRESENT: no acute distress, cooperative, morbidly obese, well-developed, well-nourished Head exam: PRESENT: atraumatic, normocephalic Eye exam: PRESENT: conjunctiva pink, EOMI, PERRLA. ABSENT: scleral icterus Ear exam: PRESENT: normal external ear exam Mouth exam: PRESENT: moist, tongue midline Respiratory exam: PRESENT: clear to auscultation karyna, decreased breath sounds - throughout r/t body habitus and positioning, prolonged expiratory phas, symmetrical, unlabored, other - BiPAP. ABSENT: rales, rhonchi, wheezes Cardiovascular exam: PRESENT: RRR. ABSENT: diastolic murmur, rubs, systolic murmur Pulses: PRESENT: normal dorsalis pedis pul Vascular exam: PRESENT: normal capillary refill GI/Abdominal exam: PRESENT: normal bowel sounds, soft, other - rotund. ABSENT: distended, guarding, mass, organolmegaly, rebound, tenderness Rectal exam: PRESENT: deferred Extremities exam: PRESENT: full ROM, +1 edema - RLE, +2 edema - LLE. ABSENT: calf tenderness, clubbing, pedal edema Neurological exam: PRESENT: alert, awake, oriented to person, oriented to place, oriented to time, oriented to situation, CN II-XII grossly intact. ABSENT: motor sensory deficit Psychiatric exam: PRESENT: appropriate affect, normal mood. ABSENT: homicidal ideation, suicidal ideation Skin exam: PRESENT: dry, erythema, warm, other - Slight erythema to posterior right hand extending to mid forearm; significantly improved. Circumfrencial erythema to LLE from knee distal; improved. Decreased edema of LLE. Maceration to Left heal, open bullae to plantar surface, multiple <1cm round weeping bullae to posterior leg (calf and fossa).. ABSENT: cyanosis, rash Results Laboratory Results: 09/15/19 05:57 09/15/19 05:57 09/15/19 09/15/19 05:57 05:57 WBC 10.6 H RBC 3.64 L Hgb 10.1 L Hct 31.1 L MCV 86 MCH 27.7 MCHC 32.4 RDW 16.4 H Plt Count 378 Sodium 140.7 Potassium 4.6 Chloride 104 Carbon Dioxide 30 Anion Gap 7 BUN 32 H Creatinine 1.31 H Est GFR ( Amer) > 60 Glucose 113 H Calcium 8.6 09/12/19 20:02 Blood Blood Culture (PCR) - Final Streptococcus Species 09/12/19 09/12/19 09/12/19 20:02 20:02 23:00 Creatine Kinase 114 CK-MB (CK-2) 1.44 Troponin I 0.022 0.016 NT-Pro-B Natriuret Pep 269 H 09/13/19 09/13/19 05:01 11:37 Creatine Kinase CK-MB (CK-2) Troponin I 0.017 < 0.012 NT-Pro-B Natriuret Pep Impressions: Chest X-Ray 09/12/19 18:35 IMPRESSION: NO ACUTE RADIOGRAPHIC FINDING IN THE CHEST. Venous Doppler Study 09/12/19 18:36 IMPRESSION: No evidence of DVT in left upper extremity. Femur X-Ray 09/12/19 18:37 IMPRESSION: Soft tissue edema. No underlying fracture or foreign body. Foot X-Ray 09/12/19 18:37 IMPRESSION: Soft tissue swelling. Questionable lytic changes involving the distal phalanx of the 2nd digit. This could be related to prior surgery. Clinical correlation is needed. Hip X-Ray 09/12/19 18:37 IMPRESSION: Lower lumbar degenerative changes. Normal left hip. Tibia/Fibula X-Ray 09/12/19 18:37 IMPRESSION: Soft tissue edema. No underlying fracture. No foreign body. Assessment and Plan - Diagnosis (1) Cellulitis Qualifiers: Site of cellulitis: extremity Site of cellulitis of extremity: lower extremity Laterality: left Qualified Code(s): L03.116 - Cellulitis of left lower limb Is this a current diagnosis for this admission?: Yes Plan: Left leg cellulitis complicated by severe venous stasis Afebrile, leukocytosis is improved, improved clinical appearance today. Blood cultures growing group B strep and gram-negative rods in 1 culture set. Repeat blood cultures pending. Continue IV ceftriaxone. Continue p.o. fluconazole. Keep extremity elevated. Roller guaze and Armani wrap. Consider surgical evaluation if does not continue to improve secondary to open wound to the medial aspect of the foot. (2) Anasarca Is this a current diagnosis for this admission?: Yes Plan: Multifactorial secondary to pulmonary hypertension, CHF, and malnutrition. Prealbumin of 6.4. Echocardiogram pending. Registered dietitian consulted. (3) Morbid obesity Is this a current diagnosis for this admission?: Yes Plan: TSH is normal. A1c 6.2%. Dietary discretion and lifestyle modification are encouraged. Registered dietitian is consulted. (4) Renal failure Is this a current diagnosis for this admission?: Yes Plan: Resolved. Secondary to anasarca, pulmonary hypertension and malnutrition with intravascular depletion. IV albumin x4 yesterday. Gentle IV fluids. Avoid nephrotoxic meds and doses continue BiPAP follow-up chemistry. (5) Yeast dermatitis Is this a current diagnosis for this admission?: Yes Plan: Diflucan nightly x 3 (6) COPD (chronic obstructive pulmonary disease) with chronic bronchitis Is this a current diagnosis for this admission?: Yes Plan: Supplemental oxygen and BiPAP as needed maintain saturations greater than 89%. Scheduled as needed nebulizer treatments. (7) Congestive heart failure (CHF) Qualifiers: Qualified Code(s): I50.30 - Unspecified diastolic (congestive) heart failure Is this a current diagnosis for this admission?: Yes Plan: I resumed the patient's home dose metoprolol. Cardiac diet. Daily weights. Currently on gentle IV fluids; monitor closely for fluid volume overload. Echocardiogram pending. - Time Time Spent with patient: 25-34 minutes Medications reviewed and adjusted accordingly: Yes Anticipated discharge: Home with Homehealth
[2019-09-15] MEDS: CEFTRIAXONE 1 GM/D5W RTU 1 GM/50 ML RTUPB IV SCH (18:50)
[2019-09-15] MEDS: FLUCONAZOLE 100 MG TABLET PO SCH (21:05)
[2019-09-16] MEDS: ACETAMINOPHEN 325 MG TABLET PO PRN ×4 (03:45→21:05)
[2019-09-16] MEDS: HEPARIN SOD (PORCINE) 5,000 UNIT/ML 1 ML VIAL SUBCUT SCH ×3 (05:01→21:06)
[2019-09-16 05:57] LABS: HEMATOCRIT 31.2 % (37.9-51.0); HEMOGLOBIN 10.1 g/dL (13.5-17.0); MEAN CORPUSCULAR HEMOGLOBIN 27.5 pg (27.0-33.4); MEAN CORPUSCULAR HGB CONC 32.5 g/dL (32.0-36.0); MEAN CORPUSCULAR VOLUME 85 fl (80-97); PLATELET COUNT 369 10^3/uL (150-450); RED BLOOD COUNT 3.68 10^6/uL (4.35-5.55); RED CELL DISTRIBUTION WIDTH 16.5 % (11.5-14.0); WHITE BLOOD COUNT 7.4 10^3/uL (4.0-10.5)
[2019-09-16 06:21] LABS: ANION GAP 7 (5-19); BLOOD UREA NITROGEN 28 mg/dL (7-20); CALCIUM 8.6 mg/dL (8.4-10.2); CARBON DIOXIDE 29 mmol/L (22-30); CHLORIDE 105 mmol/L (98-107); GLUCOSE 95 mg/dL (75-110); POTASSIUM 4.8 mmol/L (3.6-5.0)
[2019-09-16] MEDS: IPRATROPIUM/ALBUTEROL 0.5-2.5 MG/3 ML AMPUL NEB SCH ×2 (08:13→17:00)
[2019-09-16] MEDS: HYDROXYCHLOROQUINE SULFATE 200 MG TABLET PO SCH ×2 (11:44→18:16)
[2019-09-16] MEDS: DULOXETINE HCL 20 MG CAPSULE.DR PO SCH (11:44)
[2019-09-16] MEDS: FINASTERIDE 5 MG TABLET PO SCH (11:44)
[2019-09-16] MEDS: DOCUSATE SODIUM 100 MG CAPSULE PO SCH ×2 (11:45→17:49)
[2019-09-16] MEDS: METOPROLOL TARTRATE 25 MG TABLET PO SCH ×2 (11:48→21:05)
[2019-09-16] MEDS: INSULIN LISPRO 100 UNIT/ML 3 ML VIAL SUBCUT SCH ×2 (11:52→17:18)
[2019-09-16] MEDS: MINERAL OIL/PETROLATUM,WHITE CREAM 114 GM TP SCH ×4 (14:00→22:06)
[2019-09-16] MEDS: NYSTATIN TOPICAL POWDER 15 GM TP SCH ×2 (15:44→21:01)
[2019-09-16] MEDS: TAMSULOSIN HCL 0.4 MG CAP.SR.24H PO SCH (17:49)
[2019-09-16] MEDS: CEFTRIAXONE 1 GM/D5W RTU 1 GM/50 ML RTUPB IV SCH (18:05)
--- NOTE | 2019-09-16 18:33 | PDOC PROGRESS REPORT ---
Subjective Progress Note for:: 09/16/19 Subjective:: ZEINA KRUGER is a 64 year old male with a past medical history of morbid obesity, COPD, obstructive sleep apnea, diabetes and chronic kidney disease who was admitted for left upper extremity and lower extremity cellulitis, peripheral vascular disease, and morbid obesity with anasarca and hypoalbuminemia. The patient was seen on afternoon rounds with his present. He was found resting in bed, comfortably lying supine, on room air. He reports significant improvement in the erythema and edema to his LUE/LLE; both nearly resolved. Does continue to have edema to LLE, though this is significantly improved. states they are interested in SNF Rehab at discharge. He denies fever, chills, chest pain, palpitations, dyspnea, cough, abdominal pain, nausea vomiting diarrhea. They have no other questions or concerns at this time. No concerns per nursing. Reason For Visit: UTI ARF CELLULITIS, MORBID OBESITY LITO Physical Exam Vital Signs: Temp Pulse Resp BP Pulse Ox 98.1 F 95 20 131/49 H 91 L 09/16/19 11:28 09/16/19 17:00 09/16/19 17:00 09/16/19 11:28 09/16/19 17:00 Intake & Output 09/15/19 09/16/19 09/17/19 06:59 06:59 06:59 Intake Total 526 900 400 Output Total 1525 2000 600 Balance -999 -1100 -200 Weight 167.3 kg 170.3 kg General appearance: PRESENT: no acute distress, cooperative, morbidly obese, well-developed, well-nourished Head exam: PRESENT: atraumatic, normocephalic Eye exam: PRESENT: conjunctiva pink, EOMI, PERRLA. ABSENT: scleral icterus Ear exam: PRESENT: normal external ear exam Mouth exam: PRESENT: moist, tongue midline Respiratory exam: PRESENT: clear to auscultation karyna, symmetrical, unlabored, other - room air. ABSENT: rales, rhonchi, wheezes Cardiovascular exam: PRESENT: RRR, +S1, +S2. ABSENT: diastolic murmur, rubs, systolic murmur Pulses: PRESENT: +1 pedal pulses bilateral Vascular exam: PRESENT: normal capillary refill GI/Abdominal exam: PRESENT: normal bowel sounds, soft, other - rotund. ABSENT: distended, guarding, mass, organolmegaly, rebound, tenderness Rectal exam: PRESENT: deferred Extremities exam: PRESENT: full ROM, +1 edema - RLE, +2 edema - BLE. ABSENT: c residential tenderness, clubbing, pedal edema Neurological exam: PRESENT: alert, awake, oriented to person, oriented to place, oriented to time, oriented to situation, CN II-XII grossly intact. ABSENT: motor sensory deficit Psychiatric exam: PRESENT: appropriate affect, normal mood. ABSENT: homicidal ideation, suicidal ideation Skin exam: PRESENT: dry, warm, other - +2 edema of LLE; erythema has resolved. Decreased maceration to Left heal, open bullae to plantar surface, multiple <1cm round weeping bullae to posterior leg (calf and fossa). ABSENT: cyanosis, erythema, rash Results Laboratory Results: 09/16/19 05:40 09/16/19 05:40 09/16/19 09/16/19 05:40 05:40 WBC 7.4 RBC 3.68 L Hgb 10.1 L Hct 31.2 L MCV 85 MCH 27.5 MCHC 32.5 RDW 16.5 H Plt Count 369 Sodium 141.4 Potassium 4.8 Chloride 105 Carbon Dioxide 29 Anion Gap 7 BUN 28 H Creatinine 1.12 Est GFR ( Amer) > 60 Glucose 95 Calcium 8.6 09/12/19 20:02 Blood Blood Culture (PCR) - Final Streptococcus Species 09/12/19 09/12/19 09/12/19 20:02 20:02 23:00 Creatine Kinase 114 CK-MB (CK-2) 1.44 Troponin I 0.022 0.016 NT-Pro-B Natriuret Pep 269 H 09/13/19 09/13/19 05:01 11:37 Creatine Kinase CK-MB (CK-2) Troponin I 0.017 < 0.012 NT-Pro-B Natriuret Pep Impressions: Chest X-Ray 09/12/19 18:35 IMPRESSION: NO ACUTE RADIOGRAPHIC FINDING IN THE CHEST. Venous Doppler Study 09/12/19 18:36 IMPRESSION: No evidence of DVT in left upper extremity. Femur X-Ray 09/12/19 18:37 IMPRESSION: Soft tissue edema. No underlying fracture or foreign body. Foot X-Ray 09/12/19 18:37 IMPRESSION: Soft tissue swelling. Questionable lytic changes involving the distal phalanx of the 2nd digit. This could be related to prior surgery. Clinical correlation is needed. Hip X-Ray 09/12/19 18:37 IMPRESSION: Lower lumbar degenerative changes. Normal left hip. Tibia/Fibula X-Ray 09/12/19 18:37 IMPRESSION: Soft tissue edema. No underlying fracture. No foreign body. Assessment and Plan - Diagnosis (1) Cellulitis Qualifiers: Site of cellulitis: extremity Site of cellulitis of extremity: lower extremity Laterality: left Qualified Code(s): L03.116 - Cellulitis of left lower limb Is this a current diagnosis for this admission?: Yes Plan: Significantly improved today. Left leg cellulitis complicated by severe venous stasis Afebrile, leukocytosis is improved, improved clinical appearance today. Blood cultures showed Citrobacter friendly in 1 culture set. Repeat blood cultures are negative at 24 hours Received 4 days of Rocephin. Transitioned to p.o keflex for completion of abx course post discharge. Received 3 days of fluconazole; discontinued. Keep extremity elevated. Xeroform, roller guaze and Armani wrap. Medically stable for discharge; patient and family requesting SNF for short-term rehab. Pending placement. (2) Anasarca Is this a current diagnosis for this admission?: Yes Plan: Multifactorial secondary to pulmonary hypertension, CHF, and malnutrition. Prealbumin of 6.4. Echocardiogram has been obtained; final report pending. No evidence of acute CHF exacerbation at this time; clear lung sounds, lying supine on room air without difficulty, asymmetric edema that resolved with antibiotic therapy only. Dietary and lifestyle modification strongly encouraged. Patient educator was consulted. Registered dietitian consulted. (3) Morbid obesity Is this a current diagnosis for this admission?: Yes Plan: BMI 50.9. BiPAP nightly for obesity hypoventilation syndrome. TSH is normal. A1c 6.2%. Dietary discretion and lifestyle modification are encouraged. Registered dietitian is consulted. (4) Renal failure Is this a current diagnosis for this admission?: Yes Plan: Resolved. Secondary to anasarca, pulmonary hypertension and malnutrition with intravascular depletion. IV albumin x4 Gentle IV fluids. Avoid nephrotoxic meds and doses continue BiPAP follow-up chemistry. (5) Yeast dermatitis Is this a current diagnosis for this admission?: Yes Plan: Diflucan nightly x 3 (6) COPD (chronic obstructive pulmonary disease) with chronic bronchitis Is this a current diagnosis for this admission?: Yes Plan: Supplemental oxygen and BiPAP as needed maintain saturations greater than 89%. Scheduled as needed nebulizer treatments. (7) Congestive heart failure (CHF) Qualifiers: Qualified Code(s): I50.30 - Unspecified diastolic (congestive) heart failure Is this a current diagnosis for this admission?: Yes Plan: Echocardiogram has been obtained; final report pending. No evidence of acute CHF exacerbation at this time; clear lung sounds, lying supine on room air without difficulty, asymmetric edema that resolved with antibiotic therapy only. Continue home dose metoprolol. Cardiac diet. Daily weights. Currently on gentle IV fluids; monitor closely for fluid volume overload. - Time Time Spent with patient: 25-34 minutes Medications reviewed and adjusted accordingly: Yes Anticipated discharge: SNF Within: when bed available
[2019-09-16] MEDS: CEPHALEXIN 500 MG CAPSULE PO SCH (22:59)
[2019-09-17] MEDS: IPRATROPIUM/ALBUTEROL 0.5-2.5 MG/3 ML AMPUL NEB SCH ×4 (00:09→23:41)
[2019-09-17] MEDS: ACETAMINOPHEN 325 MG TABLET PO PRN ×5 (05:02→22:07)
[2019-09-17] MEDS: CEPHALEXIN 500 MG CAPSULE PO SCH ×4 (05:02→23:05)
[2019-09-17] MEDS: HEPARIN SOD (PORCINE) 5,000 UNIT/ML 1 ML VIAL SUBCUT SCH ×3 (05:03→22:07)
[2019-09-17] MEDS: INSULIN LISPRO 100 UNIT/ML 3 ML VIAL SUBCUT SCH ×3 (08:10→16:22)
[2019-09-17] MEDS: DULOXETINE HCL 20 MG CAPSULE.DR PO SCH (09:05)
[2019-09-17] MEDS: DOCUSATE SODIUM 100 MG CAPSULE PO SCH ×2 (09:05→17:25)
[2019-09-17] MEDS: MINERAL OIL/PETROLATUM,WHITE CREAM 114 GM TP SCH ×4 (09:06→22:08)
[2019-09-17] MEDS: METOPROLOL TARTRATE 25 MG TABLET PO SCH ×2 (09:06→22:07)
[2019-09-17] MEDS: HYDROXYCHLOROQUINE SULFATE 200 MG TABLET PO SCH ×2 (09:06→17:25)
[2019-09-17] MEDS: NYSTATIN TOPICAL POWDER 15 GM TP SCH ×2 (09:06→17:16)
[2019-09-17] MEDS: FINASTERIDE 5 MG TABLET PO SCH (09:06)
--- NOTE | 2019-09-17 13:27 | PDOC PROGRESS REPORT ---
Subjective Progress Note for:: 09/17/19 Subjective:: ZEINA KRUGER is a 64 year old male with a past medical history of morbid obesity, COPD, obstructive sleep apnea, diabetes and chronic kidney disease who was admitted for left upper extremity and lower extremity cellulitis, peripheral vascular disease, and morbid obesity with anasarca and hypoalbuminemia. 09/17/2019. No acute events overnight. Patient comfortably sitting in bed in no apparent distress, accompanied by his . stating that patient is to be sent to rehab as she is not able to take care of him because she had a neck surgery and her daughter is disabled. Patient complaining of constipation otherwise denies any fever, chills, nausea, vomiting, diarrhea or any urinary symptoms. Reason For Visit: UTI ARF CELLULITIS, MORBID OBESITY LITO Physical Exam Vital Signs: Temp Pulse Resp BP Pulse Ox 97.4 F 66 18 149/54 H 95 09/17/19 10:33 09/17/19 10:33 09/17/19 10:33 09/17/19 10:33 09/17/19 10:33 Intake & Output 09/16/19 09/17/19 09/18/19 06:59 06:59 06:59 Intake Total 900 810 Output Total 2000 1225 Balance -1100 -415 Weight 170.3 kg 61.3 kg General appearance: PRESENT: obese Head exam: PRESENT: atraumatic, normocephalic Respiratory exam: PRESENT: clear to auscultation karyna. ABSENT: rales, rhonchi, wheezes Cardiovascular exam: PRESENT: RRR. ABSENT: diastolic murmur, rubs, systolic murmur Pulses: PRESENT: normal dorsalis pedis pul Extremities exam: PRESENT: other - Bilateral lower extremity stasis dermatitis worse on the right side. Left lower extremity erythema below the knee, no active discharge. Neurovascularly intact. Results Laboratory Results: 09/16/19 05:40 09/16/19 05:40 09/12/19 20:02 Blood Blood Culture (PCR) - Final Streptococcus Species 09/12/19 20:02 Blood Blood Culture - Final Citrobacter Freundii Group G Beta Streptococcus 09/12/19 09/12/19 09/12/19 20:02 20:02 23:00 Creatine Kinase 114 CK-MB (CK-2) 1.44 Troponin I 0.022 0.016 NT-Pro-B Natriuret Pep 269 H 09/13/19 09/13/19 05:01 11:37 Creatine Kinase CK-MB (CK-2) Troponin I 0.017 < 0.012 NT-Pro-B Natriuret Pep Impressions: Chest X-Ray 09/12/19 18:35 IMPRESSION: NO ACUTE RADIOGRAPHIC FINDING IN THE CHEST. Venous Doppler Study 09/12/19 18:36 IMPRESSION: No evidence of DVT in left upper extremity. Femur X-Ray 09/12/19 18:37 IMPRESSION: Soft tissue edema. No underlying fracture or foreign body. Foot X-Ray 09/12/19 18:37 IMPRESSION: Soft tissue swelling. Questionable lytic changes involving the distal phalanx of the 2nd digit. This could be related to prior surgery. Clinical correlation is needed. Hip X-Ray 09/12/19 18:37 IMPRESSION: Lower lumbar degenerative changes. Normal left hip. Tibia/Fibula X-Ray 09/12/19 18:37 IMPRESSION: Soft tissue edema. No underlying fracture. No foreign body. Assessment and Plan - Diagnosis (1) Cellulitis Qualifiers: Site of cellulitis: extremity Site of cellulitis of extremity: lower extremity Laterality: left Qualified Code(s): L03.116 - Cellulitis of left lower limb Is this a current diagnosis for this admission?: Yes Plan: Proving. Residual erythema and left lower extremity below knee. Neurovascularly intact. No active discharge. Complicated by by severe venous stasis Afebrile, leukocytosis is improved, improved clinical appearance today. Blood cultures showed Citrobacter friendly in 1 culture set. Repeat blood cultures are negative at 24 hours Day 5 antibiotics. Day 2 p.o. Keflex. Received 4 days of Rocephin. Transitioned to p.o keflex for completion of abx course post discharge. Received 3 days of fluconazole; discontinued. Keep extremity elevated. Xeroform, roller guaze and Armani wrap. Medically stable for discharge; patient and family requesting SNF for short-term rehab. Pending placement. (2) Acute on chronic renal failure Qualifiers: Chronic kidney disease stage: stage 2 (mild) Is this a current diagnosis for this admission?: Yes Plan: Resolved. History of CKD. Baseline creatinine 1.9. Secondary to anasarca, pulmonary hypertension and malnutrition with intravascular depletion. Received IV albumin x4 Avoid NSAIDs and other nephrotoxic meds. (3) Anasarca Is this a current diagnosis for this admission?: Yes Plan: Improving. Multifactorial secondary to pulmonary hypertension, CHF, and malnutrition. Prealbumin of 6.4. Echocardiogram has been obtained; final report pending. No evidence of acute CHF exacerbation at this time; clear lung sounds, lying supine on room air without difficulty, asymmetric edema that resolved with antibiotic therapy only. Dietary and lifestyle modification strongly encouraged. Patient educator was consulted. Registered dietitian consulted. (4) Congestive heart failure (CHF) Qualifiers: Qualified Code(s): I50.30 - Unspecified diastolic (congestive) heart failure Is this a current diagnosis for this admission?: Yes Plan: Echocardiogram has been obtained; final report pending. No evidence of acute CHF exacerbation at this time; clear lung sounds, lying supine on room air without difficulty, asymmetric edema that resolved with antibiotic therapy only. Continue home dose metoprolol. Cardiac diet. Daily weights. Currently on gentle IV fluids; monitor closely for fluid volume overload. (5) COPD (chronic obstructive pulmonary disease) with chronic bronchitis Is this a current diagnosis for this admission?: Yes Plan: Supplemental oxygen and BiPAP as needed maintain saturations greater than 89%. Scheduled as needed nebulizer treatments. (6) Morbid obesity Is this a current diagnosis for this admission?: Yes Plan: BMI 50.9. BiPAP nightly for obesity hypoventilation syndrome. TSH is normal. A1c 6.2%. Dietary discretion and lifestyle modification are encouraged. Registered dietitian is consulted. (7) Yeast dermatitis Is this a current diagnosis for this admission?: Yes Plan: Diflucan nightly x 3
[2019-09-17] MEDS: POLYETHYLENE GLYCOL 3350 POWDER 17 GM/1 PACKET PO SCH (17:25)
[2019-09-17] MEDS: TAMSULOSIN HCL 0.4 MG CAP.SR.24H PO SCH (17:25)
[2019-09-18] MEDS: ACETAMINOPHEN 325 MG TABLET PO PRN ×2 (03:45→10:14)
[2019-09-18] MEDS: CEPHALEXIN 500 MG CAPSULE PO SCH ×2 (06:14→12:40)
[2019-09-18] MEDS: HEPARIN SOD (PORCINE) 5,000 UNIT/ML 1 ML VIAL SUBCUT SCH ×2 (06:14→14:14)
[2019-09-18] MEDS: IPRATROPIUM/ALBUTEROL 0.5-2.5 MG/3 ML AMPUL NEB SCH ×2 (08:13→15:59)
[2019-09-18] MEDS: INSULIN LISPRO 100 UNIT/ML 3 ML VIAL SUBCUT SCH (08:48)
[2019-09-18] MEDS: METOPROLOL TARTRATE 25 MG TABLET PO SCH (10:12)
[2019-09-18] MEDS: HYDROXYCHLOROQUINE SULFATE 200 MG TABLET PO SCH (10:12)
[2019-09-18] MEDS: DOCUSATE SODIUM 100 MG CAPSULE PO SCH (10:12)
[2019-09-18] MEDS: POLYETHYLENE GLYCOL 3350 POWDER 17 GM/1 PACKET PO SCH (10:12)
[2019-09-18] MEDS: DULOXETINE HCL 20 MG CAPSULE.DR PO SCH (10:13)
[2019-09-18] MEDS: NYSTATIN TOPICAL POWDER 15 GM TP SCH (10:13)
[2019-09-18] MEDS: FINASTERIDE 5 MG TABLET PO SCH (10:13)
[2019-09-18] MEDS: MINERAL OIL/PETROLATUM,WHITE CREAM 114 GM TP SCH ×2 (10:44→14:14)
[2019-09-18 13:06] VITALS: BP 147/69
--- NOTE | 2019-09-18 14:03 | PDOC TRANSFER SUMMARY ---
General Admission Date/PCP: 09/12/19 22:18 YAMILEX MERINO MD Resuscitation Status: Full Code - Transfer Diagnosis (1) Cellulitis Is this a current diagnosis for this admission?: Yes (2) Acute on chronic renal failure Is this a current diagnosis for this admission?: Yes (3) Anasarca Is this a current diagnosis for this admission?: Yes (4) Congestive heart failure (CHF) Is this a current diagnosis for this admission?: Yes (5) COPD (chronic obstructive pulmonary disease) with chronic bronchitis Is this a current diagnosis for this admission?: Yes (6) Morbid obesity Is this a current diagnosis for this admission?: Yes (7) Yeast dermatitis Is this a current diagnosis for this admission?: Yes - Transfer Medications Home Medications: Duloxetine HCl [Cymbalta 20 mg Capsule.dr] 40 mg PO DAILY 09/13/19 Finasteride [Proscar 5 mg Tablet] 5 mg PO DAILY 09/13/19 Furosemide [Lasix 20 mg Tablet] 20 mg PO BID 09/13/19 Hydroxychloroquine Sulfate [Plaquenil 200 mg Tablet] 200 mg PO BID 09/13/19 Metoprolol Tartrate [Lopressor 25 mg Tablet] 25 mg PO Q12 09/13/19 Potassium Chloride 20 meq PO DAILY 09/13/19 Tamsulosin HCl [Flomax 0.4 mg Cap.sr] 0.4 mg PO DAILY 09/13/19 Transfer Medications: Current Medications Acetaminophen (Tylenol 325 Mg Tablet) 650 mg PO Q4HP PRN PRN Reason: FOR PAIN OR TEMP Stop: 10/12/19 22:07 Last Admin: 09/18/19 10:14 Dose: 650 mg Documented by: Al Hydrox/Mg Hydrox/Simethicone (Maalox Plus Susp 30 Udcup) 30 ml PO Q6HP PRN PRN Reason: HEARTBURN Stop: 10/12/19 22:07 Albuterol/Ipratropium (Duoneb 3 Ml Ampul) 3 ml NEB [id number] PRN PRN Reason: SHORTNESS OF BREATH Stop: 10/12/19 22:07 Albuterol/Ipratropium (Duoneb 3 Ml Ampul) 3 ml NEB RTQ8 REJI Stop: 10/13/19 00:00 Last Admin: 09/18/19 08:13 Dose: 3 ml Documented by: Bisacodyl (Dulcolax 10 Mg Supp.Rect) 10 mg FL DAILYP PRN PRN Reason: UNRESOLVED CONSTIPATION Stop: 10/14/19 15:36 Last Admin: 09/18/19 10:16 Dose: 10 mg Documented by: Cephalexin HCl (Keflex 500 Mg Capsule) 500 mg PO Q6 [facility] Stop: 09/24/19 00:00 Last Admin: 09/18/19 12:40 Dose: 500 mg Documented by: Docusate Sodium (Colace 100 Mg Capsule) 100 mg PO BID REJI Stop: 10/13/19 09:59 Last Admin: 09/18/19 10:12 Dose: 100 mg Documented by: Duloxetine HCl (Cymbalta 20 Mg Capsule.Dr) 40 mg PO DAILY [facility] Stop: 10/14/19 09:59 Last Admin: 09/18/19 10:13 Dose: 40 mg Documented by: Finasteride (Proscar 5 Mg Tablet) 5 mg PO DAILY [facility] Stop: 10/14/19 09:59 Last Admin: 09/18/19 10:13 Dose: 5 mg Documented by: Heparin Sodium (Porcine) (Heparin Inj 5,000 Units/Ml 1 Ml Vial) 5,000 unit SUBCUT Q8 [facility] Stop: 10/13/19 05:59 Last Admin: 09/18/19 06:14 Dose: 5,000 unit Documented by: Hydroxychloroquine Sulfate (Plaquenil 200 Mg Tablet) 200 mg PO BID [facility] Stop: 10/14/19 09:59 Last Admin: 09/18/19 10:12 Dose: 200 mg Documented by: Magnesium Hydroxide (Milk Of Magnesia 30 Ml Udcup) 30 ml PO BIDP PRN PRN Reason: FOR CONSTIPATION Stop: 10/14/19 15:36 Last Admin: 09/16/19 16:49 Dose: 30 ml Documented by: Metoprolol Tartrate (Lopressor 25 Mg Tablet) 25 mg PO Q12 [facility] Stop: 10/13/19 21:59 Last Admin: 09/18/19 10:12 Dose: 25 mg Documented by: Multi-Ingredient Cream (Eucerin Cream 114 Gm) 1 applic TP QID [facility] Stop: 10/14/19 17:59 Last Admin: 09/18/19 10:44 Dose: Not Given Documented by: Nystatin (Mycostatin Topical Powder 15 Gm) 1 applic TP BID [facility] Stop: 09/19/19 19:59 Last Admin: 09/18/19 10:13 Dose: 1 applic Documented by: Polyethylene Glycol (Miralax Powder 17 Gm/Packet) 17 gm PO DAILY [facility] Stop: 10/17/19 13:44 Last Admin: 09/18/19 10:12 Dose: 17 gm Documented by: Tamsulosin HCl (Flomax 0.4 Mg Cap.Sr) 0.4 mg PO DAILY@1800 REJI Stop: 10/15/19 17:59 Last Admin: 09/17/19 17:25 Dose: 0.4 mg Documented by: - Allergies Allergies/Adverse Reactions: meperidine [From Demerol] Allergy (Verified 09/12/19 18:24) meperidine HCl [From Demerol] Allergy (Verified 09/12/19 18:24) triazolam [From Halcion] Allergy (Verified 09/12/19 18:24) Hospital Course Hospital Course: ZEINA KRUGER is a 64 year old male with a past medical history of morbid obesity, COPD, obstructive sleep apnea, diabetes and chronic kidney disease who was admitted for left upper extremity and lower extremity cellulitis, peripheral vascular disease, and morbid obesity with anasarca and hypoalbuminemia. (1) Cellulitis Improving. Milde residual erythema and left lower extremity below knee. Neurovascularly intact. No active discharge. Complicated by by severe venous stasis Afebrile, leukocytosis resovled. Blood cultures showed Citrobacter and Group G strep, likely contamination. Repeat blood cultures are negative. Received 6 antibiotics. Day 3 p.o. Keflex. Received 4 days of Rocephin. Transitioned to p.o keflex for completion of abx course post discharge. Received 3 days of fluconazole; discontinued. Keep extremity elevated. Xeroform, roller guaze and Armani wrap. Continue Keflex for another 4 days. Low up with PCP. If worsening of cellulitis please come back to ED. (2) Acute on chronic renal failure Resolved. History of CKD. Baseline creatinine 1.9. Secondary to anasarca, pulmonary hypertension and malnutrition with intravascul ar depletion. Received IV albumin x4 Avoid NSAIDs and other nephrotoxic meds. (3) Anasarca Improving. Multifactorial secondary to pulmonary hypertension, CHF, and malnutrition. Prealbumin of 6.4. Echocardiogram has been obtained; final report pending. No evidence of acute CHF exacerbation at this time; clear lung sounds, lying supine on room air without difficulty, asymmetric edema that resolved with antibiotic therapy only. Dietary and lifestyle modification strongly encouraged. Patient educator was consulted. Registered dietitian consulted. (4) Congestive heart failure (CHF) Echocardiogram has been obtained; final report pending at the time of transfer. No evidence of acute CHF exacerbation at this time; clear lung sounds, lying [place] on room air without difficulty, asymmetric edema that resolved with antibiotic therapy only. Started on home meds. Cardiac diet. Fluid restriction. Resume home meds. Follow-up with PCP and cardiology. (5) COPD (chronic obstructive pulmonary disease) with chronic bronchitis Supplemental oxygen and BiPAP as needed maintain saturations greater than 89%. Scheduled as needed nebulizer treatments. Has home BiPAP. Resume BiPAP upon discharge. (6) Morbid obesity BMI 50.9. BiPAP nightly for obesity hypoventilation syndrome. TSH is normal. A1c 6.2%. Dietary discretion and lifestyle modification are encouraged. (7) Yeast dermatitis Received Diflucan nightly x 3 Physical Exam Vital Signs: Temp Pulse Resp BP Pulse Ox 97.6 F 80 17 147/69 H 91 L 09/18/19 11:49 09/18/19 11:49 09/18/19 11:49 09/18/19 11:49 09/18/19 11:49 Intake & Output 09/17/19 09/18/19 09/19/19 06:59 06:59 06:59 Intake Total 810 980 240 Output Total 1225 1300 300 Balance -415 -320 -60 Weight 61.3 kg 61.3 kg General appearance: PRESENT: obese Head exam: PRESENT: atraumatic, normocephalic Respiratory exam: PRESENT: clear to auscultation karyna. ABSENT: rales, rhonchi, wheezes Cardiovascular exam: PRESENT: RRR. ABSENT: diastolic murmur, rubs, systolic murmur GI/Abdominal exam: PRESENT: normal bowel sounds, soft. ABSENT: distended, guarding, mass, organolmegaly, rebound, tenderness Musculoskeletal exam: PRESENT: other - Left lower extremity below-knee mild erythema no sign of active discharge. Neurological exam: PRESENT: alert, awake, oriented to person, oriented to place, oriented to time, oriented to situation, CN II-XII grossly intact. ABSENT: mo tor sensory deficit Results Laboratory Results: 09/16/19 05:40 09/16/19 05:40 09/12/19 23:10 Blood Blood Culture - Final NO GROWTH IN 5 DAYS 09/12/19 20:02 Blood Blood Culture (PCR) - Final Streptococcus Species 09/12/19 20:02 Blood Blood Culture - Final Citrobacter Freundii Group G Beta Streptococcus 09/12/19 09/12/19 09/12/19 20:02 20:02 23:00 Creatine Kinase 114 CK-MB (CK-2) 1.44 Troponin I 0.022 0.016 NT-Pro-B Natriuret Pep 269 H 09/13/19 09/13/19 05:01 11:37 Creatine Kinase CK-MB (CK-2) Troponin I 0.017 < 0.012 NT-Pro-B Natriuret Pep Impressions: Chest X-Ray 09/12/19 18:35 IMPRESSION: NO ACUTE RADIOGRAPHIC FINDING IN THE CHEST. Venous Doppler Study 09/12/19 18:36 IMPRESSION: No evidence of DVT in left upper extremity. Femur X-Ray 09/12/19 18:37 IMPRESSION: Soft tissue edema. No underlying fracture or foreign body. Foot X-Ray 09/12/19 18:37 IMPRESSION: Soft tissue swelling. Questionable lytic changes involving the distal phalanx of the 2nd digit. This could be related to prior surgery. Clinical correlation is needed. Hip X-Ray 09/12/19 18:37 IMPRESSION: Lower lumbar degenerative changes. Normal left hip. Tibia/Fibula X-Ray 09/12/19 18:37 IMPRESSION: Soft tissue edema. No underlying fracture. No foreign body.
[2019-09-18] MEDS ORDERED: LACTULOSE SYRUP 20 GM/30 ML UDCUP PO ONE (14:45)
== END 2019-09-18 16:50 | DRG 603 ==
LOC: ER 17:22 → EH 22:18 → 4W 09-13 01:22 → 4S 09-14 16:34
PROVIDERS: ADMIT Internal Medicine; ATTEND Internal Medicine
DX: L03.116 Cellulitis of left lower limb (principal); E46 Unspecified protein-calorie malnutrition; I13.0 Hypertensive heart and chronic kidney disease with heart failure and stage 1 through stage 4 chronic kidney disease, or unspecified chronic kidney disease; I50.30 Unspecified diastolic (congestive) heart failure; L03.114 Cellulitis of left upper limb; N17.9 Acute kidney failure, unspecified; Z68.43 Body mass index [BMI] 50.0-59.9, adult; I87.8 Other specified disorders of veins; I25.10 Atherosclerotic heart disease of native coronary artery without angina pectoris; J44.9 Chronic obstructive pulmonary disease, unspecified; I27.20 Pulmonary hypertension, unspecified; E11.22 Type 2 diabetes mellitus with diabetic chronic kidney disease; N18.2 Chronic kidney disease, stage 2 (mild); N40.0 Benign prostatic hyperplasia without lower urinary tract symptoms; B37.2 Candidiasis of skin and nail; L30.3 Infective dermatitis; G47.33 Obstructive sleep apnea (adult) (pediatric); E66.01 Morbid (severe) obesity due to excess calories
CPT/HCPCS: 36415; 36600; 71045; 80048; 80053; 80307; 81001; 82550; 82553; 82803; 82962; 83036; 83605; 83880; 84134; 84153; 84443; 84484; 85025; 85027; 85610; 87040; 87077; 87150; 87186; 93005; 93010; 93306; 93971; 94640; 94660; 96365; 96375; 99291; J0696; J1644; J1940; J3490; J7030; J7620; P9047

== ENCOUNTER 2019-10-17 06:02 | Inpatient (IN) | payer MEDICARE, MEDICAID ==
--- NOTE | 2019-10-17 10:19 | ER Document Report ---
ED General - General Chief Complaint: Fall Stated Complaint: FALL,BACK PAIN Time Seen by Provider: 10/17/19 09:06 Primary Care Provider: BETH WALTERS PA-C [Primary Care Provider] - Follow up as needed Notes: CHIEF COMPLAINT: Inability to get up from the floor this morning HPI: History is obtained from the patient and the . A 64-year-old morbidly obese male who is deconditioned brought by EMS for evaluation after he was unable to get up from the floor this morning. Patient's indicates that he was admitted to the hospital a month ago for a left lower leg infection which is much improved. He spent the last 3 weeks and rehab. states that she told them that she was not able to manage the patient at home and that home health has been set up but have not yet called her to come out. She states that patient was sleeping in a recliner and slid out to the floor and was unable to get up from the floor so she called EMS to bring the patient back to the hospital. She states the rehab told her when the patient came home that he might have pneumonia and he might have a UTI. He denies discomfort with urination. He denies worsening shortness of breath. indicates patient does have a history of COPD. He has not normally on home O2. ROS: See HPI - all other systems were reviewed and are otherwise negative Constitutional: no fever Eyes: no drainage, no blurred vision ENT: no runny nose, no sore throat Cardiovascular: no chest pain Resp: no SOB, + cough GI: no vomiting, no diarrhea, no abdominal pain : no dysuria Integumentary: no rash Allergy: no hives Musculoskeletal: no extremity pain or swelling Neurological: no numbness/tingling, + generalized weakness MEDICATIONS: I agree with the patient medications as charted by the RN. ALLERGIES: I agree with the allergies as charted by the RN. PAST MEDICAL HISTORY/PAST SURGICAL HISTORY: Reviewed and agree as charted by RN. SOCIAL HISTORY: Reviewed and agree as charted by RN. FAMILY HISTORY: No significant familial comorbid conditions directly related to patient complaint EXAM: Reviewed vital signs as charted by RN. CONSTITUTIONAL: Alert and oriented and responds appropriately to questions. Well-appearing; well-nourished, mild distress secondary to breathing/discomfort HEAD: Normocephalic; atraumatic EYES: PERRL; Conjunctivae clear, sclerae non-icteric ENT: normal nose; no rhinorrhea; moist mucous membranes; pharynx without lesions noted, no uvula edema or deviation, no tonsillar hypertrophy, phonation normal NECK: Supple without meningismus; non-tender; no cervical lymphadenopathy, no masses CARD: RRR; no murmurs, no clicks, no rubs, no gallops; symmetric distal pulses RESP: Normal chest excursion without splinting or tachypnea; breath sounds creased bilaterally; no wheezes, no rhonchi, no rales, pulse oximetry 94% on room air not hypoxic ABD/GI: Morbidly obese normal bowel sounds; non-distended; soft, non-tender, no rebound, no guarding; no palpable organomegaly or masses. BACK: The back appears normal and is mildly generally tender to palpation in the lumbar region, there is no CVA tenderness EXT: There is some limitation of range of motion of the lower extremities, there is erythema on the distal left lower extremity with increased warmth extending approximately 4 cm distal to the patella. No blistering. Patient with poor strength in the upper extremities likely from deconditioning SKIN: Normal color for age and race; warm; dry; good turgor NEURO: Moves all extremities equally; Motor and sensory function intact PSYCH: The patient's mood and manner are appropriate. Grooming and personal hygiene are appropriate. MDM: 64-year-old male who is deconditioned brought for evaluation after he slid from a recliner onto the floor and was unable to get him up. Patient is morbidly obese. Apparently home health has not yet come out to help evaluate patient needs. Patient was initially mildly hypoxic here when laying flat likely from his body habitus. When patient sits up he is maintaining his oxygenation at 94% on room air. Patient has generalized weakness in all ext remities pushing and pulling. He is unable to sit up on his own without assistance. stated that she had been told he might have pneumonia or UTI but is not on antibiotics. Will obtain chest x-ray, urinalysis, basic screening labs. I have spoken with Isaiah Menchaca, clinical trial manager will also evaluate the patient TRAVEL OUTSIDE OF THE [place] IN LAST 30 DAYS: No - Related Data Allergies/Adverse Reactions: meperidine [From Demerol] Allergy (Verified 09/12/19 18:24) meperidine HCl [From Demerol] Allergy (Verified 09/12/19 18:24) triazolam [From Halcion] Allergy (Verified 09/12/19 18:24) Home Medications: lasix. finasteride. lisinopril. metoprolol. kcl. tamsulosin Past Medical History - Social History Smoking Status: Never Smoker Chew tobacco use (# tins/day): No Frequency of alcohol use: None Drug Abuse: None Family History: CAD, COPD, DM, Hypertension, Other - Heart attack Patient has suicidal ideation: No Patient has homicidal ideation: No - Past Medical History Cardiac Medical History: Reports: Hx Congestive Heart Failure, Hx Hypertension Denies: Hx Heart Attack Pulmonary Medical History: Reports: Hx COPD, Hx Intubation - March 2017, Hx Respiratory Failure - March 2017 Renal/ Medical History: Denies: Hx Peritoneal Dialysis Musculoskeletal Medical History: Reports Hx Arthritis Skin Medical History: Reports Hx Cellulitis Psychiatric Medical History: Denies: Hx Depression Past Surgical History: Reports: Hx Herniorrhaphy, Hx Oral Surgery, Hx Orthopedic Surgery - bilat knee, Hx Vascular Surgery - L inguinal hernia - Immunizations Hx Diphtheria, Pertussis, Tetanus Vaccination: No Physical Exam - Vital signs Vitals: Temp Pulse Resp BP Pulse Ox 98.2 F 83 22 H 156/73 H 98 10/17/19 06:10 10/17/19 06:10 10/17/19 06:10 10/17/19 06:10 10/17/19 06:10 Course - Re-evaluation Re-evalutation: 10/17/19 13:31 This was discussed with attending. EKG shows sinus tachycardia without the T waves. Patient was noted to be in acute on chronic renal failure with hyperkalemia. I discussed the patient with JACLYN Murray hospitalist service. We discussed the patient's deconditioning, lab findings and case. They will admit the patient. Medical bed under Dr. Mcclure - Vital Signs Vital signs: Temp Pulse Resp BP Pulse Ox 98.6 F 101 H 18 173/93 H 99 10/17/19 11:42 10/17/19 11:42 10/17/19 13:01 10/17/19 13:01 10/17/19 13:01 - Laboratory Result Diagrams: 10/17/19 12:46 10/17/19 09:50 Laboratory results interpreted by me: 10/17/19 10/17/19 10/17/19 09:50 11:15 12:46 RBC 3.10 L Hgb 8.2 L Hct 26.4 L MCH 26.5 L MCHC 31.1 L RDW 18.5 H Plt Count 129 L Seg Neutrophils % 78.7 H Sodium 145.4 H Potassium 5.8 H Chloride 109 H BUN 58 H Creatinine 3.30 H Est GFR ( Amer) 23 L Est GFR (MDRD) Non-Af 19 L Albumin 2.8 L Leukocyte Esterase Rfl TRACE H Discharge - Discharge Clinical Impression: Severe muscle deconditioning Acute on chronic renal failure Qualifiers: Acute renal failure type: unspecified Chronic kidney disease stage: unspecified stage Qualified Code(s): N17.9 - Acute kidney failure, unspecified; N18.9 - Chronic kidney disease, unspecified Condition: Fair Disposition: ADMITTED INPATIENT Admitting Provider: Ren (Hospitalist) Unit Admitted: Medical Floor Referrals: BETH WALTERS PA-C [Primary Care Provider] - Follow up as needed
[2019-10-17 10:33] LABS: ALBUMIN 2.8 g/dL (3.5-5.0); ALKALINE PHOSPHATASE 92 U/L (38-126); ANION GAP 9 (5-19); ASPARTATE AMINO TRANSFERASE 37 U/L (17-59); BILIRUBIN,DIRECT 0.3 mg/dL (0.0-0.4); BILIRUBIN,TOTAL 0.3 mg/dL (0.2-1.3); BLOOD UREA NITROGEN 58 mg/dL (7-20); CALCIUM 8.5 mg/dL (8.4-10.2); CARBON DIOXIDE 27 mmol/L (22-30); CHLORIDE 109 mmol/L (98-107); GLUCOSE 110 mg/dL (75-110); POTASSIUM 5.8 mmol/L (3.6-5.0)
--- NOTE | 2019-10-17 10:50 | RADIOLOGY REPORT (SQ) ---
EXAM DESCRIPTION: CHEST SINGLE VIEW COMPLETED DATE/TIME: 10/17/2019 9:03 am REASON FOR STUDY: cough COMPARISON: 09/12/2019 EXAM PARAMETERS: NUMBER OF VIEWS: One view. TECHNIQUE: Single frontal radiographic view of the chest acquired. RADIATION DOSE: NA LIMITATIONS: None. FINDINGS: LUNGS AND PLEURA: Lungs are hyperinflated. No focal consolidation. Linear atelectasis at the left lung base. No pleural effusion or pneumothorax. MEDIASTINUM AND HILAR STRUCTURES: No masses. Contour normal. HEART AND VASCULAR STRUCTURES: Heart normal in size. Normal vasculature. BONES: No acute findings. HARDWARE: None in the chest. OTHER: No other significant finding. IMPRESSION: Minimal atelectasis at the left lung base. No focal consolidation. TECHNICAL DOCUMENTATION: JOB ID: [id number] [employer]- All Rights Reserved Reading location - IP/workstation name: [email or web address]
[2019-10-17] MEDS ORDERED: OXYCODONE-ACETAMINOPHEN 5-325 MG TABLET PO ONE (11:36)
[2019-10-17 12:57] LABS: APPEARANCE,URINE CLEAR; BILIRUBIN,URINE NEGATIVE (NEGATIVE); COLOR,URINE YELLOW; GLUCOSE, URINE NEGATIVE (NEGATIVE); KETONES,URINE NEGATIVE (NEGATIVE); PROTEIN,URINE NEGATIVE (NEGATIVE); URINE SPECIFIC GRAVITY 1.013; UROBILINOGEN,URINE NEGATIVE mg/dL (<2.0)
--- NOTE | 2019-10-17 13:04 | RADIOLOGY REPORT (SQ) ---
EXAM DESCRIPTION: L SPINE WHOLE COMPLETED DATE/TIME: 10/17/2019 12:44 pm REASON FOR STUDY: back pain COMPARISON: None. NUMBER OF VIEWS: Four views TECHNIQUE: AP, lateral, and oblique radiographic images acquired of the lumbar spine. LIMITATIONS: None. FINDINGS: MINERALIZATION: Normal. SEGMENTATION: Normal. No transitional anatomy. ALIGNMENT: Mild scoliosis. VERTEBRAE: Maintained height. No fracture or worrisome bone lesion. DISCS: All the disc spaces narrowed. Bridging osteophytes is seen at L1-2 at L4-5 with large osteoph ytes elsewhere. POSTERIOR ELEMENTS: Hypertrophic facet changes at multiple levels. HARDWARE: None in the spine. PARASPINAL SOFT TISSUES: Normal. PELVIS: Intact as visualized. No fractures or worrisome bone lesions. SI joints intact. OTHER: No other significant finding. IMPRESSION: Extensive degenerative disc disease, spondylosis, and facet arthropathy. TECHNICAL DOCUMENTATION: JOB ID: [id number] [email or web address]- All Rights Reserved Reading location - IP/workstation name: [email or web address]
[2019-10-17 13:16] LABS: ABSOLUTE EOSINOPHILS # (AUTO) 0.1 10^3/uL (0.0-0.6); ABSOLUTE MONOCYTES (AUTO) 0.5 10^3/uL (0.1-1.4); ABSOLUTE NEUT (AUTO) 5.9 10^3/uL (1.7-8.2); BASOPHILS % (AUTO) 0.5 % (0-2); EOSINOPHILS % (AUTO) 1.3 % (0-6); HEMATOCRIT 26.4 % (37.9-51.0); HEMOGLOBIN 8.2 g/dL (13.5-17.0); LYMPHOCYTES % (AUTO) 13.1 % (13-45); MEAN CORPUSCULAR HEMOGLOBIN 26.5 pg (27.0-33.4); MEAN CORPUSCULAR HGB CONC 31.1 g/dL (32.0-36.0); MEAN CORPUSCULAR VOLUME 85 fl (80-97); MONOCYTES % (AUTO) 6.4 % (3-13); PLATELET COUNT 129 10^3/uL (150-450); RED CELL DISTRIBUTION WIDTH 18.5 % (11.5-14.0); SEGMENTED NEUTROPHILS % (AUTO) 78.7 % (42-78); TOTAL CELLS COUNTED % (AUTO) 100 %; WHITE BLOOD COUNT 7.5 10^3/uL (4.0-10.5)
[2019-10-17] MEDS ORDERED: PATIROMER 8.4 GM SUSP PACKET PO ONE (13:52)
[2019-10-17] MEDS ORDERED: FUROSEMIDE INJ/PF 20 MG/2 ML SDV IV ONE (13:52)
[2019-10-17] MEDS ORDERED: CALCIUM GLUCONATE 1000 MG/10 ML INJ IV ONE (13:59)
[2019-10-17] MEDS: NORMAL SALINE 1000 ML 1,000 ML IV PRN (14:57)
[2019-10-17] MEDS ORDERED: PROMETHAZINE HCL 25 MG TABLET PO PRN (15:23)
[2019-10-17] MEDS ORDERED: PROMETHAZINE HCL INJ 25 MG/1 ML VIAL IV PRN (15:23)
[2019-10-17] MEDS ORDERED: IPRATROPIUM/ALBUTEROL 0.5-2.5 MG/3 ML AMPUL NEB PRN (15:23)
[2019-10-17] MEDS ORDERED: GLUCAGON,HUMAN RECOMB 1 MG INJ IM PRN (15:45)
[2019-10-17] MEDS ORDERED: DEXTROSE 40% GEL 15 GM TUBE PO PRN ×2 (15:45)
[2019-10-17] MEDS ORDERED: DEXTROSE 50%-WATER 25 GM/50 ML DISP.SYRIN IV PRN ×2 (15:45)
--- NOTE | 2019-10-17 16:08 | PDOC H&P ---
History of Present Illness Admission Date/PCP: 10/17/19 15:20 BETH WALTERS PA-C History of Present Illness: ZEINA KRUGER is a 64 year old male who was just discharged home from rehab yesterday after a 3-week admission for generalized weakness. According to the he was here in the hospital for 1 week prior to the rehab, that time he was actually transferring weight and somewhat ambulatory at the time of his hospital discharge. states that the patient fell 2 or 3 days ago while in rehab and hurt his left ankle. states that today he was so weak he could not get up out of a chair and transfer his weight and actually he was that way yesterday when he came home from rehab. States that he was actually weaker following the rehabilitation admission than he was when he went into rehab. Also his left lower leg is starting to get red and warm to the touch again he was in the hospital 1 month ago for cellulitis. He uses a BiPAP machine at home. Appears to have end-stage COPD, also has a history of congestive heart failure, morbid obesity. She is now to be readmitted to the hospital for gentle hydration because his chronic kidney disease appears to have an acute kidney injury, his BUN and creatinine elevated. We will try to gently hydrate the patient, and him on a broad-spectrum IV antibiotic for his left leg cellulitis which is mild at this time, reconsult physical therapy. It appears as though patient will need shelter facility at the time of discharge and placement Past Medical History Cardiac Medical History: Reports: Congestive Heart Failure, Hypertension Denies: Myocardial Infarction Pulmonary Medical History: Reports: Chronic Obstructive Pulmonary Disease ([place]), Intubation - March 2017, Respiratory Failure - March 2017 Musculoskeltal Medical History: Reports: Arthritis Psychiatric Medical History: Denies: Depression Past Surgical History Past Surgical History: Reports: Herniorrhaphy, Orthopedic Surgery - bilat knee, Vascular Surgery - L inguinal hernia Social History Smoking Status: Never Smoker Electronic Cigarette use?: No Frequency of Alcohol Use: None Hx Recreational Drug Use: No Drugs: None Hx Prescription Drug Abuse: No - Advance Directive Resuscitation Status: Full Code Family History Family History: CAD, COPD, DM, Hypertension, Other - Heart attack Parental Family History Reviewed: No Children Family History Reviewed: No Sibling(s) Family History Reviewed.: No Medication/Allergy Allergies/Adverse Reactions: meperidine [From Demerol] Allergy (Verified 09/12/19 18:24) meperidine HCl [From Demerol] Allergy (Verified 09/12/19 18:24) triazolam [From Halcion] Allergy (Verified 09/12/19 18:24) Review of Systems Constitutional: PRESENT: weakness Cardiovascular: ABSENT: chest pain, dyspnea on exertion, edema, orthropnea, palpitations Respiratory: ABSENT: cough, hemoptysis Musculoskeletal: PRESENT: other - Ankle abrasion secondary to a fall Redness to the left calf as well as warmth to the touch Neurological: ABSENT: abnormal gait, abnormal speech, confusion, dizziness, focal weakness, syncope Psychiatric: ABSENT: anxiety, depression, homidical ideation, suicidal ideation Physical Exam Vital Signs: Temp Pulse Resp BP Pulse Ox 98.6 F 101 H 18 173/93 H 99 10/17/19 11:42 10/17/19 11:42 10/17/19 13:01 10/17/19 13:01 10/17/19 13:01 Intake & Output 10/16/19 10/17/19 10/18/19 06:59 06:59 06:59 Weight 172 kg General appearance: PRESENT: mild distress, other - Patient has "guppy" breathing which is normal for the patient according to the Respiratory exam: PRESENT: decreased breath sounds Cardiovascular exam: PRESENT: RRR. ABSENT: diastolic murmur, rubs, systolic murmur Neurological exam: PRESENT: alert, awake, oriented to person, oriented to place, oriented to time, oriented to situation, CN II-XII grossly intact. ABSENT: motor sensory deficit Psychiatric exam: PRESENT: flat affect Results Laboratory Results: 10/17/19 12:46 10/17/19 14:45 10/17/19 10/17/19 10/17/19 09:50 09:50 09:50 WBC Cancelled RBC Cancelled Hgb Cancelled Hct Cancelled MCV Cancelled MCH Cancelled MCHC Cancelled RDW Cancelled Plt Count Cancelled Seg Neutrophils % Cancelled Sodium 145.4 H Potassium 5.8 H Chloride 109 H Carbon Dioxide 27 Anion Gap 9 BUN 58 H Creatinine 3.30 H Est GFR ( Amer) 23 L Glucose 110 Lactic Acid 0.7 Calcium 8.5 Total Bilirubin 0.3 AST 37 Alkaline Phosphatase 92 Total Protein 7.0 Albumin 2.8 L Urine Color Urine Appearance Urine pH Ur Specific Waves Urine Protein Urine Glucose (UA) Urine Ketones Urine Blood Urine Nitrite Ur Leukocyte Esterase Urine WBC (Auto) Urine RBC (Auto) 10/17/19 10/17/19 10/17/19 09:50 11:00 11:15 WBC Cancelled RBC Cancelled Hgb Cancelled Hct Cancelled MCV Cancelled MCH Cancelled MCHC Cancelled RDW Cancelled Plt Count Cancelled Seg Neutrophils % Cancelled Sodium Potassium Chloride Carbon Dioxide Anion Gap BUN Creatinine Est GFR ( Amer) Glucose Lactic Acid Calcium Total Bilirubin AST Alkaline Phosphatase Total Protein Albumin Urine Color Cancelled YELLOW Urine Appearance Cancelled CLEAR Urine pH Cancelled 5.0 Ur Specific Waves Cancelled 1.013 Urine Protein Cancelled NEGATIVE Urine Glucose (UA) Cancelled NEGATIVE Urine Ketones Cancelled NEGATIVE Urine Blood Cancelled NEGATIVE Urine Nitrite Cancelled Ur Leukocyte Esterase Cancelled Urine WBC (Auto) Cancelled Urine RBC (Auto) Cancelled 1 10/17/19 10/17/19 12:46 14:45 WBC 7.5 RBC 3.10 L Hgb 8.2 L Hct 26.4 L MCV 85 MCH 26.5 L MCHC 31.1 L RDW 18.5 H Plt Count 129 L Seg Neutrophils % 78.7 H Sodium Potassium 6.1 H* Chloride Carbon Dioxide Anion Gap BUN Creatinine Est GFR ( Amer) Glucose Lactic Acid Calcium Total Bilirubin AST Alkaline Phosphatase Total Protein Albumin Urine Color Urine Appearance Urine pH Ur Specific Waves Urine Protein Urine Glucose (UA) Urine Ketones Urine Blood Urine Nitrite Ur Leukocyte Esterase Urine WBC (Auto) Urine RBC (Auto) Impressions: Chest X-Ray 10/17/19 09:16 IMPRESSION: Minimal atelectasis at the left lung base. No focal consolidation. Lumbar Spine X-Ray 10/17/19 11:35 IMPRESSION: Extensive degenerative disc disease, spondylosis, and facet arthropathy. Assessment and Plan - Diagnosis (1) Acute on chronic renal failure Qualifiers: Acute renal failure type: unspecified Chronic kidney disease stage: unspecified stage Qualified Code(s): N17.9 - Acute kidney failure, unspecified; N18.9 - Chronic kidney disease, unspecified Is this a current diagnosis for this admission?: Yes (2) Severe muscle deconditioning Is this a current diagnosis for this admission?: Yes (3) COPD (chronic obstructive pulmonary disease) with chronic bronchitis Is this a current diagnosis for this admission?: Yes (4) Cellulitis Qualifiers: Site of cellulitis: extremity Site of cellulitis of extremity: lower extremity Laterality: left Qualified Code(s): L03.116 - Cellulitis of left lower limb Is this a current diagnosis for this admission?: Yes (5) Hyperkalemia Is this a current diagnosis for this admission?: Yes (6) Morbid obesity Is this a current diagnosis for this admission?: Yes - Plan Summary Summary: 10/17/2019 She will be admitted for gentle hydration for acute on chronic kidney disease, spectrum antibiotics for early cellulitis of the left lower extremity, Physical therapy for deconditioning - Time Time Spent with patient: 35 or more minutes
[2019-10-17] MEDS: INSULIN LISPRO 100 UNIT/ML 3 ML VIAL SUBCUT SCH (16:09)
[2019-10-17 16:44] LABS: INTERNATIONAL RATION (INR) 1.19; PROTHROMBIN TIME 15.2 SEC (11.4-15.4)
[2019-10-17 16:59] LABS: ANION GAP 6 (5-19); BLOOD UREA NITROGEN 55 mg/dL (7-20); CALCIUM 8.8 mg/dL (8.4-10.2); CARBON DIOXIDE 28 mmol/L (22-30); CHLORIDE 110 mmol/L (98-107); GLUCOSE 95 mg/dL (75-110)
[2019-10-17] MEDS: SODIUM POLYSTYRENE SULFONATE 15 GM/60 ML PO SCH (17:33)
[2019-10-17] MEDS: TAMSULOSIN HCL 0.4 MG CAP.SR.24H PO SCH (17:33)
[2019-10-17] MEDS: CEFTRIAXONE 2 GM/D5W RTU 2 GM/50 ML RTUPB IV SCH (17:37)
[2019-10-17] MEDS: HYDROXYCHLOROQUINE SULFATE 200 MG TABLET PO SCH (17:55)
[2019-10-17] MEDS: ACETAMINOPHEN 325 MG TABLET PO PRN (17:57)
--- NOTE | 2019-10-17 21:59 | EKG REPORT ---
SEVERITY:- BORDERLINE ECG - SINUS TACHYCARDIA ABERRANT COMPLEX, POSSIBLY SUPRAVENTRICULAR VS ARTIFACT BORDERLINE T WAVE ABNORMALITIES : Confirmed by: Rl Franklin 17-Oct-2019 21:58:25
[2019-10-18] MEDS: HEPARIN SOD (PORCINE) 5,000 UNIT/ML 1 ML VIAL SUBCUT SCH ×4 (00:20→21:58)
[2019-10-18] MEDS: INSULIN LISPRO 100 UNIT/ML 3 ML VIAL SUBCUT SCH ×5 (00:21→21:58)
[2019-10-18] MEDS: FAMOTIDINE 20 MG TABLET PO SCH ×3 (00:22→21:58)
[2019-10-18] MEDS: SODIUM POLYSTYRENE SULFONATE 15 GM/60 ML PO SCH ×3 (00:22→13:52)
[2019-10-18] MEDS: METOPROLOL TARTRATE 25 MG TABLET PO SCH ×3 (00:22→21:58)
[2019-10-18] MEDS: NORMAL SALINE 1000 ML 1,000 ML IV PRN ×2 (00:30→06:24)
[2019-10-18 05:25] LABS: PHOSPHORUS 6.3 mg/dL (2.5-4.5)
--- NOTE | 2019-10-18 07:47 | EKG REPORT ---
SEVERITY:- BORDERLINE ECG - SINUS TACHYCARDIA BORDERLINE T WAVE ABNORMALITIES : Confirmed on behalf of: Rl Franklin 18-Oct-2019 07:46:57
[2019-10-18 09:03] LABS: ABSOLUTE EOSINOPHILS # (AUTO) 0.1 10^3/uL (0.0-0.6); ABSOLUTE LYMPHOCYTES (AUTO) 0.7 10^3/uL (0.5-4.7); ABSOLUTE MONOCYTES (AUTO) 0.5 10^3/uL (0.1-1.4); ABSOLUTE NEUT (AUTO) 4.5 10^3/uL (1.7-8.2); BASOPHILS % (AUTO) 0.7 % (0-2); EOSINOPHILS % (AUTO) 1.5 % (0-6); LYMPHOCYTES % (AUTO) 12.5 % (13-45); MEAN CORPUSCULAR HEMOGLOBIN 26.5 pg (27.0-33.4); MEAN CORPUSCULAR VOLUME 86 fl (80-97); MONOCYTES % (AUTO) 8.6 % (3-13); PLATELET COUNT 142 10^3/uL (150-450); RED BLOOD COUNT 2.93 10^6/uL (4.35-5.55); RED CELL DISTRIBUTION WIDTH 18.1 % (11.5-14.0); SEGMENTED NEUTROPHILS % (AUTO) 76.7 % (42-78); TOTAL CELLS COUNTED % (AUTO) 100 %; WHITE BLOOD COUNT 5.8 10^3/uL (4.0-10.5)
[2019-10-18 10:06] LABS: HEMOGLOBIN 7.8 g/dL (13.5-17.0)
[2019-10-18] MEDS: ACETAMINOPHEN 325 MG TABLET PO PRN (10:48)
[2019-10-18] MEDS: FUROSEMIDE 20 MG TABLET PO SCH (10:48)
[2019-10-18] MEDS: DOCUSATE SODIUM 100 MG CAPSULE PO SCH (10:51)
--- NOTE | 2019-10-18 12:42 | PDOC PROGRESS REPORT ---
Subjective Progress Note for:: 10/18/19 Reason For Visit: AMBULATORY DYSFUNCTION,GENERALIZED WEAKNESS,END 10/18/2019 Patient was admitted with generalized deconditioning after being discharged from rehab 24 hours ago. Patient also has what appears to be early cellulitis reoccurring in the left lower extremity Physical Exam Vital Signs: Temp Pulse Resp BP Pulse Ox 98.1 F 96 18 161/67 H 97 10/18/19 08:11 10/18/19 08:11 10/18/19 08:20 10/18/19 08:11 10/18/19 08:20 Intake & Output 10/17/19 10/18/19 10/19/19 06:59 06:59 06:59 Intake Total 2290 Output Total 1580 Balance 710 Weight 172 kg 157.1 kg General appearance: PRESENT: no acute distress, other - Patient has BiPAP on in bed morning Respiratory exam: PRESENT: decreased breath sounds Cardiovascular exam: PRESENT: RRR. ABSENT: diastolic murmur, rubs, systolic murmur Neurological exam: PRESENT: alert, awake, oriented to person, oriented to place, oriented to time, oriented to situation, CN II-XII grossly intact, other - Patient appears to have no deficit. ABSENT: motor sensory deficit Psychiatric exam: PRESENT: appropriate affect, normal mood. ABSENT: homicidal ideation, suicidal ideation Results Laboratory Results: 10/18/19 08:53 10/17/19 16:25 10/17/19 10/17/19 10/17/19 11:15 12:46 14:45 WBC 7.5 RBC 3.10 L Hgb 8.2 L Hct 26.4 L MCV 85 MCH 26.5 L MCHC 31.1 L RDW 18.5 H Plt Count 129 L Seg Neutrophils % 78.7 H Sodium Potassium 6.1 H* Chloride Carbon Dioxide Anion Gap BUN Creatinine Est GFR ( Amer) Glucose Calcium Phosphorus Magnesium Ammonia TSH Urine Color YELLOW Urine Appearance CLEAR Urine pH 5.0 Ur Specific [place] 1.013 Urine Protein NEGATIVE Urine Glucose (UA) NEGATIVE Urine Ketones NEGATIVE Urine Blood NEGATIVE Urine RBC (Auto) 1 10/17/19 10/17/19 10/17/19 16:25 16:25 16:25 WBC RBC Hgb Hct MCV MCH MCHC RDW Plt Count Seg Neutrophils % Sodium 144.4 Potassium 6.0 H* Chloride 110 H Carbon Dioxide 28 Anion Gap 6 BUN 55 H Creatinine 3.00 H Est GFR ( Amer) 26 L Glucose 95 Calcium 8.8 Phosphorus Magnesium Ammonia 12.3 TSH 1.14 Urine Color Urine Appearance Urine pH Ur Specific [place] Urine Protein Urine Glucose (UA) Urine Ketones Urine Blood Urine RBC (Auto) 10/18/19 10/18/19 10/18/19 04:27 04:27 06:24 WBC Cancelled Cancelled RBC Cancelled Cancelled Hgb Cancelled Cancelled Hct Cancelled Cancelled MCV Cancelled Cancelled MCH Cancelled Cancelled MCHC Cancelled Cancelled RDW Cancelled Cancelled Plt Count Cancelled Cancelled Seg Neutrophils % Cancelled Cancelled Sodium Potassium Chloride Carbon Dioxide Anion Gap BUN Creatinine Est GFR ( Amer) Glucose Calcium Phosphorus 6.3 H Magnesium 2.1 Ammonia TSH Urine Color Urine Appearance Urine pH Ur Specific [place] Urine Protein Urine Glucose (UA) Urine Ketones Urine Blood Urine RBC (Auto) 10/18/19 08:53 WBC 5.8 RBC 2.93 L Hgb 7.8 L Hct 25.0 L MCV 86 MCH 26.5 L MCHC 31.0 L RDW 18.1 H Plt Count 142 L Seg Neutrophils % 76.7 Sodium Potassium Chloride Carbon Dioxide Anion Gap BUN Creatinine Est GFR ( Amer) Glucose Calcium Phosphorus Magnesium Ammonia TSH Urine Color Urine Appearance Urine pH Ur Specific [place] Urine Protein Urine Glucose (UA) Urine Ketones Urine Blood Urine RBC (Auto) 10/17/19 16:25 NT-Pro-B Natriuret Pep 273 H Impressions: Chest X-Ray 10/17/19 09:16 IMPRESSION: Minimal atelectasis at the left lung base. No focal consolidation. Lumbar Spine X-Ray 10/17/19 11:35 IMPRESSION: Extensive degenerative disc disease, spondylosis, and facet arthropathy. Assessment and Plan - Diagnosis (1) Acute on chronic renal failure Qualifiers: Acute renal failure type: unspecified Chronic kidney disease stage: unspecified stage Qualified Code(s): N17.9 - Acute kidney failure, unspecified; N18.9 - Chronic kidney disease, unspecified Is this a current diagnosis for this admission?: Yes (2) Severe muscle deconditioning Is this a current diagnosis for this admission?: Yes (3) COPD (chronic obstructive pulmonary disease) with chronic bronchitis Is this a current diagnosis for this admission?: Yes (4) Cellulitis Qualifiers: Site of cellulitis: extremity Site of cellulitis of extremity: lower extremity Laterality: left Qualified Code(s): L03.116 - Cellulitis of left lower limb Is this a current diagnosis for this admission?: Yes (5) Hyperkalemia Is this a current diagnosis for this admission?: Yes (6) Morbid obesity Is this a current diagnosis for this admission?: Yes - Plan Summary Summary: 10/17/2019 She will be admitted for gentle hydration for acute on chronic kidney disease, spectrum antibiotics for early cellulitis of the left lower extremity, Physical therapy for deconditioning 10/18/2019 Temperature 98.1 pulse 104 blood pressure 102/56 and O2 sat 98% on either BiPAP or nasal cannula White count 5.8 hemoglobin 7.8 Chemistry panel is pending from today Urine culture showing no growth in 1 day, Castro is draining "pink" fluid Chest x-ray shows atelectasis in the left base Getting IV Rocephin, also p.o. Kayexalate for his potassium level yesterday Discharge planning and physical therapy is pending. Patient was discussed in CAPS rounds - Time Time Spent with patient: 15-24 minutes
[2019-10-18 14:54] LABS: BLOOD UREA NITROGEN 43 mg/dL (7-20); CALCIUM 8.3 mg/dL (8.4-10.2); GLUCOSE 98 mg/dL (75-110)
[2019-10-18] MEDS: HYDROXYCHLOROQUINE SULFATE 200 MG TABLET PO SCH ×2 (14:58→18:28)
[2019-10-18 15:03] LABS: ANION GAP 5 (5-19); CARBON DIOXIDE 29 mmol/L (22-30); CHLORIDE 112 mmol/L (98-107); POTASSIUM 5.5 mmol/L (3.6-5.0)
[2019-10-18] MEDS ORDERED: SODIUM POLYSTYRENE SULFONATE 15 GM/60 ML PO ONE (18:00)
[2019-10-18] MEDS: CEFTRIAXONE 2 GM/D5W RTU 2 GM/50 ML RTUPB IV SCH (18:28)
[2019-10-18] MEDS: TAMSULOSIN HCL 0.4 MG CAP.SR.24H PO SCH (18:28)
[2019-10-19] MEDS: NORMAL SALINE 1000 ML 1,000 ML IV PRN ×2 (01:15→13:23)
[2019-10-19] MEDS: ACETAMINOPHEN 325 MG TABLET PO PRN (02:58)
[2019-10-19] MEDS: HEPARIN SOD (PORCINE) 5,000 UNIT/ML 1 ML VIAL SUBCUT SCH ×3 (05:19→22:40)
[2019-10-19 05:31] LABS: ABSOLUTE EOSINOPHILS # (AUTO) 0.1 10^3/uL (0.0-0.6); ABSOLUTE LYMPHOCYTES (AUTO) 0.8 10^3/uL (0.5-4.7); ABSOLUTE MONOCYTES (AUTO) 0.5 10^3/uL (0.1-1.4); ABSOLUTE NEUT (AUTO) 4.5 10^3/uL (1.7-8.2); BASOPHILS % (AUTO) 0.6 % (0-2); EOSINOPHILS % (AUTO) 1.7 % (0-6); HEMATOCRIT 23.4 % (37.9-51.0); LYMPHOCYTES % (AUTO) 12.9 % (13-45); MEAN CORPUSCULAR HEMOGLOBIN 27.2 pg (27.0-33.4); MEAN CORPUSCULAR HGB CONC 31.9 g/dL (32.0-36.0); MEAN CORPUSCULAR VOLUME 85 fl (80-97); MONOCYTES % (AUTO) 8.1 % (3-13); PLATELET COUNT 106 10^3/uL (150-450); RED BLOOD COUNT 2.75 10^6/uL (4.35-5.55); RED CELL DISTRIBUTION WIDTH 17.9 % (11.5-14.0); SEGMENTED NEUTROPHILS % (AUTO) 76.7 % (42-78); TOTAL CELLS COUNTED % (AUTO) 100 %; WHITE BLOOD COUNT 5.9 10^3/uL (4.0-10.5)
[2019-10-19 05:36] LABS: HEMOGLOBIN 7.5 g/dL (13.5-17.0)
[2019-10-19 05:51] LABS: ANION GAP 6 (5-19); BLOOD UREA NITROGEN 39 mg/dL (7-20); CALCIUM 7.9 mg/dL (8.4-10.2); CARBON DIOXIDE 29 mmol/L (22-30); CHLORIDE 112 mmol/L (98-107); GLUCOSE 103 mg/dL (75-110); POTASSIUM 5.5 mmol/L (3.6-5.0)
[2019-10-19] MEDS: INSULIN LISPRO 100 UNIT/ML 3 ML VIAL SUBCUT SCH ×4 (09:10→22:40)
[2019-10-19] MEDS ORDERED: METOPROLOL TARTRATE 25 MG TABLET PO SCH (10:00)
[2019-10-19] MEDS ORDERED: HYDROXYCHLOROQUINE SULFATE 200 MG TABLET PO SCH (10:00)
[2019-10-19] MEDS: FINASTERIDE 5 MG TABLET PO SCH (10:49)
[2019-10-19] MEDS: FUROSEMIDE 20 MG TABLET PO SCH ×3 (10:49→17:37)
[2019-10-19] MEDS: FAMOTIDINE 20 MG TABLET PO SCH ×2 (10:49→22:42)
[2019-10-19] MEDS: TAMSULOSIN HCL 0.4 MG CAP.SR.24H PO SCH (10:49)
[2019-10-19] MEDS: METOPROLOL TARTRATE 25 MG TABLET PO SCH ×2 (10:49→22:40)
[2019-10-19] MEDS: HYDROXYCHLOROQUINE SULFATE 200 MG TABLET PO SCH ×2 (10:49→17:37)
[2019-10-19] MEDS: DOCUSATE SODIUM 100 MG CAPSULE PO SCH (10:50)
--- NOTE | 2019-10-19 14:16 | PDOC PROGRESS REPORT ---
Subjective Progress Note for:: 10/19/19 Reason For Visit: AMBULATORY DYSFUNCTION,GENERALIZED WEAKNESS,END 10/19/2019 Left lower extremity cellulitis, ambulatory dysfunction, generalized weakness, acute on chronic renal failure, COPD exacerbation, obesity Physical Exam Vital Signs: Temp Pulse Resp BP Pulse Ox 97.6 F 87 20 121/45 L 99 10/19/19 08:00 10/19/19 08:00 10/19/19 12:55 10/19/19 08:00 10/19/19 12:55 Intake & Output 10/18/19 10/19/19 10/20/19 06:59 06:59 06:59 Intake Total 2290 2230 1000 Output Total 1580 2600 Balance 710 -370 1000 Weight 157.1 kg 157.5 kg General appearance: PRESENT: no acute distress, other - Patient has his BiPAP machine on however he is talking through the mask in full sentences Respiratory exam: PRESENT: clear to auscultation karyna. ABSENT: rales, rhonchi, wheezes Cardiovascular exam: PRESENT: RRR. ABSENT: diastolic murmur, rubs, systolic murmur Extremities exam: PRESENT: other - Less redness to the left lower extremity, chronic venous stasis, less edema Neurological exam: PRESENT: alert, awake, oriented to person, oriented to place, oriented to time, oriented to situation, CN II-XII grossly intact. ABSENT: motor sensory deficit Psychiatric exam: PRESENT: appropriate affect, normal mood. ABSENT: homicidal ideation, suicidal ideation Results Laboratory Results: 10/19/19 05:00 10/19/19 05:06 10/18/19 10/19/19 10/19/19 14:04 05:00 05:06 WBC 5.9 RBC 2.75 L Hgb 7.5 L Hct 23.4 L MCV 85 MCH 27.2 MCHC 31.9 L RDW 17.9 H Plt Count 106 L Seg Neutrophils % 76.7 Sodium 146.3 H 146.7 H Potassium 5.5 H 5.5 H Chloride 112 H 112 H Carbon Dioxide 29 29 Anion Gap 5 6 BUN 43 H 39 H Creatinine 2.51 H 2.21 H Est GFR ( Amer) 31 L 36 L Glucose 98 103 Calcium 8.3 L 7.9 L 10/17/19 16:25 NT-Pro-B Natriuret Pep 273 H Impressions: Chest X-Ray 10/17/19 09:16 IMPRESSION: Minimal atelectasis at the left lung base. No focal consolidation. Lumbar Spine X-Ray 10/17/19 11:35 IMPRESSION: Extensive degenerative disc disease, spondylosis, and facet arthropathy. Assessment and Plan - Diagnosis (1) Acute on chronic renal failure Qualifiers: Acute renal failure type: unspecified Chronic kidney disease stage: unspecified stage Qualified Code(s): N17.9 - Acute kidney failure, unspecified; N18.9 - Chronic kidney disease, unspecified Is this a current diagnosis for this admission?: Yes (2) Severe muscle deconditioning Is this a current diagnosis for this admission?: Yes (3) COPD (chronic obstructive pulmonary disease) with chronic bronchitis Is this a current diagnosis for this admission?: Yes (4) Cellulitis Qualifiers: Site of cellulitis: extremity Site of cellulitis of extremity: lower extremity Laterality: left Qualified Code(s): L03.116 - Cellulitis of left lower limb Is this a current diagnosis for this admission?: Yes (5) Hyperkalemia Is this a current diagnosis for this admission?: Yes (6) Morbid obesity Is this a current diagnosis for this admission?: Yes (7) Chronic venous stasis Is this a current diagnosis for this admission?: Yes - Plan Summary Summary: 10/17/2019 He will be admitted for gentle hydration for acute on chronic kidney disease, spectrum antibiotics for early cellulitis of the left lower extremity, Physical therapy for deconditioning 10/18/2019 Temperature 98.1 pulse 104 blood pressure 102/56 and O2 sat 98% on either BiPAP or nasal cannula White count 5.8 hemoglobin 7.8 Chemistry panel is pending from today Urine culture showing no growth in 1 day, Castro is draining "pink" fluid Chest x-ray shows atelectasis in the left base Getting IV Rocephin, also p.o. Kayexalate for his potassium level yesterday Discharge planning and physical therapy is pending. Patient was discussed in CAPS rounds 10/19/2019 vital signs are stable patient's oxygen saturations 97% on either BiPAP or 3 L IV fluid running at 100/h patient is getting Rocephin as well as Lasix. Urine culture negative at 24 hours BUN is down to 39 creatinine is down to 2.21 Hemoglobin is stable at 7.5 White count normal at 5.9 Potassium still slightly high at 5.5, will give 2 doses of Kayexalate today Cellulitis of left lower extremity is significantly better secondary to elevation as well as Rocephin Anticipate discharge on Monday to halfway facility with rehab - Time Time Spent with patient: 25-34 minutes
[2019-10-19] MEDS: CEFTRIAXONE 2 GM/D5W RTU 2 GM/50 ML RTUPB IV SCH (17:38)
[2019-10-19] MEDS ORDERED: FUROSEMIDE INJ/PF 40 MG/4 ML SDV IV ONE (21:15)
[2019-10-19] MEDS: GABAPENTIN 100 MG CAPSULE PO SCH (22:40)
--- NOTE | 2019-10-19 23:30 | RADIOLOGY REPORT (SQ) ---
EXAM DESCRIPTION: XR CHEST 1 VIEW COMPLETED DATE/TME: 10/19/2019 00:00 CLINICAL HISTORY: 64 years, Male, possible fluid overload COMPARISON: 10/17/2019 chest x-ray NUMBER OF VIEWS: 1 TECHNIQUE: Portable chest LIMITATIONS: None. FINDINGS: Heart size is stable. Lungs are clear. No pneumothorax IMPRESSION: No acute cardiopulmonary process copyright 2011 [employer]- All Rights Reserved
[2019-10-20] MEDS: ACETAMINOPHEN 325 MG TABLET PO PRN (04:38)
[2019-10-20 05:50] LABS: ABSOLUTE EOSINOPHILS # (AUTO) 0.1 10^3/uL (0.0-0.6); ABSOLUTE LYMPHOCYTES (AUTO) 0.8 10^3/uL (0.5-4.7); ABSOLUTE MONOCYTES (AUTO) 0.6 10^3/uL (0.1-1.4); ABSOLUTE NEUT (AUTO) 5.5 10^3/uL (1.7-8.2); BASOPHILS % (AUTO) 0.5 % (0-2); EOSINOPHILS % (AUTO) 1.2 % (0-6); HEMATOCRIT 24.1 % (37.9-51.0); MEAN CORPUSCULAR HEMOGLOBIN 27.1 pg (27.0-33.4); MEAN CORPUSCULAR HGB CONC 31.4 g/dL (32.0-36.0); MEAN CORPUSCULAR VOLUME 86 fl (80-97); MONOCYTES % (AUTO) 8.9 % (3-13); PLATELET COUNT 118 10^3/uL (150-450); RED CELL DISTRIBUTION WIDTH 17.8 % (11.5-14.0); SEGMENTED NEUTROPHILS % (AUTO) 78.4 % (42-78); TOTAL CELLS COUNTED % (AUTO) 100 %
[2019-10-20 06:01] LABS: HEMOGLOBIN 7.6 g/dL (13.5-17.0)
[2019-10-20] MEDS: GABAPENTIN 100 MG CAPSULE PO SCH ×3 (06:23→21:37)
[2019-10-20] MEDS: HEPARIN SOD (PORCINE) 5,000 UNIT/ML 1 ML VIAL SUBCUT SCH ×3 (06:23→21:33)
[2019-10-20] MEDS: INSULIN LISPRO 100 UNIT/ML 3 ML VIAL SUBCUT SCH ×4 (08:12→21:33)
[2019-10-20 08:20] LABS: ANION GAP 5 (5-19); BLOOD UREA NITROGEN 38 mg/dL (7-20); CALCIUM 8.4 mg/dL (8.4-10.2); CARBON DIOXIDE 30 mmol/L (22-30); CHLORIDE 110 mmol/L (98-107); GLUCOSE 91 mg/dL (75-110); POTASSIUM 4.9 mmol/L (3.6-5.0)
[2019-10-20] MEDS: HYDROXYCHLOROQUINE SULFATE 200 MG TABLET PO SCH ×2 (10:26→17:58)
[2019-10-20] MEDS: TAMSULOSIN HCL 0.4 MG CAP.SR.24H PO SCH (10:26)
[2019-10-20] MEDS: FUROSEMIDE 20 MG TABLET PO SCH ×2 (10:26→17:59)
[2019-10-20] MEDS: DOCUSATE SODIUM 100 MG CAPSULE PO SCH (10:26)
[2019-10-20] MEDS: FAMOTIDINE 20 MG TABLET PO SCH ×2 (10:26→21:34)
[2019-10-20] MEDS: FINASTERIDE 5 MG TABLET PO SCH (10:26)
[2019-10-20] MEDS: METOPROLOL TARTRATE 25 MG TABLET PO SCH ×2 (10:26→21:36)
[2019-10-20 11:19] LABS: ARTERIAL BLOOD BASE EXCESS 8.3 mmol/L; ARTERIAL BLOOD FIO2 40%; ARTERIAL BLOOD H2CO3 2.31 mmol/L (1.05-1.35); ARTERIAL BLOOD HCO3 36.1 mmol/L (20-24); ARTERIAL BLOOD O2 SATURATION 96.1 % (94-98); ARTERIAL BLOOD PH 7.29 (7.35-7.45); ARTERIAL BLOOD PO2 94.6 mmHg (80-100); ARTERIAL BLOOD TOTAL CO2 38.5 mmol/L (23-27)
[2019-10-20 11:23] LABS: ARTERIAL BLOOD PCO2 76.7 mmHg (35-45)
--- NOTE | 2019-10-20 12:35 | RADIOLOGY REPORT (SQ) ---
EXAM DESCRIPTION: CT HEAD WITHOUT COMPLETED DATE/TIME: 10/20/2019 11:14 am REASON FOR STUDY: change in LOC. COMPARISON: None. TECHNIQUE: Axial images acquired through the brain without intravenous contrast. Images reviewed wi th bone, brain and subdural windows. Images stored on PACS. All CT scanners at this facility use dose modulation, iterative reconstruction, and/or weight based d osing when appropriate to reduce radiation dose to as low as reasonably achievable (ALARA). [facility]: Dose Right [facility]: CareDose [facility]: Dose Right [facility]: Teradose 4D [facility]: Smart [employer] RADIATION DOSE: CT Rad equipment meets quality standard of care and radiation dose reduction techniq ues were employed. CTDIvol: 53.2 mGy. DLP: 1070 mGy-cm. mGy. LIMITATIONS: None. FINDINGS: VENTRICLES: Normal size and contour. CEREBRUM: No masses. No hemorrhage. No midline shift. No evidence for acute infarction. Normal gra y/white matter differentiation. No areas of low density in the white matter. There is intracranial a therosclerosis. CEREBELLUM: No masses. No hemorrhage. No alteration of density. No evidence for acute infarction. EXTRAAXIAL SPACES: No fluid collections. No masses. ORBITS AND GLOBE: No intra- or extraconal masses. Normal contour of globe without masses. CALVARIUM: No fracture. PARANASAL SINUSES: No fluid or mucosal thickening. SOFT TISSUES: No mass or hematoma. OTHER: No other significant finding. IMPRESSION: No acute intracranial hemorrhage, mass, or evidence of acute territorial infarct. EVIDENCE OF ACUTE STROKE: NO. COMMENT: Quality ID # [id number]: Final reports with documentation of one or more dose reduction techniques (e.g., Automated exposure control, adjustment of the mA and/or kV according to patient size, use of iterative reconstruction technique) TECHNICAL DOCUMENTATION: JOB ID: [id number] [employer]- All Rights Reserved Reading location - IP/workstation name: [email or web address]
[2019-10-20 14:39] LABS: ARTERIAL BLOOD BASE EXCESS 1.6 mmol/L; ARTERIAL BLOOD FIO2 30%; ARTERIAL BLOOD H2CO3 1.76 mmol/L (1.05-1.35); ARTERIAL BLOOD HCO3 28.3 mmol/L (20-24); ARTERIAL BLOOD O2 SATURATION 97.1 % (94-98); ARTERIAL BLOOD PCO2 58.4 mmHg (35-45); ARTERIAL BLOOD PO2 104.1 mmHg (80-100); ARTERIAL BLOOD TOTAL CO2 30.1 mmol/L (23-27)
[2019-10-20 17:44] LABS: ARTERIAL BLOOD BASE EXCESS 7.4 mmol/L; ARTERIAL BLOOD HCO3 34.4 mmol/L (20-24); ARTERIAL BLOOD O2 SATURATION 97.5 % (94-98); ARTERIAL BLOOD PCO2 66.5 mmHg (35-45); ARTERIAL BLOOD PH 7.33 (7.35-7.45); ARTERIAL BLOOD PO2 109.8 mmHg (80-100); ARTERIAL BLOOD TOTAL CO2 36.5 mmol/L (23-27)
[2019-10-20 17:45] LABS: ARTERIAL BLOOD FIO2 30%
[2019-10-20] MEDS ORDERED: FUROSEMIDE INJ/PF 20 MG/2 ML SDV ONE (17:51)
[2019-10-20] MEDS: CEFTRIAXONE 2 GM/D5W RTU 2 GM/50 ML RTUPB IV SCH (17:54)
[2019-10-20] MEDS ORDERED: FUROSEMIDE INJ/PF 20 MG/2 ML SDV IV ONE (18:00)
[2019-10-21] MEDS: ACETAMINOPHEN 325 MG TABLET PO PRN ×3 (00:33→21:22)
[2019-10-21] MEDS: GABAPENTIN 100 MG CAPSULE PO SCH ×4 (06:01→23:23)
[2019-10-21] MEDS: HEPARIN SOD (PORCINE) 5,000 UNIT/ML 1 ML VIAL SUBCUT SCH ×3 (06:01→21:20)
[2019-10-21] MEDS: INSULIN LISPRO 100 UNIT/ML 3 ML VIAL SUBCUT SCH ×4 (08:04→21:20)
--- NOTE | 2019-10-21 10:53 | PDOC PROGRESS REPORT ---
Subjective Progress Note for:: 10/21/19 Reason For Visit: AMBULATORY DYSFUNCTION,GENERALIZED WEAKNESS,END 10/21/2019 She was admitted for generalized weakness , end-stage COPD exacerbation, leg cellulitis, acute on chronic kidney injury, hyperkalemia, chronic venous stasis, morbid obesity Physical Exam Vital Signs: Temp Pulse Resp BP Pulse Ox 98.1 F 80 16 118/50 L 100 10/21/19 07:22 10/21/19 07:22 10/21/19 09:12 10/21/19 07:22 10/21/19 07:22 Intake & Output 10/20/19 10/21/19 10/22/19 06:59 06:59 06:59 Intake Total 3290 2115 Output Total 4100 1600 Balance -810 515 Weight 156.4 kg 157 kg General appearance: PRESENT: mild distress, other - Secondary to end-stage COPD Respiratory exam: PRESENT: decreased breath sounds Cardiovascular exam: PRESENT: RRR. ABSENT: diastolic murmur, rubs, systolic murmur Neurological exam: PRESENT: altered, other - Sleeping with BiPAP but arouses to voice command and answers questions appropriately Psychiatric exam: PRESENT: unusual affect Results Laboratory Results: 10/20/19 05:26 10/20/19 07:55 10/20/19 10/20/19 10/20/19 11:00 14:15 17:10 Carbonic Acid 2.31 H 1.76 H 2.00 H HCO3/H2CO3 Ratio 15:1 16:1 17:1 ABG pH 7.29 L 7.30 L 7.33 L ABG pCO2 76.7 H* 58.4 H 66.5 H ABG pO2 94.6 104.1 H 109.8 H ABG HCO3 36.1 H 28.3 H 34.4 H ABG O2 Saturation 96.1 97.1 97.5 ABG Base Excess 8.3 1.6 7.4 FiO2 40% 30% 30% 10/17/19 10/20/19 16:25 07:55 NT-Pro-B Natriuret Pep 273 H 969 H Impressions: Lumbar Spine X-Ray 10/17/19 11:35 IMPRESSION: Extensive degenerative disc disease, spondylosis, and facet arthropathy. Chest X-Ray 10/19/19 00:00 IMPRESSION: No acute cardiopulmonary process copyright 2011 [employer]- All Rights Reserved Head CT 10/20/19 00:00 IMPRESSION: No acute intracranial hemorrhage, mass, or evidence of acute territorial infarct. EVIDENCE OF ACUTE STROKE: NO. Assessment and Plan - Diagnosis (1) Acute on chronic renal failure Qualifiers: Acute renal failure type: unspecified Chronic kidney disease stage: unspecified stage Qualified Code(s): N17.9 - Acute kidney failure, unspecified; N18.9 - Chronic kidney disease, unspecified Is this a current diagnosis for this admission?: Yes (2) Severe muscle deconditioning Is this a current diagnosis for this admission?: Yes (3) COPD (chronic obstructive pulmonary disease) with chronic bronchitis Is this a current diagnosis for this admission?: Yes (4) Cellulitis Qualifiers: Site of cellulitis: extremity Site of cellulitis of extremity: lower extremity Laterality: left Qualified Code(s): L03.116 - Cellulitis of left lower limb Is this a current diagnosis for this admission?: Yes (5) Hyperkalemia Is this a current diagnosis for this admission?: Yes (6) Morbid obesity Is this a current diagnosis for this admission?: Yes (7) Chronic venous stasis Is this a current diagnosis for this admission?: Yes - Plan Summary Summary: 10/17/2019 He will be admitted for gentle hydration for acute on chronic kidney disease, spectrum antibiotics for early cellulitis of the left lower extremity, Physical therapy for deconditioning 10/18/2019 Temperature 98.1 pulse 104 blood pressure 102/56 and O2 sat 98% on either BiPAP or nasal cannula White count 5.8 hemoglobin 7.8 Chemistry panel is pending from today Urine culture showing no growth in 1 day, Castro is draining "pink" fluid Chest x-ray shows atelectasis in the left base Getting IV Rocephin, also p.o. Kayexalate for his potassium level yesterday Discharge planning and physical therapy is pending. Patient was discussed in CAPS rounds 10/19/2019 vital signs are stable patient's oxygen saturations 97% on either BiPAP or 3 L IV fluid running at 100/h patient is getting Rocephin as well as Lasix. Urine culture negative at 24 hours BUN is down to 39 creatinine is down to 2.21 Hemoglobin is stable at 7.5 White count normal at 5.9 Potassium still slightly high at 5.5, will give 2 doses of Kayexalate today Cellulitis of left lower extremity is significantly better secondary to elevation as well as Rocephin Anticipate discharge on Monday to group home facility with rehab 10/20/2019 Long discussion with his today. Tells me that this is the "fifth" episode where the patient has had significant respiratory problems in the last 2 years, in fact was in the hospital for 4 months in 2017, in the ICU for several weeks, had a tracheostomy performed. Patient's is never really had good to life since that time. His states that she does not want him to be intubated should he worsen but agrees with resuscitation efforts. I saw the patient in the emergency room on the night of admission and I DC'd his BiPAP, however he was placed back on BiPAP and ever since his oxygen saturations have been in the upper 90s he has been more confused and more lethargic. Reviewing the chart patient seems to do the best when his sats are in the upper 80s are very low 90s. Currently working with his BiPAP settings and blood gases with respiratory therapy. Involuntary muscle twitches and tremors that he is having he has had before, they seem to occur when he is got a higher oxygen saturation as well. For this I have started gabapentin. Today temp is 98 1 pulse 91 blood pressure 117/83 IPAP nasal cannula at 3 L FiO2 at 40%. First initial blood gas earlier today the pH is 7.29 PCO2 of 76 PO2 of 94 bicarb of 36. Second blood gas allowing BiPAP changes is pending. CBC is 7000 hemoglobin is stable at 7.6. Urine cultures positive for yeast CHEST XRAY DONE YESTERDAY IS CLEAR. Showing no infiltrates no edema. IV fluids are KVO. 10/21/2019 Please see the note above about the worsening medical condition over the last 2 years. I have called respiratory therapy and explained to them that I would like to keep his oxygen saturation between about 90 and 95%. Current settings inspiratory pressure 16 expiratory pressure 8 rate of 8 FiO2 of 30% with a flow rate of 3 L. Reviewing his previous settings this appears to be where he does the best Another blood gas is pending cbc is normal, renal functions are improving IV fluids are at KVO Currently on Rocephin Lasix 20 mg twice daily Neurontin 100 mg every 8 hours which I am going to increase today slightly Evidently when patient was discharged from the hospital to [place] about 4 weeks ago he was doing well from a respiratory standpoint and was able to get up and walk around the room and then when he was admitted to the emergency room he was so weak he could not get up out of bed he was having more respiratory trouble. It appears to be making progress now once again from a respiratory standpoint. Also states that patient was taking a bunch of medications and Premier that he had been on before such as antidepressants and muscle relaxants. . - Time Time Spent with patient: 35 or more minutes
[2019-10-21] MEDS: FUROSEMIDE 20 MG TABLET PO SCH ×2 (10:58→17:55)
[2019-10-21] MEDS: FAMOTIDINE 20 MG TABLET PO SCH ×2 (10:58→21:22)
[2019-10-21] MEDS: METOPROLOL TARTRATE 25 MG TABLET PO SCH ×2 (10:58→21:21)
[2019-10-21] MEDS: DOCUSATE SODIUM 100 MG CAPSULE PO SCH (10:58)
[2019-10-21] MEDS: TAMSULOSIN HCL 0.4 MG CAP.SR.24H PO SCH (10:58)
[2019-10-21] MEDS: HYDROXYCHLOROQUINE SULFATE 200 MG TABLET PO SCH ×2 (11:00→17:55)
[2019-10-21] MEDS: FINASTERIDE 5 MG TABLET PO SCH (11:01)
[2019-10-21 13:18] LABS: ARTERIAL BLOOD BASE EXCESS 8.5 mmol/L; ARTERIAL BLOOD FIO2 30%; ARTERIAL BLOOD H2CO3 1.97 mmol/L (1.05-1.35); ARTERIAL BLOOD HCO3 35.2 mmol/L (20-24); ARTERIAL BLOOD O2 SATURATION 96.9 % (94-98); ARTERIAL BLOOD PCO2 65.5 mmHg (35-45); ARTERIAL BLOOD PH 7.35 (7.35-7.45); ARTERIAL BLOOD PO2 98.6 mmHg (80-100); ARTERIAL BLOOD TOTAL CO2 37.2 mmol/L (23-27)
[2019-10-21] MEDS: CEFTRIAXONE 2 GM/D5W RTU 2 GM/50 ML RTUPB IV SCH (17:54)
[2019-10-21] MEDS: NORMAL SALINE 1000 ML 1,000 ML IV PRN (21:25)
[2019-10-22] MEDS: HEPARIN SOD (PORCINE) 5,000 UNIT/ML 1 ML VIAL SUBCUT SCH ×3 (05:25→21:20)
[2019-10-22] MEDS: GABAPENTIN 100 MG CAPSULE PO SCH ×4 (05:30→23:16)
[2019-10-22] MEDS: INSULIN LISPRO 100 UNIT/ML 3 ML VIAL SUBCUT SCH ×4 (07:34→21:20)
[2019-10-22] MEDS: DOCUSATE SODIUM 100 MG CAPSULE PO SCH (09:14)
[2019-10-22] MEDS: FINASTERIDE 5 MG TABLET PO SCH (09:14)
[2019-10-22] MEDS: TAMSULOSIN HCL 0.4 MG CAP.SR.24H PO SCH (09:14)
[2019-10-22] MEDS: METOPROLOL TARTRATE 25 MG TABLET PO SCH ×2 (09:14→21:22)
[2019-10-22] MEDS: FUROSEMIDE 20 MG TABLET PO SCH ×2 (09:14→17:35)
[2019-10-22] MEDS: FAMOTIDINE 20 MG TABLET PO SCH ×2 (09:14→21:22)
[2019-10-22] MEDS: HYDROXYCHLOROQUINE SULFATE 200 MG TABLET PO SCH ×2 (09:14→17:35)
[2019-10-22 11:03] LABS: MEAN CORPUSCULAR HGB CONC 32.1 g/dL (32.0-36.0); MEAN CORPUSCULAR VOLUME 84 fl (80-97); PLATELET COUNT 139 10^3/uL (150-450); RED BLOOD COUNT 2.73 10^6/uL (4.35-5.55); RED CELL DISTRIBUTION WIDTH 17.6 % (11.5-14.0); WHITE BLOOD COUNT 4.6 10^3/uL (4.0-10.5)
[2019-10-22 11:08] LABS: HEMOGLOBIN 7.4 g/dL (13.5-17.0)
[2019-10-22 11:28] LABS: ANION GAP 5 (5-19); BLOOD UREA NITROGEN 26 mg/dL (7-20); CALCIUM 8.4 mg/dL (8.4-10.2); CARBON DIOXIDE 36 mmol/L (22-30); CHLORIDE 101 mmol/L (98-107); GLUCOSE 119 mg/dL (75-110); POTASSIUM 4.3 mmol/L (3.6-5.0)
[2019-10-22] MEDS: ACETAMINOPHEN 325 MG TABLET PO PRN ×2 (11:37→21:23)
[2019-10-22] MEDS ORDERED: NORMAL SALINE 250 ML IV PRN ×2 (12:37)
--- NOTE | 2019-10-22 13:05 | PDOC PROGRESS REPORT ---
Subjective Progress Note for:: 10/22/19 Subjective:: The patient is a 64-year-old male with a past medical history significant for CHF, COPD, diabetes, CKD 3, arthritis, morbid obesity, and LITO who was admitted 10/17/2019 for acute on chronic respiratory failure, COPD with bronchitis, severe muscle deconditioning, and ambulatory dysfunction. Patient was seen on morning rounds. He was found resting in bed comfortably on supplemental oxygen via nasal cannula. He reports continued fatigue and generalized weakness but denies all other complaints. He reports that he has not been able to get out of bed with the assistance of physical therapy yet. He denies fever, chills, chest pain, palpitations, dyspnea, orthopnea, abdominal pain, nausea, vomiting, diarrhea. He has no other questions or concerns. No concerns per nursing. Reason For Visit: AMBULATORY DYSFUNCTION,GENERALIZED WEAKNESS,END Physical Exam Vital Signs: Temp Pulse Resp BP Pulse Ox 97.3 F 106 H 18 130/61 H 96 10/22/19 08:00 10/22/19 08:00 10/22/19 08:00 10/22/19 08:00 10/22/19 08:00 Intake & Output 10/21/19 10/22/19 10/23/19 06:59 06:59 06:59 Intake Total 2115 1557 Output Total 1600 2700 Balance 515 -1143 Weight 157 kg 151.7 kg General appearance: PRESENT: no acute distress, cooperative, morbidly obese, well-developed, well-nourished Head exam: PRESENT: atraumatic, normocephalic Eye exam: PRESENT: conjunctiva pink, EOMI, PERRLA. ABSENT: scleral icterus Ear exam: PRESENT: normal external ear exam Mouth exam: PRESENT: moist, tongue midline Neck exam: ABSENT: carotid bruit, JVD, lymphadenopathy, thyromegaly Respiratory exam: PRESENT: clear to auscultation karyna, decreased breath sounds - Throughout secondary to body habitus, poor inspiratory effort, and positioning, symmetrical, unlabored, other - Supplemental oxygen by nasal cannula. ABSENT: rales, rhonchi, wheezes Cardiovascular exam: PRESENT: RRR, +S1, +S2. ABSENT: diastolic murmur, rubs, systolic murmur Pulses: PRESENT: normal dorsalis pedis pul Vascular exam: PRESENT: normal capillary refill GI/Abdominal exam: PRESENT: normal bowel sounds, soft. ABSENT: distended, guarding, mass, organolmegaly, rebound, tenderness Rectal exam: PRESENT: deferred Extremities exam: PRESENT: full ROM. ABSENT: calf tenderness, clubbing, pedal edema Neurological exam: PRESENT: alert, awake, oriented to person, oriented to place, oriented to time, oriented to situation, CN II-XII grossly intact, other - Fatigued. ABSENT: motor sensory deficit Psychiatric exam: PRESENT: appropriate affect, normal mood. ABSENT: homicidal ideation, suicidal ideation Skin exam: PRESENT: dry, intact, warm. ABSENT: cyanosis, rash Results Laboratory Results: 10/22/19 10:43 10/22/19 10:43 10/18/19 10/21/19 10/22/19 06:24 11:06 10:43 WBC Cancelled 4.6 RBC Cancelled 2.73 L Hgb Cancelled 7.4 L Hct Cancelled 23.0 L MCV Cancelled 84 MCH Cancelled 27.0 MCHC Cancelled 32.1 RDW Cancelled 17.6 H Plt Count Cancelled 139 L Seg Neutrophils % Cancelled Carbonic Acid 1.97 H HCO3/H2CO3 Ratio 17:1 ABG pH 7.35 ABG pCO2 65.5 H ABG pO2 98.6 ABG HCO3 35.2 H ABG O2 Saturation 96.9 ABG Base Excess 8.5 FiO2 30% Sodium Potassium Chloride Carbon Dioxide Anion Gap BUN Creatinine Est GFR ( Amer) Glucose Calcium 10/22/19 10:43 WBC RBC Hgb Hct MCV MCH MCHC RDW Plt Count Seg Neutrophils % Carbonic Acid HCO3/H2CO3 Ratio ABG pH ABG pCO2 ABG pO2 ABG HCO3 ABG O2 Saturation ABG Base Excess FiO2 Sodium 142.4 Potassium 4.3 Chloride 101 Carbon Dioxide 36 H Anion Gap 5 BUN 26 H Creatinine 1.69 H Est GFR ( Amer) 50 L Glucose 119 H Calcium 8.4 10/17/19 10/20/19 16:25 07:55 NT-Pro-B Natriuret Pep 273 H 969 H Impressions: Lumbar Spine X-Ray 10/17/19 11:35 IMPRESSION: Extensive degenerative disc disease, spondylosis, and facet arthropathy. Chest X-Ray 10/19/19 00:00 IMPRESSION: No acute cardiopulmonary process copyright 2011 [employer]- All Rights Reserved Head CT 10/20/19 00:00 IMPRESSION: No acute intracranial hemorrhage, mass, or evidence of acute territorial infarct. EVIDENCE OF ACUTE STROKE: NO. Assessment and Plan - Diagnosis (1) Anemia Qualifiers: Anemia type: iron deficiency Iron deficiency anemia type: unspecified iron deficiency Qualified Code(s): D50.9 - Iron deficiency anemia, unspecified Is this a current diagnosis for this admission?: Yes Plan: Hemoglobin 7.8; has drifted down to 7.4 with IV fluids and antibiotics. Given the patient's chronic respiratory failure, weakness, and fatigue, will transfuse 2 units PRBC. No evidence of active blood loss at this time; likely related to iron deficiency anemia and CKD 3. Hemoccult pending. Daily multivitamin with iron supplementation. (2) Acute on chronic renal failure Qualifiers: Acute renal failure type: unspecified Chronic kidney disease stage: unspecified stage Qualified Code(s): N17.9 - Acute kidney failure, unspecified; N18.9 - Chronic kidney disease, unspecified Is this a current diagnosis for this admission?: Yes Plan: Patient with CKD 3; baseline creatinine of 1.3. Improved this admission; now down to 1.69. Continue to encourage p.o. fluids. Avoid nephrotoxic medications as able. Have resumed patient's home dose furosemide; optimize cardiac output. We will address anemia as below. Follow-up chemistry. (3) Chronic venous stasis Is this a current diagnosis for this admission?: Yes Plan: Stable and without evidence of acute cellulitis at this time. Patient has a normal WBCs; has remained afebrile throughout his admission. Will discontinue ceftriaxone today; received 5 days of therapy. (4) Severe muscle deconditioning Is this a current diagnosis for this admission?: Yes Plan: PT/OT consulted. Discharge planning consulted. (5) COPD (chronic obstructive pulmonary disease) with chronic bronchitis Is this a current diagnosis for this admission?: Yes Plan: Acute exacerbation has resolved. Patient remains on supplemental oxygen via nasal cannula 2 L/min. He denies previous evaluation by pulmonology. Previous provider was concerned that the patient may have end-stage COPD, obesity hypoventilation syndrome, and LITO. Fortunately, Dr. Block is available for consultation. Appreciate his evaluation and recommendations. Continue supplemental oxygen as needed to maintain saturations greater than 89%. Continue as needed nebulizer treatments. BiPAP as needed. Encourage pulmonary toilet with incentive spirometer and flutter valve. (6) Cellulitis Qualifiers: Site of cellulitis: extremity Site of cellulitis of extremity: lower extremity Laterality: left Qualified Code(s): L03.116 - Cellulitis of left lower limb Is this a current diagnosis for this admission?: Yes Plan: Resolved. No evidence of erythema, edema, or drainage on exam. Patient remains afebrile with normal WBCs. Completed a 5-day course of IV Rocephin. (7) Hyperkalemia Is this a current diagnosis for this admission?: Yes Plan: Resolved. (8) Morbid obesity Is this a current diagnosis for this admission?: Yes Plan: BMI of 45.4. PT/OT consulted. Registered dietitian consulted. - Time Time Spent with patient: 35 or more minutes Medications reviewed and adjusted accordingly: Yes Anticipated discharge: SNF Within: within 72 hours
[2019-10-23] MEDS: GABAPENTIN 100 MG CAPSULE PO SCH ×2 (06:05→12:12)
[2019-10-23] MEDS: HEPARIN SOD (PORCINE) 5,000 UNIT/ML 1 ML VIAL SUBCUT SCH ×3 (06:05→21:52)
[2019-10-23] MEDS: INSULIN LISPRO 100 UNIT/ML 3 ML VIAL SUBCUT SCH ×4 (08:19→21:53)
[2019-10-23 08:43] LABS: ABSOLUTE EOSINOPHILS # (AUTO) 0.1 10^3/uL (0.0-0.6); ABSOLUTE LYMPHOCYTES (AUTO) 0.7 10^3/uL (0.5-4.7); ABSOLUTE MONOCYTES (AUTO) 0.5 10^3/uL (0.1-1.4); ABSOLUTE NEUT (AUTO) 3.6 10^3/uL (1.7-8.2); BASOPHILS % (AUTO) 0.5 % (0-2); EOSINOPHILS % (AUTO) 1.9 % (0-6); HEMATOCRIT 27.7 % (37.9-51.0); LYMPHOCYTES % (AUTO) 13.7 % (13-45); MEAN CORPUSCULAR HEMOGLOBIN 27.2 pg (27.0-33.4); MEAN CORPUSCULAR HGB CONC 32.5 g/dL (32.0-36.0); MEAN CORPUSCULAR VOLUME 84 fl (80-97); MONOCYTES % (AUTO) 11.1 % (3-13); PLATELET COUNT 146 10^3/uL (150-450); RED BLOOD COUNT 3.32 10^6/uL (4.35-5.55); RED CELL DISTRIBUTION WIDTH 17.4 % (11.5-14.0); SEGMENTED NEUTROPHILS % (AUTO) 72.8 % (42-78); TOTAL CELLS COUNTED % (AUTO) 100 %; WHITE BLOOD COUNT 4.9 10^3/uL (4.0-10.5)
[2019-10-23] MEDS: FINASTERIDE 5 MG TABLET PO SCH (09:43)
[2019-10-23] MEDS: HYDROXYCHLOROQUINE SULFATE 200 MG TABLET PO SCH ×2 (09:43→18:33)
[2019-10-23] MEDS: FUROSEMIDE 20 MG TABLET PO SCH ×2 (09:43→18:30)
[2019-10-23] MEDS: METOPROLOL TARTRATE 25 MG TABLET PO SCH ×2 (09:43→21:55)
[2019-10-23] MEDS: MULTIVITAMIN TABLET PO SCH (09:43)
[2019-10-23] MEDS: FAMOTIDINE 20 MG TABLET PO SCH ×2 (09:43→21:55)
[2019-10-23] MEDS: FERROUS SULFATE 325 MG TABLET PO SCH (09:43)
[2019-10-23] MEDS: TAMSULOSIN HCL 0.4 MG CAP.SR.24H PO SCH (09:43)
[2019-10-23] MEDS: DOCUSATE SODIUM 100 MG CAPSULE PO SCH (09:43)
[2019-10-23] MEDS ORDERED: HALOPERIDOL 2 MG TABLET PO PRN (12:09)
--- NOTE | 2019-10-23 14:07 | PDOC CONSULTATION ---
Consultation Consult Date: 10/22/19 Attending physician:: ELLIOTT SEO Provider Consulted: RICK CHAVIS Consult reason:: Hypercapnic respiratory failure, obstructive sleep apnea, obesity hypoventilation syndrome History of Present Illness Admission Date/PCP: 10/17/19 15:20 BETH WALTERS PA-C History of Present Illness: ZEINA KRUGER is a 64 year old male presenting to the ED using increasing shortness of breath was found found to have hypercapnia respiratory failure and was started on noninvasive positive pressure ventilation his confusion improved over the matter of time he admits to shortness of breath as well as dyspnea on exertion is wearing oxygen at home. Admits occasional cough productive of clear phlegm he denies hemoptysis PPD status unknown. He denies history of chronic lung disease as a child or adolescent. He denies exposure to passive smoke as a child. He admits to smoking 2 packs a day for 35 years but has not smoked in the last 20 years. 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 He has 1 dog, denies recent travel he denies angina-like chest pain sleeps on 3-4 pillows; occasional PND occasional nocturnal cough chronic edema he admits to snoring restless sleep nocturia 4-5 times per night unrestful sleep and carries a diagnosis of obstructive sleep apnea. Past Medical History Cardiac Medical History: Reports: Congestive Heart Failure, Hypertension Denies: Myocardial Infarction Pulmonary Medical History: Reports: Chronic Obstructive Pulmonary Disease (COPD), Intubation - March 2017, Respiratory Failure - March 2017 Neurological Medical History: Reports: Multiple Sclerosis Endocrine Medical History: Reports: Obesity Renal/ Medical History: Reports: Chronic Kidney Disease GI Medical History: Denies: Crohn's Disease, Ulcerative Colitis Musculoskeltal Medical History: Reports: Arthritis Psychiatric Medical History: Denies: Depression Hematology: Denies: Sickle Cell Disease Infectious Medical History: Denies: Methicillin-Resistant Staph Aureus Past Surgical History Past Surgical History: Reports: Herniorrhaphy, Orthopedic Surgery - bilat knee, Vascular Surgery - L inguinal hernia Social History Information Source: Patient, [facility] Records Smoking Status: Former Smoker Cigarettes Packs Per Day: 2 Number of Years Smokin Frequency of Alcohol Use: None Hx Recreational Drug Use: No Drugs: None Hx Prescription Drug Abuse: No Do you have pets?: Yes Have you had any respiratory illnesses as a child?: No Have you been exposed to any sick contacts recently?: No Have you had any recent respiratory illnesses?: No Have you travelled outside of [place] in the past 12 months?: No - Advance Directive Resuscitation Status: Full Code Family History Family History: CAD, COPD, DM, Hypertension, Other - Heart attack Parental Family History Reviewed: Yes Children Family History Reviewed: Yes Sibling(s) Family History Reviewed.: Yes Medication/Allergy Home Medications: Finasteride [Proscar 5 mg Tablet] 5 mg PO DAILY 10/17/19 Furosemide [Lasix 20 mg Tablet] 20 mg PO BID 10/17/19 Hydroxychloroquine Sulfate [Plaquenil 200 mg Tablet] 200 mg PO BID 10/17/19 Ipratropium/Albuterol Sulfate [Duoneb 3 ml Ampul] 1 vial NEB BIDP PRN 10/17/19 Metoprolol Tartrate [Lopressor 25 mg Tablet] 25 mg PO Q12 10/17/19 Potassium Chloride [Klor-Con 10 Meq Tablet ER] 20 meq PO DAILY 10/17/19 Tamsulosin HCl [Flomax 0.4 mg Cap.sr] 0.4 mg PO DAILY 10/17/19 Allergies/Adverse Reactions: meperidine [From Demerol] Allergy (Verified 09/12/19 18:24) meperidine HCl [From Demerol] Allergy (Verified 09/12/19 18:24) triazolam [From Halcion] Allergy (Verified 09/12/19 18:24) Review of Systems All systems: reviewed and no additional remarkable complaints except as stated Physical Exam Vital Signs: Temp Pulse Resp BP Pulse Ox 98.7 F 78 23 H 137/76 H 90 L 10/22/19 12:00 10/22/19 14:00 10/22/19 14:19 10/22/19 12:00 10/22/19 14:19 Intake & Output 10/21/19 10/22/19 10/23/19 06:59 06:59 06:59 Intake Total 2115 1557 1480 Output Total 1600 2700 Balance 515 -1143 1480 Weight 157 kg 151.7 kg General appearance: PRESENT: no acute distress, cooperative, disheveled, morbidly obese, well-developed, well-nourished Head exam: PRESENT: atraumatic, normocephalic Eye exam: PRESENT: conjunctiva pale, EOMI. ABSENT: nystagmus, scleral icterus Mouth exam: PRESENT: dry mucosa, neck supple, tongue midline Teeth exam: PRESENT: poor dentation Neck exam: ABSENT: carotid bruit, full ROM, JVD, lymphadenopathy, meningismus, tenderness, thyromegaly, tracheal deviation, tracheostomy, other Respiratory exam: PRESENT: crackles, decreased breath sounds, prolonged expiratory phas, rhonchi, unlabored, wheezes. ABSENT: retraction, stridor, tachypnea Cardiovascular exam: PRESENT: RRR, +S1, +S2 Pulses: PRESENT: normal radial pulses GI/Abdominal exam: PRESENT: soft. ABSENT: guarding, mass, rebound, tenderness Extremities exam: PRESENT: pedal edema. ABSENT: calf tenderness, clubbing, joint swelling, tenderness Musculoskeletal exam: ABSENT: ambulatory, deformity, dislocation Neurological exam: PRESENT: altered, awake Psychiatric exam: PRESENT: appropriate affect Skin exam: PRESENT: dry, warm Results Laboratory Results: 10/22/19 10:43 10/22/19 10:43 10/18/19 10/22/19 10/22/19 06:24 10:43 10:43 WBC Cancelled 4.6 RBC Cancelled 2.73 L Hgb Cancelled 7.4 L Hct Cancelled 23.0 L MCV Cancelled 84 MCH Cancelled 27.0 MCHC Cancelled 32.1 RDW Cancelled 17.6 H Plt Count Cancelled 139 L Seg Neutrophils % Cancelled Sodium 142.4 Potassium 4.3 Chloride 101 Carbon Dioxide 36 H Anion Gap 5 BUN 26 H Creatinine 1.69 H Est GFR ( Amer) 50 L Glucose 119 H Calcium 8.4 10/17/19 10/20/19 16:25 07:55 NT-Pro-B Natriuret Pep 273 H 969 H Impressions: Lumbar Spine X-Ray 10/17/19 11:35 IMPRESSION: Extensive degenerative disc disease, spondylosis, and facet arthropathy. Chest X-Ray 10/19/19 00:00 IMPRESSION: No acute cardiopulmonary process copyright 2011 [employer]- All Rights Reserved Head CT 10/20/19 00:00 IMPRESSION: No acute intracranial hemorrhage, mass, or evidence of acute territorial infarct. EVIDENCE OF ACUTE STROKE: NO. Assessment & Plan - Diagnosis (1) Obesity, Class III, BMI 40-49.9 (morbid obesity) Is this a current diagnosis for this admission?: Yes (2) Extreme obesity with alveolar hypoventilation Is this a current diagnosis for this admission?: Yes Plan: The above patient has failed BiPAP with a patent airway. This patient would benefit from noninvasive mechanical ventilation via the trilogy AVAPS/AE and faster responding AVAPS rates. The trilogy is able to provide a target tidal volume and also adjusting the EPAP pressures to maintain a patent airway as well as an oral backup rate this machine will help improve PaCO2 levels. The severity of the patient's condition will lead to future hospitalizations and readmissions as well as life-threatening situations without the use of this device day and night. Trilogy home vent needed for hypercapnic respiratory failure. [facility] or [facility] to follow for trilogy set up. (3) Acute respiratory failure with hypoxia and hypercapnia Is this a current diagnosis for this admission?: Yes Plan: Continue supplemental oxygen and noninvasive positive pressure ventilation (4) Pulmonary hypertension Is this a current diagnosis for this admission?: Yes Plan: Consider right heart catheterization as an outpatient (5) Pulmonary emphysema Qualifiers: Emphysema type: centrilobular Qualified Code(s): J43.2 - Centrilobular emphysema Is this a current diagnosis for this admission?: Yes Plan: Generic Name Dose Route Start Last Admin Trade Name Freq PRN Reason Stop Dose Admin Albuterol/Ipratropium 3 ml 10/17/19 15:23 10/18/19 02:21 Duoneb 3 Ml Ampul NEB 11/16/19 15:22 3 ml [id number] PRN SHORTNESS OF BREATH Consider adding Symbicort and Incruse - Time Time Spent with patient: 50
[2019-10-23] MEDS ORDERED: UMECLIDINIUM BROMIDE 62.5 MCG/DOSE IH SCH (15:30)
--- NOTE | 2019-10-23 15:37 | PDOC PROGRESS REPORT ---
Subjective Progress Note for:: 10/23/19 Subjective:: The patient is a 64-year-old male with a past medical history significant for CHF, COPD, diabetes, CKD 3, arthritis, morbid obesity, and LITO who was admitted 10/17/2019 for acute on chronic respiratory failure, COPD with bronchitis, severe muscle deconditioning, and ambulatory dysfunction. Patient was seen on morning rounds with his present; he defers to her to answer most questions. However, he is A&Ox4 and can recall most of the events from last night when he describes becoming confused and detatching his blood tubing by mistake. He was found resting in bed comfortably on supplemental oxygen via nasal cannula; eating his lunch. He reports continued fatigue and generalized weakness but does feel improved today following transfusion. notes that he is more alert today, though continues to have intermittent confusion increased from his baseline. H He denies fever, chills, chest pain, palpitations, dyspnea, orthopnea, abdominal pain, nausea, vomiting, diarrhea. Reports good appetite. They have no other questions or concerns. No concerns per nursing. Reason For Visit: AMBULATORY DYSFUNCTION,GENERALIZED WEAKNESS,END Physical Exam Vital Signs: Temp Pulse Resp BP Pulse Ox 98.9 F 93 20 124/62 91 L 10/23/19 12:00 10/23/19 12:00 10/23/19 12:00 10/23/19 12:00 10/23/19 12:00 Intake & Output 10/22/19 10/23/19 10/24/19 06:59 06:59 06:59 Intake Total 1557 3758 Output Total 2700 1950 Balance -1143 1808 Weight 151.7 kg 159 kg General appearance: PRESENT: no acute distress, cooperative, morbidly obese, well-developed, well-nourished Head exam: PRESENT: atraumatic, normocephalic Eye exam: PRESENT: conjunctiva pink, EOMI, PERRLA. ABSENT: scleral icterus Ear exam: PRESENT: normal external ear exam Mouth exam: PRESENT: moist, tongue midline Teeth exam: PRESENT: poor dentation Respiratory exam: PRESENT: clear to auscultation karyna, decreased breath sounds - Throughout secondary to body habitus, poor inspiratory effort, and positioning, symmetrical, unlabored. ABSENT: rales, rhonchi, wheezes Cardiovascular exam: PRESENT: RRR, +S1, +S2. ABSENT: diastolic murmur, rubs, systolic murmur Pulses: PRESENT: normal dorsalis pedis pul Vascular exam: PRESENT: normal capillary refill GI/Abdominal exam: PRESENT: normal bowel sounds, soft. ABSENT: distended, guarding, mass, organolmegaly, rebound, tenderness Rectal exam: PRESENT: deferred Gentrourinary exam: PRESENT: indwelling catheter Extremities exam: PRESENT: full ROM. ABSENT: calf tenderness, clubbing, pedal edema Neurological exam: PRESENT: alert, awake, oriented to person, oriented to place, oriented to time, oriented to situation, CN II-XII grossly intact, other - In termittent forgetfulness/confusion. ABSENT: motor sensory deficit Psychiatric exam: PRESENT: appropriate affect, normal mood. ABSENT: homicidal ideation, suicidal ideation Skin exam: PRESENT: dry, intact, warm. ABSENT: cyanosis, rash Results Laboratory Results: 10/23/19 08:17 10/22/19 10:43 10/22/19 10/23/19 13:55 08:17 WBC 4.9 RBC 3.32 L Hgb 9.0 L Hct 27.7 L MCV 84 MCH 27.2 MCHC 32.5 RDW 17.4 H Plt Count 146 L Seg Neutrophils % 72.8 Blood Type O POSITIVE Antibody Screen NEGATIVE 10/17/19 10/20/19 16:25 07:55 NT-Pro-B Natriuret Pep 273 H 969 H Impressions: Lumbar Spine X-Ray 10/17/19 11:35 IMPRESSION: Extensive degenerative disc disease, spondylosis, and facet arthropathy. Chest X-Ray 10/19/19 00:00 IMPRESSION: No acute cardiopulmonary process copyright 2011 [employer]- All Rights Reserved Head CT 10/20/19 00:00 IMPRESSION: No acute intracranial hemorrhage, mass, or evidence of acute t erritorial infarct. EVIDENCE OF ACUTE STROKE: NO. Assessment and Plan - Diagnosis (1) Anemia Qualifiers: Anemia type: iron deficiency Iron deficiency anemia type: unspecified iron deficiency Qualified Code(s): D50.9 - Iron deficiency anemia, unspecified Is this a current diagnosis for this admission?: Yes Plan: Hemoglobin 7.8; has drifted down to 7.4 with IV fluids and antibiotics. No evidence of active blood loss at this time; likely related to iron deficiency anemia and CKD 3. Hemoccult pending. Now s/p 2 units PRBC; Hgb -> 9.0 Daily multivitamin with iron supplementation. (2) Acute on chronic renal failure Qualifiers: Acute renal failure type: unspecified Chronic kidney disease stage: unspecified stage Qualified Code(s): N17.9 - Acute kidney failure, unspecified; N18.9 - Chronic kidney disease, unspecified Is this a current diagnosis for this admission?: Yes Plan: Patient with CKD 3; baseline creatinine of 1.3. Improved this admission; now down to 1.69. Continue to encourage p.o. fluids. Avoid nephrotoxic medications as able. Have resumed patient's home dose furosemide; optimize cardiac output. Follow-up chemistry. (3) Chronic venous stasis Is this a current diagnosis for this admission?: Yes Plan: Stable and without evidence of acute cellulitis at this time. Patient has a normal WBCs; has remained afebrile throughout his admission. Have discontinued ceftriaxone; received 5 days of therapy. (4) Severe muscle deconditioning Is this a current diagnosis for this admission?: Yes Plan: PT/OT consulted. Discharge planning consulted. (5) COPD (chronic obstructive pulmonary disease) with chronic bronchitis Is this a current diagnosis for this admission?: Yes Plan: Acute exacerbation has resolved. Patient remains on supplemental oxygen via nasal cannula 2 L/min. He denies previous evaluation by pulmonology. Previous provider was concerned that the patient may have end-stage COPD, obesity hypoventilation syndrome, and LITO. ortunately, Dr. Block is available for consultation. Appreciate his evaluation and recommendations. Continue supplemental oxygen as needed to maintain saturations greater than 89%. Continue as needed nebulizer treatments. BiPAP as needed. Dr. Block has recommended Incruse and Spiriva; patient placed on Trelegy (on formulary) Encourage pulmonary toilet with incentive spirometer and flutter valve. (6) Morbid obesity Is this a current diagnosis for this admission?: Yes Plan: BMI of 45.4 with resultant obesity hypoventilation syndrome. PT/OT consulted. Registered dietitian consulted. (7) Extreme obesity with alveolar hypoventilation Is this a current diagnosis for this admission?: Yes Plan: Pulmonology is consulted; appreciate Dr. Block's assistance. Arrangements being made for trilogy device. Remaining management as above. (8) Pulmonary hypertension Is this a current diagnosis for this admission?: Yes Plan: Cardiology follow-up as an outpatient to consider right heart catheterization (9) Hyperkalemia Is this a current diagnosis for this admission?: Yes Plan: Resolved. (10) Cellulitis Qualifiers: Site of cellulitis: extremity Site of cellulitis of extremity: lower extremity Laterality: left Qualified Code(s): L03.116 - Cellulitis of left lower limb Is this a current diagnosis for this admission?: Yes Plan: Resolved. No evidence of erythema, edema, or drainage on exam. Patient remains afebrile with normal WBCs. Completed a 5-day course of IV Rocephin. - Time Time Spent with patient: 25-34 minutes Medications reviewed and adjusted accordingly: Yes Anticipated discharge: Home with Homehealth Within: within 72 hours
[2019-10-23] MEDS: FLUTICASONE/UMECLIDIN/VILANTER 100-62.5-25 MCG/DOSE IH SCH (18:30)
[2019-10-23] MEDS: ACETAMINOPHEN 325 MG TABLET PO PRN (21:56)
[2019-10-24] MEDS ORDERED: HALOPERIDOL 2 MG TABLET ONE (01:57)
[2019-10-24] MEDS: ACETAMINOPHEN 325 MG TABLET PO PRN ×3 (03:18→22:26)
[2019-10-24] MEDS: HEPARIN SOD (PORCINE) 5,000 UNIT/ML 1 ML VIAL SUBCUT SCH ×3 (05:05→21:22)
[2019-10-24 05:15] LABS: HEMATOCRIT 25.8 % (37.9-51.0); HEMOGLOBIN 8.4 g/dL (13.5-17.0); MEAN CORPUSCULAR HEMOGLOBIN 27.1 pg (27.0-33.4); MEAN CORPUSCULAR HGB CONC 32.5 g/dL (32.0-36.0); MEAN CORPUSCULAR VOLUME 84 fl (80-97); PLATELET COUNT 162 10^3/uL (150-450); RED BLOOD COUNT 3.09 10^6/uL (4.35-5.55); RED CELL DISTRIBUTION WIDTH 17.4 % (11.5-14.0); WHITE BLOOD COUNT 4.8 10^3/uL (4.0-10.5)
[2019-10-24 05:34] LABS: ANION GAP 5 (5-19); BLOOD UREA NITROGEN 27 mg/dL (7-20); CALCIUM 8.6 mg/dL (8.4-10.2); CARBON DIOXIDE 37 mmol/L (22-30); CHLORIDE 101 mmol/L (98-107); GLUCOSE 84 mg/dL (75-110); POTASSIUM 4.4 mmol/L (3.6-5.0)
[2019-10-24] MEDS ORDERED: FLUTICASONE/VILANTEROL 100-25 MCG/DOSE IH SCH (10:00)
[2019-10-24] MEDS: INSULIN LISPRO 100 UNIT/ML 3 ML VIAL SUBCUT SCH ×4 (10:04→21:21)
[2019-10-24] MEDS: TAMSULOSIN HCL 0.4 MG CAP.SR.24H PO SCH ×2 (10:07→12:11)
[2019-10-24] MEDS: DOCUSATE SODIUM 100 MG CAPSULE PO SCH ×2 (10:07→12:11)
[2019-10-24] MEDS: FERROUS SULFATE 325 MG TABLET PO SCH ×2 (10:08→12:11)
[2019-10-24] MEDS: FUROSEMIDE 20 MG TABLET PO SCH ×3 (10:08→17:00)
[2019-10-24] MEDS: MULTIVITAMIN TABLET PO SCH ×2 (10:08→12:12)
[2019-10-24] MEDS: FAMOTIDINE 20 MG TABLET PO SCH ×4 (10:08→22:27)
[2019-10-24] MEDS: FINASTERIDE 5 MG TABLET PO SCH ×2 (10:08→12:11)
[2019-10-24] MEDS: METOPROLOL TARTRATE 25 MG TABLET PO SCH ×4 (10:08→22:26)
[2019-10-24 11:20] LABS: ARTERIAL BLOOD BASE EXCESS 9.8 mmol/L; ARTERIAL BLOOD H2CO3 2.16 mmol/L (1.05-1.35); ARTERIAL BLOOD HCO3 37.7 mmol/L (20-24); ARTERIAL BLOOD O2 SATURATION 97.1 % (94-98); ARTERIAL BLOOD PH 7.34 (7.35-7.45); ARTERIAL BLOOD PO2 102.6 mmHg (80-100); ARTERIAL BLOOD TOTAL CO2 39.9 mmol/L (23-27)
[2019-10-24 11:21] LABS: ARTERIAL BLOOD FIO2 30%
[2019-10-24 11:22] LABS: ARTERIAL BLOOD PCO2 71.6 mmHg (35-45)
[2019-10-24] MEDS: HYDROXYCHLOROQUINE SULFATE 200 MG TABLET PO SCH ×2 (12:01→17:00)
[2019-10-24] MEDS ORDERED: ALBUTEROL SULFATE 0.083% NEB 2.5 MG/3 ML AMPUL NEB PRN (12:34)
--- NOTE | 2019-10-24 12:39 | PDOC PROGRESS REPORT ---
Subjective Progress Note for:: 10/24/19 Subjective:: The patient is a 64-year-old male with a past medical history significant for CHF, COPD, diabetes, CKD 3, arthritis, morbid obesity, and LITO who was admitted 10/17/2019 for acute on chronic respiratory failure, COPD with bronchitis, severe muscle deconditioning, and ambulatory dysfunction. Patient was seen on morning rounds; no family members present at this time. He was found resting in bed on BiPAP. He is somnolent; does respond to sternal rub, but does not wake fully, answer questions, or follow directions. He is noted to have hand and foot twitching. Nursing reports that he has been sleeping all morning. Overnight, the patient became agitated and removed his IV. He was administered Haldol 2 mg p.o. at that time and has been sleeping soundly since. ROS is otherwise limited. Nursing asks to leave IV out; instructed that we do need to obtain IV access. Reason For Visit: AMBULATORY DYSFUNCTION,GENERALIZED WEAKNESS,END Physical Exam Vital Signs: Temp Pulse Resp BP Pulse Ox 98.0 F 94 17 144/77 H 94 10/24/19 07:34 10/24/19 08:50 10/24/19 12:12 10/24/19 07:34 10/24/19 12:12 Intake & Output 10/23/19 10/24/19 10/25/19 06:59 06:59 06:59 Intake Total 3758 1120 Output Total 1950 1600 Balance 1808 -480 Weight 159 kg 162.2 kg General appearance: PRESENT: mild distress, morbidly obese, well-developed, well-nourished Head exam: PRESENT: atraumatic, normocephalic Eye exam: PRESENT: conjunctiva pink, EOMI, PERRLA. ABSENT: scleral icterus Ear exam: PRESENT: normal external ear exam Mouth exam: PRESENT: moist, tongue midline Teeth exam: PRESENT: poor dentation Neck exam: ABSENT: carotid bruit, JVD, lymphadenopathy, thyromegaly Respiratory exam: PRESENT: decreased breath sounds - Throughout secondary to body habitus, poor inspiratory effort, positioning, prolonged expiratory phas, symmetrical, unlabored, other - BiPAP. ABSENT: rales, rhonchi, wheezes Cardiovascular exam: PRESENT: RRR, +S1, +S2. ABSENT: diastolic murmur, rubs, systolic murmur Pulses: PRESENT: normal dorsalis pedis pul Vascular exam: PRESENT: normal capillary refill GI/Abdominal exam: PRESENT: normal bowel sounds, soft. ABSENT: distended, guarding, mass, organolmegaly, rebound, tenderness Rectal exam: PRESENT: deferred Gentrourinary exam: PRESENT: indwelling catheter Extremities exam: PRESENT: full ROM. ABSENT: calf tenderness, clubbing, pedal edema Neurological exam: PRESENT: CN II-XII grossly intact, other - Somnolent; respond s to sternal rub but does not wake fully. ABSENT: motor sensory deficit Skin exam: PRESENT: dry, intact, warm. ABSENT: cyanosis, rash Results Laboratory Results: 10/24/19 04:28 10/24/19 04:28 10/24/19 10/24/19 10/24/19 04:28 04:28 10:05 WBC 4.8 RBC 3.09 L Hgb 8.4 L Hct 25.8 L MCV 84 MCH 27.1 MCHC 32.5 RDW 17.4 H Plt Count 162 Carbonic Acid 2.16 H HCO3/H2CO3 Ratio 17:1 ABG pH 7.34 L ABG pCO2 71.6 H* ABG pO2 102.6 H ABG HCO3 37.7 H ABG O2 Saturation 97.1 ABG Base Excess 9.8 FiO2 30% Sodium 142.5 Potassium 4.4 Chloride 101 Carbon Dioxide 37 H Anion Gap 5 BUN 27 H Creatinine 1.57 H Est GFR ( Amer) 54 L Glucose 84 Calcium 8.6 10/17/19 10/20/19 16:25 07:55 NT-Pro-B Natriuret Pep 273 H 969 H Impressions: Lumbar Spine X-Ray 10/17/19 11:35 IMPRESSION: Extensive degenerative disc disease, spondylosis, and facet arthropathy. Chest X-Ray 10/19/19 00:00 IMPRESSION: No acute cardiopulmonary process copyright 2011 [employer]- All Rights Reserved Head CT 10/20/19 00:00 IMPRESSION: No acute intracranial hemorrhage, mass, or evidence of acute territorial infarct. EVIDENCE OF ACUTE STROKE: NO. Assessment and Plan - Diagnosis (1) Acute respiratory failure with hypoxia and hypercapnia Is this a current diagnosis for this admission?: Yes Plan: Secondary to COPD, obesity hypoventilation syndrome, pulmonary hypertension, CHF. ABG today shows pH 7.34/PCO2 71.6/PO2 102.6/HCO3 37.79 BiPAP setting 18/8 with FiO2 30%. Have increased BiPAP settings to 22/6. Will repeat ABG in 1 hour. Chest x-ray pending. CBC is unremarkable, chemistry unremarkable, LFTs, ammonia, and BNP pending. Have discontinued p.o. Haldol Patient is a DNI. (2) Acute encephalopathy Is this a current diagnosis for this admission?: Yes Plan: Secondary to #1 Evaluation and management as above. Supportive care. (3) COPD (chronic obstructive pulmonary disease) with chronic bronchitis Is this a current diagnosis for this admission?: Yes Plan: Discussed with Dr. Block today. Patient is appropriate for trilogy; believes the patient may have already been provided one but is going to research records. Continue supplemental oxygen and BiPAP as needed to maintain saturations greater than 89%. Continue scheduled and as needed nebulizer treatments. Dr. Block has recommended Incruse and Spiriva; patient placed on Trelegy (on formulary) Encourage pulmonary toilet with incentive spirometer and flutter valve. Patient is a DNI. (4) Anemia Qualifiers: Anemia type: iron deficiency Iron deficiency anemia type: unspecified iron deficiency Qualified Code(s): D50.9 - Iron deficiency anemia, unspecified Is this a current diagnosis for this admission?: Yes Plan: Hemoglobin 7.8; has drifted down to 7.4 with IV fluids and antibiotics. No evidence of active blood loss at this time; likely related to iron deficiency anemia and CKD 3. Hemoccult pending. Now s/p 2 units PRBC; Hgb -> 9.0-> 8.4 Daily multivitamin with iron supplementation. Continue to monitor and transfuse as necessary. (5) Acute on chronic renal failure Qualifiers: Acute renal failure type: unspecified Chronic kidney disease stage: unspecified stage Qualified Code(s): N17.9 - Acute kidney failure, unspecified; N18.9 - Chronic kidney disease, unspecified Is this a current diagnosis for this admission?: Yes Plan: Patient with CKD 3; baseline creatinine of 1.3. Improved this admission; now down to 1.57 Continue to encourage p.o. fluids. Avoid nephrotoxic medications as able. Have resumed patient's home dose furosemide; optimize cardiac output. Follow-up chemistry. (6) Chronic venous stasis Is this a current diagnosis for this admission?: Yes Plan: Stable and without evidence of acute cellulitis at this time. Patient has a normal WBCs; has remained afebrile throughout his admission. Have discontinued ceftriaxone; received 5 days of therapy. (7) Severe muscle deconditioning Is this a current diagnosis for this admission?: Yes Plan: PT/OT consulted. Discharge planning consulted. (8) Morbid obesity Is this a current diagnosis for this admission?: Yes Plan: BMI of 45.4 with resultant obesity hypoventilation syndrome. PT/OT consulted. Registered dietitian consulted. (9) Extreme obesity with alveolar hypoventilation Is this a current diagnosis for this admission?: Yes Plan: Pulmonology is consulted; appreciate Dr. Block's assistance. Arrangements being made for trilogy device. Remaining management as above. (10) Pulmonary hypertension Is this a current diagnosis for this admission?: Yes Plan: Cardiology follow-up as an outpatient to consider right heart catheterization (11) Hyperkalemia Is this a current diagnosis for this admission?: Yes Plan: Resolved. (12) Cellulitis Qualifiers: Site of cellulitis: extremity Site of cellulitis of extremity: lower extremity Laterality: left Qualified Code(s): L03.116 - Cellulitis of left lower limb Is this a current diagnosis for this admission?: Yes Plan: Resolved. No evidence of erythema, edema, or drainage on exam. Patient remains afebrile with normal WBCs. Completed a 5-day course of IV Rocephin. - Time Time Spent with patient: 35 or more minutes Medications reviewed and adjusted accordingly: Yes
--- NOTE | 2019-10-24 13:47 | RADIOLOGY REPORT (SQ) ---
EXAM DESCRIPTION: CHEST SINGLE VIEW COMPLETED DATE/TIME: 10/24/2019 1:13 pm REASON FOR STUDY: hypoxia COMPARISON: 10/19/2019 EXAM PARAMETERS: NUMBER OF VIEWS: One view. TECHNIQUE: Single frontal radiographic view of the chest acquired. RADIATION DOSE: NA LIMITATIONS: None. FINDINGS: LUNGS AND PLEURA: Small left pleural effusion and associated airspace disease. Partial si lhouetting of the left diaphragm. Right lung is clear. MEDIASTINUM AND HILAR STRUCTURES: No masses. Contour normal. HEART AND VASCULAR STRUCTURES: Heart normal in size. Normal vasculature. BONES: No acute findings. HARDWARE: None in the chest. OTHER: No other significant finding. IMPRESSION: Rehydration versus progressing pneumonia left lower lobe. TECHNICAL DOCUMENTATION: JOB ID: [id number] [employer]- All Rights Reserved Reading location - IP/workstation name: [email or web address]
[2019-10-24 13:54] LABS: ALBUMIN 2.7 g/dL (3.5-5.0); ALKALINE PHOSPHATASE 79 U/L (38-126); ASPARTATE AMINO TRANSFERASE 20 U/L (17-59); BILIRUBIN,DIRECT 0.3 mg/dL (0.0-0.4); BILIRUBIN,TOTAL 0.4 mg/dL (0.2-1.3); TOTAL PROTEIN 6.7 g/dL (6.3-8.2)
[2019-10-24 13:56] LABS: ARTERIAL BLOOD BASE EXCESS 6.8 mmol/L; ARTERIAL BLOOD H2CO3 1.92 mmol/L (1.05-1.35); ARTERIAL BLOOD HCO3 34.2 mmol/L (20-24); ARTERIAL BLOOD O2 SATURATION 93.6 % (94-98); ARTERIAL BLOOD PCO2 63.9 mmHg (35-45); ARTERIAL BLOOD PH 7.35 (7.35-7.45); ARTERIAL BLOOD PO2 73.5 mmHg (80-100); ARTERIAL BLOOD TOTAL CO2 36.1 mmol/L (23-27)
[2019-10-24 13:58] LABS: ARTERIAL BLOOD FIO2 28%
--- NOTE | 2019-10-24 15:02 | PDOC PROGRESS REPORT ---
Subjective Progress Note for:: 10/24/19 Subjective:: Lethargic difficult to arouse Reason For Visit: AMBULATORY DYSFUNCTION,GENERALIZED WEAKNESS,END Physical Exam Vital Signs: Temp Pulse Resp BP Pulse Ox 98.6 F 89 17 122/59 L 94 10/24/19 11:54 10/24/19 11:54 10/24/19 12:12 10/24/19 11:54 10/24/19 12:12 Intake & Output 10/23/19 10/24/19 10/25/19 06:59 06:59 06:59 Intake Total 3758 1120 240 Output Total 1950 1600 Balance 1808 -480 240 Weight 159 kg 162.2 kg General appearance: PRESENT: disheveled, morbidly obese, well-developed, well- nourished. ABSENT: cooperative Head exam: PRESENT: atraumatic, normocephalic Eye exam: PRESENT: conjunctiva pale, EOMI. ABSENT: nystagmus Mouth exam: PRESENT: dry mucosa, neck supple, tongue midline Neck exam: ABSENT: carotid bruit, full ROM, JVD, lymphadenopathy, meningismus, tenderness, thyromegaly, tracheal deviation, tracheostomy, other Respiratory exam: PRESENT: decreased breath sounds, prolonged expiratory phas, rales, rhonchi, symmetrical, unlabored. ABSENT: retraction, stridor, tachypnea Cardiovascular exam: PRESENT: RRR, +S1, +S2, tachycardia Pulses: PRESENT: normal radial pulses GI/Abdominal exam: PRESENT: soft. ABSENT: guarding, mass, rebound, tenderness Extremities exam: PRESENT: +2 edema. ABSENT: calf tenderness, clubbing, joint swelling, tenderness Musculoskeletal exam: ABSENT: ambulatory, deformity, dislocation Neurological exam: PRESENT: altered Psychiatric exam: PRESENT: flat affect Skin exam: PRESENT: dry, warm Results Laboratory Results: 10/24/19 04:28 10/24/19 04:28 10/24/19 10/24/19 10/24/19 04:28 04:28 10:05 WBC 4.8 RBC 3.09 L Hgb 8.4 L Hct 25.8 L MCV 84 MCH 27.1 MCHC 32.5 RDW 17.4 H Plt Count 162 Carbonic Acid 2.16 H HCO3/H2CO3 Ratio 17:1 ABG pH 7.34 L ABG pCO2 71.6 H* ABG pO2 102.6 H ABG HCO3 37.7 H ABG O2 Saturation 97.1 ABG Base Excess 9.8 FiO2 30% Sodium 142.5 Potassium 4.4 Chloride 101 Carbon Dioxide 37 H Anion Gap 5 BUN 27 H Creatinine 1.57 H Est GFR ( Amer) 54 L Glucose 84 Calcium 8.6 Total Bilirubin AST Alkaline Phosphatase Ammonia Total Protein Albumin 10/24/19 10/24/19 10/24/19 13:16 13:16 13:30 WBC RBC Hgb Hct MCV MCH MCHC RDW Plt Count Carbonic Acid 1.92 H HCO3/H2CO3 Ratio 17:1 ABG pH 7.35 ABG pCO2 63.9 H ABG pO2 73.5 L ABG HCO3 34.2 H ABG O2 Saturation 93.6 L ABG Base Excess 6.8 FiO2 28% Sodium Potassium Chloride Carbon Dioxide Anion Gap BUN Creatinine Est GFR ( Amer) Glucose Calcium Total Bilirubin 0.4 AST 20 Alkaline Phosphatase 79 Ammonia < 8.7 L Total Protein 6.7 Albumin 2.7 L 10/17/19 10/20/19 10/24/19 16:25 07:55 13:16 NT-Pro-B Natriuret Pep 273 H 969 H 524 H Impressions: Lumbar Spine X-Ray 10/17/19 11:35 IMPRESSION: Extensive degenerative disc disease, spondylosis, and facet arthropathy. Head CT 10/20/19 00:00 IMPRESSION: No acute intracranial hemorrhage, mass, or evidence of acute territorial infarct. EVIDENCE OF ACUTE STROKE: NO. Chest X-Ray 10/24/19 00:00 IMPRESSION: Rehydration versus progressing pneumonia left lower lobe. Assessment & Plan - Diagnosis (1) Obesity, Class III, BMI 40-49.9 (morbid obesity) Is this a current diagnosis for this admission?: Yes Plan: Consider nutritional consult (2) Extreme obesity with alveolar hypoventilation Is this a current diagnosis for this admission?: Yes Plan: Continue BiPAP patient has trilogy at home compliance is questionable (3) Acute respiratory failure with hypoxia and hypercapnia Is this a current diagnosis for this admission?: Yes Plan: oxygen with noninvasive positive pressure ventilation as you have done (4) Pulmonary hypertension Is this a current diagnosis for this admission?: Yes Plan: Patient in need of a right heart catheterization would tend to do as an outpatient (5) Pulmonary emphysema Qualifiers: Emphysema type: centrilobular Qualified Code(s): J43.2 - Centrilobular emphysema Is this a current diagnosis for this admission?: Yes Plan: Generic Name Dose Route Start Last Admin Trade Name Freq PRN Reason Stop Dose Admin Albuterol/Ipratropium 3 ml 10/17/19 15:23 10/18/19 02:21 Duoneb 3 Ml Ampul NEB 11/16/19 15:22 3 ml [id number] PRN SHORTNESS OF BREATH Consider adding Symbicort and Incruse - Time Time Spent with patient: 25-34 minutes
--- NOTE | 2019-10-24 15:20 | ADVANCED CARE ---
- Diagnosis (1) Acute respiratory failure with hypoxia and hypercapnia Diagnosis Current: Yes (2) Acute encephalopathy Diagnosis Current: Yes (3) COPD (chronic obstructive pulmonary disease) with chronic bronchitis Diagnosis Current: Yes (4) Anemia Diagnosis Current: Yes (5) Acute on chronic renal failure Diagnosis Current: Yes (6) Chronic venous stasis Diagnosis Current: Yes (7) Severe muscle deconditioning Diagnosis Current: Yes (8) Morbid obesity Diagnosis Current: Yes (9) Extreme obesity with alveolar hypoventilation Diagnosis Current: Yes (10) Pulmonary hypertension Diagnosis Current: Yes (11) Hyperkalemia Diagnosis Current: Yes (12) Cellulitis Diagnosis Current: Yes Attendance: The patient's , Alka Santamaria, by phone. Resuscitation Status: Do Not Intubate Discussion: Spoke with the patient's by phone. Reviewed his chronic and acute medical conditions. Updated the patient's on the overnight events (increased confusion, p.o. Haldol, subsequent sedation, and worsening PCO2). Described that the patient's BiPAP settings were now maximized and that any further deterioration in mental status or respiratory status would warrant consideration for upgrade to ICU with subsequent intubation and mechanical ventilation. We did discuss that the patient had a previous tracheostomy with long-term ventilation and that he had previously stated that he would not want to be intubated again. Patient's and I talked about how I was concerned that he did not have an acute respiratory condition that was easily reversible and that his deconditioned status over the previous month may be related to chronic and permanent worsening of his baseline respiratory status. Advised the patient spouse that I was concerned that the current BiPAP settings could not be lucius ntained over a long-term setting and that if he did not significantly improve, he would eventually succumb to his chronic respiratory failure. The patient's confirms that the patient is a DNI. She advises that at this time she would like for us to do what can be done to further evaluate the cause of his worsening respiratory status and to provide medical interventions as appropriate. She does asked to continue BiPAP. She does asked that she be contacted prior to any interventional procedures to discuss long-term viability prior to initiating. She does acknowledge that he may be entering end-stage/end-of-life respiratory status. However, she is not yet ready to discuss hospice services. Care Planning Goals: Patient is a DNI. Time Spent: 20 min
[2019-10-24] MEDS: FLUTICASONE/UMECLIDIN/VILANTER 100-62.5-25 MCG/DOSE IH SCH ×2 (16:12→16:54)
[2019-10-24] MEDS: IPRATROPIUM/ALBUTEROL 0.5-2.5 MG/3 ML AMPUL NEB SCH (21:20)
[2019-10-25] MEDS: ACETAMINOPHEN 325 MG TABLET PO PRN ×3 (03:14→21:23)
[2019-10-25] MEDS: HEPARIN SOD (PORCINE) 5,000 UNIT/ML 1 ML VIAL SUBCUT SCH ×3 (05:18→21:22)
[2019-10-25 05:30] LABS: HEMATOCRIT 25.2 % (37.9-51.0); HEMOGLOBIN 8.2 g/dL (13.5-17.0); MEAN CORPUSCULAR HEMOGLOBIN 27.2 pg (27.0-33.4); MEAN CORPUSCULAR HGB CONC 32.7 g/dL (32.0-36.0); MEAN CORPUSCULAR VOLUME 83 fl (80-97); PLATELET COUNT 168 10^3/uL (150-450); RED BLOOD COUNT 3.02 10^6/uL (4.35-5.55); RED CELL DISTRIBUTION WIDTH 17.2 % (11.5-14.0); WHITE BLOOD COUNT 3.9 10^3/uL (4.0-10.5)
[2019-10-25 05:52] LABS: ANION GAP 6 (5-19); BLOOD UREA NITROGEN 32 mg/dL (7-20); CALCIUM 8.6 mg/dL (8.4-10.2); CARBON DIOXIDE 38 mmol/L (22-30); CHLORIDE 98 mmol/L (98-107); GLUCOSE 86 mg/dL (75-110); POTASSIUM 4.6 mmol/L (3.6-5.0)
--- NOTE | 2019-10-25 07:38 | RADIOLOGY REPORT (SQ) ---
CT angiogram chest with contrast on 10/25/2019 at 6:32 AM CLINICAL INDICATION: Shortness of breath, hypoxia TECHNIQUE: Multiple axial images are obtained throughout the chest following the administration of IV contrast. Computer generated 3D reconstructions/MIPS were performed. This exam was performed according to our departmental dose-optimization program, which includes automated exposure control, adjustment of the mA and/or kV according to patient size and/or use of iterative reconstruction technique. Total DLP is 1394.47 mGy*cm. COMPARISON: 08/13/2017 FINDINGS: There is a small left and trace right pleural effusion. There is no pericardial effusion. Coronary artery calcifications and other vascular calcifications are noted. Limited visualized upper abdomen is unremarkable. There is no thoracic aortic aneurysm or dissection. There are no filling defects within the pulmonary arteries to suggest a pulmonary embolus. There is no thoracic adenopathy. There is left greater than right lower lung atelectasis, cannot exclude component of pneumonia in the left lower lobe but favor this to be atelectasis. There is also atelectasis in the posterior left upper lobe. The lungs are otherwise clear. Degenerative changes are noted in the spine. IMPRESSION: 1. Small left and trace right pleural effusion with adjacent left greater than right lower lung atelectasis, cannot exclude component of a pneumonia in the left lower lung. 2. No evidence of pulmonary embolus.
[2019-10-25] MEDS: INSULIN LISPRO 100 UNIT/ML 3 ML VIAL SUBCUT SCH ×4 (08:00→21:22)
[2019-10-25] MEDS: IPRATROPIUM/ALBUTEROL 0.5-2.5 MG/3 ML AMPUL NEB SCH ×2 (08:31→20:30)
[2019-10-25] MEDS: FAMOTIDINE 20 MG TABLET PO SCH ×2 (10:47→21:22)
[2019-10-25] MEDS: DOCUSATE SODIUM 100 MG CAPSULE PO SCH (10:47)
[2019-10-25] MEDS: METOPROLOL TARTRATE 25 MG TABLET PO SCH ×2 (10:47→21:22)
[2019-10-25] MEDS: FUROSEMIDE 20 MG TABLET PO SCH ×2 (10:47→18:31)
[2019-10-25] MEDS: MULTIVITAMIN TABLET PO SCH (10:47)
[2019-10-25] MEDS: TAMSULOSIN HCL 0.4 MG CAP.SR.24H PO SCH (10:47)
[2019-10-25] MEDS: FERROUS SULFATE 325 MG TABLET PO SCH (10:47)
[2019-10-25] MEDS: FLUTICASONE/UMECLIDIN/VILANTER 100-62.5-25 MCG/DOSE IH SCH (10:48)
[2019-10-25] MEDS: HYDROXYCHLOROQUINE SULFATE 200 MG TABLET PO SCH ×2 (10:48→18:31)
[2019-10-25] MEDS: FINASTERIDE 5 MG TABLET PO SCH (10:48)
--- NOTE | 2019-10-25 15:54 | PDOC PROGRESS REPORT ---
Subjective Progress Note for:: 10/25/19 Subjective:: The patient is a 64-year-old male with a past medical history significant for CHF, COPD, diabetes, CKD 3, arthritis, morbid obesity, and LITO who was admitted 10/17/2019 for acute on chronic respiratory failure, COPD with bronchitis, severe muscle deconditioning, and ambulatory dysfunction. Patient was seen on morning rounds; no family members present at this time. He was found resting in bed on BiPAP. He is somnolent; wakes briefly with a startled reflex. Makes eye contact and smiles but then falls back to sleep prior to answering any questions. He was able to participate with ST for bedside swallow screen and eat the majority of his breakfast earlier today. He is noted to have continued hand and foot twitching. ROS is otherwise limited. No concerns per nursing. Reason For Visit: AMBULATORY DYSFUNCTION,GENERALIZED WEAKNESS,END Physical Exam Vital Signs: Temp Pulse Resp BP Pulse Ox 97.6 F 78 13 131/52 H 96 10/25/19 11:33 10/25/19 11:33 10/25/19 12:26 10/25/19 11:33 10/25/19 12:26 Intake & Output 10/24/19 10/25/19 10/26/19 06:59 06:59 06:59 Intake Total 1120 1796 240 Output Total 1600 3400 350 Balance -480 -1604 -110 Weight 162.2 kg 152.5 kg General appearance: PRESENT: no acute distress, morbidly obese, well-developed, well-nourished Head exam: PRESENT: atraumatic, normocephalic Eye exam: PRESENT: conjunctiva pink, EOMI, PERRLA. ABSENT: scleral icterus Ear exam: PRESENT: normal external ear exam Mouth exam: PRESENT: moist, tongue midline Teeth exam: PRESENT: poor dentation Respiratory exam: PRESENT: clear to auscultation karyna, decreased breath sounds - throughout, prolonged expiratory phas, symmetrical, other - irregular pattern; short periods of apnea. BiPAP dependent. ABSENT: rales, rhonchi, wheezes Cardiovascular exam: PRESENT: RRR. ABSENT: diastolic murmur, rubs, systolic murmur Pulses: PRESENT: normal dorsalis pedis pul Vascular exam: PRESENT: normal capillary refill GI/Abdominal exam: PRESENT: normal bowel sounds, soft. ABSENT: distended, guarding, mass, organolmegaly, rebound, tenderness Rectal exam: PRESENT: deferred Extremities exam: PRESENT: full ROM. ABSENT: calf tenderness, clubbing, pedal edema Neurological exam: PRESENT: CN II-XII grossly intact, other - arousable; quickly falls back to sleep. ABSENT: motor sensory deficit Skin exam: PRESENT: dry, intact, warm. ABSENT: cyanosis, rash Results Laboratory Results: 10/25/19 04:41 10/25/19 04:41 10/25/19 10/25/19 04:41 04:41 WBC 3.9 L RBC 3.02 L Hgb 8.2 L Hct 25.2 L MCV 83 MCH 27.2 MCHC 32.7 RDW 17.2 H Plt Count 168 Sodium 141.7 Potassium 4.6 Chloride 98 Carbon Dioxide 38 H Anion Gap 6 BUN 32 H Creatinine 1.73 H Est GFR ( Amer) 48 L Glucose 86 Calcium 8.6 10/17/19 10/20/19 10/24/19 16:25 07:55 13:16 NT-Pro-B Natriuret Pep 273 H 969 H 524 H Impressions: Lumbar Spine X-Ray 10/17/19 11:35 IMPRESSION: Extensive degenerative disc disease, spondylosis, and facet arthropathy. Head CT 10/20/19 00:00 IMPRESSION: No acute intracranial hemorrhage, mass, or evidence of acute territorial infarct. EVIDENCE OF ACUTE STROKE: NO. Chest X-Ray 10/24/19 00:00 IMPRESSION: Rehydration versus progressing pneumonia left lower lobe. Chest/Abdomen CTA 10/24/19 16:13 IMPRESSION: 1. Small left and trace right pleural effusion with adjacent left greater than right lower lung atelectasis, cannot exclude component of a pneumonia in the left lower lung. 2. No evidence of pulmonary embolus. Assessment and Plan - Diagnosis (1) Acute and chronic respiratory failure Qualifiers: Respiratory failure complication: hypoxia and hypercapnia Qualified Code(s): J96.21 - Acute and chronic respiratory failure with hypoxia; J96.22 - Acute and chronic respiratory failure with hypercapnia Is this a current diagnosis for this admission?: Yes Plan: Secondary to COPD, obesity hypoventilation syndrome, pulmonary hypertension, CHF. ABG showed pH 7.34/PCO2 71.6/PO2 102.6/HCO3 37.79 BiPAP setting 18/8 with FiO2 30%. Have maximized BiPAP settings with improvement in ABG. However, patient does continue to have evidence of hypercapnia; somnolent, startle reflex, muscle twitching, intermittent confusion and remains BiPAP dependant (off only for meals) Chest x-ray and CTA of the chest unremarkable CBC, chemistry, LFTs, ammonia, and BNP unremarkable. Have discontinued p.o. Haldol Patient is a DNI. I am concerned that as there is not immediately reversible/acute cause to the patient's worsened respiratory status and associated decreased mentation, this may represent his new baseline (chronic) respiratory function. Patient has had a rapid decline over the last month; this could be attributed to his worsening baseline respiratory status. We will need to discuss long-term care options with the patient's family members. Believe the patient is hospice appropriate. (2) Acute encephalopathy Is this a current diagnosis for this admission?: Yes Plan: Secondary to #1 Evaluation and management as above. Supportive care. (3) COPD (chronic obstructive pulmonary disease) with chronic bronchitis Is this a current diagnosis for this admission?: Yes Plan: Discussed with Dr. Block. Patient is appropriate for trilogy; believes the patient may have already been provided one but is going to research records. Continue supplemental oxygen and BiPAP as needed to maintain saturations greater than 89%. Continue scheduled and as needed nebulizer treatments. Dr. Block has recommended Incruse and Spiriva; patient placed on Trelegy (on formulary) Encourage pulmonary toilet with incentive spirometer and flutter valve. Patient is a DNI. (4) Anemia Qualifiers: Anemia type: iron deficiency Iron deficiency anemia type: unspecified iron deficiency Qualified Code(s): D50.9 - Iron deficiency anemia, unspecified Is this a current diagnosis for this admission?: Yes Plan: Hemoglobin 7.8; has drifted down to 7.4 with IV fluids and antibiotics. No evidence of active blood loss at this time; likely related to iron deficiency anemia and CKD 3. Hemoccult pending. Now s/p 2 units PRBC; Hgb -> 9.0-> 8.4-> 8.2 Daily multivitamin with iron supplementation. Continue to monitor and transfuse as necessary. (5) Acute on chronic renal failure Qualifiers: Acute renal failure type: unspecified Chronic kidney disease stage: unspecified stage Qualified Code(s): N17.9 - Acute kidney failure, unspecified; N18.9 - Chronic kidney disease, unspecified Is this a current diagnosis for this admission?: Yes Plan: Patient with CKD 3; baseline creatinine of 1.3. Slightly worsened today following CT of the chest yesterday. Creatinine now 1.73. Continue to encourage p.o. fluids. Avoid nephrotoxic medications as able. Have resumed patient's home dose furosemide; optimize cardiac output. Follow-up chemistry. (6) Chronic venous stasis Is this a current diagnosis for this admission?: Yes Plan: Stable and without evidence of acute cellulitis at this time. Patient has a normal WBCs; has remained afebrile throughout his admission. Have discontinued ceftriaxone; received 5 days of therapy. (7) Severe muscle deconditioning Is this a current diagnosis for this admission?: Yes Plan: PT/OT consulted. Discharge planning consulted. (8) Morbid obesity Is this a current diagnosis for this admission?: Yes Plan: BMI of 45.4 with resultant obesity hypoventilation syndrome. PT/OT consulted. Registered dietitian consulted. (9) Extreme obesity with alveolar hypoventilation Is this a current diagnosis for this admission?: Yes Plan: Pulmonology is consulted; appreciate Dr. Block's assistance. Arrangements being made for trilogy device. Remaining management as above. (10) Pulmonary hypertension Is this a current diagnosis for this admission?: Yes Plan: Cardiology follow-up as an outpatient to consider right heart catheterization (11) Hyperkalemia Is this a current diagnosis for this admission?: Yes Plan: Resolved. (12) Cellulitis Qualifiers: Site of cellulitis: extremity Site of cellulitis of extremity: lower extremity Laterality: left Qualified Code(s): L03.116 - Cellulitis of left lower limb Is this a current diagnosis for this admission?: Yes Plan: Resolved. No evidence of erythema, edema, or drainage on exam. Patient remains afebrile with normal WBCs. Completed a 5-day course of IV Rocephin. - Time Time Spent with patient: 25-34 minutes Medications reviewed and adjusted accordingly: Yes
--- NOTE | 2019-10-25 17:35 | ADVANCED CARE ---
- Diagnosis (1) Acute and chronic respiratory failure Diagnosis Current: Yes (2) Acute encephalopathy Diagnosis Current: Yes (3) COPD (chronic obstructive pulmonary disease) with chronic bronchitis Diagnosis Current: Yes (4) Anemia Diagnosis Current: Yes (5) Acute on chronic renal failure Diagnosis Current: Yes (6) Chronic venous stasis Diagnosis Current: Yes (7) Severe muscle deconditioning Diagnosis Current: Yes (8) Morbid obesity Diagnosis Current: Yes (9) Extreme obesity with alveolar hypoventilation Diagnosis Current: Yes (10) Pulmonary hypertension Diagnosis Current: Yes (11) Hyperkalemia Diagnosis Current: Yes (12) Cellulitis Diagnosis Current: Yes Attendance: The patient and his , Alka Santamaria Resuscitation Status: Full Code Discussion: Spoke with the patient and his this afternoon. The patient had just come off of 24 continuous hours of BiPAP; currently alert and oriented x4. Reviewed his chronic and acute medical conditions. Described that the patient's BiPAP settings were now maximized and that any further deterioration in mental status or respiratory status would warrant consideration for upgrade to ICU with subsequent intubation and mechanical ventilation. We did discuss that the patient had a previous tracheostomy with long-term ventilation. We discussed that I was concerned that he did not have an acute respiratory condition that was easily reversible and that his deconditioned status over the previous month may be related to chronic and permanent worsening of his baseline respiratory status. CT imaging of his chest showed atelectasis but no other acute findings. Advised the patient and his spouse that I was concerned that the current BiPAP settings could not be maintained over a long-term setting and that if he did not significantly improve, he would eventually succumb to his chronic respiratory failure. We reviewed that the patient was essentially eating to choose between long-term respiratory support (possibly through tracheostomy) versus transition to hospice services. The patient stated that he had been admitted to an LTAC in 2017 for approximately 6 months due to similar respiratory failure. At that time he did have a tracheostomy that was eventually reversed. He states that at this time, he would consider tracheostomy if it was required. I further clarified the patient's CODE STATUS. Patient confirms that he is a full code and would want aggressive interventions if required. The patient asks to have time to consider his options and discuss with his . They will let us know shortly whether or not he would like to transition to hospice or to explore option for transfer to LTAC for continued care. Care Planning Goals: FULL CODE Discussing with Goals of Care (transfer to LTAC vs transition to Hospice). Time Spent: 30 min
[2019-10-26] MEDS: ACETAMINOPHEN 325 MG TABLET PO PRN ×3 (03:15→17:04)
[2019-10-26] MEDS: HEPARIN SOD (PORCINE) 5,000 UNIT/ML 1 ML VIAL SUBCUT SCH ×3 (06:25→21:37)
[2019-10-26 06:45] LABS: HEMOGLOBIN 8.4 g/dL (13.5-17.0); MEAN CORPUSCULAR HEMOGLOBIN 26.9 pg (27.0-33.4); MEAN CORPUSCULAR HGB CONC 32.3 g/dL (32.0-36.0); MEAN CORPUSCULAR VOLUME 83 fl (80-97); PLATELET COUNT 180 10^3/uL (150-450); RED BLOOD COUNT 3.12 10^6/uL (4.35-5.55); RED CELL DISTRIBUTION WIDTH 17.1 % (11.5-14.0); WHITE BLOOD COUNT 3.6 10^3/uL (4.0-10.5)
[2019-10-26 07:11] LABS: ANION GAP 5 (5-19); BLOOD UREA NITROGEN 29 mg/dL (7-20); CALCIUM 8.5 mg/dL (8.4-10.2); CARBON DIOXIDE 38 mmol/L (22-30); CHLORIDE 97 mmol/L (98-107); GLUCOSE 100 mg/dL (75-110); POTASSIUM 3.9 mmol/L (3.6-5.0)
[2019-10-26] MEDS: IPRATROPIUM/ALBUTEROL 0.5-2.5 MG/3 ML AMPUL NEB SCH ×2 (08:26→20:34)
[2019-10-26] MEDS: INSULIN LISPRO 100 UNIT/ML 3 ML VIAL SUBCUT SCH ×4 (09:25→22:00)
[2019-10-26] MEDS: DOCUSATE SODIUM 100 MG CAPSULE PO SCH (09:29)
[2019-10-26] MEDS: METOPROLOL TARTRATE 25 MG TABLET PO SCH ×2 (09:47→21:37)
[2019-10-26] MEDS: FUROSEMIDE 20 MG TABLET PO SCH ×2 (09:47→17:04)
[2019-10-26] MEDS: HYDROXYCHLOROQUINE SULFATE 200 MG TABLET PO SCH ×2 (09:47→17:04)
[2019-10-26] MEDS: FINASTERIDE 5 MG TABLET PO SCH (09:47)
[2019-10-26] MEDS: TAMSULOSIN HCL 0.4 MG CAP.SR.24H PO SCH (09:47)
[2019-10-26] MEDS: FAMOTIDINE 20 MG TABLET PO SCH ×2 (09:47→21:39)
[2019-10-26] MEDS: MULTIVITAMIN TABLET PO SCH (09:47)
[2019-10-26] MEDS: FERROUS SULFATE 325 MG TABLET PO SCH (09:47)
[2019-10-26] MEDS: FLUTICASONE/UMECLIDIN/VILANTER 100-62.5-25 MCG/DOSE IH SCH (09:47)
--- NOTE | 2019-10-26 13:58 | PDOC PROGRESS REPORT ---
Subjective Progress Note for:: 10/26/19 Subjective:: The patient is a 64-year-old male with a past medical history significant for CHF, COPD, diabetes, CKD 3, arthritis, morbid obesity, and LITO who was admitted 10/17/2019 for acute on chronic respiratory failure, COPD with bronchitis, severe muscle deconditioning, and ambulatory dysfunction. Patient was seen on morning rounds; no family members present at this time. He was found resting in bed, comfortably, on supplemental oxygen via nasal cannula. He has been off BiPAP for approximately 1 hour and was able to eat breakfast. He is noted to be sleeping upon entering the room with frequent periods of apnea and muscle twitching. He does wake easily with startle reflex. He is oriented x4 and can recall her conversation from yesterday afternoon in detail. He again states that he is aware that his respiratory status has chronically worsened and that he requires significant BiPAP support. He also reports that he is aware that he may require tracheostomy and long-term ventilation in the near future. He confirms his desire to be a full code and transfer to LTAC for continued physical and respiratory rehabilitation. He denies fever, chills, chest pain, palpitations, dyspnea, cough, abdominal pain, nausea vomiting and diarrhea. He has no other questions or concerns. No concerns per nursing. Reason For Visit: AMBULATORY DYSFUNCTION,GENERALIZED WEAKNESS,END Physical Exam Vital Signs: Temp Pulse Resp BP Pulse Ox 98.9 F 80 14 128/43 H 97 10/26/19 08:00 10/26/19 08:28 10/26/19 12:10 10/26/19 08:00 10/26/19 08:28 Intake & Output 10/25/19 10/26/19 10/27/19 06:59 06:59 06:59 Intake Total 1796 600 Output Total 3400 2049 Balance -1604 -1450 Weight 152.5 kg 150 kg General appearance: PRESENT: no acute distress, cooperative, morbidly obese, well-developed, well-nourished Head exam: PRESENT: atraumatic, normocephalic Eye exam: PRESENT: conjunctiva pink, EOMI, PERRLA. ABSENT: scleral icterus Ear exam: PRESENT: normal external ear exam Mouth exam: PRESENT: moist, tongue midline Teeth exam: PRESENT: poor dentation Neck exam: ABSENT: carotid bruit, JVD, lymphadenopathy, thyromegaly Respiratory exam: PRESENT: clear to auscultation karyna, decreased breath sounds - Throughout, prolonged expiratory phas, symmetrical, other - Shallow and irregular breathing while asleep; frequent. No apnea. BiPAP dependent. ABSE NT: rales, rhonchi, wheezes Cardiovascular exam: PRESENT: RRR. ABSENT: diastolic murmur, rubs, systolic murmur Pulses: PRESENT: normal dorsalis pedis pul Vascular exam: PRESENT: normal capillary refill GI/Abdominal exam: PRESENT: normal bowel sounds, soft. ABSENT: distended, guarding, mass, organolmegaly, rebound, tenderness Rectal exam: PRESENT: deferred Extremities exam: PRESENT: full ROM. ABSENT: calf tenderness, clubbing, pedal edema Neurological exam: PRESENT: alert, awake, oriented to person, oriented to place, oriented to time, oriented to situation, CN II-XII grossly intact. ABSENT: motor sensory deficit Psychiatric exam: PRESENT: appropriate affect, normal mood. ABSENT: homicidal ideation, suicidal ideation Skin exam: PRESENT: dry, intact, warm. ABSENT: cyanosis, rash Results Laboratory Results: 10/26/19 05:51 10/26/19 05:51 10/26/19 10/26/19 05:51 05:51 WBC 3.6 L RBC 3.12 L Hgb 8.4 L Hct 26.0 L MCV 83 MCH 26.9 L MCHC 32.3 RDW 17.1 H Plt Count 180 Sodium 139.8 Potassium 3.9 Chloride 97 L Carbon Dioxide 38 H Anion Gap 5 BUN 29 H Creatinine 1.62 H Est GFR ( Amer) 52 L Glucose 100 Calcium 8.5 10/17/19 10/20/19 10/24/19 16:25 07:55 13:16 NT-Pro-B Natriuret Pep 273 H 969 H 524 H Impressions: Lumbar Spine X-Ray 10/17/19 11:35 IMPRESSION: Extensive degenerative disc disease, spondylosis, and facet arthropathy. Head CT 10/20/19 00:00 IMPRESSION: No acute intracranial hemorrhage, mass, or evidence of acute territorial infarct. EVIDENCE OF ACUTE STROKE: NO. Chest X-Ray 10/24/19 00:00 IMPRESSION: Rehydration versus progressing pneumonia left lower lobe. Chest/Abdomen CTA 10/24/19 16:13 IMPRESSION: 1. Small left and trace right pleural effusion with adjacent left greater than right lower lung atelectasis, cannot exclude component of a pneumonia in the left lower lung. 2. No evidence of pulmonary embolus. Assessment and Plan - Diagnosis (1) Acute and chronic respiratory failure Qualifiers: Respiratory failure complication: hypoxia and hypercapnia Qualified Code(s): J96.21 - Acute and chronic respiratory failure with hypoxia; J96.22 - Acute and chronic respiratory failure with hypercapnia Is this a current diagnosis for this admission?: Yes Plan: Acute exacerbation has resolved; additional work-up has not revealed any immediately reversible respiratory conditions. His current status likely represents his new baseline pulmonary function. Secondary to COPD, obesity hypoventilation syndrome, pulmonary hypertension, CHF. ABG showed pH 7.34/PCO2 71.6/PO2 102.6/HCO3 37.79 BiPAP setting 18/8 with FiO2 30%. Have maximized BiPAP settings with improvement in ABG. However, patient does continue to have evidence of hypercapnia; somnolent, startle reflex, muscle twitching, intermittent confusion and remains BiPAP dependant (off only for meals) Chest x-ray and CTA of the chest unremarkable CBC, chemistry, LFTs, ammonia, and BNP unremarkable. Have discontinued p.o. Haldol Patient is a FULL CODE. Patient desires transfer to LTAC for continued pulmonary and physical rehabilitation. (2) Acute encephalopathy Is this a current diagnosis for this admission?: Yes Plan: Improved Secondary to #1 Evaluation and management as above. Supportive care. (3) COPD (chronic obstructive pulmonary disease) with chronic bronchitis Is this a current diagnosis for this admission?: Yes Plan: Discussed with Dr. Block. Patient is appropriate for trilogy; believes the patient may have already been provided one but is going to research records. Continue supplemental oxygen and BiPAP as needed to maintain saturations greater than 89%. Continue scheduled and as needed nebulizer treatments. Dr. Block has recommended Incruse and Spiriva; patient placed on Trelegy (on formulary) Encourage pulmonary toilet with incentive spirometer and flutter valve. (4) Anemia Qualifiers: Anemia type: iron deficiency Iron deficiency anemia type: unspecified iron deficiency Qualified Code(s): D50.9 - Iron deficiency anemia, unspecified Is this a current diagnosis for this admission?: Yes Plan: Hemoglobin 7.8; has drifted down to 7.4 with IV fluids and antibiotics. No evidence of active blood loss at this time; likely related to iron deficiency anemia and CKD 3. Hemoccult pending. Now s/p 2 units PRBC; Hgb -> 9.0-> 8.4-> 8.2 Daily multivitamin with iron supplementation. Continue to monitor and transfuse as necessary. (5) Acute on chronic renal failure Qualifiers: Acute renal failure type: unspecified Chronic kidney disease stage: unspecified stage Qualified Code(s): N17.9 - Acute kidney failure, unspecified; N18.9 - Chronic kidney disease, unspecified Is this a current diagnosis for this admission?: Yes Plan: Patient with CKD 3; baseline creatinine of 1.3. Slightly worsened today following CT of the chest. Creatinine now 1.62; gradually trending down. Continue to encourage p.o. fluids. Avoid nephrotoxic medications as able. Have resumed patient's home dose furosemide; optimize cardiac output. Follow-up chemistry. (6) Chronic venous stasis Is this a current diagnosis for this admission?: Yes Plan: Stable and without evidence of acute cellulitis at this time. Patient has a normal WBCs; has remained afebrile throughout his admission. Have discontinued ceftriaxone; received 5 days of therapy. (7) Severe muscle deconditioning Is this a current diagnosis for this admission?: Yes Plan: PT/OT consulted. Discharge planning consulted. (8) Morbid obesity Is this a current diagnosis for this admission?: Yes Plan: BMI of 45.4 with resultant obesity hypoventilation syndrome. PT/OT consulted. Registered dietitian consulted. (9) Extreme obesity with alveolar hypoventilation Is this a current diagnosis for this admission?: Yes Plan: Pulmonology is consulted; appreciate Dr. Block's assistance. Arrangements being made for trilogy device. Remaining management as above. (10) Pulmonary hypertension Is this a current diagnosis for this admission?: Yes Plan: Cardiology follow-up as an outpatient to consider right heart catheterization (11) Hyperkalemia Is this a current diagnosis for this admission?: Yes Plan: Resolved. (12) Cellulitis Qualifiers: Site of cellulitis: extremity Site of cellulitis of extremity: lower extremity Laterality: left Qualified Code(s): L03.116 - Cellulitis of left lower limb Is this a current diagnosis for this admission?: Yes Plan: Resolved. No evidence of erythema, edema, or drainage on exam. Patient remains afebrile with normal WBCs. Completed a 5-day course of IV Rocephin. - Time Time Spent with patient: 15-24 minutes Medications reviewed and adjusted accordingly: Yes Anticipated discharge: Other - LTAC Within: when bed available
[2019-10-27] MEDS: ACETAMINOPHEN 325 MG TABLET PO PRN ×4 (02:33→19:49)
[2019-10-27] MEDS: HEPARIN SOD (PORCINE) 5,000 UNIT/ML 1 ML VIAL SUBCUT SCH ×3 (05:31→21:25)
[2019-10-27 05:36] LABS: ANION GAP 6 (5-19); BLOOD UREA NITROGEN 26 mg/dL (7-20); CALCIUM 8.8 mg/dL (8.4-10.2); CARBON DIOXIDE 35 mmol/L (22-30); CHLORIDE 98 mmol/L (98-107); GLUCOSE 91 mg/dL (75-110); POTASSIUM 4.2 mmol/L (3.6-5.0)
[2019-10-27] MEDS: INSULIN LISPRO 100 UNIT/ML 3 ML VIAL SUBCUT SCH ×4 (07:53→21:59)
[2019-10-27] MEDS: IPRATROPIUM/ALBUTEROL 0.5-2.5 MG/3 ML AMPUL NEB SCH ×2 (08:47→21:04)
[2019-10-27] MEDS: FAMOTIDINE 20 MG TABLET PO SCH ×2 (09:46→21:26)
[2019-10-27] MEDS: FLUTICASONE/UMECLIDIN/VILANTER 100-62.5-25 MCG/DOSE IH SCH (09:46)
[2019-10-27] MEDS: MULTIVITAMIN TABLET PO SCH (09:46)
[2019-10-27] MEDS: FINASTERIDE 5 MG TABLET PO SCH (09:46)
[2019-10-27] MEDS: METOPROLOL TARTRATE 25 MG TABLET PO SCH ×2 (09:46→21:25)
[2019-10-27] MEDS: FERROUS SULFATE 325 MG TABLET PO SCH (09:46)
[2019-10-27] MEDS: FUROSEMIDE 20 MG TABLET PO SCH ×2 (09:46→17:17)
[2019-10-27] MEDS: TAMSULOSIN HCL 0.4 MG CAP.SR.24H PO SCH (09:46)
[2019-10-27] MEDS: HYDROXYCHLOROQUINE SULFATE 200 MG TABLET PO SCH ×2 (09:46→17:17)
[2019-10-27] MEDS: DOCUSATE SODIUM 100 MG CAPSULE PO SCH (10:49)
--- NOTE | 2019-10-27 11:15 | PDOC PROGRESS REPORT ---
Subjective Progress Note for:: 10/27/19 Subjective:: The patient is a 64-year-old male with a past medical history significant for CHF, COPD, diabetes, CKD 3, arthritis, morbid obesity, and LITO who was admitted 10/17/2019 for acute on chronic respiratory failure, COPD with bronchitis, severe muscle deconditioning, and ambulatory dysfunction. Patient was seen on morning rounds; no family members present at this time. He was found resting in bed, comfortably, on BiPAP. He is A&Ox4. He reports that he was able to come off of BiPAP for meals yesterday, but does admit he spent most of the day on BiPAP. Discussed patient's disposition; he asks all arrangements to be made with his but does confirm today his interest in LTAC. Patient states he thinks he has a Trilogy machine at home. He denies fever, chills, chest pain, palpitations, dyspnea, cough, abdominal pain, nausea vomiting and diarrhea. He has no other questions or concerns. No concerns per nursing. Reason For Visit: AMBULATORY DYSFUNCTION,GENERALIZED WEAKNESS,END Physical Exam Vital Signs: Temp Pulse Resp BP Pulse Ox 98.8 F 85 18 124/52 L 97 10/27/19 08:06 10/27/19 08:47 10/27/19 08:47 10/27/19 08:06 10/27/19 08:47 Intake & Output 10/26/19 10/27/19 10/28/19 06:59 06:59 06:59 Intake Total 600 1020 Output Total 2050 2350 Balance -1450 -1330 Weight 150 kg 148.6 kg General appearance: PRESENT: no acute distress, cooperative, morbidly obese, well-developed, well-nourished Head exam: PRESENT: atraumatic, normocephalic Eye exam: PRESENT: conjunctiva pink, EOMI, PERRLA. ABSENT: scleral icterus Ear exam: PRESENT: normal external ear exam Mouth exam: PRESENT: moist, tongue midline Respiratory exam: PRESENT: clear to auscultation karyna, decreased breath sounds - throughout secondary to body habitus, prolonged expiratory phas, symmetrical, unlabored, other - BiPAP. ABSENT: rales, rhonchi, wheezes Cardiovascular exam: PRESENT: RRR, +S1, +S2. ABSENT: diastolic murmur, rubs, systolic murmur Pulses: PRESENT: normal dorsalis pedis pul Vascular exam: PRESENT: normal capillary refill GI/Abdominal exam: PRESENT: normal bowel sounds, soft. ABSENT: distended, guarding, mass, organolmegaly, rebound, tenderness Rectal exam: PRESENT: deferred Extremities exam: PRESENT: full ROM. ABSENT: calf tenderness, clubbing, pedal edema Neurological exam: PRESENT: alert, awake, oriented to person, oriented to place, oriented to time, oriented to situation, CN II-XII grossly intact. ABSENT: motor sensory deficit Psychiatric exam: PRESENT: appropriate affect, normal mood. ABSENT: homicidal ideation, suicidal ideation Skin exam: PRESENT: dry, intact, warm. ABSENT: cyanosis, rash Results Laboratory Results: 10/26/19 05:51 10/27/19 04:45 10/27/19 04:45 Sodium 138.8 Potassium 4.2 Chloride 98 Carbon Dioxide 35 H Anion Gap 6 BUN 26 H Creatinine 1.66 H Est GFR ( Amer) 51 L Glucose 91 Calcium 8.8 10/17/19 10/20/19 10/24/19 16:25 07:55 13:16 NT-Pro-B Natriuret Pep 273 H 969 H 524 H Impressions: Lumbar Spine X-Ray 10/17/19 11:35 IMPRESSION: Extensive degenerative disc disease, spondylosis, and facet arthropathy. Head CT 10/20/19 00:00 IMPRESSION: No acute intracranial hemorrhage, mass, or evidence of acute territorial infarct. EVIDENCE OF ACUTE STROKE: NO. Chest X-Ray 10/24/19 00:00 IMPRESSION: Rehydration versus progressing pneumonia left lower lobe. Chest/Abdomen CTA 10/24/19 16:13 IMPRESSION: 1. Small left and trace right pleural effusion with adjacent left greater than right lower lung atelectasis, cannot exclude component of a pneumonia in the left lower lung. 2. No evidence of pulmonary embolus. Assessment and Plan - Diagnosis (1) Acute and chronic respiratory failure Qualifiers: Respiratory failure complication: hypoxia and hypercapnia Qualified Code(s): J96.21 - Acute and chronic respiratory failure with hypoxia; J96.22 - Acute and chronic respiratory failure with hypercapnia Is this a current diagnosis for this admission?: Yes Plan: Acute exacerbation has resolved; additional work-up has not revealed any immediately reversible respiratory conditions. His current status likely repres ents his new baseline pulmonary function. Secondary to COPD, obesity hypoventilation syndrome, pulmonary hypertension, CHF. Chest x-ray and CTA of the chest unremarkable other than atelectasis CBC, chemistry, LFTs, ammonia, and BNP unremarkable. Have maximized BiPAP settings with improvement in ABG. - Will ask nursing to begin weaning attempts: Patient should wear BiPAP when sleeping. When awake, please trial 1 hour on/1 hour off. If patient becomes confused/lethargic, place patient on BiPAP and notify provider. Supplemental oxygen as needed to maintain saturations >89% Patient is a FULL CODE. Patient desires transfer to LTAC for continued pulmonary and physical rehabilitation. Discharge planning is aware. (2) Acute encephalopathy Is this a current diagnosis for this admission?: Yes Plan: Resolved. Secondary to #1 Evaluation and management as above. Supportive care. (3) COPD (chronic obstructive pulmonary disease) with chronic bronchitis Is this a current diagnosis for this admission?: Yes Plan: Discussed with Dr. Block. Patient is appropriate for trilogy; believes the patient may have already been provided one but is going to research records. Continue supplemental oxygen and BiPAP as needed to maintain saturations greater than 89%. Continue scheduled and as needed nebulizer treatments. Dr. Block has recommended Incruse and Spiriva; patient placed on Trelegy (on formulary) Encourage pulmonary toilet with incentive spirometer and flutter valve. (4) Anemia Qualifiers: Anemia type: iron deficiency Iron deficiency anemia type: unspecified iron deficiency Qualified Code(s): D50.9 - Iron deficiency anemia, unspecified Is this a current diagnosis for this admission?: Yes Plan: Hemoglobin 7.8; has drifted down to 7.4 with IV fluids and antibiotics. No evidence of active blood loss at this time; likely related to iron deficiency anemia and CKD 3. Hemoccult pending. Now s/p 2 units PRBC; Hgb 7.4-> 9.0-> 8.4-> 8.2-> 8.4 Daily multivitamin with iron supplementation. Continue to monitor and transfuse as necessary. (5) Acute on chronic renal failure Qualifiers: Acute renal failure type: unspecified Chronic kidney disease stage: unspecified stage Qualified Code(s): N17.9 - Acute kidney failure, unspecified; N18.9 - Chronic kidney disease, unspecified Is this a current diagnosis for this admission?: Yes Plan: Patient with CKD 3; baseline creatinine of 1.3. Slightly worsened today following CT of the chest. Creatinine now 1.66; gradually trending down. Continue to encourage p.o. fluids. Avoid nephrotoxic medications as able. Have resumed patient's home dose furosemide; optimize cardiac output. Follow-up chemistry. (6) Chronic venous stasis Is this a current diagnosis for this admission?: Yes Plan: Stable and without evidence of acute cellulitis at this time. Patient has a normal WBCs; has remained afebrile throughout his admission. Have discontinued ceftriaxone; received 5 days of therapy. (7) Severe muscle deconditioning Is this a current diagnosis for this admission?: Yes Plan: PT/OT consulted. Discharge planning consulted. (8) Morbid obesity Is this a current diagnosis for this admission?: Yes Plan: BMI of 45.4 with resultant obesity hypoventilation syndrome. PT/OT consulted. Registered dietitian consulted. (9) Extreme obesity with alveolar hypoventilation Is this a current diagnosis for this admission?: Yes Plan: Pulmonology is consulted; appreciate Dr. Block's assistance. Arrangements being made for trilogy device. Remaining management as above. (10) Pulmonary hypertension Is this a current diagnosis for this admission?: Yes Plan: Cardiology follow-up as an outpatient to consider right heart catheterization (11) Hyperkalemia Is this a current diagnosis for this admission?: Yes Plan: Resolved. (12) Cellulitis Qualifiers: Site of cellulitis: extremity Site of cellulitis of extremity: lower extremity Laterality: left Qualified Code(s): L03.116 - Cellulitis of left lower limb Is this a current diagnosis for this admission?: Yes Plan: Resolved. No evidence of erythema, edema, or drainage on exam. Patient remains afebrile with normal WBCs. Completed a 5-day course of IV Rocephin. - Time Time Spent with patient: 25-34 minutes Medications reviewed and adjusted accordingly: Yes Anticipated discharge: Other - LTAC Within: when bed available
[2019-10-28] MEDS: ACETAMINOPHEN 325 MG TABLET PO PRN ×4 (01:29→19:51)
[2019-10-28] MEDS: HEPARIN SOD (PORCINE) 5,000 UNIT/ML 1 ML VIAL SUBCUT SCH ×3 (05:22→21:21)
[2019-10-28 07:11] LABS: HEMATOCRIT 27.9 % (37.9-51.0); HEMOGLOBIN 9.1 g/dL (13.5-17.0); MEAN CORPUSCULAR HEMOGLOBIN 26.9 pg (27.0-33.4); MEAN CORPUSCULAR HGB CONC 32.5 g/dL (32.0-36.0); MEAN CORPUSCULAR VOLUME 83 fl (80-97); PLATELET COUNT 203 10^3/uL (150-450); RED BLOOD COUNT 3.37 10^6/uL (4.35-5.55); RED CELL DISTRIBUTION WIDTH 17.1 % (11.5-14.0); WHITE BLOOD COUNT 3.6 10^3/uL (4.0-10.5)
[2019-10-28 07:34] LABS: ANION GAP 6 (5-19); BLOOD UREA NITROGEN 25 mg/dL (7-20); CALCIUM 8.5 mg/dL (8.4-10.2); CARBON DIOXIDE 38 mmol/L (22-30); CHLORIDE 95 mmol/L (98-107); GLUCOSE 90 mg/dL (75-110); POTASSIUM 4.1 mmol/L (3.6-5.0)
[2019-10-28] MEDS: IPRATROPIUM/ALBUTEROL 0.5-2.5 MG/3 ML AMPUL NEB SCH ×2 (08:18→20:11)
[2019-10-28] MEDS: FERROUS SULFATE 325 MG TABLET PO SCH (09:53)
[2019-10-28] MEDS: MULTIVITAMIN TABLET PO SCH (09:53)
[2019-10-28] MEDS: DOCUSATE SODIUM 100 MG CAPSULE PO SCH (09:53)
[2019-10-28] MEDS: METOPROLOL TARTRATE 25 MG TABLET PO SCH ×2 (09:53→21:21)
[2019-10-28] MEDS: FUROSEMIDE 20 MG TABLET PO SCH ×2 (09:53→17:56)
[2019-10-28] MEDS: HYDROXYCHLOROQUINE SULFATE 200 MG TABLET PO SCH ×2 (09:53→17:57)
[2019-10-28] MEDS: FINASTERIDE 5 MG TABLET PO SCH (09:53)
[2019-10-28] MEDS: FLUTICASONE/UMECLIDIN/VILANTER 100-62.5-25 MCG/DOSE IH SCH (09:53)
[2019-10-28] MEDS: TAMSULOSIN HCL 0.4 MG CAP.SR.24H PO SCH (09:53)
[2019-10-28] MEDS: INSULIN LISPRO 100 UNIT/ML 3 ML VIAL SUBCUT SCH ×4 (09:58→21:21)
[2019-10-28] MEDS: FAMOTIDINE 20 MG TABLET PO SCH ×2 (11:05→21:21)
--- NOTE | 2019-10-28 16:56 | PDOC PROGRESS REPORT ---
Subjective Progress Note for:: 10/28/19 Subjective:: The patient is a 64-year-old male with a past medical history significant for CHF, COPD, diabetes, CKD 3, arthritis, morbid obesity, and LITO who was admitted 10/17/2019 for acute on chronic respiratory failure, COPD with bronchitis, severe muscle deconditioning, and ambulatory dysfunction. Patient was seen on morning rounds with his present. He was found resting in bed, comfortably, on supplemental oxygenvia OR. He has been off BiPAP ~1 hour this morning. Tolerated a total 5 hours off yesterday, though with periods of increased confusion and upward trend of bicarb in this morning's labs. He is A&Ox4. Discussed that the patient did not have any immediately reversible or acute medical issues that would improve his respiratory status with treatment. Advised that the patient would have to loose a significant amount of weight to make meaningful gains in respiratory function. Discussed that patient needed to make firm decision between LTAC (w/ likely trach) or hospice. He denies fever, chills, chest pain, palpitations, dyspnea, cough, abdominal kermit n, nausea vomiting and diarrhea. They have no questions or concerns. Received call from nursing this afternoon. Patient has talked with his family and social work today about goals of care. He has returned to his original decision of DNR/DNI. Patient and family are interested in inpatient hospice placement. Reason For Visit: AMBULATORY DYSFUNCTION,GENERALIZED WEAKNESS,END Physical Exam Vital Signs: Temp Pulse Resp BP Pulse Ox 98.3 F 82 19 140/48 H 97 10/28/19 10:56 10/28/19 10:56 10/28/19 16:01 10/28/19 10:56 10/28/19 16:01 Intake & Output 10/27/19 10/28/19 10/29/19 06:59 06:59 06:59 Intake Total 1020 1590 600 Output Total 2350 2525 500 Balance -1330 -935 100 Weight 148.6 kg 151.8 kg General appearance: PRESENT: no acute distress, cooperative, morbidly obese, well-developed, well-nourished Head exam: PRESENT: atraumatic, normocephalic Eye exam: PRESENT: conjunctiva pink, EOMI, PERRLA. ABSENT: scleral icterus Ear exam: PRESENT: normal external ear exam Mouth exam: PRESENT: moist, tongue midline Respiratory exam: PRESENT: clear to auscultation karyna, decreased breath sounds - throughout secondary to body habitus, positioning, and effort, prolonged expiratory phas, symmetrical, unlabored, other - BiPAP dependant. ABSENT: rales, rhonchi, wheezes Cardiovascular exam: PRESENT: RRR. ABSENT: diastolic murmur, rubs, systolic murmur Pulses: PRESENT: normal dorsalis pedis pul Vascular exam: PRESENT: normal capillary refill GI/Abdominal exam: PRESENT: normal bowel sounds, soft. ABSENT: distended, guarding, mass, organolmegaly, rebound, tenderness Rectal exam: PRESENT: deferred Extremities exam: PRESENT: full ROM. ABSENT: calf tenderness, clubbing, pedal edema Neurological exam: PRESENT: alert, awake, oriented to person, oriented to place, oriented to time, oriented to situation, CN II-XII grossly intact. ABSENT: motor sensory deficit Psychiatric exam: PRESENT: appropriate affect, normal mood. ABSENT: homicidal ideation, suicidal ideation Skin exam: PRESENT: dry, intact, warm. ABSENT: cyanosis, rash Results Laboratory Results: 10/28/19 06:36 10/28/19 06:36 10/28/19 10/28/19 06:36 06:36 WBC 3.6 L RBC 3.37 L Hgb 9.1 L Hct 27.9 L MCV 83 MCH 26.9 L MCHC 32.5 RDW 17.1 H Plt Count 203 Sodium 138.8 Potassium 4.1 Chloride 95 L Carbon Dioxide 38 H Anion Gap 6 BUN 25 H Creatinine 1.80 H Est GFR ( Amer) 46 L Glucose 90 Calcium 8.5 10/17/19 10/20/19 10/24/19 16:25 07:55 13:16 NT-Pro-B Natriuret Pep 273 H 969 H 524 H Impressions: Lumbar Spine X-Ray 10/17/19 11:35 IMPRESSION: Extensive degenerative disc disease, spondylosis, and facet arthropathy. Head CT 10/20/19 00:00 IMPRESSION: No acute intracranial hemorrhage, mass, or evidence of acute territorial infarct. EVIDENCE OF ACUTE STROKE: NO. Chest X-Ray 10/24/19 00:00 IMPRESSION: Rehydration versus progressing pneumonia left lower lobe. Chest/Abdomen CTA 10/24/19 16:13 IMPRESSION: 1. Small left and trace right pleural effusion with adjacent left greater than right lower lung atelectasis, cannot exclude component of a pneumonia in the left lower lung. 2. No evidence of pulmonary embolus. Assessment and Plan - Diagnosis (1) Acute and chronic respiratory failure Qualifiers: Respiratory failure complication: hypoxia and hypercapnia Qualified Code(s): J96.21 - Acute and chronic respiratory failure with hypoxia; J96.22 - Acute and chronic respiratory failure with hypercapnia Is this a current diagnosis for this admission?: Yes Plan: Acute exacerbation has resolved; additional work-up has not revealed any immediately reversible respiratory conditions. His current status likely represents his new baseline pulmonary function. Secondary to COPD, obesity hypoventilation syndrome, pulmonary hypertension, CHF. Chest x-ray and CTA of the chest unremarkable other than atelectasis CBC, chemistry, LFTs, ammonia, and BNP unremarkable. Have maximized BiPAP settings with improvement in ABG. - Patient tolerated a combined 5 hours off BiPAP yesterday, though with periods of increased confusion and noted increase in Bicarb in am lab work. Patient is clearly BiPAP dependent Supplemental oxygen as needed to maintain saturations >89% Patient is a DNR/DNI Patient desires transfer to inpatient hospice. Discharge planning is aware. (2) Acute encephalopathy Is this a current diagnosis for this admission?: Yes Plan: Resolved; tenuous Secondary to #1 Evaluation and management as above. Supportive care. (3) COPD (chronic obstructive pulmonary disease) with chronic bronchitis Is this a current diagnosis for this admission?: Yes Plan: Discussed with Dr. Block. Patient has trilogy device at home. Continue supplemental oxygen and BiPAP as needed to maintain saturations greater than 89%. Continue scheduled and as needed nebulizer treatments. Dr. Block has recommended Incruse and Spiriva; patient placed on Trelegy (on formulary) Encourage pulmonary toilet with incentive spirometer and flutter valve. (4) Anemia Qualifiers: Anemia type: iron deficiency Iron deficiency anemia type: unspecified iron deficiency Qualified Code(s): D50.9 - Iron deficiency anemia, unspecified Is this a current diagnosis for this admission?: Yes Plan: Hemoglobin 7.8; has drifted down to 7.4 with IV fluids and antibiotics. No evidence of active blood loss at this time; likely related to iron deficiency anemia and CKD 3. Hemoccult pending. Now s/p 2 units PRBC; Hgb 7.4-> 9.0-> 8.4-> 8.2-> 8.4 Daily multivitamin with iron supplementation. Continue to monitor and transfuse as necessary. (5) Acute on chronic renal failure Qualifiers: Acute renal failure type: unspecified Chronic kidney disease stage: unspecified stage Qualified Code(s): N17.9 - Acute kidney failure, unspecified; N18.9 - Chronic kidney disease, unspecified Is this a current diagnosis for this admission?: Yes Plan: Patient with CKD 3; baseline creatinine of 1.3. Slightly worsened today following CT of the chest. Creatinine now 1.66; gradually trending down. Continue to encourage p.o. fluids. Avoid nephrotoxic medications as able. Have resumed patient's home dose furosemide; optimize cardiac output. Follow-up chemistry. (6) Chronic venous stasis Is this a current diagnosis for this admission?: Yes Plan: Stable and without evidence of acute cellulitis at this time. Patient has a normal WBCs; has remained afebrile throughout his admission. Have discontinued ceftriaxone; received 5 days of therapy. (7) Severe muscle deconditioning Is this a current diagnosis for this admission?: Yes Plan: PT/OT consulted. Discharge planning consulted. (8) Morbid obesity Is this a current diagnosis for this admission?: Yes Plan: BMI of 45.4 with resultant obesity hypoventilation syndrome. PT/OT consulted. Registered dietitian consulted. (9) Extreme obesity with alveolar hypoventilation Is this a current diagnosis for this admission?: Yes Plan: Pulmonology is consulted; appreciate Dr. Block's assistance. Arrangements being made for trilogy device. Remaining management as above. (10) Pulmonary hypertension Is this a current diagnosis for this admission?: Yes Plan: Cardiology follow-up as an outpatient to consider right heart catheterization (11) Hyperkalemia Is this a current diagnosis for this admission?: Yes Plan: Resolved. (12) Cellulitis Qualifiers: Site of cellulitis: extremity Site of cellulitis of extremity: lower extremity Laterality: left Qualified Code(s): L03.116 - Cellulitis of left lower limb Is this a current diagnosis for this admission?: Yes Plan: Resolved. No evidence of erythema, edema, or drainage on exam. Patient remains afebrile with normal WBCs. Completed a 5-day course of IV Rocephin. - Time Time Spent with patient: 25-34 minutes Medications reviewed and adjusted accordingly: Yes Anticipated discharge: Hospice Within: when bed available
[2019-10-29] MEDS: ACETAMINOPHEN 325 MG TABLET PO PRN ×5 (00:50→21:46)
[2019-10-29] MEDS: HEPARIN SOD (PORCINE) 5,000 UNIT/ML 1 ML VIAL SUBCUT SCH ×3 (05:12→21:46)
[2019-10-29] MEDS: INSULIN LISPRO 100 UNIT/ML 3 ML VIAL SUBCUT SCH ×4 (07:33→21:47)
[2019-10-29] MEDS: IPRATROPIUM/ALBUTEROL 0.5-2.5 MG/3 ML AMPUL NEB SCH ×2 (08:10→19:53)
[2019-10-29] MEDS: FERROUS SULFATE 325 MG TABLET PO SCH (10:41)
[2019-10-29] MEDS: METOPROLOL TARTRATE 25 MG TABLET PO SCH ×2 (10:41→21:46)
[2019-10-29] MEDS: TAMSULOSIN HCL 0.4 MG CAP.SR.24H PO SCH ×2 (10:41→18:05)
[2019-10-29] MEDS: FUROSEMIDE 20 MG TABLET PO SCH ×2 (10:41→18:05)
[2019-10-29] MEDS: MULTIVITAMIN TABLET PO SCH (10:41)
[2019-10-29] MEDS: FAMOTIDINE 20 MG TABLET PO SCH ×2 (10:41→21:46)
[2019-10-29] MEDS: DOCUSATE SODIUM 100 MG CAPSULE PO SCH (10:41)
[2019-10-29] MEDS: FLUTICASONE/UMECLIDIN/VILANTER 100-62.5-25 MCG/DOSE IH SCH (10:42)
[2019-10-29] MEDS: FINASTERIDE 5 MG TABLET PO SCH (10:42)
[2019-10-29] MEDS: HYDROXYCHLOROQUINE SULFATE 200 MG TABLET PO SCH ×2 (10:42→18:05)
--- NOTE | 2019-10-29 15:54 | PDOC PROGRESS REPORT ---
Subjective Progress Note for:: 10/29/19 Subjective:: Resting with the BiPAP mask on. His and mother are at the bedside. We discussed removing the Castro catheter. His reports a history of benign prostatic hyperplasia with obstructive symptoms. We reviewed his medications for BPH and will adjust before removing catheter. Reason For Visit: AMBULATORY DYSFUNCTION,GENERALIZED WEAKNESS,END Physical Exam Vital Signs: Temp Pulse Resp BP Pulse Ox 98.3 F 93 19 138/55 H 96 10/29/19 11:18 10/29/19 11:18 10/29/19 12:18 10/29/19 11:18 10/29/19 12:18 Intake & Output 10/28/19 10/29/19 10/30/19 06:59 06:59 06:59 Intake Total 1590 1140 480 Output Total 2525 2850 450 Balance -935 -1710 30 Weight 151.8 kg 150 kg General appearance: PRESENT: cooperative, mild distress, morbidly obese, well- developed, other - BiPAP mask in place Head exam: PRESENT: atraumatic, normocephalic Eye exam: PRESENT: conjunctiva pale. ABSENT: scleral icterus Ear exam: PRESENT: normal external ear exam. ABSENT: bleeding, drainage Respiratory exam: PRESENT: clear to auscultation karyna, prolonged expiratory phas - With very short inspiratory phase, symmetrical. ABSENT: rales, rhonchi, tachypnea, wheezes Cardiovascular exam: PRESENT: RRR, +S1, +S2 GI/Abdominal exam: PRESENT: normal bowel sounds, soft, other - Protuberant a bdomen. ABSENT: tenderness Rectal exam: PRESENT: deferred Gentrourinary exam: PRESENT: indwelling catheter Extremities exam: PRESENT: pedal edema Neurological exam: PRESENT: alert, awake, oriented to person, oriented to place, oriented to situation, CN II-XII grossly intact Psychiatric exam: PRESENT: flat affect. ABSENT: agitated, anxious Focused psych exam: ABSENT: delusional, restlessness Skin exam: PRESENT: dry, normal color, warm. ABSENT: mottled, rash Results Laboratory Results: 10/28/19 06:36 10/28/19 06:36 10/17/19 10/20/19 10/24/19 16:25 07:55 13:16 NT-Pro-B Natriuret Pep 273 H 969 H 524 H Impressions: Lumbar Spine X-Ray 10/17/19 11:35 IMPRESSION: Extensive degenerative disc disease, spondylosis, and facet arthropathy. Head CT 10/20/19 00:00 IMPRESSION: No acute intracranial hemorrhage, mass, or evidence of acute territorial infarct. EVIDENCE OF ACUTE STROKE: NO. Chest X-Ray 10/24/19 00:00 IMPRESSION: Rehydration versus progressing pneumonia left lower lobe. Chest/Abdomen CTA 10/24/19 16:13 IMPRESSION: 1. Small left and trace right pleural effusion with adjacent left greater than right lower lung atelectasis, cannot exclude component of a pneumonia in the left lower lung. 2. No evidence of pulmonary embolus. Assessment and Plan - Diagnosis (1) Acute and chronic respiratory failure Qualifiers: Respiratory failure complication: hypoxia and hypercapnia Qualified Code(s): J96.21 - Acute and chronic respiratory failure with hypoxia; J96.22 - Acute and chronic respiratory failure with hypercapnia Is this a current diagnosis for this admission?: Yes Plan: Continues to be mostly BiPAP dependent. Probability of BiPAP independence level of recovery is extremely doubtful. Continue current regimen. Being evaluated for hospice. (2) Acute encephalopathy Is this a current diagnosis for this admission?: Yes Plan: Metabolic encephalopathy with a tenuous state. Severely dependent on respiratory status. When on BiPAP encephalopathy is improved to resolved. Off of BiPAP for any length of time the PCO2 builds up with associated mental status changes. (3) COPD (chronic obstructive pulmonary disease) with chronic bronchitis Is this a current diagnosis for this admission?: Yes Plan: As noted above patient is BiPAP dependent during the day due to the end-stage nature of his disease. He has declined tracheostomy placement. He is being evaluated for hospice. At this time we will continue his pulmonary treatment plan including the BiPAP, nebulizer treatments, pulmonary toilet and encourage incentive spirometer and flutter valve use. (4) Anemia Qualifiers: Anemia type: iron deficiency Iron deficiency anemia type: unspecified iron deficiency Qualified Code(s): D50.9 - Iron deficiency anemia, unspecified Is this a current diagnosis for this admission?: Yes Plan: Hemoglobin is improving. He did receive 2 units of packed red blood cells. Continue vitamin with iron supplement and monitor hemoglobin. (5) Acute on chronic renal failure Qualifiers: Acute renal failure type: unspecified Chronic kidney disease stage: unspecified stage Qualified Code(s): N17.9 - Acute kidney failure, unspecified; N18.9 - Chronic kidney disease, unspecified Is this a current diagnosis for this admission?: Yes Plan: Resolved. Back to baseline. (6) Chronic venous stasis Is this a current diagnosis for this admission?: Yes Plan: Chronic condition secondary to morbid obesity. Encourage leg elevation. Consider compression therapy. (7) Extreme obesity with alveolar hypoventilation Is this a current diagnosis for this admission?: Yes Plan: Would benefit from aggressive weight loss management. Dietitian has been consulted. Respiratory status severely limits exercise capabilities. (8) Morbid obesity Is this a current diagnosis for this admission?: Yes Plan: BMI is 45.3. Significant contributor to his comorbidities. Would benefit from aggressive weight loss management program. (9) Severe muscle deconditioning Is this a current diagnosis for this admission?: Yes Plan: Physical therapy consulted (10) Pulmonary hypertension Is this a current diagnosis for this admission?: Yes Plan: Contributing factor for his respiratory failure. Stable at this time but would benefit from cardiology evaluation as an outpatient. If patient accepts hospice then this is a non-issue. (11) Hyperkalemia Is this a current diagnosis for this admission?: Yes Plan: Likely secondary to the acute on chronic kidney injury. Resolved. (12) Cellulitis Qualifiers: Site of cellulitis: extremity Site of cellulitis of extremity: lower ex tremity Laterality: left Qualified Code(s): L03.116 - Cellulitis of left lower limb Is this a current diagnosis for this admission?: Yes Plan: Resolved. Received 5 days of IV antibiotics. At risk of recurrence due to obesity with chronic venous insufficiency. - Plan Summary Summary: Patient with multiple comorbidities contributing to his acute on chronic respiratory failure. These include his chronic obstructive pulmonary disease, pulmonary hypertension and morbid obesity. Chronic kidney failure with amputations for fluid status is also a consideration. The patient is stable at this time but heavily BiPAP dependent. Hospice is evaluating the patient for possible acceptance into their program. - Time Time Spent with patient: 15-24 minutes Medications reviewed and adjusted accordingly: Yes Anticipated discharge: Hospice
[2019-10-30] MEDS: ACETAMINOPHEN 325 MG TABLET PO PRN ×3 (02:02→17:05)
[2019-10-30] MEDS: HEPARIN SOD (PORCINE) 5,000 UNIT/ML 1 ML VIAL SUBCUT SCH ×2 (06:22→14:15)
[2019-10-30] MEDS: INSULIN LISPRO 100 UNIT/ML 3 ML VIAL SUBCUT SCH ×3 (07:21→16:39)
[2019-10-30] MEDS: IPRATROPIUM/ALBUTEROL 0.5-2.5 MG/3 ML AMPUL NEB SCH (08:27)
[2019-10-30] MEDS: FERROUS SULFATE 325 MG TABLET PO SCH (10:43)
[2019-10-30] MEDS: DOCUSATE SODIUM 100 MG CAPSULE PO SCH (10:43)
[2019-10-30] MEDS: FUROSEMIDE 20 MG TABLET PO SCH ×2 (10:43→17:04)
[2019-10-30] MEDS: FAMOTIDINE 20 MG TABLET PO SCH (10:43)
[2019-10-30] MEDS: METOPROLOL TARTRATE 25 MG TABLET PO SCH (10:43)
[2019-10-30] MEDS: FLUTICASONE/UMECLIDIN/VILANTER 100-62.5-25 MCG/DOSE IH SCH (10:43)
[2019-10-30] MEDS: MULTIVITAMIN TABLET PO SCH (10:43)
[2019-10-30] MEDS: HYDROXYCHLOROQUINE SULFATE 200 MG TABLET PO SCH ×2 (10:44→17:04)
[2019-10-30] MEDS: FINASTERIDE 5 MG TABLET PO SCH (10:44)
[2019-10-30] MEDS ORDERED: LORAZEPAM INJ 2 MG/1 ML VIAL IV PRN (11:30)
[2019-10-30] MEDS: MORPHINE SULFATE 10 MG/ML INJ IV PRN ×2 (12:05→17:38)
--- NOTE | 2019-10-30 15:48 | PDOC TRANSFER SUMMARY ---
General - Admit/Disc Date/PCP Admission Date/Primary Care Provider: 10/17/19 15:20 BETH WALTERS PA-C Discharge Date: 10/30/19 - Discharge Diagnosis (1) Acute and chronic respiratory failure Is this a current diagnosis for this admission?: Yes (2) Acute encephalopathy Is this a current diagnosis for this admission?: Yes (3) COPD (chronic obstructive pulmonary disease) with chronic bronchitis Is this a current diagnosis for this admission?: Yes (4) Anemia Is this a current diagnosis for this admission?: Yes (5) Acute on chronic renal failure Is this a current diagnosis for this admission?: Yes (6) Chronic venous stasis Is this a current diagnosis for this admission?: Yes (7) Extreme obesity with alveolar hypoventilation Is this a current diagnosis for this admission?: Yes (8) Morbid obesity Is this a current diagnosis for this admission?: Yes (9) Severe muscle deconditioning Is this a current diagnosis for this admission?: Yes (10) Pulmonary hypertension Is this a current diagnosis for this admission?: Yes (11) Hyperkalemia Is this a current diagnosis for this admission?: Yes (12) Cellulitis Is this a current diagnosis for this admission?: Yes - Additional Information Resuscitation Status: Do Not Resuscitate Discharge Diet: Cardiac, Diabetic Discharge Activity: Activity As Tolerated Home Medications: Finasteride [Proscar 5 mg Tablet] 5 mg PO DAILY 10/17/19 Furosemide [Lasix 20 mg Tablet] 20 mg PO BID 10/17/19 Hydroxychloroquine Sulfate [Plaquenil 200 mg Tablet] 200 mg PO BID 10/17/19 Ipratropium/Albuterol Sulfate [Duoneb 3 ml Ampul] 1 vial NEB BIDP PRN 10/17/19 Metoprolol Tartrate [Lopressor 25 mg Tablet] 25 mg PO Q12 10/17/19 Tamsulosin HCl [Flomax 0.4 mg Cap.sr] 0.4 mg PO DAILY 10/17/19 Acetaminophen [Tylenol 325 mg Tablet] 650 mg PO Q4HP PRN tablet 10/30/19 Albuterol Sulfate [Ventolin 0.083% Neb 2.5 mg/3 mL Ampul] 2.5 mg NEB RTQ4HP PRN vial.neb 10/30/19 Docusate Sodium [Colace 100 mg Capsule] 100 mg PO DAILY capsule 10/30/19 Famotidine [Pepcid 20 mg Tablet] 20 mg PO Q12 tablet 10/30/19 Ferrous Sulfate [Feosol 325 mg Tablet] 325 mg PO DAILY tablet 10/30/19 Fluticasone/Umeclidin/Vilanter [Trelegy 100-62.5-25 Mcg Ellipta 14 Dose/Dpi] 1 inh IH DAILY inhaler 10/30/19 Hydroxychloroquine Sulfate [Plaquenil 200 mg Tablet] 200 mg PO BID tablet 10/30/19 Insulin Lispro [Humalog Insulin (Lispro) 100 unit/mL] 0 - 12 unit SUBCUT ACHS unit 10/30/19 Ipratropium/Albuterol Sulfate [Duoneb 3 ml Ampul] 3 ml NEB RTQ12 vial.neb 10/30/19 Lorazepam [Ativan Inj 2 mg/1 ml Vial] 1 mg IV Q4HP PRN vial 10/30/19 Metoprolol Tartrate [Lopressor 25 mg Tablet] 25 mg PO Q12 tablet 10/30/19 Morphine Sulfate [Morphine 10 mg/ml Inj] 2 mg IV Q4HP PRN vial 10/30/19 Multivitamin [Tab-A-Vidal (Multiple Vitamin) Tablet] 1 tab PO DAILY tablet 10/30/19 History of Present Illness Admission Date/PCP: 10/17/19 15:20 BETH WALTERS PA-C Patient complains of: The patient was brought in from home with decreased mobility, end-stage COPD and developing cellulitis in his leg. History of Present Illness: ZEINA KRUEGR is a 64 year old male who was hospitalized at [facility] and subsequently transferred to [facility]. He was discharged to [facility] on the following day he was brought to the emergency department. Please see history and physical for greater detail. It was found that the patient exhibited acute on chronic hypoxic/hypoxemic respiratory failure. He had developing cellulitis in his leg. He does have chronic venous i nsufficiency. On evaluation in the emergency department it was realized that he had an acute on chronic kidney injury. His level activity had declined as well. He was quite weak. His reports that he in fact is less mobile than when he was discharged from the hospital. She also reports that he "hurt "his ankle at rehab and we did not know if this was contributing. He is morbidly obese and wears BiPAP at night. He is on oxygen during the day. Because of his decline he was referred to the hospital service for admission. We will continue BiPAP, institute antibiotic therapy and continue his previous regimen. Hospital Course Hospital Course: The patient had a prolonged hospital course. Cellulitis resolved with antibiotic therapy Acute kidney injury has resolved The patient has acute on chronic hypercapnic and hypoxemic respiratory failure. He has end-stage COPD. During this hospitalization it was very difficult to keep him off of BiPAP. When he was off BiPAP he would become hypercapnic and confused. CT scan did not reveal any focal lesions in the brain. His encephalopathy would improve when he is back on BiPAP. He does have severe COPD with recurrent exacerbations as well as underlying history of heart disease with congestive heart failure and morbid obesity. These will contribute to a poor prognosis. During his hospitalization it was difficult to keep him off of BiPAP for an extended period without his PCO2 increasing. Because of his very poor prognosis the patient and family have decided on hospice. The patient has been accepted and will transfer to the hospice facility. He will transfer this evening. I have included the current medication regimen and will defer to the hospice physician for changes. Of note he did very well with a single dose of morphine and is very comfortable at this point. He did complete his therapy for the cellulitis and no longer requires antibiotics. He is getting nebulizer art tments. He is on furosemide. Of note, I am sending him with the Castro catheter. He has a history of prostatic hyperplasia with obstructive symptoms. His reports that even though he is on Flomax 0.4 mg and finasteride 5 mg he would have intermittent episodes of urinary retention as well as dribbling. We will also transfer with his IV in place to facilitate IV dosing of his morphine and Ativan. Physical Exam Vital Signs: Temp Pulse Resp BP Pulse Ox 98.3 F 60 18 128/52 H 98 10/30/19 12:00 10/30/19 12:00 10/30/19 12:00 10/30/19 12:10/30/19 12:00 Intake & Output 10/29/19 10/30/19 10/31/19 06:59 06:59 06:59 Intake Total 1140 1920 Output Total 2850 2800 Balance -1710 -880 Weight 150 kg 151.5 kg General appearance: PRESENT: no acute distress, cooperative, morbidly obese, well-developed, other - Currently on nasal cannula Head exam: PRESENT: atraumatic, normocephalic Ear exam: PRESENT: normal external ear exam. ABSENT: bleeding, drainage Respiratory exam: PRESENT: clear to auscultation karyna, prolonged expiratory phas, symmetrical, unlabored. ABSENT: accessory muscle use, rales, rhonchi, tachypnea, wheezes Cardiovascular exam: PRESENT: RRR, +S1, +S2 GI/Abdominal exam: PRESENT: normal bowel sounds, soft. ABSENT: distended - Protuberant abdomen, tenderness Rectal exam: PRESENT: deferred Gentrourinary exam: PRESENT: indwelling catheter - Castro catheter in place. Urine is clear. Neurological exam: PRESENT: alert, awake, oriented to person, oriented to place, oriented to situation Psychiatric exam: PRESENT: flat affect, other - Family reports that he has been very relaxed and comfortable since the intravenous morphine.. ABSENT: agitated, anxious Results Laboratory Results: 10/28/19 06:36 10/28/19 06:36 10/17/19 10/20/19 10/24/19 16:25 07:55 13:16 NT-Pro-B Natriuret Pep 273 H 969 H 524 H Impressions: Lumbar Spine X-Ray 10/17/19 11:35 IMPRESSION: Extensive degenerative disc disease, spondylosis, and facet arthropathy. Head CT 10/20/19 00:00 IMPRESSION: No acute intracranial hemorrhage, mass, or evidence of acute territorial infarct. EVIDENCE OF ACUTE STROKE: NO. Chest X-Ray 10/24/19 00:00 IMPRESSION: Rehydration versus progressing pneumonia left lower lobe. Chest/Abdomen CTA 10/24/19 16:13 IMPRESSION: 1. Small left and trace right pleural effusion with adjacent left greater than right lower lung atelectasis, cannot exclude component of a pneumonia in the left lower lung. 2. No evidence of pulmonary embolus. Transfer Plan - Disposition Transfer Plan: Patient has been accepted at inpatient hospice. A DNR was completed and will accompany the patient. - Time Spent with Patient Time spent with patient: Greater than 30 Minutes Qualifiers PATIENT BEING DISCHARGED WITH ANY OF THE FOLLOWING DIAGNOSIS: No VTE patient discharged on overlapping Therapy?: No Reason(s) for not prescribing Overlap Therapy:: Hospice Care Stroke Pt being discharged on Anti-thrombolytic therapy?: No Reason(s) for not prescribing Anti-thrombolytic therapy:: Hospice Care Stroke Pt being discharged on Anti-coagulation therapy?: No Reason(s) for not prescribing Anti-coagulation therapy:: Hospice Care Stroke Pt being discharged on Statins?: No Reason(s) for not prescribing Statins therapy:: Hospice Care HI Pt being discharged on Aspirin therapy?: No Reason(s) for not prescribing Aspirin therapy:: Hospice Care HI Pt being discharged on Statins?: No Reason(s) for not prescribing Statin therapy:: Hospice Care HI Pt discharged ACEI/ARBS?: No Reason(s) for not prescribing ACEI/ARBS:: Hospice Care Plan Discharge Plan: Transferring to [facility]. Time Spent: Greater than 30 Minutes
[2019-10-30] MEDS: TAMSULOSIN HCL 0.4 MG CAP.SR.24H PO SCH (17:04)
[2019-10-30 18:23] VITALS: BP 107/47
== END 2019-10-30 17:54 | disposition hospice, inpatient (51) | DRG 682 ==
LOC: ER 06:02 → EH 15:20 → 4S 19:01
PROVIDERS: ADMIT Hospitalist; ATTEND Hospitalist
PROC: 30233N1 Transfusion of Nonautologous Red Blood Cells into Peripheral Vein, Percutaneous Approach (ICD-10-PCS; principal; 2019-10-22)
PROC: 30233N1 Transfusion of Nonautologous Red Blood Cells into Peripheral Vein, Percutaneous Approach (ICD-10-PCS; 2019-10-23)
PROC: 5A09357 Assistance with Respiratory Ventilation, Less than 24 Consecutive Hours, Continuous Positive Airway Pressure (ICD-10-PCS; 2019-10-24)
DX: N17.9 Acute kidney failure, unspecified (principal); J96.22 Acute and chronic respiratory failure with hypercapnia; J96.21 Acute and chronic respiratory failure with hypoxia; G93.40 Encephalopathy, unspecified; I13.0 Hypertensive heart and chronic kidney disease with heart failure and stage 1 through stage 4 chronic kidney disease, or unspecified chronic kidney disease; L03.116 Cellulitis of left lower limb; E66.2 Morbid (severe) obesity with alveolar hypoventilation; Z68.42 Body mass index [BMI] 45.0-49.9, adult; Z51.5 Encounter for palliative care; J44.1 Chronic obstructive pulmonary disease with (acute) exacerbation; N13.8 Other obstructive and reflux uropathy; I27.20 Pulmonary hypertension, unspecified; D63.1 Anemia in chronic kidney disease; I50.9 Heart failure, unspecified; E11.22 Type 2 diabetes mellitus with diabetic chronic kidney disease; M19.90 Unspecified osteoarthritis, unspecified site; S90.512A Abrasion, left ankle, initial encounter; W19.XXXA Unspecified fall, initial encounter; E87.5 Hyperkalemia; I87.8 Other specified disorders of veins; N18.3 Chronic kidney disease, stage 3 (moderate); G35 Multiple sclerosis; D50.9 Iron deficiency anemia, unspecified; N40.1 Benign prostatic hyperplasia with lower urinary tract symptoms; Z66 Do not resuscitate; R25.1 Tremor, unspecified; R53.1 Weakness; R26.9 Unspecified abnormalities of gait and mobility; Y92.89 Other specified places as the place of occurrence of the external cause; Z88.6 Allergy status to analgesic agent; Z88.8 Allergy status to other drugs, medicaments and biological substances; Z87.891 Personal history of nicotine dependence; Z82.49 Family history of ischemic heart disease and other diseases of the circulatory system; Z83.6 Family history of other diseases of the respiratory system
CPT/HCPCS: 36415; 36430; 36600; 51702; 70450; 71045; 71275; 72110; 80048; 80053; 80076; 81001; 82140; 82803; 82962; 83605; 83735; 83880; 84100; 84132; 84443; 85025; 85027; 85379; 85610; 85730; 86850; 86900; 86901; 86920; 87086; 93005; 93010; 94660; 94667; 94668; 94799; 96374; 96375; 99285; J0610; J0696; J1644; J1815; J1940; J2270; J3490; J7030; J7620; P9016